=== PATIENT | female | born 1950 | race Two or more races ===

== ENCOUNTER 2020-02-16 13:36 | Outpatient (REF) | payer MEDICARE, OTHER, SELFPAY ==
--- NOTE | 2020-02-16 | MM_ITS ---
EXAMINATION: MM SCREENING DIGITAL BREAST TOMOSYNTHESIS, BILATERAL CLINICAL INFORMATION: Screening. Asymptomatic. The lifetime risk of breast cancer based on the Tyrer-Cuzick Model is 3%. COMPARISON: Mammography: 08/28/2018, 08/16/2017, 08/13/2016 TECHNIQUE: Digital breast tomosynthesis is performed in both the craniocaudal and mediolateral oblique views along with computer-aided detection (CAD). Synthesized 2D images are generated from the tomosynthesis. FINDINGS: There are scattered areas of fibroglandular density (ACR BI-RADS breast composition Category b). There are no significant masses, abnormal calcifications, or other abnormalities. Parenchymal pattern is similar to prior studies. Again, there is biopsy clip marker central right breast mid depth and some scattered bilateral benign calcifications. Bulky heavily calcified nodule left breast again seen. No significant changes. IMPRESSION: No significant changes from prior studies. ASSESSMENT: BI-RADS 2: Benign RECOMMENDATION: Routine annual mammography screening. This patient's information was entered into a reminder system with a target due date for their next mammogram.
== END 2020-02-16 13:37 | disposition home or self-care (01) ==
LOC: HO.MAMMO 13:36
PROVIDERS: PCP Internal Medicine; Visit Provider Internal Medicine
DX: Z12.31 Encounter for screening mammogram for malignant neoplasm of breast (principal)
CPT/HCPCS: 77063; 77067; 78014

== ENCOUNTER 2021-01-23 06:20 | Day surgery (SDC) | payer MEDICARE, OTHER, SELFPAY ==
[2021-01-18 08:23] VITALS: BMI 32.1
[2021-01-23 06:35] VITALS: BP 150/69; PULSE 75; RESP 16; TEMP 36.1; O2SAT 98
--- NOTE | 2021-01-23 07:26 | MHC.SHP ---
Pre-Procedural Eval Section A Date of Service: 01/23/21 The patient is an INPATIENT: No Changes since office visit: No Cold of Flu in the past 2 weeks, No New Medical Problems, No Changes in Medication and No Patient answered all questions The History & Physical has been completed within 30 days and I have reviewed it.: Yes Section B Chief Complaint: cataract Allergies: Allergies Allergy/AdvReac Type Severity Reaction Status Date / Time No Known Allergies Allergy Unverified 01/18/21 08:22 [No Known Allergies*] Plan Diagnosis/Plan: Unchanged I have reviewed the history and physical and performed a pertinent physical examination on my patient. No changes have occurred unless specified.
--- NOTE | 2021-01-23 07:36 | P.CONAN_ITS ---
HPI - Anesthesia Eval Consult details Narrative: 70yo female patient for Right cataract extraction, IOL insertion PMFSH Active Problems Active Problems: HTN Elevated cholesterol Past Medical History Medical History Elevated cholesterol HTN (hypertension) Pre-diabetes Seasonal allergies Thoracic spine pain Family History Family history of problems with anesthesia: No Surgical History Surgical History History of bilateral breast reduction surgery Hx laparoscopic cholecystectomy Hx of colonoscopy History of Problems with Anesthesia: No Social History Social History Are you a primary care assistant to a significant other at home: No Do you presently have visiting nurse or other home services: No Patient Tobacco Use Status: Never used Tobacco Second Hand Smoke Exposure: No Use of substances other than those prescribed or required for medical reasons: No Have you been hit, kicked, punched, or otherwise hurt by someone within the past year? If so, by whom?: No Are you DNR?: No Advance Directives: No Advance Directives Information Provided: No Advance Directives on File: No Recently lost weight without trying: No Eating poorly because of decreased appetite: No Nutrition Risks: No Nutritional Risk Patient : No Meds Allergies Allergy/AdvReac Type Severity Reaction Status Date / Time No Known Allergies Allergy Unverified 01/18/21 08:22 [No Known Allergies*] Active Medications: Current Medications Generic Name Dose Route Start Last Admin Trade Name Freq PRN Reason Stop Dose Admin Cyclopentolate HCl 1 drop 01/23/21 07:30 Cyclopentolate 1 % Ophth Dee 2 Ml Drpbtl EYE-RIGHT 01/23/21 07:41 Q5M CONNIE Ketorolac Tromethamine 1 drop 01/23/21 07:30 Ketorolac Tromethamine 0.5% Op 3 Ml Drops EYE-RIGHT 01/23/21 07:41 Q5M CONNIE Phenylephrine HCl 1 drop 01/23/21 07:30 Phenylephrine Hcl 2.5% Oph Dee 2 Ml Bottle EYE-RIGHT 01/23/21 07:41 Q5M CONNIE Povidone Iodine 1 appl 01/23/21 07:29 Povidone Iodine 5 % Ophth Soln 30 Ml Bottle EYE-RIGHT PREOP PRN Pre-Op Surgical Implant Prophy Tropicamide 1 drop 01/23/21 07:30 Tropicamide 1 % Ophth Dee 3 Ml Btl EYE-RIGHT 01/23/21 07:41 Q5M [facility] Home Medications Medication Instructions Recorded Confirmed Last Taken Type albuterol sulfate 90 mcg/actuation 2 puff INHALATION Q4-6H PRN 01/18/21 01/18/21 Unknown History aerosol inhaler (ProAir HFA) amlodipine 2.5 mg tablet 2.5 mg PO DAILY 01/18/21 01/18/21 01/23/21 History atorvastatin 80 mg tablet 80 mg PO DAILY 01/18/21 01/18/21 Unknown History ibuprofen 600 mg tablet 600 mg PO TID PRN 01/18/21 01/18/21 Unknown History loratadine 10 mg tablet 10 mg PO DAILY 01/18/21 01/18/21 Unknown History Exam Exam Date and Time: January 23, 2021 0736 Height,Weight and Vital Signs: Height 5 ft 2 in Weight 79.832 kg Last Vital Signs Temp 97.0 F 01/23/21 06:35 Pulse 75 01/23/21 06:35 Resp 16 01/23/21 06:35 BP 150/69 H 01/23/21 06:35 Pulse Ox 98 01/23/21 06:35 Airway Mallampati Class: II TM Dist: >3cm Neck ROM: Full Partial: Lower Heart: RRR Lungs: CTAB Assessment and Plan Assessment Anesthesia Assessment: Anesthesia Plan Discussed and Chart Reviewed Final Anesthetic Review Family History of Problems with Anesthesia: No History of Problems with Anesthesia: No NPO: Yes ASA Class: II Final Preanesthetic Review: No Changes in Pt Med Stat, Meds/Allgs Chart Reviewed, Consent Obtained/Reviewed and Anes Risks/Benef Reviewed Patient Risk: Low Procedure Risk: Low Assessment/Block/Sedation in SS: Assess/Block/Sedation-SS Anesthetic Plan Anesthetic Plan: MAC: Disposition: Standard PACU
--- NOTE | 2021-01-23 07:56 | HO.PNOPHT ---
Ophthalmology Procedure Procedure Date of Service: 01/23/21 Ophthalmology Viscoelastic: Healon Duet Dual Pack Pro Ophthalmology Lenses: TECNIS [id number] (21.5) Procedure Notes: PREOPERATIVE DIAGNOSIS: Decreased visual acuity right eye secondary to cataract POSTOPERATIVE DIAGNOSIS: Same PROCEDURE: Right cataract extraction with intraocular lens insertion SURGEON: Renard Mane M.D. ANESTHESIA: Topical/MAC ESTIMATED BLOOD LOSS: None COMPLICATIONS: None After obtaining informed consent, the patient was brought to the operating room suite and placed in the supine position. After adequate sedation per anesthesia, topical drops of Tetracaine were given to the right eye. The eye was then prepped and draped in the usual sterile fashion. The operating room microscope was then positioned over the operative eye and a lid speculum placed. A paracentesis was created. Viscoelastic was then instilled into the anterior chamber. A three plane incision was then created temporally, utilizing a 2.85 mm keratome. Capsulotomy forceps were then utilized to create a circular tear capsulotomy. Hydrodissection and hydrodelineation were carried out until adequate mobilization of the nucleus occurred. Phacoemulsification was then utilized to remove the dense central nucleus followed by removal of the cortical material utilizing the automated aspiration irrigation unit. Viscoelastic was instilled into the posterior capsular bag followed by placement of a posterior chamber intraocular lens without difficulty. The residual Viscoelastic was then removed utilizing the automated IA machine. The wound was checked and found to be watertight. The patient tolerated the procedure well and the lid speculum was removed. Intracameral injection of Vigamox 0.1 mL followed by a subtenon injection of Kenalog-40 0.2 mL were administered. The patient will be seen in the a.m.
[2021-01-23 08:23] VITALS: BP 137/71; PULSE 74; RESP 18; TEMP 35.9; O2SAT 100
== END 2021-01-23 08:30 | disposition home or self-care (01) ==
PROVIDERS: PCP Internal Medicine; Visit Provider Ophthalmology
PROC: (CPT 66985; principal; 2021-01-23 08:00)
DX: H25.11 Age-related nuclear cataract, right eye (principal); H54.7 Unspecified visual loss; I10 Essential (primary) hypertension; R73.03 Prediabetes; J30.2 Other seasonal allergic rhinitis; Z79.1 Long term (current) use of non-steroidal anti-inflammatories (NSAID); Z79.899 Other long term (current) drug therapy
CPT/HCPCS: 66984; J2250; J3300; V2632

== ENCOUNTER 2021-02-06 08:38 | Day surgery (SDC) | payer MEDICARE, OTHER, SELFPAY ==
[2021-01-18 08:26] VITALS: BMI 32.1
--- NOTE | 2021-02-01 13:04 | MHC.SHP ---
Pre-Procedural Eval Section A Date of Service: 02/01/21 The patient is an INPATIENT: No Changes since office visit: No Cold of Flu in the past 2 weeks, No New Medical Problems, No Changes in Medication and No Patient answered all questions The History & Physical has been completed within 30 days and I have reviewed it.: Yes Section B Chief Complaint: cataract Allergies: Allergies Allergy/AdvReac Type Severity Reaction Status Date / Time No Known Allergies Allergy Unverified 01/18/21 08:22 [No Known Allergies*] Plan Diagnosis/Plan: Unchanged I have reviewed the history and physical and performed a pertinent physical examination on my patient. No changes have occurred unless specified.
--- NOTE | 2021-02-03 08:29 | P.CONAN_ITS ---
Documented by User: Mali Cuadra NP 02/03/21 08:31 HPI - Anesthesia Eval Consult details Narrative: 70yo F for Left Cataract Extraction IOL Insertion PCP cleared R eye 01/23/21 with MAC: Midaz 2 PMFSH Past Medical History Medical History Elevated cholesterol HTN (hypertension) Pre-diabetes Seasonal allergies Thoracic spine pain Family History Family history of problems with anesthesia: No Surgical History Surgical History (Updated 01/31/21 @ 15:15 by Chloé Nieves RN) History of bilateral breast reduction surgery History of cataract extraction Hx laparoscopic cholecystectomy Hx of colonoscopy History of Problems with Anesthesia: No Social History Social History Are you a primary customer care associate to a significant other at home: No Do you presently have visiting nurse or other home services: No Patient Tobacco Use Status: Never used Tobacco Second Hand Smoke Exposure: No Use of substances other than those prescribed or required for medical reasons: No Have you been hit, kicked, punched, or otherwise hurt by someone within the past year? If so, by whom?: No Are you DNR?: No Advance Directives: No Advance Directives Information Provided: No Advance Directives on File: No Recently lost weight without trying: No Eating poorly because of decreased appetite: No Nutrition Risks: No Nutritional Risk Meds Allergies Allergy/AdvReac Type Severity Reaction Status Date / Time No Known Allergies Allergy Unverified 01/18/21 08:22 [No Known Allergies*] Home Medications Medication Instructions Recorded Confirmed Last Taken Type albuterol sulfate 90 mcg/actuation 2 puff INHALATION Q4-6H PRN 01/18/21 01/18/21 Unknown History aerosol inhaler (ProAir HFA) amlodipine 2.5 mg tablet 2.5 mg PO DAILY 01/18/21 01/18/21 02/06/21 History atorvastatin 80 mg tablet 80 mg PO DAILY 01/18/21 01/18/21 Unknown History ibuprofen 600 mg tablet 600 mg PO TID PRN 01/18/21 01/18/21 Unknown History loratadine 10 mg tablet 10 mg PO DAILY 01/18/21 01/18/21 Unknown History Exam Exam Date and Time: February 03, [id number] Height,Weight and Vital Signs: Height 5 ft 2 in Weight 79.832 kg Assessment and Plan Assessment Anesthesia Assessment: Chart Reviewed Final Anesthetic Review Family History of Problems with Anesthesia: No History of Problems with Anesthesia: No Documented by User: Oliver Guerrero MD 02/06/21 09:46 [facility] Past Medical History Medical History Elevated cholesterol HTN (hypertension) Pre-diabetes Seasonal allergies Thoracic spine pain Surgical History Surgical History (Updated 01/31/21 @ 15:15 by Chloé Nieves RN) History of bilateral breast reduction surgery History of cataract extraction Hx laparoscopic cholecystectomy Hx of colonoscopy Social History Social History Are you a primary customer care associate to a significant other at home: No Do you presently have visiting nurse or other home services: No Patient Tobacco Use Status: Never used Tobacco Second Hand Smoke Exposure: No Use of substances other than those prescribed or required for medical reasons: No Have you been hit, kicked, punched, or otherwise hurt by someone within the past year? If so, by whom?: No Are you DNR?: No Advance Directives: No Advance Directives Information Provided: No Advance Directives on File: No Recently lost weight without trying: No Eating poorly because of decreased appetite: No Nutrition Risks: No Nutritional Risk Meds Allergies Allergy/AdvReac Type Severity Reaction Status Date / Time No Known Allergies Allergy Unverified 01/18/21 08:22 [No Known Allergies*] Home Medications Medication Instructions Recorded Confirmed Last Taken Type albuterol sulfate 90 mcg/actuation 2 puff INHALATION Q4-6H PRN 01/18/21 01/18/21 Unknown History aerosol inhaler (ProAir HFA) amlodipine 2.5 mg tablet 2.5 mg PO DAILY 01/18/21 01/18/21 02/06/21 History atorvastatin 80 mg tablet 80 mg PO DAILY 01/18/21 01/18/21 Unknown History ibuprofen 600 mg tablet 600 mg PO TID PRN 01/18/21 01/18/21 Unknown History loratadine 10 mg tablet 10 mg PO DAILY 01/18/21 01/18/21 Unknown History Exam Airway Mallampati Class: II TM Dist: >3cm Neck ROM: Full Loose/Missing/Broken Teeth: No Heart: [id number] Lungs: cta b/l Assessment and Plan Assessment Anesthesia Assessment: Anesthesia Plan Discussed Final Anesthetic Review NPO: Yes ASA Class: III Final Preanesthetic Review: No Changes in Pt Med Stat, Meds/Allgs Chart Reviewed, Consent Obtained/Reviewed and Anes Risks/Benef Reviewed Patient Risk: Intermediate Procedure Risk: Low Assessment/Block/Sedation in SS: Assess/Block/Sedation-SS Anesthetic Plan Anesthetic Plan: MAC: and Agree w/ Assess. and Plan Disposition: Standard PACU
[2021-02-06 09:44] VITALS: BP 149/84; PULSE 71; RESP 16; TEMP 35.9; O2SAT 97
[2021-02-06] MEDS: Tetracaine HCl/PF 0.5% Oph Sol 4 ML DROPS 1 DROP EYE-LEFT (09:46)
[2021-02-06] MEDS: Tropicamide 1 % Ophth Sol 3 ML BTL 1 DROP EYE-LEFT ×3 (09:47→09:57)
[2021-02-06] MEDS: Phenylephrine HCL 2.5% Oph SoL 2 ML BOTTLE 1 DROP EYE-LEFT ×3 (09:51→10:02)
[2021-02-06] MEDS: Lactated Ringers 500 ML 50 ML IV (10:00)
--- NOTE | 2021-02-06 10:42 | HO.PNOPHT ---
Ophthalmology Procedure Procedure Date of Service: 02/06/21 Ophthalmology Viscoelastic: Healon Duet Dual Pack Pro Ophthalmology Lenses: TECKEDAR [id number] (22) Procedure Notes: PREOPERATIVE DIAGNOSIS: Decreased visual acuity left eye secondary to cataract POSTOPERATIVE DIAGNOSIS: Same PROCEDURE: Left cataract extraction with intraocular lens insertion SURGEON: Renard Mane M.D. ANESTHESIA: Topical/MAC ESTIMATED BLOOD LOSS: None COMPLICATIONS: None After obtaining informed consent, the patient was brought to the operation room suite and placed in the supine position. After adequate sedation per anesthesia, topical drops of Tetracaine were given to the left eye. The eye was then prepped and draped in the usual sterile fashion. The operating room microscope was then positioned over the operative eye and a lid speculum placed. A paracentesis was created. Viscoelastic was then instilled into the anterior chamber. A three plane incision was then created temporally, utilizing a 2.85 mm keratome. Capsulotomy forceps were then utilized to create a circular tear capsulotomy. Hydrodissection and hydrodelineation were carried out until adequate mobilization of the nucleus occurred. Phacoemulsification was then utilized to remove the dense central nucleus followed by removal of the cortical material utilizing the automated aspiration irrigation unit. Viscoat elastic was instilled into the posterior capsular bag followed by placement of a posterior chamber intraocular lens without difficulty. The residual Viscoat elastic was then removed utilizing the automated IA machine. The wound was check and found to be watertight. The patient tolerated the procedure well and the lid speculum was removed. Intracameral injection of Vigamox 0.1 mL followed by a subtenon injection of Kenalog-40 0.2 mL were administered. The patient will be seen in the a.m.
[2021-02-06 11:06] VITALS: BP 141/71; PULSE 63; RESP 16; TEMP 36; O2SAT 95
== END 2021-02-06 11:17 | disposition home or self-care (01) ==
PROVIDERS: PCP Internal Medicine; Visit Provider Ophthalmology
PROC: (CPT 66985; principal; 2021-02-06 10:50)
DX: H25.12 Age-related nuclear cataract, left eye (principal); I10 Essential (primary) hypertension; Z79.899 Other long term (current) drug therapy
CPT/HCPCS: 66984; J2250; J3010; J3300; V2632

== ENCOUNTER 2021-04-25 15:00 | Outpatient (RCR) | payer MEDICARE, MEDICAID, SELFPAY | END 2021-05-11 11:50 | disposition home or self-care (01) | LOC: HO.PT 15:00 | PROVIDERS: PCP Internal Medicine; Visit Provider Internal Medicine | DX: M54.6 Pain in thoracic spine (principal) | CPT/HCPCS: 97110; 97112; 97140; 97161 ==

== ENCOUNTER 2021-04-28 08:17 | Outpatient (REF) | payer MEDICARE, MEDICAID, SELFPAY ==
--- NOTE | ~2021-04-28 | MM_ITS ---
EXAMINATION: MM SCREENING DIGITAL BREAST TOMOSYNTHESIS, BILATERAL CLINICAL INFORMATION: Screening. Asymptomatic. Remote prior reduction mammoplasty, 2008. The lifetime risk of breast cancer based on the Tyrer-Cuzick Model is 4%. COMPARISON: Mammography: 02/16/2020, 08/28/2018, 08/16/2017 TECHNIQUE: Digital breast tomosynthesis is performed in both the craniocaudal and mediolateral oblique views along with computer-aided detection (CAD). Synthesized 2D images are generated from the tomosynthesis. FINDINGS: There are scattered areas of fibroglandular density (ACR BI-RADS breast composition Category b). Parenchymal pattern is similar to prior studies. Stable heavily calcified mass central left breast and scattered benign coarse and some fine calcifications in the breasts are again noted. Biopsy clip marker x2 again seen on right. No developing density or significant mass or architectural abnormality. No significant changes. MM/MM tomosynthesis screening BI IMPRESSION: No mammographic evidence of malignancy. ASSESSMENT: BI-RADS 2: Benign RECOMMENDATION: Routine annual mammography screening. This patient's information was entered into a reminder system with a target due date for their next mammogram.
== END 2021-04-28 08:18 | disposition home or self-care (01) ==
LOC: HO.MAMMO 08:17
PROVIDERS: Visit Provider Internal Medicine
DX: Z12.31 Encounter for screening mammogram for malignant neoplasm of breast (principal)
CPT/HCPCS: 77063; 77067

== ENCOUNTER → 2021-09-26 14:26 | Outpatient (BNVA) | payer OTHER, MEDICAID, SELFPAY | PROVIDERS: PCP Internal Medicine; Visit Provider Surgery Vascular Surgery | DX: I83.11 Varicose veins of right lower extremity with inflammation (principal) ==

== ENCOUNTER 2021-10-13 14:51 | Emergency (ER) | payer OTHER, MEDICAID, SELFPAY ==
[2021-10-13 15:04] VITALS: BP 139/72; PULSE 70; RESP 16; TEMP 36.3; O2SAT 97; BMI 32.2
--- NOTE | 2021-10-13 19:14 | ED.SKABFB ---
HPI - Skin/Abscess/Foreign Bdy General Chief complaint: Skin/Abscess/Foreign Body Stated complaint: Poison liliana, rash? Time Seen by Provider: 10/13/21 16:59 Source: patient Mode of arrival: ambulatory Limitations: language barrier History of Present Illness HPI narrative: 71-year-old Bangladeshi-speaking female presents for a rash on her bilateral legs that is spreading and itchy that has lasted for 3 weeks. No pain, no fevers. Patient states she saw her primary care provider and got calamine lotion and allergy pills. She has a past medical history of hypertension hyperlipidemia, she is not diabetic Related Data Home Medications Medication Instructions Recorded Confirmed albuterol sulfate 90 mcg/actuation 2 puff INHALATION Q4-6H PRN 01/18/21 01/18/21 aerosol inhaler (ProAir HFA) amlodipine 2.5 mg tablet 2.5 mg PO DAILY 01/18/21 01/18/21 atorvastatin 80 mg tablet 80 mg PO DAILY 01/18/21 01/18/21 ibuprofen 600 mg tablet 600 mg PO TID PRN 01/18/21 01/18/21 loratadine 10 mg tablet 10 mg PO DAILY 01/18/21 01/18/21 Previous Rx's Medication Instructions Recorded prednisone 10 mg tablet 10 mg PO DAILY 18 Days #63 tab 10/13/21 Allergies Allergy/AdvReac Type Severity Reaction Status Date / Time No Known Allergies Allergy Verified 09/26/21 14:30 [No Known Allergies*] Review of Systems Constitutional: Constitutional: Denies body ache(s), Denies chills, Denies fatigue, Denies fever(s), Denies headache(s), Denies malaise and Denies weakness Eyes: Eyes: Denies diplopia ENT: Denies vertigo, Denies dizziness, Denies headache(s) and Denies throat swelling Cardiovascular: Cardiovascular: Denies chest pain, Denies syncope, Denies leg edema, Denies lightheadedness, Denies Loss of Consciousness, Denies palpitations and Denies dyspnea Respiratory: Respiratory: Denies chest congestion, Denies cough and Denies dyspnea Gastrointestinal: Gastrointestinal: Denies abdominal pain, Denies hematochezia, Denies constipation, Denies diarrhea and Denies vomiting Musculoskeletal: Musculoskeletal: Reports no additional musculoskeletal complaints Integumentary/Breasts: Skin/Breast: Reports pruritus and Reports rash Neurologic: Denies confusion, Denies vertigo, Denies dizziness, Denies syncope, Denies headache(s) and Denies weakness Psychiatric: Psychiatric: Denies anxiety, Denies confusion and Denies depression Endocrine: Endocrine: Denies fatigue and Denies palpitations Allergic/Immunologic: Allergic/Immunologic: Denies throat swelling PMFSH Past Medical History Medical History Elevated cholesterol HTN (hypertension) Pre-diabetes Seasonal allergies Thoracic spine pain Surgical History History of bilateral breast reduction surgery History of cataract extraction Hx laparoscopic cholecystectomy Hx of colonoscopy Social History Social History Are you a primary pet care technician to a significant other at home: No Do you presently have visiting nurse or other home services: No Patient Tobacco Use Status: Never used Tobacco Second Hand Smoke Exposure: No Advance Directives: No Advance Directives Information Provided: No Physical Exam Vital Signs: Vital Signs: Last Vital Signs Temp 97.4 F 10/13/21 15:04 Pulse 70 10/13/21 15:04 Resp 16 10/13/21 15:04 BP 139/72 10/13/21 15:04 Pulse Ox 97 10/13/21 15:04 BMI result Body Mass Index 32.2 Const: General: No confusion Nutritional Appearance: well nourished Orientation/consciousness: No confusion Limitations: no limitations Eyes: Conjunctivae: conjunctivae normal Pupils: Equal, round and reactive pupils present EOM: EOMs intact bilaterally Neck: Neck: Yes full ROM, Yes no lymphadenopathy and Yes supple Resp: Effort & Inspection: normal respiratory effort and able to speak in complete sentences Auscultation: clear to auscultation bilaterally, no crackles, no rales, no rhonchi and no wheezes Cardio: Rate: regular rate Rhythm: regular rhythm Heart sounds: S1 normal heart sound present and S2 normal heart sound present GI: Inspection: Yes normal to inspection Palpation (GI): Soft to palpation, nontender, no guarding and not rigid Percussion: Yes normal to percussion Auscultation: normal bowel sounds Skin: Other: patient has linear, erythematous, vesicular rash on her bilateral upper thighs and bilateral forearms Neuro: General: No confusion Cranial nerves: Yes Equal, round and reactive pupils present Extrem: General: Yes normal to inspection and Yes full ROM Psych: Appearance: grossly normal Affect: normal affect Attitude: cooperative Thought process: Normal thought process present Course Course Course Narrative: 71 y/o female patient has linear, erythematous, vesicular rash on her bilateral upper thighs and bilateral forearms, which looks to me like poison liliana, although patient denies being in contact with any plants. Will treat with prednisone taper, counseled patient to finish taper even if her rash resolved, if she did not finish taper completely and this is poison liliana, rash can rebound Discharge Plan Discharge Clinical Impression: Contact dermatitis Patient Disposition: Home, Self-Care Instructions: Contact Dermatitis (ED), Poison Liliana (ED), Cold Compress or Soak (ED) Additional Instructions: I think you have something called contact dermatitis, which means your skin is allergic to something you came in contact with, most likely a plan. I have prescribed the prednisone dose for you for 18 days, please take it as prescribed reducing the amount of pills he take every 3 days. Please take it even if your rash goes away, you are taking it for this long time so that your rash does not rebound and appear again if you have fevers, chest pain, shortness of breath, any new or concerning symptoms, please return to emergency room Creo que tienes algo llamado dermatitis de contacto, lo que significa que tu piel es al?rgica a algo con lo que entraste en contacto, lo m?s probable es que sea un plan. Le he recetado la dosis de prednisona para 18 d?as, por favor t?jose seg?n lo prescrito reduciendo la cantidad de pastillas que hollis cada 3 d?as. T?mayer incluso si liu sarpullido desaparece, lo est? tomando bharath tanto tiempo para que liu sarpullido no rebote y aparezca nuevamente. si tiene fiebre, dolor en el pecho, dificultad para respirar, cualquier s?ntoma nuevo o preocupante, regrese a la chucho de emergencias Prescriptions: New prednisone 10 mg tablet 10 mg PO DAILY 18 Days Qty: 63 0RF Rx Instructions: Take 6 tabs for 3 days, take 5 tabs for 3 days, take 4 tabs for 3 days, 3 tabs for 3 days, 2 tabs for 3 days, 1 tab for 3 days No Action atorvastatin 80 mg Tablet 80 mg PO DAILY 0RF amlodipine 2.5 mg Tablet 2.5 mg PO DAILY 0RF ibuprofen 600 mg Tablet 600 mg PO TID PRN (Reason: Pain) 0RF albuterol sulfate [ProAir HFA] 90 mcg/actuation Hfa Aerosol Inhaler 2 puff INHALATION Q4-6H PRN (Reason: Wheezing) 0RF loratadine 10 mg Tablet 10 mg PO DAILY 0RF Interventions: ED Discharge Assessment Last Done: 10/13/21 17:13 Discharge Date/Time: 10/13/21 17:13 Print Language: Bangladeshi
== END 2021-10-13 17:13 | disposition home or self-care (01) ==
PROVIDERS: Emergency Provider Student in an Organized Health Care Education/Training Program; PCP Internal Medicine
DX: L25.9 Unspecified contact dermatitis, unspecified cause (principal); I10 Essential (primary) hypertension
CPT/HCPCS: 99283

== ENCOUNTER 2021-10-27 15:10 | Outpatient (REF) | payer OTHER, SELFPAY ==
[2021-10-27 15:50] LABS: COVID-19 Test Negative (Negative)
== END 2021-10-27 15:11 | disposition home or self-care (01) ==
LOC: HO.LAB 15:10
PROVIDERS: Visit Provider Internal Medicine
DX: Z20.822 Contact with and (suspected) exposure to COVID-19 (principal)
CPT/HCPCS: 87635; C9803

== ENCOUNTER 2021-11-09 12:56 | Outpatient (REF) | payer OTHER, SELFPAY ==
--- NOTE | ~2021-11-09 | US_ITS ---
EXAMINATION: US LOWER EXTREMITY VENOUS (REFLUX EXAM), BILATERAL CLINICAL INDICATION: Chronic venous insufficiency with a lower extremity varicose veins COMPARISON: None. TECHNIQUE: Color flow triplex imaging and compression Doppler was performed to evaluate both the deep and the superficial systems bilaterally. To evaluate the superficial system, the examination was performed in the upright position. Color-flow Doppler ultrasound and compression ultrasound were utilized. In addition, maneuvers were utilized to demonstrate reflux. FINDINGS: 1. DEEP VENOUS ULTRASOUND OF THE RIGHT LOWER EXTREMITY: Common Femoral Vein: Compressible, normal respiratory variation and augmented flow. Femoral Vein: Compressible, normal color flow and augmentation. Popliteal Vein: Compressible, normal augmentation. Deep Reflux: There is no evidence of reflux in the deep system in either the common femoral vein or the popliteal vein. There is no evidence of a Allen's cyst. 2. SUPERFICIAL ULTRASOUND WITH DOPPLER OF RIGHT LOWER EXTREMITY: GREAT SAPHENOUS VEIN: Saphenofemoral Junction: 7.2 mm; No evidence of reflux. Proximal Thigh: 5.6 mm; No evidence of reflux. Mid Thigh: 3.6 mm; No evidence of reflux. Above Knee: 3.7 mm; No evidence of reflux. At Knee: 3.0 mm; No evidence of reflux. Below Knee: 3.0 mm; No evidence of reflux. Mid Calf: 2.4 mm; No evidence of reflux. Ankle: 2.7 mm; No evidence of reflux. DUPLICATED GREAT SAPHENOUS VEIN: There is a lateral duplicated great saphenous vein measuring 3 mm without significant reflux SMALL SAPHENOUS VEIN: Proximal: 4.4 mm; No evidence of reflux. Distal: 4.2 mm; No evidence of reflux. VEIN OF GIACOMINI: None Imaged. PERFORATORS: None Imaged VARICOSITIES: Multiple small branch veins of the great saphenous vein throughout the thigh and calf measuring less than 3 mm. There is a varicose vein in the posterior calf off the small saphenous vein measuring 3 mm without significant reflux 3. DEEP VENOUS ULTRASOUND OF THE LEFT LOWER EXTREMITY: Common Femoral Vein: Compressible, normal respiratory variation and augmented flow. Femoral Vein: Compressible, normal color flow and augmentation. Popliteal Vein: Compressible, normal augmentation. Deep Reflux: There is no evidence of reflux in the deep system in either the common femoral vein or the popliteal vein. There is no evidence of a Allen's cyst. 4. SUPERFICIAL ULTRASOUND WITH DOPPLER OF LEFT LOWER EXTREMITY: GREAT SAPHENOUS VEIN: Saphenofemoral Junction: 3.6 mm; No evidence of reflux. Proximal Thigh: 4.6 mm; No evidence of reflux. Mid Thigh: 3.9 mm; No evidence of reflux. Above Knee: 3.5 mm; No evidence of reflux. At Knee: 3.3 mm; reflux measures 2.7 seconds Below Knee: 2.2 mm; No evidence of reflux. Mid Calf: 2.1 mm; No evidence of reflux. Ankle: 1.9 mm; No evidence of reflux. DUPLICATED GREAT SAPHENOUS VEIN: There is a lateral duplicated great saphenous vein measuring 4.3 mm without significant reflux SMALL SAPHENOUS VEIN: Proximal: 3.6 mm; No evidence of reflux. Distal: 2.6 mm; No evidence of reflux. VEIN OF GIACOMINI: None Imaged. PERFORATORS: None Imaged VARICOSITIES: Multiple small branches are seen off the great saphenous vein throughout the thigh and calf measuring less than 3 mm without significant reflux. There is a varicose vein at the level the knee measuring 3 mm with reflux measuring 2.8 seconds US/US venous duplex LE BI IMPRESSION: 1. No evidence of deep venous thrombosis 2. No significant superficial venous reflux in the right lower extremity. 3. Focal segmental reflux in the left great saphenous vein at the level of the knee with an adjacent reflux and varicose vein 4. Scattered small branch veins arising from the bilateral great saphenous veins without significant reflux
== END 2021-11-09 12:57 | disposition home or self-care (01) ==
LOC: HO.US 12:56
PROVIDERS: Visit Provider Surgery Vascular Surgery
DX: I83.11 Varicose veins of right lower extremity with inflammation (principal)
CPT/HCPCS: 93970

== ENCOUNTER → 2021-11-16 15:06 | Outpatient (BNVA) | payer OTHER, SELFPAY | PROVIDERS: PCP Internal Medicine; Visit Provider Surgery Vascular Surgery | DX: I83.11 Varicose veins of right lower extremity with inflammation (principal) | CPT/HCPCS: 99212 ==

== ENCOUNTER → 2022-02-02 09:41 | Outpatient (BNVA) | payer OTHER, SELFPAY | PROVIDERS: PCP Internal Medicine; Referring Provider Internal Medicine; Visit Provider Nurse Practitioner Family | DX: K59.00 Constipation, unspecified (principal); K64.9 Unspecified hemorrhoids; K62.5 Hemorrhage of anus and rectum | CPT/HCPCS: 99202 ==

== ENCOUNTER 2022-04-19 14:29 | Emergency (ER) | payer OTHER, SELFPAY ==
[2022-04-19 15:05] VITALS: BP 127/82; PULSE 84; RESP 20; TEMP 36.1; O2SAT 96; BMI 30.2
--- NOTE | 2022-04-19 15:09 | ED.SKABFB ---
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 Patient diagnosed with shingles and took a course of Valtrex and prednisone with continued symptoms. No pain/burning to the rash. No fevers, chills. No new medications lotions, detergents, products/medications, Related Data Home Medications Medication Instructions Recorded Confirmed albuterol sulfate 90 mcg/actuation 2 puff inhalation Q4-6H PRN 01/18/21 01/18/21 aerosol inhaler (ProAir HFA) Wheezing amlodipine 2.5 mg tablet 2.5 mg PO DAILY 01/18/21 01/18/21 atorvastatin 80 mg tablet 80 mg PO DAILY 01/18/21 01/18/21 ibuprofen 600 mg tablet 600 mg PO TID PRN Pain 01/18/21 01/18/21 loratadine 10 mg tablet 10 mg PO DAILY 01/18/21 01/18/21 ibuprofen 200 mg tablet 400 mg PO Q8H 02/02/22 Previous Rx's Medication Instructions Recorded docusate sodium 100 mg capsule 100 mg PO BEDTIME #90 caps 02/02/22 hydrocortisone 2.5 % topical cream 1 appl [place] BID-QID PRN hemorrhoids 02/02/22 with perineal applicator #30 grams (Proctosol HC) hydrocortisone 2.5 % topical cream 1 appl topical QID PRN rash #30 04/19/22 grams hydroxyzine HCl 25 mg tablet 25 mg PO Q6H PRN itching #30 tabs 04/19/22 loratadine 10 mg tablet 10 mg PO DAILY PRN allergic 04/19/22 symptoms #30 tabs prednisone 20 mg tablet 40 mg PO DAILY #10 tabs 04/19/22 Allergies Allergy/AdvReac Type Severity Reaction Status Date / Time No Known Allergies Allergy Verified 02/02/22 10:32 [No Known Allergies*] Review of Systems Review of Systems: Yes all other systems are reviewed and are negative Constitutional: Constitutional: Reports no additional constitutional complaints, Denies body ache(s), Denies chills, Denies fever(s), Denies headache(s) and Denies weakness Eyes: Eyes: Reports no additional eye complaints and Denies change in vision ENT: Reports system reviewed and no additional complaints, except as documented, Denies dizziness, Denies headache(s), Denies nasal congestion, Denies nasal discharge and Denies neck pain Cardiovascular: Cardiovascular: Reports no additional cardiovascular complaints, Denies chest pain, Denies leg edema and Denies dyspnea Respiratory: Respiratory: Reports no additional respiratory complaints, Denies cough and Denies dyspnea Gastrointestinal: Gastrointestinal: Reports no additional gastrointestinal complaints, Denies abdominal pain, Denies diarrhea, Denies nausea and Denies vomiting Genitourinary: Genitourinary: Reports no additional female genitourinary complaints and Denies urinary incontinence Musculoskeletal: Musculoskeletal: Reports no additional musculoskeletal complaints, Denies back pain, Denies arthralgias, Denies joint swelling, Denies neck pain, Denies numbness and Denies tingling Integumentary/Breasts: Skin/Breast: Reports system reviewed and no additional complaints, except as docu and Reports rash Neurologic: Reports system reviewed and no additional complaints, except as documented, Denies Abnormal speech present, Denies dizziness, Denies headache(s), Denies numbness, Denies tingling and Denies weakness PMFSH Past Medical History Attestation statement: The following information was validated with the patient. Source: old records reviewed and nursing notes reviewed Medical History Elevated cholesterol HTN (hypertension) Pre-diabetes Seasonal allergies Thoracic spine pain Surgical History History of bilateral breast reduction surgery History of cataract extraction Hx laparoscopic cholecystectomy Hx of colonoscopy Social History Social History Are you a primary school childcare attendant to a significant other at home: No Do you presently have visiting nurse or other home services: No Patient Tobacco Use Status: Never used Tobacco Second Hand Smoke Exposure: No Advance Directives: No Advance Directives Information Provided: No Physical Exam Vital Signs: Vital Signs: Last Vital Signs Temp 96.9 F 04/19/22 15:05 Pulse 84 04/19/22 15:05 Resp 20 12/08/22 15:05 BP 127/82 04/19/22 15:05 Pulse Ox 96 04/19/22 15:05 O2 Del Method 04/19/22 15:05 BMI result Body Mass Index 30.2 Const: General: cooperative, healthy appearing, comfortable and no acute distress Orientation/consciousness: patient oriented x3 Limitations: no limitations HEENT: Head: Yes normal to inspection Ears: hearing grossly normal bilaterally General nose exam: Normal external nose present Face and sinus: Yes normal facial exam Mouth: Normal oral and palatal mucosa present Throat: Yes posterior oropharynx normal Eyes: General: appearance normal, both eyes and all related structures Pupils: Equal, round and reactive pupils present Neck: Neck: Yes normal visual inspection Chest: Chest palpation & inspection: normal inspection of the chest Resp: Effort & Inspection: normal respiratory effort Auscultation: clear to auscultation bilaterally Cardio: Rate: regular rate Rhythm: regular rhythm Peripheral pulses: Peripheral pulses 2+ throughout GI: Inspection: Yes normal to inspection Palpation (GI): Soft to palpation and nontender Auscultation: normal bowel sounds Back/Spine/Pelvis: Thoracic/Lumbar Spine: thoracic and lumbar spine normal to inspection Skin: Other: However the trunk, arms and legs there is a macular papular rash that is blanchable with no sloughing noted. There is some local excoriation noted around the rash. Some lesions with crusting in various stages of healing General skin exam: no rashes or lesions noted Neuro: General: patient oriented x3, no focal motor deficits and normal sensation to monofilament Cranial nerves: Yes Equal, round and reactive pupils present Cognition (Neuro): normal cognition Speech: No Abnormal speech present Gait exam (Neuro): Normal gait present Motor exam (neuro): 5/5 motor strength present throughout Extrem: General: Yes normal to inspection Medical Decision Making Medical Decision Making MDM Narrative: 71-year-old female here with a chronic itching rash for months. Exam is consistent with dermatitis. Patient placed on prednisone, given topical steroid, allergy medication and hydroxyzine for itching. At this point a beneficial for her to see a medical record specialist. Discharge Plan Discharge Clinical Impression: Dermatitis Patient Disposition: Home, Self-Care Instructions: Dermatitis (ED) Additional Instructions: Necesitas seguimiento con dermat?logo. Necesitar? da remisi?n del PCP para woody Prescriptions: New hydroxyzine HCl 25 mg tablet 25 mg PO Q6H PRN (Reason: itching) Qty: 30 0RF loratadine 10 mg tablet 10 mg PO DAILY PRN (Reason: allergic symptoms) Qty: 30 0RF prednisone 20 mg tablet 40 mg PO DAILY Qty: 10 0RF hydrocortisone 2.5 % cream 1 appl topical QID PRN (Reason: rash) Qty: 30 0RF No Action atorvastatin 80 mg Tablet 80 mg PO DAILY amlodipine 2.5 mg Tablet 2.5 mg PO DAILY ibuprofen 600 mg Tablet 600 mg PO TID PRN (Reason: Pain) albuterol sulfate [ProAir HFA] 90 mcg/actuation Hfa Aerosol Inhaler 2 puff INHALATION Q4-6H PRN (Reason: Wheezing) loratadine 10 mg Tablet 10 mg PO DAILY ibuprofen 200 mg tablet 400 mg PO Q8H docusate sodium 100 mg capsule 100 mg PO BEDTIME Qty: 90 3RF hydrocortisone [Proctosol HC] 2.5 % cream with perineal applicator 1 appl [place] BID-QID PRN (Reason: hemorrhoids) Qty: 30 2RF Referrals: Physician,Unknown J [Physician] - 1 week Interventions: ED Discharge Assessment Last Done: 04/19/22 15:26 Discharge Date/Time: 04/19/22 15:27 Print Language: Cypriot
== END 2022-04-19 15:27 | disposition home or self-care (01) ==
LOC: HO.ED 15:24
PROVIDERS: Emergency Provider Emergency Medicine
DX: L30.9 Dermatitis, unspecified (principal); R21 Rash and other nonspecific skin eruption; M54.50 Low back pain, unspecified; Z79.899 Other long term (current) drug therapy
CPT/HCPCS: 99282; 99283

== ENCOUNTER 2022-04-27 14:11 | Outpatient (REF) | payer OTHER, MEDICAID, SELFPAY ==
--- NOTE | ~2022-04-27 | MM_ITS ---
EXAMINATION: MM SCREENING DIGITAL BREAST TOMOSYNTHESIS, BILATERAL CLINICAL INFORMATION: Screening. Asymptomatic. Prior remote reduction mammoplasty, 2008. The lifetime risk of breast cancer based on the Tyrer-Cuzick Model is 3%. COMPARISON: Mammography: 04/28/2021, 02/16/2020, 08/28/2018 TECHNIQUE: Digital breast tomosynthesis is performed in both the craniocaudal and mediolateral oblique views along with computer-aided detection (CAD). Synthesized 2D images are generated from the tomosynthesis. FINDINGS: There are scattered areas of fibroglandular density (ACR BI-RADS breast composition Category b). There are no significant masses, abnormal calcifications, or other abnormalities. There are chronic bilateral benign findings including heavily calcified nodule posterior central left breast, right biopsy clip markers, minor scarring, and scattered bilateral benign round and coarse calcifications. No developing density or architectural abnormality. No significant changes. MM/MM tomosynthesis screening BI IMPRESSION: No mammographic evidence of malignancy. ASSESSMENT: BI-RADS 2: Benign RECOMMENDATION: Routine annual mammography screening. This patient's information was entered into a reminder system with a target due date for their next mammogram.
--- NOTE | ~2022-04-27 | MM_ITS ---
EXAMINATION: BONE DENSITOMETRY CLINICAL INDICATION: Osteopenia. COMPARISON: Previous BD dated 06/12/2019 and baseline BD dated 03/20/2012. TECHNIQUE: Using a [employer] DXA System (software version: 13.1) manufactured by [employer], dual-energy x-ray absorptiometry was performed of the lumbar spine and left hip. The images are of good technical quality. Summary results are attached. FINDINGS: AP SPINE L1-L4: Current: BMD 0.959 g/cm2, Z-score -0.7, T-score -1.8, osteopenia, 4.0% decrease from previous, 0.0% no change from baseline (<5% change is not significant). Prior: BMD 0.999 g/cm2. Baseline: BMD 0.959 g/cm2. LEFT FEMUR, NECK: Current: BMD 0.714 g/cm2, Z-score -1.0, T-score -2.3, osteopenia. Prior: BMD 0.796 g/cm2. Baseline: BMD 0.818 g/cm2. LEFT FEMUR, TOTAL: Current: BMD 0.685 g/cm2, Z-score -1.4, T-score -2.6, osteoporosis, 16.8% decrease from previous, 18.0% decrease from baseline (<5% change is not significant). Prior: BMD 0.823 g/cm2. Baseline: BMD 0.835 g/cm2. IDENTIFIED RISK FACTORS: Menopause, recurrent falls. HISTORY OF FRACTURE: None listed. MEDICATIONS: Calcium. MM/XR DEXA axial skeleton IMPRESSION: 1. DIAGNOSIS: Osteoporosis based on the lowest T-score value of -2.6 in the total femur applying World Health Organization criteria. 2. 10-YEAR FRACTURE RISK PREDICTION, FRAX: According to the guidelines, FRAX calculation should only be performed on patients in the osteopenia bone density category. Therefore, FRAX was not performed on this patient. 3. Treatment Recommendations: NOF guidelines recommend consideration for treatment in postmenopausal women and men age 50 and older presenting with the following: -A hip or vertebral (clinical or morphometric) fracture. -T-score less than or equal to -2.5 at the femoral neck or spine after appropriate evaluation to exclude secondary causes. -Low bone mass at the hip or spine and a 10-year fracture probability by FRAX of greater than or equal to 3% for hip fracture or greater than or equal to 20% for major osteoporotic fracture based on the [place] adapted WHO algorithm. 4. Other Recommendations: All treatment decisions require clinical judgment and consideration of individual patient factors, including patient preferences, comorbidities, previous drug use, risk factors not captured in the FRAX model (e.g. frailty, falls, vitamin D deficiency, increased bone turnover, interval significant decline in bone density) and possible under or overestimation of fracture risk by FRAX. Additional medical evaluation for secondary cause of low bone mineral density may be appropriate. FUTURE SCAN RECOMMENDATION: People with diagnosed cases of osteoporosis or at high risk for fracture should have regular bone mineral density tests. For patients eligible for Medicare, routine testing is allowed once every 2 years. The testing frequency can be increased to one year for patients who have rapidly progressing disease, those who are receiving or discontinuing medical therapy to restore bone mass, or have additional risk factors.
== END 2022-04-27 14:12 | disposition home or self-care (01) ==
LOC: HO.MAMMO 14:11
PROVIDERS: Visit Provider Internal Medicine
DX: Z12.31 Encounter for screening mammogram for malignant neoplasm of breast (principal); Z13.820 Encounter for screening for osteoporosis; Z78.0 Asymptomatic menopausal state
CPT/HCPCS: 77063; 77067; 77080

== ENCOUNTER 2022-05-29 15:07 | Emergency (ER) | payer OTHER, MEDICAID, SELFPAY ==
[2022-05-29 15:13] VITALS: BP 158/61; PULSE 77; RESP 16; O2SAT 99; BMI 31.8
--- NOTE | 2022-05-29 15:22 | ED_ITS ---
HPI - General Adult General Chief complaint: Skin/Abscess/Foreign Body Stated complaint: rash on arm Time Seen by Provider: 05/29/22 15:19 Source: patient Mode of arrival: ambulatory Limitations: no limitations History of Present Illness HPI narrative: 71 yold female presents to the ED for 4th episode of due to [place] rash. Patient recently came from [place]. Patient has been treated for this in the past. Patient states rash on extremities chest abdomen and back. Patient denies any lip swelling, tongue swelling, shortness of breath, fever, chills, watery eyes. Related Data Home Medications Medication Instructions Recorded Confirmed albuterol sulfate 90 mcg/actuation 2 puff inhalation Q4-6H PRN 01/18/21 01/18/21 aerosol inhaler (ProAir HFA) Wheezing amlodipine 2.5 mg tablet 2.5 mg PO DAILY 01/18/21 01/18/21 atorvastatin 80 mg tablet 80 mg PO DAILY 01/18/21 01/18/21 ibuprofen 600 mg tablet 600 mg PO TID PRN Pain 01/18/21 01/18/21 loratadine 10 mg tablet 10 mg PO DAILY 01/18/21 01/18/21 ibuprofen 200 mg tablet 400 mg PO Q8H 02/02/22 Previous Rx's Medication Instructions Recorded docusate sodium 100 mg capsule 100 mg PO BEDTIME #90 caps 02/02/22 hydrocortisone 2.5 % topical cream 1 appl [place] BID-QID PRN hemorrhoids 02/02/22 with perineal applicator #30 grams (Proctosol HC) hydrocortisone 2.5 % topical cream 1 appl topical QID PRN rash #30 04/19/22 grams hydroxyzine HCl 25 mg tablet 25 mg PO Q6H PRN itching #30 tabs 04/19/22 loratadine 10 mg tablet 10 mg PO DAILY PRN allergic 04/19/22 symptoms #30 tabs prednisone 20 mg tablet 40 mg PO DAILY #10 tabs 04/19/22 diphenhydramine HCl 25 mg capsule 25 mg PO TID PRN allergic reaction 05/29/22 (Benadryl) 7 days #21 caps famotidine 20 mg tablet (Pepcid) 20 mg PO BID 7 days #14 tabs 05/29/22 hydrocortisone 2.5 % topical cream 1 appl topical BID PRN rash 2 05/29/22 weeks #30 grams prednisone 20 mg tablet 60 mg PO DAILY 5 days #15 tabs 05/29/22 Allergies Allergy/AdvReac Type Severity Reaction Status Date / Time No Known Allergies Allergy Verified 02/02/22 10:32 [No Known Allergies*] [facility] Past Medical History Medical History Elevated cholesterol HTN (hypertension) Pre-diabetes Seasonal allergies Thoracic spine pain Surgical History History of bilateral breast reduction surgery History of cataract extraction Hx laparoscopic cholecystectomy Hx of colonoscopy Social History Social History Are you a primary healthcare representative to a significant other at home: No Do you presently have visiting nurse or other home services: No Patient Tobacco Use Status: Never used Tobacco Second Hand Smoke Exposure: No Advance Directives: No Advance Directives Information Provided: Yes Physical Exam ED Vital Signs: Vital Signs - 24 hr 05/29/22 15:13 Pulse Rate 77 Respiratory Rate 16 Blood Pressure 158/61 H Pulse Oximetry 99 Oxygen Delivery Method Room Air BMI result Body Mass Index 31.8 Discharge Plan Discharge Clinical Impression: Urticaria Patient Disposition: Home, Self-Care Instructions: Urticaria (ED), General Allergic Reaction (ED) Additional Instructions: Se le andreea? de chuck con esteroides, Benadryl, Pepcid, para el alivio de la erupci?n. Recomendar el seguimiento con el proveedor de atenci?n primaria para la prueba del parche para verificar si hay alergias y tambi?n derivar a dermatolog?a si es necesario. Regrese al servicio de urgencias si empeora el sarpullido, la hinchaz?n de los labios, la hinchaz?n de la lengua, la dificultad para respirar, la fiebre, los escalofr?os, los ojos rojos y llorosos o cualquier otro s?ntoma preocupante. Prescriptions: New prednisone 20 mg tablet 60 mg PO DAILY 5 Days Qty: 15 0RF diphenhydramine HCl [Benadryl] 25 mg capsule 25 mg PO TID PRN (Reason: allergic reaction) 7 Days Qty: 21 0RF famotidine [Pepcid] 20 mg tablet 20 mg PO BID 7 Days Qty: 14 0RF hydrocortisone 2.5 % cream 1 appl topical BID PRN (Reason: rash) 14 Days Qty: 30 0RF No Action atorvastatin 80 mg Tablet 80 mg PO DAILY amlodipine 2.5 mg Tablet 2.5 mg PO DAILY ibuprofen 600 mg Tablet 600 mg PO TID PRN (Reason: Pain) albuterol sulfate [ProAir HFA] 90 mcg/actuation Hfa Aerosol Inhaler 2 puff INHALATION Q4-6H PRN (Reason: Wheezing) loratadine 10 mg Tablet 10 mg PO DAILY hydroxyzine HCl 25 mg tablet 25 mg PO Q6H PRN (Reason: itching) Qty: 30 0RF loratadine 10 mg tablet 10 mg PO DAILY PRN (Reason: allergic symptoms) Qty: 30 0RF prednisone 20 mg tablet 40 mg PO DAILY Qty: 10 0RF hydrocortisone 2.5 % cream 1 appl topical QID PRN (Reason: rash) Qty: 30 0RF ibuprofen 200 mg tablet 400 mg PO Q8H docusate sodium 100 mg capsule 100 mg PO BEDTIME Qty: 90 3RF hydrocortisone [Proctosol HC] 2.5 % cream with perineal applicator 1 appl [place] BID-QID PRN (Reason: hemorrhoids) Qty: 30 2RF Discharge Date/Time: 05/29/22 16:00 Print Language: B[place]udian
--- NOTE | 2022-05-29 16:57 | PC.NURSE ---
discharged by provider
== END 2022-05-29 16:00 | disposition home or self-care (01) ==
LOC: HO.ED 15:31
PROVIDERS: Emergency Provider Emergency Medicine
DX: L50.0 Allergic urticaria (principal)
CPT/HCPCS: 99281; 99283

== ENCOUNTER 2022-06-18 14:30 | Emergency (ER) | payer OTHER, MEDICAID, SELFPAY ==
[2022-06-18 16:00] VITALS: BP 152/74; PULSE 76; RESP 18; TEMP 36.5; O2SAT 97; BMI 31.8
--- NOTE | 2022-06-18 16:01 | ED_ITS ---
HPI - General Adult General Chief complaint: Skin/Abscess/Foreign Body Stated complaint: Rash since 05/24 Time Seen by Provider: 06/18/22 16:05 Source: patient Mode of arrival: ambulatory Limitations: no limitations History of Present Illness HPI narrative: 71 yold female presents to the ED for ithcy rash present since april of last year. patient has appointment with [facility] on july 09. patient stat es same itchy rash on arms, abdomen, back, chest, and legs. patient denies any chest pain, shortness of breath, lip swelling, leg sewlling, or tongue swelling Related Data Home Medications Medication Instructions Recorded Confirmed albuterol sulfate 90 mcg/actuation 2 puff inhalation Q4-6H PRN 01/18/21 01/18/21 aerosol inhaler (ProAir HFA) Wheezing amlodipine 2.5 mg tablet 2.5 mg PO DAILY 01/18/21 01/18/21 atorvastatin 80 mg tablet 80 mg PO DAILY 01/18/21 01/18/21 ibuprofen 600 mg tablet 600 mg PO TID PRN Pain 01/18/21 01/18/21 loratadine 10 mg tablet 10 mg PO DAILY 01/18/21 01/18/21 ibuprofen 200 mg tablet 400 mg PO Q8H 02/02/22 Previous Rx's Medication Instructions Recorded docusate sodium 100 mg capsule 100 mg PO BEDTIME #90 caps 02/02/22 hydrocortisone 2.5 % topical cream 1 appl [place] BID-QID PRN hemorrhoids 02/02/22 with perineal applicator #30 grams (Proctosol HC) hydrocortisone 2.5 % topical cream 1 appl topical QID PRN rash #30 04/19/22 grams hydroxyzine HCl 25 mg tablet 25 mg PO Q6H PRN itching #30 tabs 04/19/22 loratadine 10 mg tablet 10 mg PO DAILY PRN allergic 04/19/22 symptoms #30 tabs prednisone 20 mg tablet 40 mg PO DAILY #10 tabs 04/19/22 diphenhydramine HCl 25 mg capsule 25 mg PO TID PRN allergic reaction 05/29/22 (Benadryl) 7 days #21 caps famotidine 20 mg tablet (Pepcid) 20 mg PO BID 7 days #14 tabs 05/29/22 hydrocortisone 2.5 % topical cream 1 appl topical BID PRN rash 2 05/29/22 weeks #30 grams prednisone 20 mg tablet 60 mg PO DAILY 5 days #15 tabs 05/29/22 famotidine 20 mg tablet (Pepcid) 20 mg PO BID 7 days #14 tabs 06/18/22 hydrocortisone 2.5 % topical cream 1 appl topical BID PRN rash 2 06/18/22 weeks #30 grams hydroxyzine HCl 25 mg tablet 25 mg PO TID PRN itching #27 tabs 06/18/22 prednisone 20 mg tablet 60 mg PO DAILY 5 days #15 tabs 06/18/22 Allergies Allergy/AdvReac Type Severity Reaction Status Date / Time No Known Allergies Allergy Verified 02/02/22 10:32 [No Known Allergies*] Review of Systems Review of Systems: itchy rash. no gever, chills, lip swelling, shortness of breath, fever, or chills PMFSH Past Medical History Medical History Elevated cholesterol HTN (hypertension) Pre-diabetes Seasonal allergies Thoracic spine pain Surgical History History of bilateral breast reduction surgery History of cataract extraction Hx laparoscopic cholecystectomy Hx of colonoscopy Social History Social History Are you a primary acute care assistant to a significant other at home: No Do you presently have visiting nurse or other home services: No Patient Tobacco Use Status: Never used Tobacco Second Hand Smoke Exposure: No Advance Directives: No Advance Directives Information Provided: No Physical Exam ED Vital Signs: Vital Signs - 24 hr 06/18/22 16:00 Temperature 97.7 F Pulse Rate 76 Respiratory Rate 18 Blood Pressure 152/74 H Pulse Oximetry 97 Oxygen Delivery Method Room Air BMI result Body Mass Index 31.8 Const General: cooperative, healthy appearing, comfortable, no acute distress, well developed, alert, awake and Physically active Orientation/consciousness: oriented to person, oriented to place, oriented to time and patient oriented x3 HENMT Other: Negative for any facial swelling, tongue swelling, lip swelling, drooling, or change in voice Head: Yes normal to inspection, Yes No palpable skull fracture present, Yes norm ocephalic, Yes atraumatic and No abrasion Eyes General: appearance normal, both eyes and all related structures Neck Neck: Yes normal visual inspection, Yes full ROM, Yes no lymphadenopathy, Yes no meningeal signs, Yes trachea midline, Yes supple, No anterior neck swelling and No tender Chest Chest palpation & inspection: normal inspection of the chest and normal palpation of entire chest wall Resp Effort & Inspection: normal respiratory effort and able to speak in complete sentences Auscultation: clear to auscultation bilaterally Cardio Jugular venous distension: no JVD Heart sounds: S1 normal heart sound present and S2 normal heart sound present GI Inspection: Yes normal to inspection and No abdominal wall ecchymosis Palpation (GI): Soft to palpation, not firm, nontender, no guarding and not rigid General: No CVA tenderness and Yes no CVA tenderness Back/Spine/Pelvis Back: no CVA tenderness, No CVA tenderness and No back tenderness Skin General skin exam: elasticity normal Rashes: rashes noted (uticaria/dermatitis rash on abdomen/back, arms, and legs) Neuro General: oriented to person, oriented to place, oriented to time, patient oriented x3, gait normal, tone normal, moves all extremities, Normal light touch and pain sensation, no meningeal signs, no focal motor deficits and CN's II-XI intact bilaterally Extrem General: Yes normal to inspection and Yes full ROM Psych Appearance: grossly normal, well kempt and not disheveled Course Course Course Narrative: RME: patietn seen in ED For same rash since april that improves with hydrocrotisone and allergy meds and than returns once meds are done. patient wants steroid cream and allergy meds which helped from last visit and will follow up with [facility] on . Postive for dermatatis/uticaria rash on arms, back/torso, and chest. negative for any lip swelling, tongue swelling, facial swelling, or shortness of breath. WIll discharge with hydrocortisone cream and allergy meds. Medical Decision Making Medical Decision Making [facility] Narrative: 71 yold female with recurring dermaittis/uticaria rash. Patient not in distress. Patient has follow-up with [facility]alone [facility]er. Not suspecting cellulitis, anaphylaxis, Lyme, [place]rie Z[place], Differential Diagnosis Differential Diagnoses: The differential diagnosis associated with the presentation includes (dermatiits, allergic reaction, cellulitits) Admission/Observation no need for admission or observation Prescription Management I considered prescription management with: Other (steroids, pepcid, atarrx) Discharge Plan Discharge Clinical Impression: Allergic urticaria, Dermatitis Patient Disposition: Home, Self-Care Instructions: Urticaria (ED), Dermatitis (ED) Additional Instructions: Se le andreea? de chuck con pastillas y crema para ayudar con el sarpullido que pica. Recomienda mantenerse al d?a con liu aleida con el dermat?logo el . Si es posible, karol un seguimiento antes o con liu m?dico de atenci?n primaria antes tambi?n para la prueba del parche. Regrese a la chucho de urgencias por cualquier hinchaz?n de los labios, hinchaz?n de la lengua, dificultad para respirar, sarpullido que empeora, fiebre, escalofr?os, dolor en el pecho, dificultad para respirar, debilidad, mareos, adrienne corporales o cualquier otro s?ntoma preocupante. Prescriptions: New hydrocortisone 2.5 % cream 1 appl topical BID PRN (Reason: rash) 14 Days Qty: 30 0RF prednisone 20 mg tablet 60 mg PO DAILY 5 Days Qty: 15 0RF famotidine [Pepcid] 20 mg tablet 20 mg PO BID 7 Days Qty: 14 0RF hydroxyzine HCl 25 mg tablet 25 mg PO TID PRN (Reason: itching) Qty: 27 0RF No Action atorvastatin 80 mg Tablet 80 mg PO DAILY amlodipine 2.5 mg Tablet 2.5 mg PO DAILY ibuprofen 600 mg Tablet 600 mg PO TID PRN (Reason: Pain) albuterol sulfate [ProAir HFA] 90 mcg/actuation Hfa Aerosol Inhaler 2 puff INHALATION Q4-6H PRN (Reason: Wheezing) loratadine 10 mg Tablet 10 mg PO DAILY hydroxyzine HCl 25 mg tablet 25 mg PO Q6H PRN (Reason: itching) Qty: 30 0RF loratadine 10 mg tablet 10 mg PO DAILY PRN (Reason: allergic symptoms) Qty: 30 0RF prednisone 20 mg tablet 40 mg PO DAILY Qty: 10 0RF hydrocortisone 2.5 % cream 1 appl topical QID PRN (Reason: rash) Qty: 30 0RF prednisone 20 mg tablet 60 mg PO DAILY 5 Days Qty: 15 0RF diphenhydramine HCl [Benadryl] 25 mg capsule 25 mg PO TID PRN (Reason: allergic reaction) 7 Days Qty: 21 0RF famotidine [Pepcid] 20 mg tablet 20 mg PO BID 7 Days Qty: 14 0RF hydrocortisone 2.5 % cream 1 appl topical BID PRN (Reason: rash) 14 Days Qty: 30 0RF ibuprofen 200 mg tablet 400 mg PO Q8H docusate sodium 100 mg capsule 100 mg PO BEDTIME Qty: 90 3RF hydrocortisone [Proctosol HC] 2.5 % cream with perineal applicator 1 appl [place] BID-QID PRN (Reason: hemorrhoids) Qty: 30 2RF Interventions: ED Discharge Assessment Last Done: 06/18/22 16:39 Discharge Date/Time: 06/18/22 16:40 Print Language: Polish
== END 2022-06-18 16:40 | disposition home or self-care (01) ==
PROVIDERS: Emergency Provider Emergency Medicine
DX: L50.0 Allergic urticaria (principal); L30.9 Dermatitis, unspecified
CPT/HCPCS: 99282; 99283

== ENCOUNTER 2022-12-06 08:14 | Outpatient (REF) | payer OTHER, MEDICAID, SELFPAY ==
[2022-12-06 13:00] LABS: Alanine Aminotransferase 15 U/L (0-31); Alkaline Phosphatase 109 U/L (39-117); Aspartate Amino Transferase 23 U/L (5-31); Bilirubin Direct 0.1 mg/dL (0.0-0.5); Bilirubin Total 0.4 mg/dL (0.0-1.0); Total Protein 7.2 g/dL (6.5-8.0)
== END 2022-12-06 08:15 | disposition home or self-care (01) ==
LOC: HO.HHCL 08:14
PROVIDERS: Visit Provider General Practice
DX: R74.01 Elevation of levels of liver transaminase levels (principal)
CPT/HCPCS: 36415; 80076

== ENCOUNTER 2023-03-27 15:45 | Outpatient (REF) | payer OTHER, MEDICAID, SELFPAY ==
--- NOTE | ~2023-03-27 | XR_ITS ---
EXAMINATION: XR CERVICAL SPINE CLINICAL INFORMATION: Right neck pain. COMPARISON: None available. TECHNIQUE: Frontal, odontoid, bilateral oblique, lateral and swimmer's views of the cervical spine were obtained. FINDINGS: Vertebral body heights and alignment are normal. The cervical disc spaces are well-maintained. There is mild anterior spondylosis at C5-C6. The posterior elements are intact. The neural foramina are patent on the oblique views. The dens is intact. No prevertebral soft tissue swelling is seen. XR/XR cervical spine 5V IMPRESSION: Unremarkable examination.
== END 2023-03-27 15:46 | disposition home or self-care (01) ==
LOC: HO.HHCX 15:45
PROVIDERS: Visit Provider General Practice
DX: M54.2 Cervicalgia (principal)
CPT/HCPCS: 72050

== ENCOUNTER 2023-04-02 08:21 | Outpatient (REF) | payer OTHER, MEDICAID, SELFPAY ==
[2023-04-02 11:19] LABS: MANUAL DIFF FLAG NO
[2023-04-02 11:26] LABS: Basophils Absolute Auto 0.1 X10*3/uL (0.0-0.2); Basophils Percent Auto 0.8 % (0-2); Eosinophils Absolute Auto 0.2 X10*3/uL (0.0-0.4); Eosinophils Percent Auto 3.1 % (0-4); Hematocrit 42.6 % (37.0-47.0); Hemoglobin 13.5 g/dl (12.0-16.0); Imm Gran Abs Auto 0.02 X10*3/uL (0.00-0.03); Imm Gran Pct Auto 0.3 % (0.0-0.4); Lymphocytes Absolute Auto 2.3 X10*3/uL (1.2-4.9); Lymphocytes Percent Auto 30.5 % (20-40); Mean Corpuscular HGB Conc 31.7 g/dl (31.0-35.0); Mean Corpuscular Volume 88.4 fL (80.0-98.0); Mean Platelet Volume 10.8 fL (9.4-12.3); Monocytes Absolute Auto 0.7 X10*3/uL (0.1-1.2); Monocytes Percent Auto 9.1 % (2-11); Neutrophils Absolute Auto 4.2 x10*3/uL (2.0-8.3); Neutrophils Percent Auto 56.2 % (45-73); Platelet Count 294 X10*3/uL (160-400); Red Blood Count 4.82 X10*6/uL (4.20-5.50); Red Cell Distribution Width 14.6 % (11.0-16.0); White Blood Count 7.4 X10*3/uL (4.8-10.8)
== END 2023-04-02 08:22 | disposition home or self-care (01) ==
LOC: HO.HHCL 08:21
PROVIDERS: Visit Provider General Practice
DX: K62.5 Hemorrhage of anus and rectum (principal)
CPT/HCPCS: 36415; 85025

== ENCOUNTER 2023-04-29 08:35 | Emergency (ER) | payer OTHER, SELFPAY ==
[2023-04-29 08:43] VITALS: BP 140/66; PULSE 90; RESP 20; TEMP 37.2; O2SAT 95; BMI 18.5
[2023-04-29 11:48] LABS: Influenza A PCR NEGATIVE (Negative); Influenza B PCR NEGATIVE (Negative); Resp Syncy Virus RNA Qual PCR NEGATIVE (Negative); SARS COV2 PCR INHOUSE NEGATIVE (Negative)
--- NOTE | 2023-04-29 12:02 | ED_ITS ---
HPI - URI/Sore Throat General Chief Complaint: Upper Respiratory Symptoms Stated Complaint: headache sore throat running nose Time Seen by Provider: 04/29/23 11:34 History of Present Illness HPI Narrative: Patient complains of 3 days of runny nose mild infrequent cough, body aches and a very mild sore throat, she is able to tolerate p.o. she is able to eat and drink, she has no shortness of breath no chest pain no pleuritic pain, there is no abdominal pain no nausea vomiting or diarrhea no dysuria no skin rash Related Data Home Medications Medication Instructions Recorded Confirmed albuterol sulfate 90 mcg/actuation 2 puff inhalation Q4-6H PRN 01/18/21 01/18/21 aerosol inhaler (ProAir HFA) Wheezing amlodipine 2.5 mg tablet 2.5 mg PO DAILY 01/18/21 01/18/21 atorvastatin 80 mg tablet 80 mg PO DAILY 01/18/21 01/18/21 ibuprofen 600 mg tablet 600 mg PO TID PRN Pain 01/18/21 01/18/21 loratadine 10 mg tablet 10 mg PO DAILY 01/18/21 01/18/21 ibuprofen 200 mg tablet 400 mg PO Q8H 02/02/22 Previous Rx's Medication Instructions Recorded docusate sodium 100 mg capsule 100 mg PO BEDTIME #90 caps 02/02/22 hydrocortisone 2.5 % topical cream 1 appl [place] BID-QID PRN hemorrhoids 02/02/22 with perineal applicator #30 grams (Proctosol HC) hydrocortisone 2.5 % topical cream 1 appl topical QID PRN rash #30 04/19/22 grams hydroxyzine HCl 25 mg tablet 25 mg PO Q6H PRN itching #30 tabs 04/19/22 loratadine 10 mg tablet 10 mg PO DAILY PRN allergic 04/19/22 symptoms #30 tabs prednisone 20 mg tablet 40 mg (2 x 20 mg) PO DAILY #10 tabs 04/19/22 diphenhydramine HCl 25 mg capsule 25 mg PO TID PRN allergic reaction 05/29/22 (Benadryl) 7 days #21 caps famotidine 20 mg tablet (Pepcid) 20 mg PO BID 7 days #14 tabs 05/29/22 hydrocortisone 2.5 % topical cream 1 appl topical BID PRN rash 2 05/29/22 weeks #30 grams prednisone 20 mg tablet 60 mg (3 x 20 mg) PO DAILY 5 days 05/29/22 #15 tabs famotidine 20 mg tablet (Pepcid) 20 mg PO BID 7 days #14 tabs 06/18/22 hydrocortisone 2.5 % topical cream 1 appl topical BID PRN rash 2 06/18/22 weeks #30 grams hydroxyzine HCl 25 mg tablet 25 mg PO TID PRN itching #27 tabs 06/18/22 prednisone 20 mg tablet 60 mg (3 x 20 mg) PO DAILY 5 days 06/18/22 #15 tabs Allergies Allergy/AdvReac Type Severity Reaction Status Date / Time No Known Allergies Allergy Verified 02/02/22 10:32 [No Known Allergies*] [facility] Past Medical History Source: nursing notes reviewed Medical History Elevated cholesterol HTN (hypertension) Pre-diabetes Seasonal allergies Thoracic spine pain Surgical History History of bilateral breast reduction surgery History of cataract extraction Hx laparoscopic cholecystectomy Hx of colonoscopy Social History Social History Are you a primary career resource specialist to a significant other at home: No Do you presently have visiting nurse or other home services: No Patient Tobacco Use Status: Never used Tobacco Second Hand Smoke Exposure: No Advance Directives: No Advance Directives Information Provided: No Physical Exam Vital Signs: Vital Signs: Last Vital Signs Temp 98.9 F 04/29/23 08:43 Pulse 90 04/29/23 08:43 Resp 20 04/29/23 08:43 BP 140/66 H 04/29/23 08:43 Pulse Ox 95 04/29/23 08:43 O2 Del Method Room Air 04/29/23 08:43 BMI result Body Mass Index 18.5 General appearance comfortable cooperative cheerful no acute distress Eyes no redness or discharge The ears normal no redness of tympanic membrane no narrowing or canals no pe rforations The sinuses are nontender not congested The pharynx is clear without redness swelling or exudate voice is normal membranes are moist Neck is supple Chest clear to auscultation bilateral Heart no murmur Abdomen soft nontender Extremities range of motion x4 Skin no rash Course Course Course Narrative: Patient with 3 days of runny nose cough body aches and sore throat Throat exam was normal no redness swelling or exudate Chest was clear cough is very infrequent, no shortness of breath no chest pain no fever no sputum Patient is very well-appearing with normal exam and is diagnosed with likely viral illness Well-appearing patient is discharged COVID flu and RSV testing is negative Medical Decision Making Lab Data Labs: Lab Results 04/29/23 Range/Units 08:49 Influenza Type A (PCR) NEGATIVE (Negative) Influenza Type B (PCR) NEGATIVE (Negative) RSV RNA Qual (PCR) NEGATIVE (Negative) SARS-CoV-2 RNA (RT-PCR) NEGATIVE (Negative) Discharge Plan Discharge Clinical Impression: Viral illness Patient Disposition: Home, Self-Care Additional Instructions: Your exam was normal and you are very well-appearing Test for COVID and flu was negative Return any time for difficulty breathing pain vomiting dehydration any worse condition or any concerns You can use Tylenol available [id number] for body aches As this illness is very likely contagious I wrote a note for 5 days Prescriptions: No Action atorvastatin 80 mg Tablet 80 mg PO DAILY amlodipine 2.5 mg Tablet 2.5 mg PO DAILY ibuprofen 600 mg Tablet 600 mg PO TID PRN (Reason: Pain) albuterol sulfate [ProAir HFA] 90 mcg/actuation Hfa Aerosol Inhaler 2 puff INHALATION Q4-6H PRN (Reason: Wheezing) loratadine 10 mg Tablet 10 mg PO DAILY hydroxyzine HCl 25 mg tablet 25 mg PO Q6H PRN (Reason: itching) Qty: 30 0RF loratadine 10 mg tablet 10 mg PO DAILY PRN (Reason: allergic symptoms) Qty: 30 0RF prednisone 20 mg tablet 40 mg PO DAILY Qty: 10 0RF hydrocortisone 2.5 % cream 1 appl topical QID PRN (Reason: rash) Qty: 30 0RF prednisone 20 mg tablet 60 mg PO DAILY 5 Days Qty: 15 0RF diphenhydramine HCl [Benadryl] 25 mg capsule 25 mg PO TID PRN (Reason: allergic reaction) 7 Days Qty: 21 0RF famotidine [Pepcid] 20 mg tablet 20 mg PO BID 7 Days Qty: 14 0RF hydrocortisone 2.5 % cream 1 appl topical BID PRN (Reason: rash) 14 Days Qty: 30 0RF hydrocortisone 2.5 % cream 1 appl topical BID PRN (Reason: rash) 14 Days Qty: 30 0RF prednisone 20 mg tablet 60 mg PO DAILY 5 Days Qty: 15 0RF famotidine [Pepcid] 20 mg tablet 20 mg PO BID 7 Days Qty: 14 0RF hydroxyzine HCl 25 mg tablet 25 mg PO TID PRN (Reason: itching) Qty: 27 0RF ibuprofen 200 mg tablet 400 mg PO Q8H docusate sodium 100 mg capsule 100 mg PO BEDTIME Qty: 90 3RF hydrocortisone [Proctosol HC] 2.5 % cream with perineal applicator 1 appl [place] BID-QID PRN (Reason: hemorrhoids) Qty: 30 2RF Stand Alone Forms: Work/School Release Interventions: ED Discharge Assessment Last Done: 04/29/23 12:23
== END 2023-04-29 12:23 | disposition home or self-care (01) ==
PROVIDERS: Emergency Provider Emergency Medicine; PCP General Practice
DX: B34.9 Viral infection, unspecified (principal); R05.9 Cough, unspecified; M79.10 Myalgia, unspecified site; Z20.822 Contact with and (suspected) exposure to COVID-19; Z20.828 Contact with and (suspected) exposure to other viral communicable diseases; Z79.899 Other long term (current) drug therapy
CPT/HCPCS: 0241U; 99282; 99283

== ENCOUNTER 2023-04-30 14:18 | Outpatient (REF) | payer OTHER, SELFPAY ==
--- NOTE | ~2023-04-30 | MM_ITS ---
EXAMINATION: MM SCREENING DIGITAL BREAST TOMOSYNTHESIS, BILATERAL CLINICAL INFORMATION: Screening. Asymptomatic. The patient is status post bilateral breast reduction. COMPARISON: Mammography: This study is compared with prior exams dating back to 2018. TECHNIQUE: Digital breast tomosynthesis is performed in both the craniocaudal and mediolateral oblique views along with computer-aided detection (CAD). Synthesized 2D images are generated from the tomosynthesis. FINDINGS: There are scattered areas of fibroglandular density (ACR BI-RADS breast composition Category b). There are no significant masses, abnormal calcifications, or other abnormalities. There are bilateral, benign calcifications. There are post reduction changes present. There are tissue markers in the right breast from prior percutaneous biopsies. MM/MM tomosynthesis screening BI IMPRESSION: No mammographic evidence of malignancy. ASSESSMENT: BI-RADS BI-RADS 2 - Benign Findings RECOMMENDATION: Routine annual mammography screening. 1 year F/U This examination should not preclude the clinical evaluation of a suspicious palpable abnormality. This patient's information was entered into a reminder system with a target due date for their next mammogram.
== END 2023-04-30 14:19 | disposition home or self-care (01) ==
LOC: HO.MAMMO 14:18
PROVIDERS: PCP General Practice; Visit Provider Internal Medicine
DX: Z12.31 Encounter for screening mammogram for malignant neoplasm of breast (principal)
CPT/HCPCS: 77063; 77067

== ENCOUNTER → 2023-04-30 14:45 | Outpatient (BNV) | payer OTHER, SELFPAY | PROVIDERS: PCP General Practice; Visit Provider Radiology Diagnostic Radiology | DX: Z12.31 Encounter for screening mammogram for malignant neoplasm of breast (principal) | CPT/HCPCS: 77063; 77067 ==

== ENCOUNTER 2023-07-09 20:09 | Emergency (ER) | payer OTHER, SELFPAY ==
[2023-07-09 21:12] VITALS: BP 112/71; PULSE 102; RESP 16; TEMP 37; O2SAT 95; BMI 29.5
[2023-07-09 21:41] LABS: Basophils Percent Auto 0.1 % (0-2); Eosinophils Absolute Auto 0.1 X10*3/uL (0.0-0.4); Eosinophils Percent Auto 0.7 % (0-4); Hematocrit 37.9 % (37.0-47.0); Hemoglobin 12.7 g/dl (12.0-16.0); Imm Gran Abs Auto 0.04 X10*3/uL (0.00-0.03); Imm Gran Pct Auto 0.4 % (0.0-0.4); Lymphocytes Absolute Auto 0.5 X10*3/uL (1.2-4.9); Lymphocytes Percent Auto 4.5 % (20-40); MANUAL DIFF FLAG SCAN; Mean Corpuscular HGB Conc 33.5 g/dl (31.0-35.0); Mean Corpuscular Hemoglobin 28.2 pg (27.0-33.0); Mean Platelet Volume 8.9 fL (9.4-12.3); Monocytes Absolute Auto 0.3 X10*3/uL (0.1-1.2); Monocytes Percent Auto 3.1 % (2-11); Neutrophils Absolute Auto 9.4 x10*3/uL (2.0-8.3); Neutrophils Percent Auto 91.2 % (45-73); Platelet Count 319 X10*3/uL (160-400); Red Blood Count 4.51 X10*6/uL (4.20-5.50); Red Cell Distribution Width 14.3 % (11.0-16.0); SCAN SMEAR FLAG 1; White Blood Count 10.3 X10*3/uL (4.8-10.8)
[2023-07-09 21:54] LABS: COVID-19 Test Negative (Negative); IDNOW Serial# 08D9AD1C; IDNOW Serial# 152EDE1D; Influenza A Negative (Negative); Influenza B2 Negative (Negative)
[2023-07-09 21:57] LABS: Alanine Aminotransferase 10 U/L (0-31); Alkaline Phosphatase 94 U/L (39-117); Anion Gap 13 (12-20); Aspartate Amino Transferase 19 U/L (5-31); Bilirubin Total 0.5 mg/dL (0.0-1.0); Blood Urea Nitrogen 14 mg/dL (9-16); Calcium 9.3 mg/dL (8.4-10.2); Carbon Dioxide 18 mmol/L (22-29); Chloride 111 mmol/L (96-108); Estimated Glomerular Filt Rate > 60; Glucose Random 118 mg/dL (60-115); Lipase 12 U/L (8-78); Potassium 3.6 mmol/L (3.3-5.1); Sodium 138 mmol/L (135-145); Total Protein 7.3 g/dL (6.5-8.0)
[2023-07-09 22:07] LABS: SLIDE REVIEW VERIFIED
[2023-07-09 22:28] VITALS: BP 134/63; PULSE 87; RESP 18; O2SAT 97
--- NOTE | 2023-07-09 23:44 | ED.GENADULT ---
HPI - General Adult General Chief complaint: General Medical Stated complaint: vom/diar/body aches Time Seen by Provider: 07/09/23 22:47 Source: patient Mode of arrival: ambulatory Limitations: no limitations History of Present Illness HPI narrative: Patient was healthy had soup earlier complaining of nausea vomiting diarrhea unable to eat or drink fluids at 6 loose bowels same number of watery stool no recent antibiotic in has body ache no fever no chills no cold symptoms no other family member sick Related Data Home Medications Medication Instructions Recorded Confirmed albuterol sulfate 90 mcg/actuation 2 puff inhalation Q4-6H PRN 01/18/21 01/18/21 aerosol inhaler (ProAir HFA) Wheezing amlodipine 2.5 mg tablet 2.5 mg PO DAILY 01/18/21 01/18/21 atorvastatin 80 mg tablet 80 mg PO DAILY 01/18/21 01/18/21 ibuprofen 600 mg tablet 600 mg PO TID PRN Pain 01/18/21 01/18/21 loratadine 10 mg tablet 10 mg PO DAILY 01/18/21 01/18/21 ibuprofen 200 mg tablet 400 mg PO Q8H 02/02/22 Previous Rx's Medication Instructions Recorded docusate sodium 100 mg capsule 100 mg PO BEDTIME #90 caps 02/02/22 hydrocortisone 2.5 % topical cream 1 appl MO BID-QID PRN hemorrhoids 02/02/22 with perineal applicator #30 grams (Proctosol HC) hydrocortisone 2.5 % topical cream 1 appl topical QID PRN rash #30 04/19/22 grams hydroxyzine HCl 25 mg tablet 25 mg PO Q6H PRN itching #30 tabs 04/19/22 loratadine 10 mg tablet 10 mg PO DAILY PRN allergic 04/19/22 symptoms #30 tabs prednisone 20 mg tablet 40 mg (2 x 20 mg) PO DAILY #10 tabs 04/19/22 diphenhydramine HCl 25 mg capsule 25 mg PO TID PRN allergic reaction 05/29/22 (Benadryl) 7 days #21 caps famotidine 20 mg tablet (Pepcid) 20 mg PO BID 7 days #14 tabs 05/29/22 hydrocortisone 2.5 % topical cream 1 appl topical BID PRN rash 2 05/29/22 weeks #30 grams prednisone 20 mg tablet 60 mg (3 x 20 mg) PO DAILY 5 days 05/29/22 #15 tabs famotidine 20 mg tablet (Pepcid) 20 mg PO BID 7 days #14 tabs 06/18/22 hydrocortisone 2.5 % topical cream 1 appl topical BID PRN rash 2 06/18/22 weeks #30 grams hydroxyzine HCl 25 mg tablet 25 mg PO TID PRN itching #27 tabs 06/18/22 prednisone 20 mg tablet 60 mg (3 x 20 mg) PO DAILY 5 days 06/18/22 #15 tabs ondansetron 4 mg disintegrating 4 mg PO Q6-8H PRN nausea and 07/10/23 tablet vomiting #7 tabs Allergies Allergy/AdvReac Type Severity Reaction Status Date / Time No Known Allergies Allergy Verified 07/09/23 21:12 [No Known Allergies*] Review of Systems Review of Systems: Yes all other systems are reviewed and are negative [facility] Past Medical History Medical History Seasonal allergies Thoracic spine pain Pre-diabetes Elevated cholesterol HTN (hypertension) Surgical History History of cataract extraction History of bilateral breast reduction surgery Hx laparoscopic cholecystectomy Hx of colonoscopy Social History Social History Are you a primary customer care assistant to a significant other at home: No Do you presently have visiting nurse or other home services: No Patient Tobacco Use Status: Never used Tobacco Smoked in Last 30 Days: No Second Hand Smoke Exposure: No Use of substances other than those prescribed or required for medical reasons: No Advance Directives: No Advance Directives Information Provided: No Physical Exam ED Vital Signs: Vital Signs - 24 hr 07/09/23 21:12 07/09/23 22:28 07/10/23 00:00 Temperature 98.6 F 98.2 F Pulse Rate 102 H 87 78 Respiratory Rate 16 18 16 Blood Pressure 112/71 134/63 132/48 L Pulse Oximetry 95 97 Oxygen Delivery Method Room Air Room Air Room Air BMI result Body Mass Index 29.5 Const Other: Appearance: Alert. Oriented X3. No acute distress. Eyes: PERRLA, No Nystagmus ENT: Pharynx normal. Oral Mucosa moist Neck: Normal inspection. Neck supple. CVS: Normal heart rate and rhythm. Pulses normal. Respiratory: No respiratory distress. Equal air entry bilateral, no wheezing/rales/rhonchi Abdomen: Soft and nontender. Bowel sounds are present, no mass palpable, no CVA tenderness Skin: Skin warm and dry. Normal skin color. Normal skin turgor. Extremities: No lower extremity edema. No calf tenderness Neuro: Oriented X 3. No motor deficit. No sensory deficit.No cerebellar signs , cranial nerves II-XII intact Medications Administered Discontinued Medications Generic Name Dose Route Start Last Admin Trade Name Freq PRN Reason Stop Dose Admin Sodium Chloride 1,000 mls @ 999 mls/hr 07/09/23 23:42 07/10/23 00:52 Ns IV 07/10/23 00:42 Infused .Q1H1M ONE Infusion Ondansetron HCl 4 mg 07/09/23 23:42 07/09/23 23:47 Ondansetron Hcl 4 Mg/2 Ml Vial IVPUSH 07/09/23 23:43 4 mg ONCE ONE Administration Medical Decision Making Medical Decision Making [facility] Narrative: Patient with Acute gastroenteritis with vomiting and diarrhea likely from food but she had earlier today labs are stable patient feeling better after IV fluids and Zofran discharge patient home on symptomatic treatment Lab Data [facility] Lab Attestation statement: I reviewed the patient's lab results. 07/09/23 21:31 07/09/23 21:31 Labs: Lab Results 07/09/23 Range/Units 21:31 WBC 10.3 (4.8-10.8) X10*3/uL RBC 4.51 (4.20-5.50) X10*6/uL Hgb 12.7 (12.0-16.0) g/dl Hct 37.9 (37.0-47.0) % MCV 84.0 (80.0-98.0) fL MCH 28.2 (27.0-33.0) pg MCHC 33.5 (31.0-35.0) g/dl RDW 14.3 (11.0-16.0) % Plt Count 319 (160-400) X10*3/uL MPV 8.9 L (9.4-12.3) fL Immature Gran % (Auto) 0.4 (0.0-0.4) % Neut % (Auto) 91.2 H (45-73) % Lymph % (Auto) 4.5 L (20-40) % [place] % (Auto) 3.1 (2-11) % Eos % (Auto) 0.7 (0-4) % Baso % (Auto) 0.1 (0-2) % Lymph # (Auto) 0.5 L (1.2-4.9) X10*3/uL [place] # (Auto) 0.3 (0.1-1.2) X10*3/uL Eos # (Auto) 0.1 (0.0-0.4) X10*3/uL Baso # (Auto) 0.0 (0.0-0.2) X10*3/uL Abs Immat Gran (auto) 0.04 H (0.00-0.03) X10*3/uL Absolute Neuts (auto) 9.4 H (2.0-8.3) x10*3/uL Absolute Nucleated RBC 0.000 (0.0-0.012) X10*3/uL Nucleated RBC % (auto) 0.0 (0.0-0.2) /100WBC Smear Tech's Comments VERIFIED Sodium 138 (135-145) mmol/L Potassium 3.6 (3.3-5.1) mmol/L Chloride 111 H (96-108) mmol/L Carbon Dioxide 18 L (22-29) mmol/L Anion Gap 13 (12-20) BUN 14 (9-16) mg/dL Creatinine 0.66 (0.5-1.4) mg/dL Estim Creat Clear Calc 79.0 Estimated GFR > 60 Random Glucose 118 H (60-115) mg/dL Calcium 9.3 (8.4-10.2) mg/dL Total Bilirubin 0.5 (0.0-1.0) mg/dL AST 19 (5-31) U/L ALT 10 (0-31) U/L Alkaline Phosphatase 94 (39-117) U/L Total Protein 7.3 (6.5-8.0) g/dL Albumin 4.0 (3.5-5.0) g/dL Lipase 12 (8-78) U/L COVID-19 ([facility]) Negative (Negative) COVID-19 Clin Com See Note Influenza Type A (ILIA) Negative (Negative) Influenza Type B (ILIA) Negative (Negative) Influenza A & B Note See Note Discharge Plan Discharge Clinical Impression: Gastroenteritis Patient Disposition: Home, Self-Care Instructions: Gastroenteritis (ED) Additional Instructions: Your symptoms will resolve within 24 hours Drink plenty of fluids Medicine for nausea as prescribed Follow with PCP if not better Prescriptions: New ondansetron 4 mg tablet,disintegrating 4 mg PO Q6-8H PRN (Reason: nausea and vomiting) Qty: 7 0RF No Action atorvastatin 80 mg Tablet 80 mg PO DAILY amlodipine 2.5 mg Tablet 2.5 mg PO DAILY ibuprofen 600 mg Tablet 600 mg PO TID PRN (Reason: Pain) albuterol sulfate [ProAir HFA] 90 mcg/actuation Hfa Aerosol Inhaler 2 puff INHALATION Q4-6H PRN (Reason: Wheezing) loratadine 10 mg Tablet 10 mg PO DAILY hydroxyzine HCl 25 mg tablet 25 mg PO Q6H PRN (Reason: itching) Qty: 30 0RF loratadine 10 mg tablet 10 mg PO DAILY PRN (Reason: allergic symptoms) Qty: 30 0RF prednisone 20 mg tablet 40 mg PO DAILY Qty: 10 0RF hydrocortisone 2.5 % cream 1 appl topical QID PRN (Reason: rash) Qty: 30 0RF prednisone 20 mg tablet 60 mg PO DAILY 5 Days Qty: 15 0RF diphenhydramine HCl [Benadryl] 25 mg capsule 25 mg PO TID PRN (Reason: allergic reaction) 7 Days Qty: 21 0RF famotidine [Pepcid] 20 mg tablet 20 mg PO BID 7 Days Qty: 14 0RF hydrocortisone 2.5 % cream 1 appl topical BID PRN (Reason: rash) 14 Days Qty: 30 0RF hydrocortisone 2.5 % cream 1 appl topical BID PRN (Reason: rash) 14 Days Qty: 30 0RF prednisone 20 mg tablet 60 mg PO DAILY 5 Days Qty: 15 0RF famotidine [Pepcid] 20 mg tablet 20 mg PO BID 7 Days Qty: 14 0RF hydroxyzine HCl 25 mg tablet 25 mg PO TID PRN (Reason: itching) Qty: 27 0RF ibuprofen 200 mg tablet 400 mg PO Q8H docusate sodium 100 mg capsule 100 mg PO BEDTIME Qty: 90 3RF hydrocortisone [Proctosol HC] 2.5 % cream with perineal applicator 1 appl MO BID-QID PRN (Reason: hemorrhoids) Qty: 30 2RF Stand Alone Forms: Work/School Release Interventions: ED Discharge Assessment Last Done: 07/10/23 02:02 Discharge Date/Time: 07/10/23 02:03
[2023-07-09] MEDS: ondansetron HCL 4 MG/2 ML VIAL IVPUSH (23:47)
[2023-07-09] MEDS: 0.9 % Sodium Chloride 1,000 ML 999 ML IV (23:47)
[2023-07-10] VITALS: BP 132/48; PULSE 78; RESP 16; TEMP 36.8
--- NOTE | 2023-07-10 01:03 | PC.NURSE ---
Attempting PO trial
== END 2023-07-10 02:03 | disposition home or self-care (01) ==
PROVIDERS: Emergency Provider Internal Medicine; PCP General Practice
DX: K52.9 Noninfective gastroenteritis and colitis, unspecified (principal); R11.2 Nausea with vomiting, unspecified; Z11.52 Encounter for screening for COVID-19; Z79.899 Other long term (current) drug therapy
CPT/HCPCS: 80053; 83690; 85025; 87502; 87635; 96361; 96374; 99284; J2405

== ENCOUNTER 2023-12-06 17:34 | Emergency (ER) | payer OTHER, SELFPAY ==
--- NOTE | ~2023-12-06 | XR_ITS ---
EXAMINATION: XR CHEST CLINICAL INFORMATION: Cough COMPARISON: Chest x-ray on 09/11/2012 TECHNIQUE: 2 views of the chest were obtained. FINDINGS: No significant abnormality is noted involving the heart, lungs, mediastinum, bony thorax or soft tissues. XR/XR chest 2V IMPRESSION: Unremarkable examination.
[2023-12-06 17:36] VITALS: BP 152/80; PULSE 90; RESP 16; TEMP 37.2; O2SAT 99; BMI 31.4
--- NOTE | 2023-12-06 17:40 | ED_ITS ---
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 No documented temperature, states she has felt warm. Denies known sick contacts however endorses trip to [place], returned Saturday (3 days ago). Denies headache, dizziness, sore throat, shortness of breath, difficulty breathing, chest pain, hemoptysis, sputum production, nausea or vomiting, diarrhea, constipation, calf pain/swelling. No other concerns. 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 Related Data Home Medications ?Medication ?Instructions ?Recorded ?Confirmed albuterol sulfate 90 mcg/actuation 2 puff inhalation Q4-6H PRN 01/18/21 01/18/21 aerosol inhaler (ProAir HFA) Wheezing amlodipine 2.5 mg tablet 2.5 mg PO DAILY 01/18/21 01/18/21 atorvastatin 80 mg tablet 80 mg PO DAILY 01/18/21 01/18/21 ibuprofen 600 mg tablet 600 mg PO TID PRN Pain 01/18/21 01/18/21 loratadine 10 mg tablet 10 mg PO DAILY 01/18/21 01/18/21 ibuprofen 200 mg tablet 400 mg PO Q8H 02/02/22 Previous Rx's ?Medication ?Instructions ?Recorded docusate sodium 100 mg capsule 100 mg PO BEDTIME #90 caps 02/02/22 hydrocortisone 2.5 % topical cream 1 appl DC BID-QID PRN hemorrhoids 02/02/22 with perineal applicator #30 grams (Proctosol HC) hydrocortisone 2.5 % topical cream 1 appl topical QID PRN rash #30 04/19/22 grams hydroxyzine HCl 25 mg tablet 25 mg PO Q6H PRN itching #30 tabs 04/19/22 loratadine 10 mg tablet 10 mg PO DAILY PRN allergic 04/19/22 symptoms #30 tabs prednisone 20 mg tablet 40 mg (2 x 20 mg) PO DAILY #10 tabs 04/19/22 diphenhydramine HCl 25 mg capsule 25 mg PO TID PRN allergic reaction 05/29/22 (Benadryl) 7 days #21 caps famotidine 20 mg tablet (Pepcid) 20 mg PO BID 7 days #14 tabs 05/29/22 hydrocortisone 2.5 % topical cream 1 appl topical BID PRN rash 2 05/29/22 weeks #30 grams prednisone 20 mg tablet 60 mg (3 x 20 mg) PO DAILY 5 days 05/29/22 #15 tabs famotidine 20 mg tablet (Pepcid) 20 mg PO BID 7 days #14 tabs 06/18/22 hydrocortisone 2.5 % topical cream 1 appl topical BID PRN rash 2 06/18/22 weeks #30 grams hydroxyzine HCl 25 mg tablet 25 mg PO TID PRN itching #27 tabs 06/18/22 prednisone 20 mg tablet 60 mg (3 x 20 mg) PO DAILY 5 days 06/18/22 #15 tabs ondansetron 4 mg disintegrating 4 mg PO Q6-8H PRN nausea and 07/10/23 tablet vomiting #7 tabs benzonatate 100 mg capsule 100 mg PO BID PRN cough #20 caps 12/06/23 Allergies Allergy/AdvReac Type Severity Reaction Status Date / Time No Known Allergies Allergy Verified 12/06/23 17:39 [No Known Allergies*] Review of Systems 2 Review of Systems: Constitutional: No fever, chills, fatigue, night sweats, weight changes ENT/Mouth: No ear pain, hearing loss, nasal congestion, sinus pain, rhinorrhea, sore throat Eyes: No eye pain, swelling, redness, vision changes, discharge Cardio: No chest pain, palpitations, VILLALTA, orthopnea, peripheral edema Pulm: No SOB, cough, sputum, wheezing, dyspnea, hemoptysis, +cough GI: No nausea, vomiting, hematemesis, abdominal pain, diarrhea, constipation, hematochezia, melena : No irregular bleeding, dysuria, frequency, urgency, hesitancy, hematuria, flank pain, urinary flow changes, urinary incontinence or retention MSK: No back pain, neck pain, joint pain, myalgias Skin: No lesions, rashes Neuro: No weakness, numbness, paresthesias, LOC, dizziness, headache Psych: No anxiety/panic, depression, SI/HI, AH/VH All other systems reviewed and are negative. [facility] Past Medical History Attestation statement: The following information was validated with the patient. Source: old records reviewed and nursing notes reviewed Medical History Seasonal allergies Thoracic spine pain Pre-diabetes Elevated cholesterol HTN (hypertension) Surgical History History of cataract extraction History of bilateral breast reduction surgery Hx laparoscopic cholecystectomy Hx of colonoscopy Social History Social History Are you a primary critical care physician to a significant other at home: No Do you presently have visiting nurse or other home services: No Patient Tobacco Use Status: Never used Tobacco Second Hand Smoke Exposure: No Advance Directives: No Advance Directives Information Provided: No Physical Exam 2 Vital Signs: Vital Signs: Last Vital Signs Temp 98.6 F 12/06/23 18:24 Pulse 86 12/06/23 18:24 Resp 16 12/06/23 18:24 BP 157/59 H 12/06/23 18:24 Pulse Ox 97 12/06/23 18:24 O2 Del Method Room Air 12/06/23 18:24 BMI result Body Mass Index 31.4 Const: Orientation/consciousness: patient oriented x3 Eyes: General: appearance normal, both eyes and all related structures P upils: Equal, round and reactive pupils present Neck: Neck: Yes normal visual inspection, Yes no meningeal signs and Yes no JVD Chest: Chest palpation & inspection: normal inspection of the chest and normal palpation of entire chest wall Resp: Effort & Inspection: normal respiratory effort, able to speak in complete sentences, no cough, no respiratory distress and no tripod positioning Auscultation: clear to auscultation bilaterally Cardio: Rate: regular rate Rhythm: regular rhythm GI: Inspection: Yes normal to inspection Palpation (GI): Soft to palpation and nontender Back/Spine/Pelvis: Other: No midline spinous tenderness or step off deformity. No paraspinal muscle tenderness. Skin: General skin exam: no rashes or lesions noted Neuro: General: patient oriented x3, gait normal, tone normal, moves all extremities and no meningeal signs Cranial nerves: Yes Equal, round and reactive pupils present Extrem: General: Yes normal to inspection and Yes no calf tenderness Course Course Course Narrative: This is a Rapid Medical Examination (RME) performed by Becky Cotton PA-C in triage. Full HPI, ROS, assessment and treatment plan per primary provider in the Main ED. 73-year-old female here for eval of myalgias, cough and fever x6 days. Reports returning from [place] on Saturday. + lungs clear Plan: labs, viral serology, cxr Reevaluation(s) Reevaluation #1: 8138-- Patient has tested positive for both COVID and influenza A. negative for rsv. given onset of symptoms 6 days ago, patient out of the window for tamiflu treatment. cbc without leukocytosis. no anemia. h&h stable. Chemistry without acute electrolyte abnormality requiring intervention. Normal renal and liver function. CXR without infiltrate or consolidation to suggest pneumonia. > discussed all work up results w/ patient. given one dose of dexamethasone in ED. her vitals have remained stable. She is not hypoxic, satting 98% on room air. Afebrile. > educated on symptomatic treatment. Advised to take Tylenol and ibuprofen as needed for fever/pain. Apple Nazario sent to pharmacy for cough. > Patient has remained stable throughout ED visit today. Discussed worrisome signs and symptoms and when to return to the ED. All questions answered at this time. Patient is agreeable with disposition and stable for discharge. Medical Decision Making Medical Decision Making [facility] Narrative: 73 year old [place]an speaking female with pmhx significant for HTN presents to the ED today for evaluation of myalgias, cough and fever x6 days. Patient hypertensive to 157/59. Not tachycardic. Not hypoxic. She is well-appearing. No acute distress. Posterior oropharynx wnl. Bilateral EACs/ TMs wnl. Lungs CTA bilaterally. No noted respiratory distress. No tripoding. Normal effort of breathing. No JVD or peripheral edema. No calf tenderness bilaterally. Skin warm, dry, intact. No rashes. Differential diagnosis includes viral syndrome, bronchitis, pneumonia. Unlikely PE. Plan for labs, viral serology, chest x-ray, re-evaluation. Differential Diagnosis Differential Diagnoses: The differential diagnosis associated with the presentation includes as above. Admission/Observation Not indicated Lab Data [facility] Lab Attestation statement: I reviewed the patient's lab results. As above 12/06/23 17:57 12/06/23 17:57 Labs: Lab Results 12/06/23 Range/Units 17:57 WBC 8.1 (4.8-10.8) X10*3/uL RBC 4.54 (4.20-5.50) X10*6/uL Hgb 13.1 (12.0-16.0) g/dl Hct 38.7 (37.0-47.0) % MCV 85.2 (80.0-98.0) fL MCH 28.9 (27.0-33.0) pg MCHC 33.9 (31.0-35.0) g/dl RDW 14.6 (11.0-16.0) % Plt Count 213 D (160-400) X10*3/uL MPV 9.6 (9.4-12.3) fL Immature Gran % (Auto) Cancelled Neut % (Auto) Cancelled Lymph % (Auto) Cancelled [place] % (Auto) Cancelled Eos % (Auto) Cancelled Baso % (Auto) Cancelled Lymph # (Auto) Cancelled [place] # (Auto) Cancelled Eos # (Auto) Cancelled Baso # (Auto) Cancelled Abs Immat Gran (auto) Cancelled Absolute Neuts (auto) Cancelled Absolute Nucleated RBC 0.000 (0.0-0.012) X10*3/uL Nucleated RBC % (auto) 0.0 (0.0-0.2) /100WBC Neutrophils % (Manual) 74 H (45-73) % Band Neutrophils % 7 H (3-5) % Lymphocytes % (Manual) 13 L (20-40) % Atypical Lymphs % (Man) 2 (0-6) % Monocytes % (Manual) 2 (2-11) % Eosinophils % (Manual) 1 (0-4) % Basophils % (Manual) 1 (0-2) % Abs Neuts (Manual) 6.6 (2.0-8.3) X10*3/uL Lymphocytes # (Manual) 1.1 L (1.2-4.9) X10*3/uL Atyp Lymphs # (Manual) 0.2 x10*3/uL Monocytes # (Manual) 0.2 (0.1-1.2) X10*3/uL Eosinophils # (Manual) 0.1 (0.0-0.4) X10*3/uL Basophils # (Manual) 0.1 (0.0-0.2) X10*3/uL Platelet Estimate NORMAL (NORMAL) Plt Morphology Comment NORMAL RBC Morphology NORMAL Smear Tech's Comments MANUAL DIFF PT 12.3 (11.1-13.3) SEC INR 1.0 (0.9-1.1) Sodium 140 (135-145) mmol/L Potassium 3.7 (3.3-5.1) mmol/L Chloride 107 (96-108) mmol/L Carbon Dioxide 22 (22-29) mmol/L Anion Gap 15 (12-20) BUN 12 (9-16) mg/dL Creatinine 0.74 (0.5-1.4) mg/dL Estim Creat Clear Calc 66.4 Estimated GFR > 60 Random Glucose 99 (60-115) mg/dL Calcium 9.5 (8.4-10.2) mg/dL Magnesium 1.8 (1.6-2.6) mg/dL Total Bilirubin 0.3 (0.0-1.0) mg/dL AST 27 (5-31) U/L ALT 14 (0-31) U/L Alkaline Phosphatase 88 (39-117) U/L Total Protein 7.2 (6.5-8.0) g/dL Albumin 4.1 (3.5-5.0) g/dL Influenza Type A (PCR) POSITIVE A (Negative) Influenza Type B (PCR) NEGATIVE (Negative) RSV RNA Qual (PCR) NEGATIVE (Negative) SARS-CoV-2 RNA (RT-PCR) POSITIVE A (Negative) Independent Interpretation I performed an independent interpretation of an: Plain X-Ray Interpretation: Chest x-ray without infiltrate or consolidation, agree with radiologist's interpretation Radiology Impression Discussion of test interpretation with radiology: I have reviewed the radiologist's reading. Radiologist Impression: EXAMINATION: XR CHEST CLINICAL INFORMATION: Cough COMPARISON: Chest x-ray on 09/11/2012 TECHNIQUE: 2 views of the chest were obtained. FINDINGS: No significant abnormality is noted involving the heart, lungs, mediastinum, bony thorax or soft tissues. XR/XR chest 2V IMPRESSION: Unremarkable examination. External Record Review External record reviewed: Inpatient record Prescription Management I considered prescription management with: Other (Tesadalberto Nazario) Social Determinants Patient?s care significantly limited by Social Determinants of Health including: Other Social Determinant of Health Critical Care Time Critical Care Time Critical Care Time: No Discharge Plan Discharge Clinical Impression: Influenza A, COVID Patient Disposition: Home, Self-Care Instructions: Influenza (ED), Flu Shot (Vaccine) for Adults (ED), Droplet Precautions (ED), COVID-19 (Coronavirus Disease 2019) (ED) Additional Instructions: Today you tested positive for both COVID-19 and influenza A. As discussed, you are out of the window for Tamiflu treatment. Treatment for these viruses is symptomatic. Take Ibuprofen or Tylenol as needed for fevers or body aches.? Apple Nazario have been sent to your pharmacy for you to take as needed for cough. Quarantine for 5 days and ensure you wear a mask. After 5 days you should wear a mask for 5 days after that.? Practice social distancing and good hand hygiene. Drink plenty of fluids. Follow-up with your primary care provider this week. Return to the emergency department with new or worsening symptoms. In case of emergency call 911 You can purchase a pulse oximeter from your local pharmacy or grocery store, and monitor your oxygen saturation if it goes below 94% you should return to the emergency department for further evaluation. Prescriptions: New benzonatate 100 mg capsule 100 mg PO BID PRN (Reason: cough) Qty: 20 0RF No Action atorvastatin 80 mg Tablet 80 mg PO DAILY amlodipine 2.5 mg Tablet 2.5 mg PO DAILY ibuprofen 600 mg Tablet 600 mg PO TID PRN (Reason: Pain) albuterol sulfate [ProAir HFA] 90 mcg/actuation Hfa Aerosol Inhaler 2 puff INHALATION Q4-6H PRN (Reason: Wheezing) loratadine 10 mg Tablet 10 mg PO DAILY hydroxyzine HCl 25 mg tablet 25 mg PO Q6H PRN (Reason: itching) Qty: 30 0RF loratadine 10 mg tablet 10 mg PO DAILY PRN (Reason: allergic symptoms) Qty: 30 0RF prednisone 20 mg tablet 40 mg PO DAILY Qty: 10 0RF hydrocortisone 2.5 % cream 1 appl topical QID PRN (Reason: rash) Qty: 30 0RF prednisone 20 mg tablet 60 mg PO DAILY 5 Days Qty: 15 0RF diphenhydramine HCl [Benadryl] 25 mg capsule 25 mg PO TID PRN (Reason: allergic reaction) 7 Days Qty: 21 0RF famotidine [Pepcid] 20 mg tablet 20 mg PO BID 7 Days Qty: 14 0RF hydrocortisone 2.5 % cream 1 appl topical BID PRN (Reason: rash) 14 Days Qty: 30 0RF hydrocortisone 2.5 % cream 1 appl topical BID PRN (Reason: rash) 14 Days Qty: 30 0RF prednisone 20 mg tablet 60 mg PO DAILY 5 Days Qty: 15 0RF famotidine [Pepcid] 20 mg tablet 20 mg PO BID 7 Days Qty: 14 0RF hydroxyzine HCl 25 mg tablet 25 mg PO TID PRN (Reason: itching) Qty: 27 0RF ondansetron 4 mg tablet,disintegrating 4 mg PO Q6-8H PRN (Reason: nausea and vomiting) Qty: 7 0RF ibuprofen 200 mg tablet 400 mg PO Q8H docusate sodium 100 mg capsule 100 mg PO BEDTIME Qty: 90 3RF hydrocortisone [Proctosol HC] 2.5 % cream with perineal applicator 1 appl DC BID-QID PRN (Reason: hemorrhoids) Qty: 30 2RF Referrals: Yesenia Castle MD [Primary Care Provider] - Stand Alone Forms: Work/School Release Print Language: [place] Lankan
[2023-12-06 18:09] LABS: Prothrombin Time 12.3 SEC (11.1-13.3)
[2023-12-06 18:15] LABS: Hematocrit 38.7 % (37.0-47.0); Hemoglobin 13.1 g/dl (12.0-16.0); Mean Corpuscular HGB Conc 33.9 g/dl (31.0-35.0); Mean Corpuscular Hemoglobin 28.9 pg (27.0-33.0); Mean Corpuscular Volume 85.2 fL (80.0-98.0); Mean Platelet Volume 9.6 fL (9.4-12.3); Platelet Count 213 X10*3/uL (160-400); Red Blood Count 4.54 X10*6/uL (4.20-5.50); Red Cell Distribution Width 14.6 % (11.0-16.0); White Blood Count 8.1 X10*3/uL (4.8-10.8)
[2023-12-06 18:19] LABS: Alanine Aminotransferase 14 U/L (0-31); Albumin Level 4.1 g/dL (3.5-5.0); Alkaline Phosphatase 88 U/L (39-117); Anion Gap 15 (12-20); Aspartate Amino Transferase 27 U/L (5-31); Bilirubin Total 0.3 mg/dL (0.0-1.0); Blood Urea Nitrogen 12 mg/dL (9-16); Calcium 9.5 mg/dL (8.4-10.2); Carbon Dioxide 22 mmol/L (22-29); Chloride 107 mmol/L (96-108); Creatinine Clr Calc Pharmacy 66.4; Estimated Glomerular Filt Rate > 60; Glucose Random 99 mg/dL (60-115); Magnesium 1.8 mg/dL (1.6-2.6); Potassium 3.7 mmol/L (3.3-5.1); Sodium 140 mmol/L (135-145); Total Protein 7.2 g/dL (6.5-8.0)
[2023-12-06 18:24] VITALS: BP 157/59; PULSE 86; RESP 16; TEMP 37; O2SAT 97
[2023-12-06 18:38] LABS: SLIDE REVIEW MANUAL DIFF
[2023-12-06 18:39] LABS: Atypical Lymph Absolute Manual 0.2 x10*3/uL; Atypical Lymphs Percent Manual 2 % (0-6); Band Neutrophils Percent 7 % (3-5); Basophils Abs Manual 0.1 X10*3/uL (0.0-0.2); Basophils Percent Manual 1 % (0-2); Eosinophils Absolute Manual 0.1 X10*3/uL (0.0-0.4); Eosinophils Percent Manual 1 % (0-4); Lymphocytes Absolute Manual 1.1 X10*3/uL (1.2-4.9); Lymphocytes Percent Manual 13 % (20-40); Monocytes Absolute Manual 0.2 X10*3/uL (0.1-1.2); Monocytes Percent Manual 2 % (2-11); Neutrophils Absolute Manual 6.6 X10*3/uL (2.0-8.3); Neutrophils Percent Manual 74 % (45-73); Platelet Estimate NORMAL (NORMAL); Platelet Morphology Comment NORMAL; RBC Morphology NORMAL
[2023-12-06 18:50] LABS: Influenza A PCR POSITIVE (Negative); Influenza B PCR NEGATIVE (Negative); Resp Syncy Virus RNA Qual PCR NEGATIVE (Negative); SARS COV2 PCR INHOUSE POSITIVE (Negative)
[2023-12-06 20:26] VITALS: BP 157/59; PULSE 86; RESP 16; TEMP 37; O2SAT 97
== END 2023-12-06 20:27 | disposition home or self-care (01) ==
PROVIDERS: Physician Assistant Medical; Emergency Provider Internal Medicine; PCP General Practice
DX: U07.1 COVID-19 (principal); J11.1 Influenza due to unidentified influenza virus with other respiratory manifestations; R50.9 Fever, unspecified; R05.9 Cough, unspecified; M79.10 Myalgia, unspecified site; E11.9 Type 2 diabetes mellitus without complications; I10 Essential (primary) hypertension; E78.00 Pure hypercholesterolemia, unspecified; Z79.02 Long term (current) use of antithrombotics/antiplatelets; Z79.899 Other long term (current) drug therapy
CPT/HCPCS: 0241U; 36415; 71046; 80053; 83735; 85007; 85027; 85610; 99283

== ENCOUNTER 2024-01-06 08:58 | Outpatient (REF) | payer OTHER, SELFPAY ==
[2024-01-06 12:16] LABS: Estimated Average Glucose 114 mg/dL; Hemoglobin A1c % 5.6 % (<6.0)
[2024-01-06 12:41] LABS: Cholesterol 217 mg/dL (<200); HDL Cholesterol 57 mg/dL (>40); LDL Cholesterol Calculated 142 mg/dL (<100); Triglycerides 90 mg/dL (<150)
[2024-01-06 12:42] LABS: Erythrocyte Sedimentation Rate 12 MM/HR (0-20); TSH reflex Free T4 2.32 uIU/mL (0.32-4.0)
[2024-01-07 04:36] LABS: ~HepC Num1 0.13 S/CO (0.00-0.79); ~Hepatitis C Antibody Nonreactive (Nonreactive)
== END 2024-01-06 08:59 | disposition home or self-care (01) ==
LOC: HO.HHCL 08:58
PROVIDERS: Visit Provider General Practice
DX: Z00.00 Encounter for general adult medical examination without abnormal findings (principal); R63.4 Abnormal weight loss; E78.49 Other hyperlipidemia; Z13.1 Encounter for screening for diabetes mellitus
CPT/HCPCS: 36415; 80061; 83036; 84443; 85652; 86803

== ENCOUNTER 2024-05-18 08:02 | Outpatient (REF) | payer OTHER, SELFPAY ==
--- NOTE | ~2024-05-18 | CT_ITS ---
CLINICAL HISTORY: persistent cervical lymphadenopathy CT soft tissue neck with contrast Comparison: None Findings: Index right level II cervical lymph node measures 1.1 cm short axis (image number 70 of series 2). Adjacent stranding can be seen with extracapsular spread and cervical lymphadenitis. Additional bilateral level II, III, IV, and V demonstrate loss of the fatty kiet. Differential considerations include lymphoproliferative disorder, secondary lymphadenopathy, and reactive lymphadenopathy. No drainable parapharyngeal abscess. Predominately noncalcified plaque in this nonvascular study, with retropharyngeal right ICA. No exophytic mass of the imaged aerodigestive tract. Subcutaneous edema is noted. Previous cataract procedure changes present. Fluid and mucosal thickening of the paranasal sinuses including likely retention cysts of the left maxillary sinus. Trace left mastoid effusion. Scarring of the imaged lung apices. Cerebellar tonsils terminate at the level of the foramen magnum with mild crowding of the contents in the foramen magnum. No hydrocephalus in the [id number]-[id number]. Fatty replacement of the parotid glands. Imaged submandibular and thyroid glands are within normal limits for CT. Degenerative changes include cervical spine facet arthropathy and disc osteophyte complexes. Metal and lucencies associated with multiple remaining imaged teeth. IMPRESSION: 1. Bilateral cervical lymphadenopathy with index right level II, as detailed above. Please consider dedicated tissue sampling, if clinically indicated. 2. No exophytic mass of the imaged aerodigestive tract. 3. 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 This document has been electronically signed by: Ochoa Roca MD on 05/18/2024 19:01:09
--- OUTSIDE RECORDS SUMMARY | 2024-05-18 08:05 | XMS_ITS | Patient Health Record ---
Author Organization [facility] Address [address] [place] [address] Care Team Providers Care Pulpwood Dealer Name Role Phone Yesenia Castle M.D. Primary Care Provider Ulices sanchez Magen Greenfield Unavailable [phone] REASON FOR REFERRAL No Information MEDICATIONS Medication SIG (Take, Route, Frequency, Duration) Notes Start Date End Date Status Loratadine 10 MG 1 tablet Orally Once a day Active Ibuprofen 800 MG 1 capsule with food or milk as needed Orally as needed Active amLODIPine Besylate 2.5 MG TAKE 1 TABLET BY MOUTH EVERY DAY Oral for 30 Active MiraLax (colon prep) 8.3 ounce ((238) grams mixed with Gatorade or Crystal Light orally begin at 5:00 p.m. the day before the procedure for 1 day 03/05/2019 Active Aspirin Low Dose 81 MG TAKE 1 TABLET BY MOUTH EVERY DAY Oral for 30 Active Dulcolax (colon prep) 5 MG take at 3:00 p.m and 7:00p.m. Orally two tablets twice a day for one day for 1 day 03/05/2019 Active Calcium Carbonate-Vitamin D 600-400 MG-UNIT TAKE 1 TABLET BY MOUTH TWICE DAILY Oral for 30 Active SOCIAL HISTORY Tobacco Use: Social History Observation Description Date Details (start date - stop date) Never Smoker NA - NA Sex Assigned At : Social History Observation Description Sex Assigned At Unknown Tobacco Use/Smoking Question Answer Notes Patient is a nonsmoker Alcohol Screen Question Answer Notes Did you have a drink containing alcohol in the p ast year? No Points 0 Interpretation Negative PROBLEMS Problem Type ICD Code Onset Dates Problem Status W/U Status Risk SNOMED Code Notes Problem Encounter for screening for malignant neoplasm of colon (Z12.11) Active confirmed 347277223 Problem History of adenomatous polyp of colon (Z86.010) Active confirmed 261600795 Problem Pre-procedural examination (Z01.818) Active confirmed [id number] PLAN OF TREATMENT Pending Test Test Name Order Date GI BIOPSY 03/31/2019 Future Test Test Name Order Date COLONOSCOPY 01/13/2013 COLONOSCOPY 03/03/2019 Next Appt Details Provider Name:Magen Greenfield , 05/27/2024 03:00:00 PM, [address] [facility], [address], [place], [address], Insurance Providers Payer Name Payer Address Payer Phone Subscriber Number Group Number Insured Name Patient Relationship to Insured Coverage Start Date Coverage End Date [facility] [address] [address] [place] [address] [id number] BUTCH DONAHUE Self - patient is the insured MEDICAID OF [facility] [address] [place] [address] [id number] BUTCH DONAHUE Self - patient is the insured MEDICAL (GENERAL) HISTORY Medical History History ICD Code Colonoscopy in October 2007 wit h removal of a single tubular adenoma-also noted was some sigmoid diverticulosis and internal hemorrhoids Denies [place],DM,CVA,Lung disease,renal dise ase Colonoscopy in 02/2013 with a small tubu lar adenoma removed HTN Surgical History Surgery Date(Month/Year) Breast reduction surgery and liposuction from her abdominal wall CCY 09/2018 Dr. Lopez
[2024-05-18] MEDS: iohexoL 350 MG/ML 75 ML INFUS..BTL 60 ML IV (09:21)
[2024-05-18 10:22] LABS: Creatinine POC 0.8 mg/dL (0.5-1.4); GFR POC > 60
== END 2024-05-18 08:03 | disposition home or self-care (01) ==
LOC: HO.CT 08:02
PROVIDERS: PCP General Practice; Visit Provider Internal Medicine
DX: R59.0 Localized enlarged lymph nodes (principal)
CPT/HCPCS: 70491; 82565; Q9967

== ENCOUNTER → 2024-05-18 08:14 | Outpatient (BNV) | payer OTHER, SELFPAY | PROVIDERS: PCP General Practice; Visit Provider Radiology Neuroradiology | DX: R59.0 Localized enlarged lymph nodes (principal) | CPT/HCPCS: 70491 ==

== ENCOUNTER 2024-05-19 09:06 | Outpatient (REF) | payer OTHER, SELFPAY ==
--- NOTE | ~2024-05-19 | MM_ITS ---
EXAMINATION: Dual-Energy X-ray Absorptiometry - Bone Density Study HISTORY: Estrogen deficiency TECHNIQUE: Isonas Dual energy absorptiometry (DEXA) of the lumbar spine, total left hip, and femoral neck was performed. COMPARISON: Comparison is made with the prior examination dated 04/27/2022. FINDINGS: The bone mineral density of the lumbar spine is 0.963 with a T-score of -1.8, and a Z-score of 0.3. This represents a BMD change of 0.4% compared to the prior exam. This is not statistically significant. The bone mineral density of the left total hip is 0.785 with a T-score of -1.8, and a Z-score of 0.3. This represents BMD change of 14.6% compared to the prior exam. This is statistically significant. The bone mineral density of the left femoral neck is 0.763 with a T-score of -2.0, and a Z-score of 0.3. This represents BMD change of 6.9% compared to the prior exam. FRACTURE RISK: The FRAX index suggests a ten year probability of major osteoporotic fracture of 7.2%, and of hip fracture 1.6%. MM/XR DEXA axial skeleton IMPRESSION: Based on bone mineral density, and according to World Health Organization (WHO) criteria, the diagnosis is consistent with osteopenia. All bone density values are in grams per centimeter squared. At this facility, the least significant change in BMD with 95% confidence is 0.022 at the lumbar spine, 0.027 at the hip, and 0.023 at the distal 1/3 radius. Electronically signed by: Magen Brady MD 05/20/2024 09:38 AM EST
--- NOTE | ~2024-05-19 | MM_ITS ---
EXAMINATION: MM SCREENING DIGITAL BREAST TOMOSYNTHESIS, BILATERAL CLINICAL INFORMATION: Screening. Asymptomatic. COMPARISON: Mammography: Comparison is made with available priors TECHNIQUE: Digital breast mammography with tomosynthesis is performed in both the craniocaudal and mediolateral oblique views along with computer-aided detection (CAD). FINDINGS: There are scattered areas of fibroglandular density (ACR BI-RADS breast composition Category b). Bilateral reduction mammoplasty. Right marker clip. There are no significant masses, abnormal calcifications, or other abnormalities. MM/MM tomosynthesis screening BI IMPRESSION: No mammographic evidence of malignancy. ASSESSMENT: BI-RADS BI-RADS 2 - Benign Findings RECOMMENDATION: Routine annual mammography screening. 1 year F/U This examination should not preclude the clinical evaluation of a suspicious palpable abnormality. This patient's information was entered into a reminder system with a target due date for their next mammogram. Electronically signed by: Norma Payne DO 05/25/2024 03:46 PM EST
--- OUTSIDE RECORDS SUMMARY | 2024-05-19 09:26 | XMS_ITS | Patient Health Record ---
Author Organization [facility] Address [address] [place] [address] Care Team Providers Care Acreage Reporter Name Role Phone Yesenia Castle M.D. Primary Care Provider Ulices sanchez Magen Greenfield Unavailable [phone] REASON FOR REFERRAL No Information MEDICATIONS Medication [...] malignant neoplasm of colon (Z12.11) Active confirmed 366613662 Problem History of adenomatous polyp of colon (Z86.010) Active confirmed 145669178 Problem Pre-procedural examination (Z01.818) Active confirmed [id number] PLAN OF TREATMENT Pending Test Test Name Order Date GI BIOPSY 03/31/2019 Future Test Test Name Order Date COLONOSCOPY 01/13/2013 COLONOSCOPY 03/03/2019 Next Appt Details Provider Name:Magen Greenfield , 05/27/2024 03:00:00 PM, [address] [facility], [address], [place], [address], Insurance Providers Payer Name Payer Address Payer Phone Subscriber Number Group Number Insured Name Patient Relationship to Insured Coverage Start Date Coverage End Date [facility] [address] [address] [place] [address] [id number] BUTCH DONAHUE Self - patient is the insured MEDICAID OF [facility] [address] [place] [address] [id number] BUTCH DONAHUE Self - patient is the insured MEDICAL (GENERAL) HISTORY Medical History History ICD Code Colonoscopy in October 2007 wit h removal of a single tubular adenoma-also noted was some sigmoid diverticulosis and internal hemorrhoids Denies [place],DM,CVA,Lung disease,renal dise ase Colonoscopy in 02/2013 with a small tubu lar adenoma removed HTN Surgical History Surgery Date(Month/Year) Breast reduction surgery and liposuction from her abdominal wall CCY 09/2018 Dr. Lopez
== END 2024-05-19 09:07 | disposition home or self-care (01) ==
LOC: HO.MAMMO 09:06
PROVIDERS: PCP General Practice; Visit Provider General Practice
DX: M85.89 Other specified disorders of bone density and structure, multiple sites (principal); Z12.31 Encounter for screening mammogram for malignant neoplasm of breast; Z98.890 Other specified postprocedural states
CPT/HCPCS: 77063; 77067; 77080

== ENCOUNTER → 2024-05-19 09:08 | Outpatient (BNV) | payer OTHER, SELFPAY | PROVIDERS: PCP General Practice; Visit Provider Radiology Diagnostic Radiology | DX: Z12.31 Encounter for screening mammogram for malignant neoplasm of breast (principal) | CPT/HCPCS: 77063; 77067 ==

== ENCOUNTER 2024-05-26 08:29 | Outpatient (REF) | payer OTHER, SELFPAY ==
--- OUTSIDE RECORDS SUMMARY | 2024-05-26 08:48 | XMS_ITS | Patient Health Record ---
Author Organization [facility] Address [address] [place] [address] Care Team Providers Care Departmental Buyer Name Role Phone Yesenia Castle M.D. Primary Care Provider Ulices sanchez Magen Greenfield Unavailable [phone] REASON FOR REFERRAL No Information MEDICATIONS Medication [...] malignant neoplasm of colon (Z12.11) Active confirmed 079281265 Problem History of adenomatous polyp of colon (Z86.010) Active confirmed 825475206 Problem Pre-procedural examination (Z01.818) Active confirmed [id number] PLAN OF TREATMENT Pending Test Test Name Order Date GI BIOPSY 03/31/2019 Future Test Test Name Order Date COLONOSCOPY 01/13/2013 COLONOSCOPY 03/03/2019 Next Appt Details Provider Name:Magen Greenfield , 05/27/2024 03:00:00 PM, [address] [facility], [address], [place], [address], Insurance Providers Payer Name Payer Address Payer Phone Subscriber Number Group Number Insured Name Patient Relationship to Insured Coverage Start Date Coverage End Date [facility] [address] [address] [place] [address] [id number] BUTCH DONAHUE Self - patient is the insured MEDICAID OF [facility] [facility] [address] [place] [address] [id number] BUTCH DONAHUE Self - patient is the insured MEDICAL (GENERAL) HISTORY Medical History History ICD Code Colonoscopy in October 2007 wit h removal of a single tubular adenoma-also noted was some sigmoid diverticulosis and internal hemorrhoids Denies [place],DM,CVA,Lung disease,renal dise ase Colonoscopy in 02/2013 with a small tubu lar adenoma removed HTN Surgical History Surgery Date(Month/Year) Breast reduction surgery and liposuction from her abdominal wall CCY 09/2018 Dr. Lopez
[2024-05-26 11:22] LABS: MANUAL DIFF FLAG NO
[2024-05-26 11:31] LABS: Basophils Percent Auto 0.6 % (0-2); Eosinophils Absolute Auto 0.2 X10*3/uL (0.0-0.4); Eosinophils Percent Auto 3.5 % (0-4); Hematocrit 40.4 % (37.0-47.0); Hemoglobin 13.2 g/dl (12.0-16.0); Imm Gran Abs Auto 0.03 X10*3/uL (0.00-0.03); Imm Gran Pct Auto 0.5 % (0.0-0.4); Lymphocytes Absolute Auto 1.7 X10*3/uL (1.2-4.9); Lymphocytes Percent Auto 25.5 % (20-40); Mean Corpuscular HGB Conc 32.7 g/dl (31.0-35.0); Mean Corpuscular Hemoglobin 28.1 pg (27.0-33.0); Mean Platelet Volume 10.3 fL (9.4-12.3); Monocytes Absolute Auto 0.5 X10*3/uL (0.1-1.2); Monocytes Percent Auto 8.2 % (2-11); Neutrophils Percent Auto 61.7 % (45-73); Platelet Count 300 X10*3/uL (160-400); Red Cell Distribution Width 13.9 % (11.0-16.0); White Blood Count 6.5 X10*3/uL (4.8-10.8)
[2024-05-26 11:41] LABS: Lactate Dehydrogenase 210 U/L (122-220)
[2024-05-26 12:18] LABS: Erythrocyte Sedimentation Rate 10 MM/HR (0-20)
[2024-05-26 12:43] LABS: HIV AB/AG Nonreactive (Nonreactive); HIV Num 1 0.05 S/CO (0.00-0.99)
[2024-05-28 09:58] LABS: RPR Rapid Plasma Reagin NON-REACTIVE (NON-REACTIVE)
== END 2024-05-26 08:30 | disposition home or self-care (01) ==
LOC: HO.HHCL 08:29
PROVIDERS: Visit Provider General Practice
DX: R59.0 Localized enlarged lymph nodes (principal)
CPT/HCPCS: 36415; 83615; 85025; 85652; 86592; 87389

== ENCOUNTER 2024-05-27 15:55 | Outpatient (AMB) | payer OTHER, SELFPAY ==
--- NOTE | 2024-05-27 15:58 | A.OFFVIS_ITS ---
Vital Signs 05/27/24 16:05 Height 5 ft 2 in Weight 170 lb BMI 31.1 Intake Visit Reasons: cervical lymphoma Intake Note: This patient presents for cervical lymphadenopathy. Pt c/o; Onset 4 months, reports no dysphagia, reports no issues with eating. Accounting Technician Required: Yes Accounting Technician Language: Fraud Prevention Analyst Services: Accounting Technician Present Accounting Technician Name: Cherry Information Interpreted: non-clinical & clinical Accompanied by: Self / Same As Patient Allergies No Known Allergies [No Known Allergies*] Allergy (Verified 05/30/24 04:07) Medication List - Last Reconciled 05/27/24 by Naun Scherer MD albuterol sulfate 90 mcg/actuation (ProAir HFA) 2 puffs inhalation Q4-6H PRN amlodipine 2.5 mg PO DAILY atorvastatin 80 mg PO DAILY benzonatate 100 mg PO BID PRN diphenhydramine HCl (Benadryl) 25 mg PO TID PRN 7 days docusate sodium 100 mg PO BEDTIME famotidine (Pepcid) 20 mg PO BID 7 days famotidine (Pepcid) 20 mg PO BID 7 days hydrocortisone 2.5% 1 appl topical QID PRN hydrocortisone 2.5% 1 appl topical BID PRN 2 weeks hydrocortisone 2.5% 1 appl topical BID PRN 2 weeks hydrocortisone 2.5% (Proctosol HC) 1 appl AL BID-QID PRN hydroxyzine HCl 25 mg PO TID PRN hydroxyzine HCl 25 mg PO Q6H PRN ibuprofen 600 mg PO TID PRN ibuprofen 400 mg PO Q8H loratadine 10 mg PO DAILY loratadine 10 mg PO DAILY PRN ondansetron 4 mg PO Q6-8H PRN prednisone 40 mg (2 x 20 mg) PO DAILY prednisone 60 mg (3 x 20 mg) PO DAILY 5 days prednisone 60 mg (3 x 20 mg) PO DAILY 5 days HPI HPI cervical lymphoma: Details: 73 year female referred for cervical lymphadenopathy. She had mentioned to her primary care physician that a month ago, she had noticed this small lump on the base of the neck posteriorly. She was therefore sent for a CT scan of the neck. This showed prominent lymph nodes bilaterally with a level 2 index lymph node measuring about 1.1 cm. She was referred to me for biopsy. She says she no longer feels any lump or her neck She denies any fever, chills, weight loss, or systemic complaints. She denies any night sweats. She says she is in good health She denies any oral lesions. She denies any dental caries. Denies any sore throat. She denies any swallowing problems. [facility] Medical History Cervical lymphadenopathy Seasonal allergies Thoracic spine pain Pre-diabetes Elevated cholesterol HTN (hypertension) Surgical History History of cataract extraction History of bilateral breast reduction surgery Hx laparoscopic cholecystectomy Hx of colonoscopy Social History Are you a primary day care attendant to a significant other at home: No Do you presently have visiting nurse or other home services: No Patient Tobacco Use Status: Never used Tobacco Smoked in Last 30 Days: No Second Hand Smoke Exposure: No Use of substances other than those prescribed or required for medical reasons: No Advance Directives: No Advance Directives Information Provided: Yes Do you have a plan to hurt others: No Plan Review of Systems Const Denies chills and Denies fever(s) Card Denies chest pain, Denies dyspnea and Denies dyspnea on exertion Resp Denies cough, Denies dyspnea and Denies dyspnea on exertion GI Denies hematochezia and Denies change in bowel habits Denies hematuria Musc Denies back pain and Denies limited range of motion Neuro Denies focal weakness and Denies convulsions Psych Denies depression and Denies mood swings Physical Exam Vital Signs: BMI result Body Mass Index 31.1 Const General: comfortable and no acute distress Orientation/consciousness: patient oriented x3 Neck Neck: Yes no lymphadenopathy Resp Auscultation: clear to auscultation bilaterally Cardio Rhythm: regular rhythm GI Palpation (GI): Soft to palpation, nontender and no guarding Neuro General: patient oriented x3 Assessment & Plan Assessment & Plan (1) Cervical lymphadenopathy: Code(s): R59.0 - Localized enlarged lymph nodes Category: Medical Plan: She was referred to me for note of prominent lymph nodes on the CT scan as described above. I do not feel any obvious enlarged lymph node on exam I will consult the IR department for ultrasound biopsy of the lymph nodes of the level 2 as described above . I will see her again in the office thereafter. Orders: Orders US biopsy lymph node 05/27/24 R59.0 - Localized enlarged lymph nodes Coding Level of Care Code New Pt Level 3 (13527) Diagnoses Cervical lymphadenopathy R59.0
[2024-05-27 16:05] VITALS: BMI 31.1
== END 2024-05-27 16:21 | disposition home or self-care (01) ==
PROVIDERS: PCP General Practice; Visit Provider Surgery
DX: R59.0 Localized enlarged lymph nodes (principal)
CPT/HCPCS: 99203

== ENCOUNTER → 2024-05-27 15:55 | Outpatient (BNVA) | payer OTHER, SELFPAY | PROVIDERS: PCP General Practice; Visit Provider Surgery | DX: R59.0 Localized enlarged lymph nodes (principal) | CPT/HCPCS: 99202 ==

== ENCOUNTER 2024-05-30 03:56 | Emergency (ER) | payer OTHER, SELFPAY ==
[2024-05-30 04:05] VITALS: BP 118/76; PULSE 113; RESP 16; TEMP 36.3; O2SAT 98; BMI 34.3
[2024-05-30 04:39] LABS: Basophils Percent Auto 0.2 % (0-2); Eosinophils Absolute Auto 0.1 X10*3/uL (0.0-0.4); Eosinophils Percent Auto 0.3 % (0-4); Hematocrit 41.8 % (37.0-47.0); Imm Gran Abs Auto 0.08 X10*3/uL (0.00-0.03); Imm Gran Pct Auto 0.5 % (0.0-0.4); Lymphocytes Absolute Auto 0.4 X10*3/uL (1.2-4.9); Lymphocytes Percent Auto 2.1 % (20-40); MANUAL DIFF FLAG SCAN; Mean Corpuscular HGB Conc 33.5 g/dl (31.0-35.0); Mean Corpuscular Hemoglobin 28.3 pg (27.0-33.0); Mean Corpuscular Volume 84.4 fL (80.0-98.0); Mean Platelet Volume 9.2 fL (9.4-12.3); Monocytes Absolute Auto 0.5 X10*3/uL (0.1-1.2); Monocytes Percent Auto 2.7 % (2-11); Neutrophils Absolute Auto 16.7 x10*3/uL (2.0-8.3); Neutrophils Percent Auto 94.2 % (45-73); Platelet Count 280 X10*3/uL (160-400); Red Blood Count 4.95 X10*6/uL (4.20-5.50); Red Cell Distribution Width 13.9 % (11.0-16.0); SCAN SMEAR FLAG 1; White Blood Count 17.7 X10*3/uL (4.8-10.8)
--- NOTE | 2024-05-30 04:45 | PC.NURSE ---
Pt a&ox4, no signs of distress. Pt reports 10/10 abd pain, n/v/d with onset of 10pm last night. Pt reports sick contacts with a stomach virus. Pts family at bedside. Plan of care ongoing.
[2024-05-30 04:57] LABS: SLIDE REVIEW VERIFIED
[2024-05-30 04:58] LABS: Alanine Aminotransferase 13 U/L (0-31); Albumin Level 4.5 g/dL (3.5-5.0); Anion Gap 18 (12-20); Aspartate Amino Transferase 28 U/L (5-31); Bilirubin Total 0.6 mg/dL (0.0-1.0); Blood Urea Nitrogen 18 mg/dL (9-16); COVID-19 Test Negative (Negative); Calcium 10.1 mg/dL (8.4-10.2); Carbon Dioxide 18 mmol/L (22-29); Chloride 110 mmol/L (96-108); Creatinine Clr Calc Pharmacy 69.3; Estimated Glomerular Filt Rate > 60; Glucose Random 168 mg/dL (60-115); IDNOW Serial# 55D5AD1C; Lipase 12 U/L (8-78); Potassium 3.9 mmol/L (3.3-5.1); Sodium 142 mmol/L (135-145); Total Protein 8.4 g/dL (6.5-8.0)
[2024-05-30 04:59] LABS: IDNOW Serial# 58CA691E; Influenza A Negative (Negative); Influenza B2 Negative (Negative)
[2024-05-30 05:03] LABS: Alkaline Phosphatase 104 U/L (39-117)
--- NOTE | 2024-05-30 05:51 | ED.NAVMDI ---
HPI - Nausea/Vomiting/Diarrhea General Chief complaint: Nausea/Vomiting/Diarrhea Stated complaint: flu like symptoms Time Seen by Provider: 05/30/24 05:44 Source: patient Mode of arrival: ambulatory Limitations: no limitations History of Present Illness ED Provider: Dr. Natalie Treviño HPI Narrative: Patient comes to the emergency room complaining of 8 hours of nausea vomiting and diarrhea. Patient states that at home, a lot of family members have flu-like symptoms. Patient has chest pain or shortness of breath. Patient complaining mostly about the nausea and the vomiting. Patient states that she tried taking Pepto-Bismol earlier today but vomited medication right away. Unable to keep anything down. Patient states that she has diffuse abdominal cramping, and the abdomen hurts from vomiting so much. Related Data Home Medications ?Medication ?Instructions ?Recorded ?Confirmed albuterol sulfate 90 mcg/actuation 2 puff inhalation Q4-6H PRN 01/18/21 05/27/24 aerosol inhaler (ProAir HFA) Wheezing amlodipine 2.5 mg tablet 2.5 mg PO DAILY 01/18/21 05/27/24 atorvastatin 80 mg tablet 80 mg PO DAILY 01/18/21 05/27/24 ibuprofen 600 mg tablet 600 mg PO TID PRN Pain 01/18/21 05/27/24 loratadine 10 mg tablet 10 mg PO DAILY 01/18/21 05/27/24 ibuprofen 200 mg tablet 400 mg PO Q8H 02/02/22 05/27/24 Previous Rx's ?Medication ?Instructions ?Recorded docusate sodium 100 mg capsule 100 mg PO BEDTIME #90 caps 02/02/22 hydrocortisone 2.5 % topical cream 1 appl HI BID-QID PRN hemorrhoids 02/02/22 with perineal applicator #30 grams (Proctosol HC) hydrocortisone 2.5 % topical cream 1 appl topical QID PRN rash #30 04/19/22 grams hydroxyzine HCl 25 mg tablet 25 mg PO Q6H PRN itching #30 tabs 04/19/22 loratadine 10 mg tablet 10 mg PO DAILY PRN allergic 04/19/22 symptoms #30 tabs prednisone 20 mg tablet 40 mg (2 x 20 mg) PO DAILY #10 tabs 04/19/22 diphenhydramine HCl 25 mg capsule 25 mg PO TID PRN allergic reaction 05/29/22 (Benadryl) 7 days #21 caps famotidine 20 mg tablet (Pepcid) 20 mg PO BID 7 days #14 tabs 05/29/22 hydrocortisone 2.5 % topical cream 1 appl topical BID PRN rash 2 05/29/22 weeks #30 grams prednisone 20 mg tablet 60 mg (3 x 20 mg) PO DAILY 5 days 05/29/22 #15 tabs famotidine 20 mg tablet (Pepcid) 20 mg PO BID 7 days #14 tabs 06/18/22 hydrocortisone 2.5 % topical cream 1 appl topical BID PRN rash 2 06/18/22 weeks #30 grams hydroxyzine HCl 25 mg tablet 25 mg PO TID PRN itching #27 tabs 06/18/22 prednisone 20 mg tablet 60 mg (3 x 20 mg) PO DAILY 5 days 06/18/22 #15 tabs ondansetron 4 mg disintegrating 4 mg PO Q6-8H PRN nausea and 07/10/23 tablet vomiting #7 tabs benzonatate 100 mg capsule 100 mg PO BID PRN cough #20 caps 12/06/23 loperamide 2 mg tablet 2 mg PO Q4H PRN loose stool #14 05/30/24 (Anti-Diarrheal (loperamide)) tabs ondansetron HCl 4 mg tablet 4 mg PO Q6H PRN nausea and 05/30/24 vomiting #10 tabs Allergies Allergy/AdvReac Type Severity Reaction Status Date / Time No Known Allergies Allergy Verified 05/30/24 04:07 [No Known Allergies*] Review of Systems Review of Systems: Constitutional : No Weight loss, No Fever, No Chills, No Night Sweats, No Fatigue, No Malaise ENT/Mouth : No Hearing loss, No Ear Pain, No Nasal Congestion, No Sinus Pain, No Hoarseness, No sore throat, No Rhinorrhea, No Swallowing Difficulty Eyes: No Eye Pain, No Swelling, No Redness, No Foreign Body, No Discharge, No Vision Changes Cardiovascular : No Chest Pain, No SOB, No Dyspnea on Exertion, No Orthopnea, No Edema, No Palpitations Respiratory : No Cough, No Sputum, No Wheezing, No Smoke Exposure, No Dyspnea Gastrointestinal : Complaining of nausea vomiting and diarrhea, complaining of abdominal cramping,, No Constipation, denies hematochezia or melena Genitourinary : no irregular bleeding, No Dysuria, No Urinary Frequency, No Hematuria, No Urinary Incontinence, No Urgency, No Flank Pain, No Urinary Flow Changes, No Hesitancy Musculoskeletal : No joint pain, No Myalgias, No Joint Swelling Skin : No Skin Lesions, No rash Neuro : No Weakness, No Numbness, No Paresthesias, No Loss of Consciousness, No Dizziness, No Headache Psych : No Anxiety/Panic, No Depression, No SI/HI/AH/VH, No Social Issues, Heme/Lymph: No Bruising, No Bleeding,No Lymphadenopathy Endocrine : No Polyuria, No Polydipsia, No Temperature Intolerance [facility] Past Medical History Medical History Cervical lymphadenopathy Seasonal allergies Thoracic spine pain Pre-diabetes Elevated cholesterol HTN (hypertension) Surgical History History of cataract extraction History of bilateral breast reduction surgery Hx laparoscopic cholecystectomy Hx of colonoscopy Social History Social History Are you a primary technical healthcare consultant to a significant other at home: No Do you presently have visiting nurse or other home services: No Patient Tobacco Use Status: Never used Tobacco Smoked in Last 30 Days: No Second Hand Smoke Exposure: No Use of substances other than those prescribed or required for medical reasons: No Advance Directives: No Advance Directives Information Provided: Yes Do you have a plan to hurt others: No Plan Physical Exam Vital Signs: Vital Signs: Last Vital Signs Temp 97.0 F 05/30/24 06:37 Pulse 90 05/30/24 06:37 Resp 16 05/30/24 06:37 BP 134/47 L 05/30/24 06:37 Pulse Ox 99 05/30/24 06:37 O2 Del Method Room Air 05/30/24 06:37 BMI result Body Mass Index 34.3 Const: Other: Appearance: Alert. Oriented X3. Looks very uncomfortable Eyes: Pupils equal, round and reactive to light. ENT: Pharynx normal. Neck: Normal inspection. Neck supple. No lymph nodes noted. No crepitus CVS: Normal heart rate and rhythm. Pulses normal. Normal S1 and S2 Respiratory: No respiratory distress. Breath sounds normal. No Wheezing. No rales Abdomen: Soft , no specific tenderness to palpation. No rigidity. No distention. Skin: Skin warm and dry. Normal skin color. Normal skin turgor. Extremities: No lower extremity edema. No Lacerations. No Rash Neuro: Oriented X 3. No motor deficit. No sensory deficit. Moving all extremities. No slurred speech. CN 2 through 12 grossly intact Psych: calm, cooperative, normal affect Course Course Course Narrative: Patient receiving IV fluids, Zofran, when able to tolerate p.o., patient will get loperamide. Medications Administered Generic Name Dose Route Start Last Admin Trade Name Freq PRN Reason Stop Dose Admin Lactated Ringer's 2,000 mls @ 999 mls/hr 05/30/24 06:00 05/30/24 06:18 Lr IV 05/30/24 08:00 999 mls/hr .Q2H1M CONNIE Administration Discontinued Medications Generic Name Dose Route Start Last Admin Trade Name Freq PRN Reason Stop Dose Admin Loperamide HCl 4 mg 05/30/24 06:21 05/30/24 06:30 Loperamide Hcl 2 Mg Capsule PO 05/30/24 06:22 4 mg ONCE ONE Administration Ondansetron HCl 4 mg 05/30/24 05:50 05/30/24 06:21 Ondansetron Hcl 4 Mg/2 Ml Vial IVPUSH 05/30/24 05:51 4 mg ONCE ONE Administration Medical Decision Making Medical Decision Making [facility] Narrative: My interpretation of labs: Patient's white blood cell count 17.0, likely reactive leukocytosis. Chemistry shows a slightly decreased bicarb, BUN 18, creatinine 0.8. Patient receiving IV fluids. LFTs and lipase within normal limits. I considered ordering a CT scan of the abdomen. However, patient has no significant pain to palpation over the abdomen, patient states it is mostly the abdominal wall that hurts from forceful vomiting., negative for influenza and COVID Patient has had 1 L of lactated Ringer's. Patient states that she had only 1 episode of diarrhea since she had the medication, no more vomiting. No more nauseous. On repeat physical exam, patient has no pain to palpation in the abdominal area. Patient receiving 1 more L of fluids and will be getting 1 more dose of loperamide p.o. 2 mg. Overall, patient states that she is improving and feeling much better. Overall, it is likely the patient will be discharged home. Patient has been more L to go. I gave sign out to my colleague MAEGAN Omalley Differential Diagnosis Differential Diagnoses: The differential diagnosis associated with the presentation includes (Gastritis, gastroenteritis, viral syndrome) Admission/Observation Consideration of admission/observation: Escalation of care including admission/observation considered (Given patient's age and symptoms, observation was considered.) Lab Data MDM Lab Attestation statement: I reviewed the patient's lab results. 05/30/24 04:32 05/30/24 04:32 Labs: Lab Results 05/30/24 Range/Units 04:32 WBC 17.7 H (4.8-10.8) X10*3/uL RBC 4.95 (4.20-5.50) X10*6/uL Hgb 14.0 (12.0-16.0) g/dl Hct 41.8 (37.0-47.0) % MCV 84.4 (80.0-98.0) fL MCH 28.3 (27.0-33.0) pg MCHC 33.5 (31.0-35.0) g/dl RDW 13.9 (11.0-16.0) % Plt Count 280 (160-400) X10*3/uL MPV 9.2 L (9.4-12.3) fL Immature Gran % (Auto) 0.5 H (0.0-0.4) % Neut % (Auto) 94.2 H (45-73) % Lymph % (Auto) 2.1 L (20-40) % [place] % (Auto) 2.7 (2-11) % Eos % (Auto) 0.3 (0-4) % Baso % (Auto) 0.2 (0-2) % Lymph # (Auto) 0.4 L (1.2-4.9) X10*3/uL [place] # (Auto) 0.5 (0.1-1.2) X10*3/uL Eos # (Auto) 0.1 (0.0-0.4) X10*3/uL Baso # (Auto) 0.0 (0.0-0.2) X10*3/uL Abs Immat Gran (auto) 0.08 H (0.00-0.03) X10*3/uL Absolute Neuts (auto) 16.7 H (2.0-8.3) x10*3/uL Absolute Nucleated RBC 0.000 (0.0-0.012) X10*3/uL Nucleated RBC % (auto) 0.0 (0.0-0.2) /100WBC Smear Tech's Comments VERIFIED Sodium 142 (135-145) mmol/L Potassium 3.9 (3.3-5.1) mmol/L Chloride 110 H (96-108) mmol/L Carbon Dioxide 18 L (22-29) mmol/L Anion Gap 18 (12-20) BUN 18 H (9-16) mg/dL Creatinine 0.80 (0.5-1.4) mg/dL Estim Creat Clear Calc 69.3 Estimated GFR > 60 Random Glucose 168 H (60-115) mg/dL Calcium 10.1 D (8.4-10.2) mg/dL Total Bilirubin 0.6 (0.0-1.0) mg/dL AST 28 (5-31) U/L ALT 13 (0-31) U/L Alkaline Phosphatase 104 (39-117) U/L Total Protein 8.4 H (6.5-8.0) g/dL Albumin 4.5 (3.5-5.0) g/dL Lipase 12 (8-78) U/L COVID-19 (REYNALDO) Negative (Negative) COVID-19 Clin Com See Note Influenza Type A (ILIA) Negative (Negative) Influenza Type B (ILIA) Negative (Negative) Influenza A & B Note See Note Critical Care Time Critical Care Time Critical Care Time: Yes Total Critical Care Time: 60 Attestation: I have personally provided critical care time. Time includes review of lab data, radiology results, discussion with consultants, and monitoring for potential decompensation. Intervention performed as documented. Discharge Plan Discharge Clinical Impression: Nausea vomiting and diarrhea, Acute dehydration Patient Disposition: Still a Patient Instructions: Dehydration (ED), Acute Nausea and Vomiting (ED), Acute Diarrhea (ED) Additional Instructions: Please follow-up with your primary care physician tomorrow. If you have any worsening or new symptoms, please return to the emergency room or call 911 Prescriptions: New loperamide [Anti-Diarrheal (loperamide)] 2 mg tablet 2 mg PO Q4H PRN (Reason: loose stool) Qty: 14 0RF Rx Instructions: administer after each loose stool until symptoms controlled; do not exceed 8 mg per 24 hrs ondansetron HCl 4 mg tablet 4 mg PO Q6H PRN (Reason: nausea and vomiting) Qty: 10 0RF No Action atorvastatin 80 mg Tablet 80 mg PO DAILY amlodipine 2.5 mg Tablet 2.5 mg PO DAILY ibuprofen 600 mg Tablet 600 mg PO TID PRN (Reason: Pain) albuterol sulfate [ProAir HFA] 90 mcg/actuation Hfa Aerosol Inhaler 2 puff INHALATION Q4-6H PRN (Reason: Wheezing) loratadine 10 mg Tablet 10 mg PO DAILY hydroxyzine HCl 25 mg tablet 25 mg PO Q6H PRN (Reason: itching) Qty: 30 0RF loratadine 10 mg tablet 10 mg PO DAILY PRN (Reason: allergic symptoms) Qty: 30 0RF prednisone 20 mg tablet 40 mg PO DAILY Qty: 10 0RF hydrocortisone 2.5 % cream 1 appl topical QID PRN (Reason: rash) Qty: 30 0RF prednisone 20 mg tablet 60 mg PO DAILY 5 Days Qty: 15 0RF diphenhydramine HCl [Benadryl] 25 mg capsule 25 mg PO TID PRN (Reason: allergic reaction) 7 Days Qty: 21 0RF famotidine [Pepcid] 20 mg tablet 20 mg PO BID 7 Days Qty: 14 0RF hydrocortisone 2.5 % cream 1 appl topical BID PRN (Reason: rash) 14 Days Qty: 30 0RF hydrocortisone 2.5 % cream 1 appl topical BID PRN (Reason: rash) 14 Days Qty: 30 0RF prednisone 20 mg tablet 60 mg PO DAILY 5 Days Qty: 15 0RF famotidine [Pepcid] 20 mg tablet 20 mg PO BID 7 Days Qty: 14 0RF hydroxyzine HCl 25 mg tablet 25 mg PO TID PRN (Reason: itching) Qty: 27 0RF benzonatate 100 mg capsule 100 mg PO BID PRN (Reason: cough) Qty: 20 0RF ondansetron 4 mg tablet,disintegrating 4 mg PO Q6-8H PRN (Reason: nausea and vomiting) Qty: 7 0RF ibuprofen 200 mg tablet 400 mg PO Q8H docusate sodium 100 mg capsule 100 mg PO BEDTIME Qty: 90 3RF hydrocortisone [Proctosol HC] 2.5 % cream with perineal applicator 1 appl HI BID-QID PRN (Reason: hemorrhoids) Qty: 30 2RF Print Language: Divehi
[2024-05-30] MEDS: Lactated Ringers 2,000 ML 999 ML IV (06:18)
[2024-05-30] MEDS: ondansetron HCL 4 MG/2 ML VIAL IVPUSH (06:21)
--- NOTE | 2024-05-30 06:25 | PC.NURSE ---
Pt medicated per [facility] Plan of care ongoing.
[2024-05-30] MEDS: Loperamide HCl 2 MG CAPSULE 4 MG PO (06:30)
[2024-05-30 06:37] VITALS: BP 134/47; PULSE 90; RESP 16; TEMP 36.1; O2SAT 99
[2024-05-30] MEDS: Loperamide HCl 2 MG CAPSULE PO (07:22)
[2024-05-30 08:49] VITALS: BP 109/62; PULSE 88; RESP 16; TEMP 36.9; O2SAT 98
[2024-05-30 10:10] VITALS: BP 119/54; PULSE 94; RESP 16; TEMP 36.9; O2SAT 98
== END 2024-05-30 10:11 | disposition home or self-care (01) ==
PROVIDERS: Emergency Provider Emergency Medicine; PCP General Practice
DX: R11.2 Nausea with vomiting, unspecified (principal); R19.7 Diarrhea, unspecified; E86.0 Dehydration; Z03.818 Encounter for observation for suspected exposure to other biological agents ruled out; E11.9 Type 2 diabetes mellitus without complications; I10 Essential (primary) hypertension; E78.5 Hyperlipidemia, unspecified; Z79.02 Long term (current) use of antithrombotics/antiplatelets; Z79.899 Other long term (current) drug therapy
CPT/HCPCS: 80053; 83690; 85025; 87502; 87635; 96361; 96374; 99284; J2405; J7120

== ENCOUNTER 2024-06-22 13:31 | Outpatient (REF) | payer OTHER, SELFPAY ==
--- OUTSIDE RECORDS SUMMARY | 2024-06-22 14:38 | XMS_ITS | Encounter Summary ---
Author Organization [facility] Address [address] [place] [address] Care Team Providers Care Supervisor Nuclear Medicine Name Role Phone Yesenia Castle MD Primary Care Provider [phone] Encounter Details Date Type Department Care Team (Late st Contact Info) Description 01/16/2023 Orders Only [facility] MED[facility] [address] [place], [place] [phone] Provider, MD Mar Social History Tobacco Use Types Packs/Day Years Used Date Smoking Tobacco: Never Passive Smoke Exposure: Never Smokeless Tobacco: Never Alcohol Use Standard Drinks/Week Comments Never 0 (1 standard drink = 0.6 oz pur e alcohol) Depression Answer Date Recorded Patient Health Questionnaire-9 Score 8 12/27/2022 Depression Answer Date Recorded Patient Health Questionnaire-2 Score 1 12/27/2022 Comments Unknown Sex and Gender Information Value Date Recorded Sex Assigned at Female 03/12/2022 10:16 AM EDT Legal Sex Female 10:16 AM EDT Gender Identity Female 03/12/2022 10:16 AM EDT Sexual Orientation Straight 03/12/2022 10 :16 AM EDT documented as of this encounter Plan of Treatment Upcoming Encounters Date Type Department Care Team (Late st Contact Info) Description 07/07/2024 9:00 AM EST Office Visit [facility] DENTAL [address] [place], [place] [phone] LeroyRebecca [address] [place], [place] [phone] documented as of this encounter Procedures Procedure Name Priority Date/Time Associated Diagnosis Comments HM COLONOSCOPY Routine 03/31/2019 documented in this encounter Results * Hm Colonoscopy (03/31/2019) us Historical Provider HEALTH MAINTENANCE Final Result documented in this encounter Visit Diagnoses Not on filedocumented in this encounter Additional Health Concerns Assessment Noted Time PHQ-9 Depression Total Score: 8 12/28/19 10:42 AM EDT documented as of this encounter Care Teams Supervisor Nuclear Medicine Relationship Specialty Start Date End Date Yesenia Castle MD [address] [place] [id number] PCP - General Family Medicine 07/13/22 documented as of this encounter
--- OUTSIDE RECORDS SUMMARY | 2024-06-22 14:38 | XMS_ITS | Encounter Summary ---
Author Organization [employer] Address [address] [place] [address] Care Team Providers Care Clam Dredger Name Role Phone Yesenia Castle MD Primary Care Provider [phone] Reason for Visit * Reason Onset Date Comments Results 05/25/2024 Encounter Details Date Type Department Care Team ([facility] st Contact Info) Description 05/25/2024 Telephone [facility] [address] [place] [address] Gilda Kimble, STEFANI [address] [place], [place] [phone] Results Social History Tobacco Use Types Packs/Day Years Used Date Smoking Tobacco: Never Passive Smoke Exposure: Never Smokeless Tobacco: Never Alcohol Use Standard Drinks/Week Comments Never 0 (1 standard drink = 0.6 oz pur e alcohol) Depression Answer Date Recorded Patient Health Questionnaire-9 Score 2 12/25/2023 Patient Health Questionnaire-9 Score 2 12/25/2023 Last PHQ-9: Questionnaire Data Not on file 0 12/25/2023 Housing Stability Answer Date Recorded What is your housing situation today? I have aries [place] 09/06/[address] you li ve. Do you have problems with any of the following? None of the above 09/06/2023 Food Insecurity Answer Date Recorded Within the past 12 months, y ou worried that your food would run out before you got money to buy more: Never True 09/06/2023 Within the past 12 months,th e food you bought just didn't last and you didn't have enough money to get more: Never True Transportation Answer Date Recorded In the past 12 months, has l ack of transportation kept you from medical appts, meetings, work or from getting things needed for daily living? Yes, it has kept me from medical appointments or getting medications. 12/25/2023 Utilities Answer Date Recorded In the past 12 months, has t he electric, gas, oil or water company threatened to shut off services in your home? No 09/06/2023 Depression Answer Date Recorded Patient Health Questionnaire-2 Score 0 12/25/2023 Internet Access Answer Date Recorded Internet Access Q1 Yes 01/13/2024 Internet Access Q2 Not on file 01/13/2024 Comments Unknown Sex and Gender Information Value Date Recorded Sex Assigned at Female 03/12/2022 10:16 AM EDT Legal Sex Female 10:16 AM EDT Gender Identity Female 03/12/2022 10:16 AM EDT Sexual Orientation Straight 03/12/2022 10 :16 AM EDT documented as of this encounter Miscellaneous Notes * Telephone Encounter - Gilda Kimble RN - 05/25/2024 1:05 PM EST TC placed to [phone] in regards to below message via [employer] interpreters (Lisa #[id number]). Patient informed CT scan returned showing enlarged lymph nodes and PCP has ordered BW for malignancy labs and also referred patient to GS for LN biopsy. Patient advised she can complete BW at her convenience as BW order has already been sent at [facility] or [facility]. Patient advised GS appointment is booked for 05/27/24 at 4pm at [facility]. Patient verbalized understanding and reports she has a colonoscopy consult on 05/27/24 at 4pm however she will call and r/s colonoscopy consult to ensure she can attend GS appointment.Patient to be contacted with BW results when available. ----- Message from Yesenia Castle MD sent at 05/22/2024 4:57 PM EST ----- Regarding: RE: cervical LN Let's do it all, I ordered the general malignancy labs and sent a referral to general surgery for cervical LN biopsy. Please inform patient of plan of care (labs, surgery referral) due to enlarged lymph nodes. Thank you! ----- Message ----- From: Celina Petersen MD Sent: 05/19/2024 3:31 PM EST To: Yesenia Castle MD Subject: cervical LN Hi, I saw this patient at [facility] with tender cervical LN x 1mo, no obvious cause. So I senta CT scan and the findings are kind of WT...shoudl we sent general tests like HIV, CBC , LD, RPR etc and fu or do you want to send her directly for a cervical LN biopsy as they suggest? I still kept it in my inbox, CT neck finding below: IMPRESSION: 1. Bilateral cervical lymphadenopathy with index right level II, as detailed above. Please consider dedicated tissue sampling, if clinically indicated. ----- Message ----- From: Interface, Ris Results In Sent: 05/18/2024 7:02 PM EST To: Celina Petersen MD documented in this encounter Plan of Treatment Upcoming Encounters Date Type Department Care Team (Late st Contact Info) Description 07/07/2024 9:00 AM EST Office Visit [facility] AD[facility] D[facility] [address] [place] [address] LeroyRebecca [address] [place] [address] documented as of this encounter Visit Diagnoses Not on filedocumented in this encounter Additional Health Concerns Assessment Noted Time PHQ-9 Depression Total Score: 2 12/25/19 24 2:13 PM EDT documented as of this encounter Care Teams Clam Dredger Relationship Specialty Start Date End Date Yesenia Castle MD [address] [place] [address] PCP - General Family Medicine 07/13/22 documented as of this encounter
--- OUTSIDE RECORDS SUMMARY | 2024-06-22 14:38 | XMS_ITS | Clinical Summary ---
Author Organization [employer] Address [address] [place] [address] Care Team Providers Care Naturopath Name Role Phone Yesenia Castle MD Primary Care Provider [phone] Allergies No known active allergies Medications * This document contains information received from the source organization and may not represent a complete record from that organization. hydrOXYzine HCl (Atarax) 25 MG tablet TAKE 1 TABLET BY MOUTH THREE TIMES DAILY NEEDED FOR ITCHING 06/18/19 23 Active docusate sodium (Colace) 100 MG capsule TAKE 1 CAPSULE BY MOUTH AT BEDTIME 02/03/20 22 Active celecoxib (CeleBREX) 200 MG capsule TAKE 1 CAPSULE BY MOUTH TWICE DAILY NEEDED 01/31/20 22 Active atorvastatin (Lipitor) 80 MG tablet TAKE 1 TABLET BY MOUTH EVERY DAY 01/31/20 22 Active albuterol 108 (90 Base) MCG/ACT inhaler inhale 2 puff by inhalation route every 4 - 6 hours as needed 04/12/20 17 Active loratadine (Claritin) 10 MG tabletIndications: Allergic contact dermatitis, unspecified trigger Take 1 tablet (10 mg) by mouth if needed in the morning and at bedtime for allergies. 56 tablet 5 09/11/19 23 Active Proctozone-HC 2.5 % rectal cream APPLY RECTALLY TWICE DAILY TO FOUR TIMES DAILY NEEDED FOR HEMORRHOIDS 10/23/19 23 Active Calcium Carb-Cholecalcifer ol 600-10 MG-MCG tablet Take 1 tablet by mouth 2 times daily. 180 tablet 1 06/11/19 24 Active gabapentin (Neurontin) 300 MG capsule Take 1 capsule (300 mg) by mouth at bedtime. 30 capsule 3 09/11/19 24 025 Active cetirizine (ZyrTEC) 10 MG tablet TAKE 1 TABLET BY MOUTH EVERY MORNING, FOR ITCHING MAY REPEAT BEFORE BEDTIME NEEDED 04/24/20 23 Active ondansetron ODT (Zofran-ODT) 4 MG disintegrating tablet DISSOLVE 1 TABLET BY MOUTH EVERY 6 TO 8 HOURS NEEDED FOR NAUSEA AND VOMITING 07/10/19 24 Active Diclofenac Sodium 1 % gel Apply 1 Application topically if needed in the morning and at bedtime (low back pain). 100 g 3 09/13/19 24 Active Menthol-Methyl Salicylate (Muscle Rub) 10-15 % cream Apply 1 Application topically before breakfast, before lunch, and before evening meal. 85 g 3 09/13/19 24 Active ketoconazole (Nizoral) 2 % shampoo Apply topically 2 (two) times a week. 100 mL 10/17/19 24 Active benzonatate (Tessalon) 100 MG capsule TAKE 1 CAPSULE ORALLY 2 TIMES A DAY NEEDED FOR COUGH 12/06/19 24 Active amLODIPine (Norvasc) 5 MG tabletIndications: Essential hypertension TAKE 1 TABLET BY MOUTH EVERY DAY 90 tablet 3 03/04/20 24 Active triamcinolone (Kenalog) 0.1 % creamIndications:A llergic contact dermatitis, unspecified trigger Apply topically if needed in the morning and at bedtime (pain and swelling). Mix with cerave 80 g 2 05/22/19 25 Active Emollient (CeraVe Moisturizing) creamIndications:A llergic contact dermatitis, unspecified trigger Use daily 453 g 11 05/22/19 25 Active Active Problems Problem Noted Date Diagnosed Date Encounter for screening for malignant neoplasm o f colon 04/18/2024 History of adenomatous polyp of colon 04/18/2024 Allergic dermatitis 03/28/2023 Neck pain 03/28/2023 Assessment & Plan (03/28/2023 10:29 AM EST): Xray today Muscle tightness/spasm, consider trigger point injections Infected epithelial inclusion cyst 12/07/2022 Assessment & Plan (12/07/2022 8:31 AM EDT): I & D in clinic today Transaminitis 12/07/2022 Assessment & Plan (12/07/2022 8:32 AM EDT): 2 ULN in Apri, resolved on recheck today Essential hypertension 12/07/2022 Assessment & Plan (04/18/2024 1:05 PM EST): At goal at home Amlodipine 10mg daily On Atorvastatin 80mg daily The 10-year ASCVD risk score (Carmen GARRETT, et al., 2019) is: 19% Values used to calculate the score: Age: 73 years Sex: Female Is Non- : No Diabetic: No Tobacco smoker: No Systolic Blood Pressure: 142 mmHg Is BP treated: Yes HDL Cholesterol: 57 mg/dL Total Cholesterol: 217 mg/dL Assessment & Plan (03/28/2023 10:28 AM EST): At goal Amlodipine 10mg daily Labs due 08/2023 Assessment & Plan (12/07/2022 8:31 AM EDT): At goal Amlodipine 10mg daily Osteopenia of multiple sites 12/07/2022 Assessment & Plan (12/07/2022 8:32 AM EDT): Recheck DEXA Pain due to varicose veins of both lower extremi ties 12/07/2022 Assessment & Plan (12/07/2022 8:33 AM EDT): Refer to vascular surgery Dental plaque 11/28/2022 Localized gingival recession 11/28/2022 Missing teeth, acquired 11/28/2022 Urticaria 08/13/2022 Assessment & Plan (08/13/2022 10:24 AM EDT): followup with derm for consideratio of repeat steroid injection Avoid triggers, if identified Hyperlipidemia 08/06/2022 Assessment & Plan (08/13/2022 10:23 AM EDT): Check lipids today Prediabetes 08/06/2022 Assessment & Plan (08/13/2022 10:23 AM EDT): A1 checked today Residual hemorrhoidal skin tags 08/06/2022 Borderline high cholesterol 05/31/2016 Backache 01/28/2012 Assessment & Plan (09/18/2023 2:22 PM EDT): Acute on chronic low back pain without red flags on history or exam Not helped with PT Continue acupuncture Prn Tylenol ADD Mentholated cream and Diclofenac twice Not interested in more intensive interventions Assessment & Plan (08/13/2022 10:23 AM EDT): No help with PT Will trial acupuncture Not interested in more intensive interventions Insomnia 01/28/2012 Shoulder pain 01/28/2012 Tubular adenoma 01/28/2012 Resolved Problems Problem Noted Date Diagnosed Date Resolved Date Anterior cervical lymphadenopathy 03/03/2024 04/18/2024 Assessment & Plan (03/03/2024 4:31 PM EDT): Could be inflammatory, rule out malignancy. Advised to use Tylenol for 3-[address] scan of the neck. Follow up with PCP. 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 12/27/2022 12/27/2023 Encounters Date Type Department Care Team Description 05/30/2024 Orders Only GENERIC EXTERNAL DATA DEPARTMENT Provider, Generic External Data 05/26/2024 Telephone [facility] MEDICINE Caridad CarrollyoJEREMIAH pacheco [phone] iGlda Kimble, RN Results 05/25/2024 Telephone [facility] [place] [address] Gilda Kimble, RN Results 05/25/2024 Telephone [facility] MEDICINE [address] [place] [address] Yesenia Castle MD 05/22/2024 2:30 PM EST Office Visit [facility] [place] [address] Sonia Pereira MD Allergic contact dermatitis, unspecified trigger (Primary Dx) 05/22/2024 Orders Only [facility] [place] [address] Yesenia Castle MD Cervical lymphadenopathy (Primary Dx) 05/22/2024 Travel 05/19/2024 10:30 AM EST Clinical Support [address] [address] Rosenda Hdz LPN Exposure to confirmed case of COVID-19 (Primary Dx) 05/19/2024 Travel 05/18/2024 Orders Only [address] [address] Celina Petersen MD 04/23/[address] [address] Claudia Monte [place] Care Coordination 04/13/2024 3:30 PM EST Office Visit [address] [address] Yesenia Castle MD Osteopenia of multiple sites (Primary Dx); Dietary counseling; Exercise counseling; Overweight; Urticaria; Tubular adenoma; Pain due to varicose veins of both lower extremities; Essential hypertension 04/13/2024 Travel 03/31/2024 Patient Outreach [address] [address] Yesenia Castle MD Pre-visit Planning (SDOH screening completed on 12/25/2023) 03/27/2024 8:00 AM EST Office Visit [facility] ADULT DENTAL [address] [place] [phone] Rodo Yeung DMD 03/23/2024 8:00 AM EST Office Visit [facility] ADULT DENTAL [address] [place] [phone] Rodo Yeung DMD from Last 3 Months Immunizations Name Administration Dates Next Due Hep B, adult 03/13/2001,10/03/2000,08/12/2000 Influenza High-dose Quadriva lent Preservative Free 02/21/2022,02/23/2021 Influenza injectable quadriv alent IIV4 with preservative 06/26/2017,05/31/2016,03/25/2015 Influenza injectable quadriv alent preservative free 02/05/2023 Influenza, High Dose Seasona l, Preservative Free 02/10/2024,05/27/2019,02/27/2018 Influenza, IIV3, injectable 03/19/2014, 1 Influenza, Split (incl. hermelinda fied surface antigen) 03/20/2013,01/28/2012 Moderna Covid-19 Vaccine 12+ 06/08/2021,08/18/19 21,07/20/2020 Moderna Covid-19 Vaccine 6+ Bivalent 06/13/2022 Pfizer Covid-19 Vaccine 12+ 02/10/2024 Pneumococcal Conjugate PCV 13 08/29/2016 Pneumococcal Polysaccharide PPSV23 06/26/2017 TD (adult), 2 Lf tetanus tox oid, preservative free, adsorbed 12/13/2010 Tdap 08/29/2016 Zoster, Recombinant 02/04/2020,05/27/2019 Social History Tobacco Use Types Packs/Day Years Used Date Smoking Tobacco: Never Passive Smoke Exposure: Never Smokeless Tobacco: Never Tobacco Cessation:Counseling Given: Not Answered Alcohol Use Standard Drinks/Week Comments Never 0 [...] Orientation Straight 03/12/2022 10 :16 AM EDT Last Filed Vital Signs Vital Sign Reading Time Taken Comments Blood Pressure 148/73 05/22/2024 2:47 PM EST Pulse 76 05/22/2024 2:47 PM EST Temperature 36 ??C (96.8 ??F) 05/22/2024 2:47 PM EST Respiratory Rate 17 05/22/2024 2:47 PM EST Oxygen Saturation 97% 04/13/2024 3:28 PM EST Inhaled Oxygen Concentration - - Weight 78.9 kg (174 lb) 05/22/2024 2:47 PM EST Height 154.9 cm (5' 1 ) 04/13/2024 3:28 PM EST Body Mass Index 32.88 04/13/2024 3:28 PM EST Plan of Treatment Upcoming Encounters Date Type Department Care Team (Late st Contact Info) Description 07/07/2024 9:00 AM EST Office Visit [facility] ADULT DENTAL [address] [place] [address] Leroy, Rebecca [address] [place] [address] Health Maintenance Due Date Last Done Comments CT Colonography 1951 FIT DNA/Cologuard 1950 FIT 1950 FOBT 1950 Sigmoidoscopy 1950 Dental Oral Exam 12/14/2023 06/14/2023, , 02/12/2022, Additional history exists Dental X-Ray: Full Mouth 01/12/2024 01/10/2021, 07/0 12/2015 Colonoscopy 03/31/2024 03/31/2019, 02/11/2013 Colorectal Cancer Screening 03/31/2024 Dental X-Ray: Bitewings 06/04/2024 06/03/19 24, 12/17/2022, 02/12/2022, Additional history exists Dental Prophylaxis 07/05/2024 01/02/2024, 0 06/03/2023, 11/28/2022, Additional history exists Alcohol/Substance Use Screening 12/24/2024 12/25/2023 Depression Screening 12/24/2024 12/25/2023, 12/25/19 24 SDOH Screening 12/24/2024 12/25/2023 Diabetes: Hemoglobin A1C 01/05/2025 024, 08/28/2022, 08/29/2021, Additional history exists Mammogram 05/19/2025 05/19/2024, 04/12, 04/28/2021, Additional history exists Tobacco Screening 05/22/2025 05/22/2024 RSV Patients and Patients Aged 60 years or older (1 - 1-dose 75+ series) 08/16/2026 DTaP/Tdap/Td Vaccines (2 - Td or Tdap) 08/29/2026 08/29/2016, 12/13/2010 Lipid Panel 01/05/2029 01/06/2024, 08/11, 08/29/2021, Additional history exists Hepatitis B Vaccines Completed 03/13/2001, 10/03/2000, 08/12/2000 Pneumococcal Vaccine: 50+ Years Completed 06/26/2017, 08/29/2016 Zoster Vaccines Completed 02/04/2020, 05/27/2019 Hepatitis C Screening Completed 01/06/2024 COVID-19 Vaccine Completed 02/10/2024, 05/2022, 06/08/2021, Additional history exists Influenza Vaccine Completed 02/10/2024, , 02/21/2022, Additional history exists HIB Vaccines Aged Out No longer eligi ble based on patient's age to complete this topic HPV Vaccines Aged Out No longer eligi ble based on patient's age to complete this topic Hepatitis A Vaccines Aged Out No long er eligible based on patient's age to complete this topic IPV Vaccines Aged Out No longer eligi ble based on patient's age to complete this topic Meningococcal Vaccine Aged Out No deanna sahara eligible based on patient's age to complete this topic RSV under 20 months Aged Out No longe r eligible based on patient's age to complete this topic Rotavirus Vaccines Aged Out No longer eligible based on patient's age to complete this topic Procedures Procedure Name Priority Date/Time Associated Diagnosis Comments COVID-19 ID NOW ([employer]) Routine 05/30/2024 4:32 AM EST LIPASE Routine 05/30/2024 4:32 AM EST COMPREHENSIVE METABOLIC PANEL Routine 05/30/2024 4:32 AM EST SLIDE REVIEW Routine 05/30/2024 4:32 AM EST CBC WITH AUTO DIFFERENTIAL Routine 05/30/2024 4:32 AM EST INFLUENZA A B2 ID NOW ([employer]) Routine 05/30/2024 4:32 AM EST RPR (MONITOR) W/REFL TITER Routine 05/26/2024 8:31 AM EST Cervical lymphadenopathy HIV 1/2 ANTIGEN/ANTIBODY, FOURTH GENERATION W/RFL Routine 05/26/2024 8:31 AM EST Cervical lymphadenopathy LD Routine 05/26/2024 8:31 AM EST Cervical lymphadenopathy SED RATE BY MODIFIED WESTERGREN Routine 05/26/2024 8:31 AM EST Cervical lymphadenopathy CBC WITH AUTO DIFFERENTIAL Routine 05/26/2024 8:31 AM EST Cervical lymphadenopathy POCT RAPID COVID ANTIGEN Routine 05/19/2024 11:03 AM EST Exposure to confirmed case of COVID-19 BI MAMMOGRAM SCREENING TOMOSYNTHESIS BILATERAL Routine 05/19/2024 9:30 AM EST BD DEXA AXIAL Routine 05/19/2024 9:08 AM EST Osteopenia of multiple sites CT SOFT TISSUE NECK W CONTRAST Routine 05/18/2024 7:01 PM EST Anterior cervical lymphadenopathy POCT CREATININE GFR Routine 05/18/2024 8 :44 AM EST ADJUNCTIVE GENERAL SERVICES - PROFESSIONAL VISITS - CASE PRESENTATION, SUBSEQUENT TO DETAILED AND EXTENSIVE TREATMENT PLANNING Routine 03/27/2024 8:00 AM EST 25 PROSTHODONTICS (REMOVABLE) - REPAIRS TO PARTIAL DENTURES - REPLACE MISSING OR BROKEN TEETH - PARTIAL DENTURE - PER TOOTH Routine 03/27/2024 8:00 AM EST DENTURE FOLLOWUP Routine 03/23/2024 8:00 AM EST HEPATITIS C AB W/REFL TO HCV RNA, QN, PCR Routine 01/06/2024 9:03 AM EDT Healthy adult on routine physical examination HEMOGLOBIN A1C Routine 01/06/2024 9:03 AM EDT Healthy adult on routine physical examination LIPID PANEL, STANDARD Routine 01/06/2024 9:03 AM EDT Other hyperlipidemia PROPHYLAXIS - ADULT Routine 01/02/2024 3 :00 PM EDT Localized gingival recession Dental plaque Missing teeth, acquired PERIODIC ORAL EVALUATION - ESTABLISHED PATIENT Routine 06/14/2023 8:00 AM EST BITEWINGS - 4 RADIOGRAPHIC IMAGES Routine 06/03/2023 9:00 AM EST Localized gingival recession Dental plaque Missing teeth, acquired DIAGNOSTIC - DIAGNOSTIC IMAGING - INTRAORAL - COMPREHENSIVE SERIES OF RADIOGRAPHIC IMAGES Routine 01/10/2021 12:00 AM EDT HM COLONOSCOPY Routine 03/31/2019 from Last 3 Months or Most Recently Relevant to Health Maintenance Results * Influenza A B2 ID NOW (Ross) (05/30/2024 4:32 AM EST) IDNOW SERIAL# [id number] [facility] Influenza A Negative Negative [facility] Influenza B2 Negative Negative [facility] Influenza A B2 Note See Note [facility] Comment:The Ross ID NOW In fluenza A B2 test is used for thequalitative detection of influenza A and B from patientswith signs and symptoms of respiratory infection.Negative results do not preclude influenza virus infectionand should not be used as the sole basis for diagnosis,treatment or other patient management decisions.There is a risk of false negative results due to thepresence of variants in the viral targets of the assay, lowlevels of virus in the specimen and co- infection withRespiratory Syncytial Virus. 05/30/2024 4:32 AM EST 05/30/2024 4:37 AM EST Generic External Data Provider LAB MICROBIOLOGY - GENERAL ORDERABLES Final Result Performing Organization Address [facility] de Phone Number [facility] [address] [place] [phone] * Slide Review (05/30/2024 4:32 AM EST) Slide Review VERIFIED [facility] 05/30/2024 4:32 AM EST 05/30/2024 4:37 AM EST Generic External Data Provider LAB BLOOD ORDERAB LES Final Result Performing Organization Address [facility] de Phone Number [facility] [address] [place] [phone] * COVID-19 ID NOW (ROSS) (05/30/2024 4:32 AM EST) IDNOW SERIAL# [id number] [facility] COVID-19 TEST Negative Negative [facility] COVID-19 NOTE See Note [facility] Comment: Results are for the identification of SARS-CoV2 RNA. TheSARS-CoV2 RNA is generally detectable in respiratory samplesduring the acute phase of infection. Positive results areindicative of the presence of SARS-CoV-2 RNA; clinicalcorrelation with patient history and other diagnosticinformation is necessary to determine patient infectionstatus. Positive results do not rule out bacterial infectionor co- infection with other viruses.Testing facilities within the [facility] and itsterritories are required to report all positive results tothe appropriate public health authorities.Negative results should be treated as presumptive and, ifinconsistent with clinical signs and symptoms or necessaryfor patient management, should be tested with differentauthorized or cleared molecular tests. Negative results donot preclude SARS-CoV2 RNA infection and should not be usedas the sole basis for patient management decisions. Negativeresults should be considered in the context of a patient'srecent exposures, history and the presence of clinical signsand symptoms consistent with COVID-19.This test has been authorized by the FDA under an EmergencyUse Authorization (EUA) for use by authorized laboratories.Testing performed on the [employer] ID NOW utilizing NAAT. 05/30/2024 4:32 AM EST 05/30/2024 4:37 AM EST us Generic External Data Provider LAB MOLECULAR EDDI GNOSTICS ORDERABLES Final Result [facility] [address] [place] [phone] * (ABNORMAL) CBC auto differential (05/30/2024 4:32 AM EST) Only the most recent of2 resultswithin the time period is included. White Blood Count 17.7(H) 4.8 - 10.8 X10*3/uL [facility] Red Blood Count 4.95 4.20 - 5.50 X10*6/uL [facility] Hemoglobin 14.0 12.0 - 16.0 g/dl [facility] Hematocrit 41.8 37.0 - 47.0 % [facility] Mean Corpuscular Volume 84.4 80.0 - 98.0 fL [facility] Mean Corpuscular Hemoglobin 28.3 27.0 - 33.0 pg [facility] Mean Corpuscular HGB Conc 33.5 31.0 - 35.0 g/dl [facility] Red Cell Distribution Width 13.9 11.0 - 16.0 % [facility] Platelet Count 280 160 - 400 X10*3/uL [facility] Mean Platelet Volume 9.2(L) 9.4 - 12.3 fL [facility] Neutrophils Percent Auto 94.2(H) 45 - 73 % [facility] Imm Gran Pct Auto 0.5(H) 0.0 - 0.4 % [facility] Lymphocytes Percent Auto 2.1(L) 20 - 40 % [facility] Monocytes Percent Auto 2.7 2 - 11 % [facility] Eosinophils Percent Auto 0.3 0 - 4 % [facility] Basophils Percent Auto 0.2 0 - 2 % [facility] NRBC Pct Auto 0.0 0.0 - 0.2 /100WBC [facility] Neutrophils Absolute Auto 16.7(H) 2.0 - 8.3 x10*3/uL [facility] Imm Gran Abs Auto 0.08(H) 0.00 - 0.03 X10*3/uL [facility] Lymphocytes Absolute Auto 0.4(L) 1.2 - 4.9 X10*3/uL [facility] Monocytes Absolute Auto 0.5 0.1 - 1.2 X10*3/uL [facility] Eosinophils Absolute Auto 0.1 0.0 - 0.4 X10*3/uL [facility] Basophils Absolute Auto 0.0 0.0 - 0.2 X10*3/uL [facility] NRBC Abs Auto 0.000 0.0 - 0.012 X10*3/uL [facility] 05/30/2024 4:32 AM EST 05/30/2024 4:37 AM EST us Generic External Data Provider LAB BLOOD ORDERAB LES Edited Result - Final Performing Organization Address City/[facility]/ZIP Co de Phone Number [facility] [address] [place] [phone] * Lipase (05/30/2024 4:32 AM EST) Lipase 12 8 - 78 U/L [facility] 05/30/2024 4:32 AM EST 05/30/2024 4:37 AM EST us Generic External Data Provider LAB BLOOD ORDERAB LES Final Result Performing Organization Address City/[facility]/ZIP Co de Phone Number [facility] [address] [place] [phone] * (ABNORMAL) Comprehensive Metabolic Panel (05/30/2024 4:32 AM EST) Sodium 142 135 - 145 mmol/L [facility] Potassium 3.9 3.3 - 5.1 mmol/L [facility] Chloride 110(H) 96 - 108 mmol/L [facility] Carbon Dioxide 18(L) 22 - 29 mmol/L [facility] Anion Gap 18 12 - 20 [facility] Urea Nitrogen (BUN) 18(H) 9 - 16 mg/dL [facility] Creatinine, Serum 0.80 0.5 - 1.4 mg/dL [facility] Creatinine Clr Calc Pharmacy 69.3 [facility] Comment:Provided height and weight: 162.56 cm,90.718 kg.eGFR (calculated from the MDRD study equation) and eCrCl(calculated from the Cockcroft-Gault equation) are based ondifferent parameters and may not yield comparable results.If eCrCl result is absurd, please check patient'sheight/weight. Estimated Glomerular Filt Rate >60 [facility] Comment:Chronic Kidney Disea se: Estimated GFR < 60 mL/min/1.54c3Baofer Kidney Disease: Estimated GFR < 15 mL/min/1.73m2 Glucose 168(H) 60 - 115 mg/dL [facility] Calcium 10.1 8.4 - 10.2 mg/dL [facility] Bilirubin, Total 0.6 0.0 - 1.0 mg/dL [facility] Aspartate Amino Transferase 28 5 - 31 U/L [facility] Alanine Aminotransferase 13 0 - 31 U/L [facility] Total Protein 8.4(H) 6.5 - 8.0 g/dL [facility] Albumin Level 4.5 3.5 - 5.0 g/dL [facility] Alkaline Phosphatase 104 39 - 117 U/L [facility] 05/30/2024 4:32 AM EST 05/30/2024 4:37 AM EST us Generic External Data Provider LAB BLOOD ORDERAB LES Final Result Performing Organization Address [facility]/ZIP Co de Phone Number [facility] [address] [place] [phone] * RPR (Monitor) with Reflex to??Titer (05/26/2024 8:31 AM EST) RPR (Monitor) w/Refl Titer NON-REACTI VE NON-REACT BONNIE [facility] Comment:THIS TEST WAS PERFOR MED AT:[employer] [place] [phone] MASTERS MD Rapid Plasma Reagin Ab Titer TNP [facility] Blood Venous blood specimen / Unknown 05/26/2024 8:31 AM EST 05/26/2024 11:19 AM EST Yesenia Castle MD LAB BLOOD ORDERABLES Final Res ult Performing Organization Address [facility] Co de Phone Number [facility] [address] [place] [phone] * HIV-1/2 Antigen and Antibodies, Fourth Generation, with Reflexes (05/26/2024 8:31 AM EST) HIV AB/AG Nonreactive Nonreactive [facility] Comment:HIV-1 p24 Ag and/or HIV-1/HIV-2 Ab not detected.A test result that is nonreactive does not exclude thepossibility of exposure to or infection with HIV-1 and/orHIV-2. Nonreactive results in this assay for individualswith prior exposure to HIV-1 and/or HIV-2 may be due toantigen and antibody levels that are below the limit ofdetection of this assay.[employer]) HIV Ag/Ab Combo assay result andsupplemental assay results should be interpreted inconjunction with the patient's clinical presentation,history and other laboratory results. If the results areinconsistent with clinical evidence, additional testing issuggested to confirm the result. Blood Venous blood specimen / Unknown 05/26/2024 8:31 AM EST 05/26/2024 11:19 AM EST Yesenia Castle MD LAB BLOOD ORDERABLES Final Res ult [facility] [address] [place] [phone] * Sed Rate by Modified Westergren (05/26/2024 8:31 AM EST) Erythrocyte Sedimentation Rate 10 0 - 20 MM/HR [facility] Comment:Patients with polycy themia and many hemoglobin abnormalitiesmay have depressed sed rates whereas patients with anemiamay have elevated sed rates. Blood Venous blood specimen / Unknown 05/26/2024 8:31 AM EST 05/26/2024 11:19 AM EST Yesenia Castle MD LAB BLOOD ORDERABLES Final Res ult Performing Organization Address City/[facility]/ZIP Co de Phone Number [facility] [address] [place] [phone] * Lactate Dehydrogenase (LD) (05/26/2024 8:31 AM EST) Lactate Dehydrogenase 210 122 - 220 U/L [facility] Blood Venous blood specimen / Unknown 05/26/2024 8:31 AM EST 05/26/2024 11:19 AM EST Yesenia Castle MD LAB BLOOD ORDERABLES Final Res ult Performing Organization Address City/[facility]/ZIP Co de Phone Number [facility] [address] [place] [address] [phone] * POCT Rapid COVID Ag (05/19/2024 11:03 AM EST) Rapid COVID Ag Negative Swab 05/19/2024 11:0 3 AM EST us Norma Almonte MD POINT OF CARE TEST ENTER/ED IT ORDERABLES Final Result * BI Mammogram Screening Tomosynthesis Bilateral (05/19/2024 9:30 AM EST) Anatomical Region Laterality Modality Breast Bilateral Mammography 05/19/2024 9:30 AM EST Narrative 05/25/2024 3:49 PM EST ? [facility] ? [address] ?[place] [address] ? Mammography Report ? Signed ? Patient: Guerrero,Janell ?MR#: [id number] ?? 71 ? : 1950 ?Acct:[id number] ? Age/Sex: 73 / F ?ADM Date: 05/19/24 ? Loc: HO.MAMMO ? Attending Dr: Yesenia Castle MD ? Ordering Physician: Yesenia Castle ?Results: 2Benign F ?? indings ? Date of Service: 05/19/24 ?Follow Up: 1 Year From Orig ?? inal Mammogram ? Procedure(s): MM tomosynthesis screening BI ?? Accession Number(s): [id number] ? cc: Yesenia Castle ? EXAMINATION: ?? MM SCREENING DIGITAL BREAST TOMOSYNTHESIS, BILATERAL ? CLINICAL INFORMATION: ? Screening. Asymptomatic. ? COMPARISON: ?? Mammography: Comparison is made with available priors ? TECHNIQUE: ?? Digital breast mammography with tomosynthesis is performed in both the ?? craniocaudal and mediolateral oblique views along with computer-aided ?? detection (CAD). ? FINDINGS: ?? There are scattered areas of fibroglandular density (ACR BI-RADS breast ?? composition Category b). ?? Bilateral reduction mammoplasty. ?? Right marker clip. ?? There are no significant masses, abnormal calcifications, or other ?? abnormalities. ? MM/MM tomosynthesis screening BI ?? IMPRESSION: ?? No mammographic evidence of malignancy. ? ASSESSMENT: ? BI-RADS BI-RADS 2 - Benign Findings ? RECOMMENDATION: ?? Routine annual mammography screening. ? 1 year F/U ? This examination should not preclude the clinical evaluation of a ?? suspicious palpable abnormality. ? This patient's information was entered into a reminder system with a ?? target due date for their next mammogram. ? Electronically signed by: ??Norma Payne DO ??05/25/2024 03:46 PM EST ? Dictated By: ?Norma Payne DO ? Signed By: ?<Electronically signed by Norma Payne, DO in OV> ? 05/25/24 1546 ? DD/ 0930 ? TD/TT: 05/19/24 0949 ? Dance Coach: ? Procedure Note Jonathan, Image - 05/25/2024 Heather [facility] [address] [place] [address] Mammography Report Signed Patient: Inés Guerrero#: [id number] 71 : 2Acct:[id number] Age/Sex: 73 / FADM Date: 05/19/24 Loc: YARELIS Attending Dr: Yesenia Castle MD Ordering Physician: Ang Castleults: 2Bxander F indjuanis Date of Service: 05/19/24Follow Up: 1 Year From Orig inal Mammogram Procedure(s): MM tomosynthesis screening BI Accession Number(s): [id number] cc: Yesenia Castle EXAMINATION: MM SCREENING DIGITAL BREAST TOMOSYNTHESIS, BILATERAL CLINICAL INFORMATION: Screening. Asymptomatic. COMPARISON: Mammography: Comparison is made with available priors TECHNIQUE: Digital breast mammography with tomosynthesis is performed in both the craniocaudal and mediolateral oblique views along with computer-aided detection (CAD). FINDINGS: There are scattered areas of fibroglandular density (ACR BI-RADS breast composition Category b). Bilateral reduction mammoplasty. Right marker clip. There are no significant masses, abnormal calcifications, or other abnormalities. MM/MM tomosynthesis screening BI IMPRESSION: No mammographic evidence of malignancy. ASSESSMENT: BI-RADS BI-RADS 2 - Benign Findings RECOMMENDATION: Routine annual mammography screening. 1 year F/U This examination should not preclude the clinical evaluation of a suspicious palpable abnormality. This patient's information was entered into a reminder system with a target due date for their next mammogram. Electronically signed by: Norma Payne DO 05/25/2024 03:46 PM EST RP Dictated By: Norma Payne DO Signed By: <Electronically signed by Norma Payne DO in OV> 05/25/24 1546 DD/ 0930 TD/TT: 05/19/24 0949 Dance Coach: us Yesenia Castle MD IMG BI PROCEDURES Final Result * BD DEXA Axial (05/19/2024 9:08 AM EST) Anatomical Region Laterality Modality Body Radiographic Lori ging 05/19/2024 9:08 AM EST Narrative 05/20/2024 9:41 AM EST ? [facility] ? [address] ?[place] [address] ? Mammography Report ? Signed ? Patient: Guerrero,Janell ?MR#: [id number] ?? 71 ? : 1950 ?Acct:[id number] ? Age/Sex: 73 / F ?ADM Date: 01/07/25 ? Loc: HO.MAMMO ? Attending Dr: Yesenia Castle MD ? Ordering Physician: Yesenia Castle ?Results: ? Date of Service: 05/19/24 ?Follow Up: ? Procedure(s): XR DEXA axial skeleton ?? Accession Number(s): [id number] ? cc: Yesenia Castle ? EXAMINATION: ??Dual-Energy X-ray Absorptiometry - Bone Density Study ? HISTORY: ??Estrogen deficiency ? TECHNIQUE: VAZATA Dual energy absorptiometry (DEXA) ?? of the lumbar spine, total left hip, and femoral neck was performed. ? COMPARISON: Comparison is made with the prior examination dated ?? 04/27/2022. ? FINDINGS: ? The bone mineral density of the lumbar spine is 0.963 with a T-score of ?? -1.8, and a Z-score of 0.3. ? This represents a BMD change of 0.4% compared to the prior exam. ??This ?? is not statistically significant. ? The bone mineral density of the left total hip is 0.785 with a T-score ?? of -1.8, and a Z-score of 0.3. ? This represents BMD change of 14.6% compared to the prior exam. ??This ?? is statistically significant. ? The bone mineral density of the left femoral neck is 0.763 with a ?? T-score of -2.0, and a Z-score of 0.3. ? This represents BMD change of 6.9% compared to the prior exam. ? FRACTURE RISK: ?? The FRAX index suggests a ten year probability of major osteoporotic ?? fracture of 7.2%, and of hip fracture 1.6%. ? MM/XR DEXA axial skeleton ?? IMPRESSION: ?? Based on bone mineral density, and according to World Health ?? Organization (WHO) criteria, the diagnosis is consistent with ?? osteopenia. ? All bone density values are in grams per centimeter squared. ?? At this facility, the least significant change in BMD with 95% ?? confidence is 0.022 at the lumbar spine, 0.027 at the hip, and 0.023 at ?? the distal 1/3 radius. ? Electronically signed by: ??Magen Brady MD ??05/20/2024 09:38 AM EST ?? RP ? Dictated By: ?Magen Brady MD ? Signed By: ?<Electronically signed by Magen Brady MD in OV> ?05/20/24 0938 ? DD/ 0908 ? TD/TT: 05/19/24929 ? Dance Coach: ? Procedure Note Donbrooks, Image - 05/20/2024 Heather [facility] [address] [place] [address] Mammography Report Signed Patient: Inés Guerrero#: [id number] 71 : 2Acct:[id number] Age/Sex: 73 / FADM Date: 05/19/24 Loc: YARELIS Attending Dr: Yesenia Castle MD Ordering Physician: Ang Castleults: Date of Service: 05/19/24Follow Up: Procedure(s): XR DEXA axial skeleton Accession Number(s): [id number] cc: Yesenia Castle EXAMINATION: Dual-Energy X-ray Absorptiometry - Bone Density Study HISTORY: Estrogen deficiency TECHNIQUE: VAZATA Dual energy absorptiometry (DEXA) of the lumbar spine, total left hip, and femoral neck was performed. COMPARISON: Comparison is made with the prior examination dated 04/27/2022. FINDINGS: The bone mineral density of the lumbar spine is 0.963 with a T-score of -1.8, and a Z-score of 0.3. This represents a BMD change of 0.4% compared to the prior exam. This is not statistically significant. The bone mineral density of the left total hip is 0.785 with a T-score of -1.8, and a Z-score of 0.3. This represents BMD change of 14.6% compared to the prior exam. This is statistically significant. The bone mineral density of the left femoral neck is 0.763 with a T-score of -2.0, and a Z-score of 0.3. This represents BMD change of 6.9% compared to the prior exam. FRACTURE RISK: The FRAX index suggests a ten year probability of major osteoporotic fracture of 7.2%, and of hip fracture 1.6%. MM/XR DEXA axial skeleton IMPRESSION: Based on bone mineral density, and according to World Health Organization (WHO) criteria, the diagnosis is consistent with osteopenia. All bone density values are in grams per centimeter squared. At this facility, the least significant change in BMD with 95% confidence is 0.022 at the lumbar spine, 0.027 at the hip, and 0.023 at the distal 1/3 radius. Electronically signed by: Magen Brady MD 05/20/2024 09:38 AM EST Dictated By: Magen Brady MD Signed By: <Electronically signed by Magen Brady MD in OV> 05/20/2438 DD/ 0908 TD/TT: 05/19/24929 Dance Coach: us Yesenia Castle MD IMG DXA PROCEDURES Edited Resu lt - Final * CT Soft Tissue Neck w/ Contrast (05/18/2024 7:01 PM EST) Anatomical Region Laterality Modality Head, Neck Computed Tomogra phy 05/18/2024 7:01 PM EST Narrative 05/18/2024 7:02 PM EST ? [facility] ?[address] ?[place] [address] ? CT Scan Report ? Signed ? Patient: Guerrero,Janell ?MR#: [id number] ?? 71 ? : 1950 ?Acct:[id number] ? Age/Sex: 73 / F ?ADM Date: 05/18/24 ? Loc: HO.CT ? Attending Dr: Celina Petersen MD ? Ordering Physician: Celina Petersen MD ?? Date of Service: 05/18/24 ?? Procedure(s): CT soft tissue neck w IV con ?? Accession Number(s): [id number] ? cc: Celina Petersen MD; Yesenia Castle ? Report Number: ?? [id number]: Total DLP = ??291.00 mGy-cm ? CLINICAL HISTORY: persistent cervical lymphadenopathy ? CT soft tissue neck with contrast ? Comparison: None ? Findings: ?? Index right level II cervical lymph node measures 1.1 cm short axis (image ?? number 70 of series 2). Adjacent stranding can be seen with extracapsular ?? spread and cervical lymphadenitis. Additional bilateral level II, III, IV, ?? and V demonstrate loss of the fatty kiet. Differential considerations ?? include lymphoproliferative disorder, secondary lymphadenopathy, and ?? reactive lymphadenopathy. No drainable parapharyngeal abscess. ?? Predominately noncalcified plaque in this nonvascular study, with ?? retropharyngeal right ICA. ?? No exophytic mass of the imaged aerodigestive tract. Subcutaneous edema is ?? noted. Previous cataract procedure changes present. Fluid and mucosal ?? thickening of the paranasal sinuses including likely retention cysts of ?? the left maxillary sinus. Trace left mastoid effusion. Scarring of the ?? imaged lung apices. Cerebellar tonsils terminate at the level of the ?? foramen magnum with mild crowding of the contents in the foramen magnum. ?? No hydrocephalus in the [id number]. Fatty replacement of the parotid ?? glands. Imaged submandibular and thyroid glands are within normal limits ?? for CT. Degenerative changes include cervical spine facet arthropathy and ?? disc osteophyte complexes. Metal and lucencies associated with multiple ?? remaining imaged teeth. ? IMPRESSION: ?? 1. Bilateral cervical lymphadenopathy with index right level II, as ?? detailed above. Please consider dedicated tissue sampling, if clinically ?? indicated. ?? 2. No exophytic mass of the imaged aerodigestive tract. ?? 3. 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 ? This document has been electronically signed by: Ochoa Roca MD on ?? 05/18/2024 19:01:09 ? Dictated By: ?Ochoa Roca MD ? Signed By: ?<Electronically signed by Ochoa Roca MD in OV> ? 05/18/241901 ? DD/ 00 ? TD/TT: 05/18/241900 ? Dance Coach: ? Procedure Note Donrafalter, Image - 05/18/[address] [address] [address] Scan Report Signed Patient: Inés Guerrero#: [id number] 71 : 2Acct:[id number] Age/Sex: 73 / FADM Date: 05/18/24 Loc: HO.CT Attending Dr: Celina Pteersen MD Ordering Physician: Celina Petersen MD Date of Service: 05/18/24 Procedure(s): CT soft tissue neck w IV con Accession Number(s): [id number] cc: Celina Petersen MD; Yesenia Castle Report Number: [id number]: Total DLP = 291.00 mGy-cm CLINICAL HISTORY: persistent cervical lymphadenopathy CT soft tissue neck with contrast Comparison: None Findings: Index right level II cervical lymph node measures 1.1 cm short axis (image number 70 of series 2). Adjacent stranding can be seen with extracapsular spread and cervical lymphadenitis. Additional bilateral level II, III, IV, and V demonstrate loss of the fatty kiet. Differential considerations include lymphoproliferative disorder, secondary lymphadenopathy, and reactive lymphadenopathy. No drainable parapharyngeal abscess. Predominately noncalcified plaque in this nonvascular study, with retropharyngeal right ICA. No exophytic mass of the imaged aerodigestive tract. Subcutaneous edema is noted. Previous cataract procedure changes present. Fluid and mucosal thickening of the paranasal sinuses including likely retention cysts of the left maxillary sinus. Trace left mastoid effusion. Scarring of the imaged lung apices. Cerebellar tonsils terminate at the level of the foramen magnum with mild crowding of the contents in the foramen magnum. No hydrocephalus in the [id number]-vqzs. Fatty replacement of the parotid glands. Imaged submandibular and thyroid glands are within normal limits for CT. Degenerative changes include cervical spine facet arthropathy and disc osteophyte complexes. Metal and lucencies associated with multiple remaining imaged teeth. IMPRESSION: 1. Bilateral cervical lymphadenopathy with index right level II, as detailed above. Please consider dedicated tissue sampling, if clinically indicated. 2. No exophytic mass of the imaged aerodigestive tract. 3. 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 This document has been electronically signed by: Ochoa Roca MD on 05/18/2024 19:01:09 Dictated By: Ochoa Roca MD Signed By: <Electronically signed by Ochoa Roca MD in OV> 05/18/241901 DD/ 00 TD/TT: 05/18/241900 Dance Coach: us Celina Petersen MD IMG CT PROCEDURES Final Result * POCT Creatinine GFR (05/18/2024 8:44 AM EST) POCT Creatinine 0.8 0.5 - 1.4 mg/dL [facility] GFR POC >60 [facility] Comment:Chronic Kidney Disea se: Estimated GFR < 60 mL/min/1.37a0Meeacu Kidney Disease: Estimated GFR < 15 mL/min/1.73m2 05/18/2024 8:44 AM EST 05/18/2024 10:19 AM EST Narrative [facility] - 05/18/2024 10:22 AM EST [id number] Celina Petersen MD LAB POINT OF CARE TEST D OCKED DEVICE ORDERABLES Final Result [facility] [address] [place] [phone] * Hepatitis C Antibody with Reflex to HCV, RNA, Quantitative, Real-Time PCR (01/06/2024 9:03 AM EDT) Hepatitis C Antibody Nonreactive Nonreactive [facility] Comment:Antibodies to HCV no t detected; does not exclude early acuteHCV infection. Blood Venous blood specimen / Unknown 01/06/2024 9:03 AM EDT 01/06/2024 11:49 AM EDT Yesenia Castle MD LAB BLOOD ORDERABLES Final Res ult Performing Organization Address [facility] Co de Phone Number [facility] [address] [place] [phone] * Hemoglobin A1c (01/06/2024 9:03 AM EDT) Hemoglobin A1c 5.6 <6.0 % [facility] Comment:Hemoglobin A1C Refer ence Range Adults: 4.8 - 6.0 % Non diabetic: < 6.0 % Goal: < 7.0 %Additional Action Suggested: > 8.0 %Note: Hemoglobin A1c results are invalid for patients with abnormal amounts of HbF. Blood transfusions may impact the HbA1c concentration in the patient sample. Estimated Average Glucose 114 mg/dL [facility] Comment:eAG = Estimated ave rage glucose which is %A1C expressed asaverage glucose, using the formula of the G5E-EgoemvvDntyydg Glucose study (ADAG), Diabetes Care, Vol.31,#8,Dec. 2007 Blood Venous blood specimen / Unknown 01/06/2024 9:03 AM EDT 01/06/2024 11:49 AM EDT Yesenia Castle MD LAB BLOOD ORDERABLES Final Res ult Performing Organization Address [facility] Co de Phone Number [facility] [address] [place] [phone] * (ABNORMAL) Lipid Panel, Standard (01/06/2024 9:03 AM EDT) Triglycerides 90 <150 mg/dL [facility] Comment:Desirable Triglyceri de: less than 150 mg/dLBorderline High Triglyceride 150-199 mg/dLHigh Triglyceride: 200-499 mg/dLVery High Triglyceride: greater than or equal to 5OO mg/dL Cholesterol 217(H) <200 mg/dL [facility] Comment:Desirable Cholestero l: less than 200 mg/dLBorderline High Cholesterol: 200-239 mg/dLHigh Cholesterol: greater than 239 mg/dL LDL Cholesterol Calculated 142(H) <100 mg/dL [facility] Comment:Desirable LDL: less than 100 mg/dLNear Optimal/Above Optimal LDL: 110- 129 mg/dLBorderline High LDL: 130-159 mg/dLHigh LDL: 160-189 mg/dLVery High LDL: greater than or equal to 190 mg/dL HDL Cholesterol 57 >40 mg/dL [facility] Comment:Desirable HDL: great er than 40 mg/dL Note: This HDL assay may give artificially low results in patients with liver disease. Blood Venous blood specimen / Unknown 01/06/2024 9:03 AM EDT 01/06/2024 11:49 AM EDT Yesenia Castle MD LAB BLOOD ORDERABLES Final Res ult [facility] [address], [place] [phone] * Hm Colonoscopy (03/31/2019) Historical Provider HEALTH MAINTENANCE Final Result from Last 3 Months or Most Recently Relevant to Health Maintenance Insurance [facility] Care Teams Naturopath Relationship Specialty Start Date End Date Yesenia Castle MD [address] [place] [phone] PCP - General Family Medicine 07/13/22
--- OUTSIDE RECORDS SUMMARY | 2024-06-22 14:38 | XMS_ITS | Encounter Summary ---
Author Organization [employer] [facility] Address [address] 7[address] [place] [address] Care Team Providers Care Concrete Finisher Name Role Phone Yesenia Castle MD Primary Care Provider [phone] Reason for Referral * Consultation (Urgent) - Closed Specialty Diagnoses / Procedures Referred By Contac t Referred To Contact General Surgery Diagnoses Cervical lymphadenopathy Yesenia Castle MD [address] [place] [phone] Phone: tel: fax: [facility] [address] 3rd Floor [place], [place] Phone: tel: fax: Referral ID Status Reason Start Date Expiration Date V isits Requested Visits Authorized [id number] Closed Specialty Services Required 05/22/2024 05/22/2025 1 1 Encounter Details Date Type Department Care Team (Late st Contact Info) Description 05/22/[address] [facility] [address] [place] [address] [phone] Yesenia Castle MD [address] [place], [place] [phone] Cervical lymphadenopathy (Primary Dx) Social History Tobacco Use Types Packs/Day Years [...] as of this encounter Miscellaneous Notes * Result Encounter Note - Yesenia Castle MD - 05/22/2024 4:59 PM EST Please let patient know that there is nothing in her lab work that explains the enlarged lymph nodes in her neck, does she have a biopsy scheduled with general surgery? documented in this encounter Plan of Treatment Upcoming Encounters Date Type Department Care Team (Late st Contact Info) Description 07/07/2024 9:00 AM EST Office Visit [facility] ADULT DENTAL [address] [place] [address] Rebecca Harper [address] [place] [address] Scheduled Referrals Name Type Priority Associated Diagnoses Orde r Schedule Referral to General Surgery Outpatient Referral Urgent Cervical lymphadenopathy Expected: 05/22/2024 (Approximate), Expires: 05/22/2025 documented as of this encounter Procedures Procedure Name Priority Date/Time Associated Diagnosis Comments CBC WITH AUTO DIFFERENTIAL Routine 05/26/2024 8:31 AM EST Cervical lymphadenopathy RPR (MONITOR) W/REFL TITER Routine 05/26/2024 8:31 AM EST Cervical lymphadenopathy HIV 1/2 ANTIGEN/ANTIBODY, FOURTH GENERATION W/RFL Routine 05/26/2024 8:31 AM EST Cervical lymphadenopathy SED RATE BY MODIFIED WESTERGREN Routine 05/26/2024 8:31 AM EST Cervical lymphadenopathy LD Routine 05/26/2024 8:31 AM EST Cervical lymphadenopathy documented in this encounter Results * RPR (Monitor) with Reflex to??Titer (05/26/2024 8:31 AM EST) RPR (Monitor) w/Refl Titer NON-REACTI VE NON-REACT [facility] Comment:THIS TEST WAS PERFOR MED AT:[employer] [address] [id number] MASTERS MD Rapid Plasma Reagin Ab Titer TNP [facility] Blood Venous blood specimen / Unknown 05/26/2024 8:31 AM EST 05/26/2024 11:19 AM EST us Yesenia Castle MD LAB BLOOD ORDERABLES Final Res ult [facility] [address] [place] [address] [phone] * HIV-1/2 Antigen and Antibodies, Fourth Generation, with Reflexes (05/26/2024 8:31 AM EST) HIV AB/AG Nonreactive Nonreactive [facility] Comment:HIV-1 p24 Ag and/or HIV-1/HIV-2 Ab not detected.A test result that is nonreactive does not exclude thepossibility of exposure to or infection with HIV-1 and/orHIV-2. Nonreactive results in this assay for individualswith prior exposure to HIV-1 and/or HIV-2 may be due toantigen and antibody levels that are below the limit ofdetection of this assay.The [employer] HIV Ag/Ab Combo assay result andsupplemental assay results should be interpreted inconjunction with the patient's clinical presentation,history and other laboratory results. If the results areinconsistent with clinical evidence, additional testing issuggested to confirm the result. Blood Venous blood specimen / Unknown 05/26/2024 8:31 AM EST 05/26/2024 11:19 AM EST us Yesenia Castle MD LAB BLOOD ORDERABLES Final Res ult Performing Organization Address City/[facility]/ZIP Co de Phone Number [facility] [address] [place] [phone] * Lactate Dehydrogenase (LD) (05/26/2024 8:31 AM EST) Lactate Dehydrogenase 210 122 - 220 U/L [facility] Blood Venous blood specimen / Unknown 05/26/2024 8:31 AM EST 05/26/2024 11:19 AM EST us Yesenia Castle MD LAB BLOOD ORDERABLES Final Res ult Performing Organization Address City/[facility] Co de Phone Number [facility] [address] [place] [phone] * Sed Rate by Modified Pedroren (05/26/2024 8:31 AM EST) Erythrocyte Sedimentation Rate 10 0 - 20 MM/HR [facility] Comment:Patients with polycy themia and many hemoglobin abnormalitiesmay have depressed sed rates whereas patients with anemiamay have elevated sed rates. Blood Venous blood specimen / Unknown 05/26/2024 8:31 AM EST 05/26/2024 11:19 AM EST us Yesenia Castle MD LAB BLOOD ORDERABLES Final Res ult [facility] [address] [place] [phone] [phone] * (ABNORMAL) CBC auto differential (05/26/2024 8:31 AM EST) White Blood Count 6.5 4.8 - 10.8 X10*3/uL [facility] Red Blood Count 4.70 4.20 - 5.50 X10*6/uL [facility] Hemoglobin 13.2 12.0 - 16.0 g/dl [facility] Hematocrit 40.4 37.0 - 47.0 % [facility] Mean Corpuscular Volume 86.0 80.0 - 98.0 fL [facility] Mean Corpuscular Hemoglobin 28.1 27.0 - 33.0 pg [facility] Mean Corpuscular HGB Conc 32.7 31.0 - 35.0 g/dl [facility] Red Cell Distribution Width 13.9 11.0 - 16.0 % [facility] Platelet Count 300 160 - 400 X10*3/uL [facility] Mean Platelet Volume 10.3 9.4 - 12.3 fL [facility] Neutrophils Percent Auto 61.7 45 - 73 % [facility] Imm Gran Pct Auto 0.5(H) 0.0 - 0.4 % [facility] Lymphocytes Percent Auto 25.5 20 - 40 % [facility] Monocytes Percent Auto 8.2 2 - 11 % [facility] Eosinophils Percent Auto 3.5 0 - 4 % [facility] Basophils Percent Auto 0.6 0 - 2 % [facility] NRBC Pct Auto 0.0 0.0 - 0.2 /100WBC [facility] Neutrophils Absolute Auto 4.0 2.0 - 8.3 x10*3/uL [facility] Imm Gran Abs Auto 0.03 0.00 - 0.03 X10*3/uL [facility] Lymphocytes Absolute Auto 1.7 1.2 - 4.9 X10*3/uL [facility] Monocytes Absolute Auto 0.5 0.1 - 1.2 X10*3/uL [facility] Eosinophils Absolute Auto 0.2 0.0 - 0.4 X10*3/uL [facility] Basophils Absolute Auto 0.0 0.0 - 0.2 X10*3/uL [facility] NRBC Abs Auto 0.000 0.0 - 0.012 X10*3/uL [facility] Blood Venous blood specimen / Unknown 05/26/2024 8:31 AM EST 05/26/2024 11:19 AM EST us Yesenia Castle MD LAB BLOOD ORDERABLES Final Res ult [facility] [address] [place] [phone] [phone] documented in this encounter Visit Diagnoses Diagnosis Cervical lymphadenopathy- Primary Enlargement of lymph nodes documented in this encounter Additional Health Concerns Assessment Noted Time PHQ-9 Depression Total Score: 2 12/25/19 24 2:13 PM EDT documented as of this encounter Care Teams Concrete Finisher Relationship Specialty Start Date End Date Yesenia Castle MD [address] [place] [address] PCP - General Family Medicine 07/13/22 documented as of this encounter
--- OUTSIDE RECORDS SUMMARY | 2024-06-22 14:38 | XMS_ITS | Patient Health Record ---
Author Organization [facility] Address [address] [place] [address] Care Team Providers Care Stove Mounter Name Role Phone Yesenia Castle M.D. Primary Care Provider Magen Rivera [phone] ALLERGIES No Known Allergies REASON FOR REFERRAL No Information MEDICATIONS Medication SIG (Take, Route, Frequency, Duration) Notes Start Date End Date Status MiraLax (colon prep) 17 GM/SCOOP 1 238Gm bottle mixed with Gatorade or Crystal Light Orally begin at 5:00 p.m. the day before the procedure for 1 day 05/31/2024 Active Ibuprofen 800 MG 1 capsule with food or milk as needed Orally as needed Active Loratadine 10 MG 1 tablet Orally Once a day Active Aspirin Low Dose 81 MG TAKE 1 TABLET BY MOUTH EVERY DAY Oral for 30 Not-Taking Dulcolax (colon prep) 5 MG take at 3:00 p.m and 7:00p.m. Orally two tablets twice a day for one day for 1 day 05/31/2024 Active amLODIPine Besylate 2.5 MG TAKE 1 TABLET BY MOUTH EVERY DAY Oral for 30 Active MiraLax (colon prep) 8.3 ounce ((238) grams mixed with Gatorade or Crystal Light orally begin at 5:00 p.m. the day before the procedure for 1 day 03/05/2019 Active Calcium Carbonate-Vitamin D 600-400 MG-UNIT TAKE 1 TABLET BY MOUTH TWICE DAILY Oral for 30 Active Betamethasone Dipropionate Aug 0.05 % APPLY TOPICALLY TWICE DAILY IN THE MORNING AND AT BEDTIME NEEDED FOR ITCHING OR RASH External for 14 Active Dulcolax (colon prep) 5 MG take at 3:00 p.m and 7:00p.m. Orally two tablets twice a day for one day for 1 day 03/05/2019 Active Muscle Rub 10-15 % APPLY TO THE AFFECTED AREA(S) BEFORE BREAKFAST, BEFORE LUNCH, AND BEFORE SUPPER External for 20 Active Cetirizine HCl 10 MG TAKE 1 TABLET BY MOUTH EVERY MORNING, FOR ITCHING MAY REPEAT BEFORE BEDTIME NEEDED Oral for 30 L209,Unavaila ble Active Acetaminophen Extra Strength 500 MG TAKE 1 TABLET BY MOUTH EVERY 6 HOURS NEEDED FOR MILD PAIN Oral for 30 Active IMMUNIZATIONS Vaccine Route Administration Date Status Comme nts Influenza Unknown 02/04/2024 Administered SOCIAL HISTORY Tobacco Use: Social History Observation [...] malignant neoplasm of colon (Z12.11) Active confirmed 245003449 Problem History of adenomatous polyp of colon (Z86.010) Active confirmed [id number] Problem Pre-procedural examination (Z01.818) Active confirmed [id number] Problem Personal history of adenomatous and serrated colon polyps (Z86.0101) Active confirmed VITAL SIGNS Temperature 96.9 degrees Fahrenheit 05/27/2024 Blood pressure diastolic 00 mm Hg 05/27/2024 Height 63 in 05/27/2024 Blood pressure systolic 000 mm Hg 05/27/2024 Weight 174 lbs 05/27/2024 BMI 30.82 kg/m2 05/27/2024 Encounters Encounter Location Date Provider Diagnosis [facility] [address] [place] [address] 05/27/2024 Magen Greenfield History of adenomato us polyp of colon Z86.010 ; Pre-procedural examination Z01.818 and Encounter for screening for malignant neoplasm of colon Z12.11 [facility] [address] [place] [address] 05/27/2024 Magen Greenfield ASSESSMENTS Encounter Date Diagnosis Assessment Notes Treatment Notes Treatment Clinical Notes 05/27/2024 History of adenomatous polyp of colon (ICD-10 - Z86.010) 05/27/2024 Pre-procedural examination (ICD-10 - Z01.818) 05/27/2024 Encounter for screening for malignant neoplasm of colon (ICD-10 - Z12.11) PLAN OF TREATMENT Future Test Test Name Order Date COLONOSCOPY 01/13/2013 COLONOSCOPY 03/03/2019 COLONOSCOPY 05/27/2024 Next Appt Details Provider Name:Magen Greenfield , 09/11/2024 09:30:00 AM, [address] [place] [address] , [place], [place], [phone], Insurance Providers Payer Name Payer Address Payer Phone Subscriber Number Group Number Insured Name Patient Relationship to Insured Coverage Start Date Coverage End Date [facility] [address] [address] [place] [address] [id number] BUTCH DONAHUE Self - patient is the insured MEDICAID OF [facility] [address] [place] [phone] [id number] BUTCH DONAHUE Self - patient is the insured MEDICAL (GENERAL) HISTORY Medical History History ICD Code Colonoscopy in October 2007 wit h removal of a single tubular adenoma-also noted was some sigmoid diverticulosis and internal hemorrhoids Denies TX,DM,CVA,Lung disease,renal dise ase Colonoscopy in 02/2013 with a small tubu lar adenoma removed HTN Prediabetes Colonoscopy 03/2019 with one small tubul ar adenoma removed Surgical History Surgery Date(Month/Year) Breast reduction surgery and liposuction from her abdominal wall [facility] 09/2018 Dr. Lopez
--- OUTSIDE RECORDS SUMMARY | 2024-06-22 14:38 | XMS_ITS | Encounter Summary ---
Author Organization [employer] Address [address] [place] [address] Care Team Providers Care Crew Lead Name Role Phone Yesenia Castle MD Primary Care Provider [phone] Encounter Details Date Type Department Care Team ([facility] st Contact Info) Description 05/25/2024 Telephone [facility] MED[facility] [address] [place], [place] [phone] Yesenia Castle MD [address] [place], [place] [phone] Social History Tobacco Use Types Packs/Day Years [...] Description 07/07/2024 9:00 AM EST Office Visit [facility] ADULT DENTAL [address] [place] [address] LeroyEsdrasRebecca [address] [place] [address] documented as of this encounter Visit Diagnoses Not on filedocumented in this encounter Additional Health Concerns Assessment Noted Time PHQ-9 Depression Total Score: 2 12/25/19 24 2:13 PM EDT documented as of this encounter Care Teams Crew Lead Relationship Specialty Start Date End Date Yesenia Castle MD [address] [place] [address] PCP - General Family Medicine 07/13/22 documented as of this encounter
--- OUTSIDE RECORDS SUMMARY | 2024-06-22 14:39 | XMS_ITS | Encounter Summary ---
Author Organization [facility] Address [address] [place] [address] Care Team Providers Care Agile Test Lead Name Role Phone Leon Cortez MD Primary Care Provider Yesenia Baeza MD Primary Care Provider [phone] Encounter Details Date Type Department Care Team (Latest Contact Info) Description 01/10/2021 Abstract [facility] Dental, Provider, DDS Social History Tobacco Use Types Packs/Day Years Used Date Smoking Tobacco: Never Assessed Comments Unknown Sex and Gender Information Value Date Recorded Sex Assigned at Female 03/12/2022 10:16 AM EDT Legal Sex Female 10:16 AM EDT Gender Identity Female 03/12/2022 10:16 AM EDT Sexual Orientation Straight 03/12/2022 10 :16 AM EDT documented as of this encounter Plan of Treatment Upcoming Encounters Date Type Department Care Team ( st Contact Info) Description 07/07/2024 9:00 AM EST Office Visit [facility] ADULT DENTAL [address] [place] [address] Leroy, Rebecca [address] [place] [address] documented as of this encounter Visit Diagnoses Not on filedocumented in this encounter Care Teams Agile Test Lead Relationship Specialty Start Date End Date Leon Cortez MD PCP - General Family Medicine 10/29/19 07/12/22 Yesenia Castle MD [address] [place] [address] PCP - General Family Medicine 07/13/22 documented as of this encounter
--- OUTSIDE RECORDS SUMMARY | 2024-06-22 14:39 | XMS_ITS | Encounter Summary ---
Author Organization [employer] Address [address] [place] [address] Care Team Providers Care Auto Glass Installer Name Role Phone Yesenia Castle MD Primary Care Provider [phone] Encounter Details Date Type Department Care Team (Late st Contact Info) Description 07/18/2023 Orders Only [facility] [address] [place], [place] [phone] Provider, MD Mar Social History Tobacco Use Types Packs/Day Years Used Date Smoking Tobacco: Never Passive Smoke Exposure: Never Smokeless Tobacco: Never Alcohol Use Standard Drinks/Week Comments Never 0 (1 standard drink = 0.6 oz pur e alcohol) Depression Answer Date Recorded Patient Health Questionnaire-9 Score 8 12/27/2022 Housing Stability Answer Date Recorded What is your housing situation today? I have ariescharanjit brumfield 02/26/[address] you li ve. Do you have problems with any of the following? None of the above 02/26/2023 Food Insecurity Answer Date Recorded Within the past 12 months, y ou worried that your food would run out before you got money to buy more: Never True 02/26/2023 Within the past 12 months,th e food you bought just didn't last and you didn't have enough money to get more: Never True Transportation Answer Date Recorded In the past 12 months, has l ack of transportation kept you from medical appts, meetings, work or from getting things needed for daily living? Yes, it has kept me from medical appointments or getting medications. 02/18/2023 Utilities Answer Date Recorded In the past 12 months, has t he electric, gas, oil or water [employer] threatened to shut off services in your home? No 02/26/2023 Depression Answer Date Recorded Patient Health Questionnaire-2 [...] Description 07/07/2024 9:00 AM EST Office Visit [facility] ADULT D[facility] [address] [place], [place] [phone] Esdras Harperaris [address] [place] [address] documented as of this encounter Procedures Procedure Name Priority Date/Time Associated Diagnosis Comments HM COLONOSCOPY Routine 02/11/2013 10:07 AM EDT documented in this encounter Results * Hm Colonoscopy (02/11/2013 10:07 AM EDT) us Historical Provider HEALTH MAINTENANCE Final Result documented in this encounter Visit Diagnoses Not on filedocumented in this encounter Additional Health Concerns Assessment Noted Time PHQ-9 Depression Total Score: 8 12/28/19 23 10:42 AM EDT documented as of this encounter Care Teams Auto Glass Installer Relationship Specialty Start Date End Date Yesenia Castle MD [address] [place] [address] PCP - General Family Medicine 07/13/22 documented as of this encounter
--- OUTSIDE RECORDS SUMMARY | 2024-06-22 14:39 | XMS_ITS | Encounter Summary ---
Author Organization [employer] Address [address] [place] [address] Care Team Providers Care Primer Powder Blender Wet Name Role Phone Yesenia Castle MD Primary Care Provider [phone] Reason for Visit * Reason Onset Date Comments Results 05/26/2024 Encounter Details Date Type Department Care Team ([facility] st Contact Info) Description 05/26/2024 Telephone [facility] MEDICINE [address] [place] [address] Gilda Kimble, STEFANI [address] [place], [place] [phone] Results Social History Tobacco Use Types Packs/Day [...] Telephone Encounter - Gilda Kimble RN - 05/26/2024 4:34 PM EST Noted. * Telephone Encounter - Gilda Kimble RN - 05/26/2024 4:25 PM EST TC placed to pt [phone] in regards to below message. Patient advised BW results returned whichdid not show an explanation for enlarged lymph nodes. Patient reminded of GS appointment for tomorrow 05/27/24 at 4pm. Sending to PCP as FYI of GS appointment. ----- Message from Yesenia Castle MD sent at 05/26/2024 3:24 PM EST ----- Please let patient know that there is nothing in her lab work that explains the enlarged lymph nodes in her neck, does she have a biopsy scheduled with general surgery? documented in this encounter Plan of Treatment Upcoming Encounters Date Type Department Care Team (Late st Contact Info) Description 07/07/2024 9:00 AM EST Office Visit [facility] ADULT DENTAL [address] [place] [address] Esdras Harperaris [address] [place] [address] documented as of this encounter Visit Diagnoses Not on filedocumented in this encounter Additional Health Concerns Assessment Noted Time PHQ-9 Depression Total Score: 2 12/25/19 24 2:13 PM EDT documented as of this encounter Care Teams Primer Powder Blender Wet Relationship Specialty Start Date End Date Yesenia Castle MD [address] [place] [address] PCP - General Family Medicine 07/13/22 documented as of this encounter
--- OUTSIDE RECORDS SUMMARY | 2024-06-22 14:39 | XMS_ITS | Encounter Summary ---
Author Organization [employer] [facility] Address [address] [place] [address] Care Team Providers Care Historical Archeologist Name Role Phone Leon Cortez MD Primary Care Provider Yesenia Baeza MD Primary Care Provider [phone] Encounter Details Date Type Department Care Team (Latest Contact Info) Description 02/12/2022 Abstract [facility] Dental, Provider, DDS Social History [...] Description 07/07/2024 9:00 AM EST Office Visit [facility] ADULT DENTAL [address] [place] [address] Leroy, Rebecca [address] [place] [address] documented as of this encounter Visit Diagnoses Not on filedocumented in this encounter Care Teams Historical Archeologist Relationship Specialty Start Date End Date Leon Cortez MD PCP - General Family Medicine 10/29/19 07/12/22 Yesenia Castle MD [address] [place] [address] PCP - General Family Medicine 07/13/22 documented as of this encounter
--- OUTSIDE RECORDS SUMMARY | 2024-06-22 14:39 | XMS_ITS | Encounter Summary ---
Author Organization [facility] [facility] Address [address] [place] [address] Care Team Providers Care Non Morse Intercept Technician Name Role Phone Leon Cortez MD Primary Care Provider Yesenia Baeza MD Primary Care Provider [phone] Encounter Details Date Type Department Care Team (Latest Contact Info) Description 10/03/2018 Abstract [facility] CONVERSIONS Dental, Provider, DDS Social History [...] Encounters Date Type Department Care Team ( Contact Info) Description 07/07/2024 9:00 AM EST Office Visit [facility] ADULT DENTAL [address] [place] [address] Leroy, Rebecca [address] [place] [address] documented as of this encounter Visit Diagnoses Not on filedocumented in this encounter Care Teams Non Morse Intercept Technician Relationship Specialty Start Date End Date Leon Coretz MD PCP - General Family Medicine 10/29/19 07/12/22 Yesenia Castle MD [address] [place] [address] PCP - General Family Medicine 07/13/22 documented as of this encounter
--- OUTSIDE RECORDS SUMMARY | 2024-06-22 14:39 | XMS_ITS | Encounter Summary ---
Author Organization [employer] Address [address] [place] [address] Care Team Providers Care Hydraulic Spinner Name Role Phone Yesenia Castle MD Primary Care Provider [phone] Encounter Details Date Type Department Care Team (Late st Contact Info) Description 05/30/2024 Orders Only GENERIC EXTERNAL DATA DEPARTMENT Provider, Generic External Data Social History Tobacco Use Types Packs/Day Years [...] Description 07/07/2024 9:00 AM EST Office Visit [facility] [address] [place], [place] [phone] Leroy, Rebecca [address] [place] [address] documented as of this encounter Procedures Procedure Name Priority Date/Time Associated Diagnosis Comments INFLUENZA A B2 ID NOW (ROSS) Routine 05/30/2024 4:32 AM EST SLIDE REVIEW Routine 05/30/2024 4:32 AM EST COVID-19 ID NOW (ROSS) Routine 05/30/2024 4:32 AM EST CBC WITH AUTO DIFFERENTIAL Routine 05/30/2024 4:32 AM EST LIPASE Routine 05/30/2024 4:32 AM EST COMPREHENSIVE METABOLIC PANEL Routine 05/30/2024 4:32 AM EST documented in this encounter Results * Influenza A B2 ID NOW (Ross) (05/30/2024 4:32 AM EST) IDNOW SERIAL# [id number] [facility] Influenza A Negative Negative [facility] Influenza B2 Negative Negative [facility] Influenza A B2 Note See Note [facility] Comment:The Ross ID NOW In fluenza [...] EST us Generic External Data Provider LAB MICROBIOLOGY - GENERAL ORDERABLES Final Result [facility] [address] [place] [phone] * COVID-19 ID NOW (ROSS) (05/30/2024 4:32 AM EST) IDNOW SERIAL# [id number] [facility] COVID-19 TEST Negative Negative [facility] COVID-19 NOTE See Note [facility] Comment: Results are for the identification of SARS-CoV2 RNA. TheSARS-CoV2 RNA is generally detectable in respiratory samplesduring the acute phase of infection. Positive results areindicative of the presence of SARS-CoV-2 RNA; clinicalcorrelation with patient history and other diagnosticinformation is necessary to determine patient infectionstatus. Positive results do not rule out bacterial infectionor co- infection with other viruses.Testing facilities within the [facility] and itsterritories are required to report all [...] use by authorized laboratories.Testing performed on the [employer] ID NOW utilizing NAAT. 05/30/2024 4:32 AM EST 05/30/2024 4:37 AM EST Generic External Data Provider LAB MOLECULAR EDDI GNOSTICS ORDERABLES Final Result Performing Organization Address [facility]/ZIP Co de Phone Number [facility] [address] [place] [phone] * Lipase (05/30/2024 4:32 AM EST) Pathologist [facility] Lipase 12 8 - 78 U/L [facility] 05/30/2024 4:32 AM EST 05/30/2024 4:37 AM EST Generic External Data Provider LAB BLOOD ORDERAB LES Final Result Performing Organization Address [facility] Co de Phone Number [facility] [address] [place] [phone] * (ABNORMAL) Comprehensive Metabolic Panel (05/30/2024 4:32 AM EST) Sodium 142 135 - 145 mmol/L [facility] Potassium 3.9 3.3 - 5.1 mmol/L [facility] Chloride 110(H) 96 - 108 mmol/L [facility] Carbon Dioxide 18(L) 22 - 29 mmol/L [facility] Anion Gap 18 12 - 20 [facility] Urea Nitrogen (BUN) 18(H) 9 - 16 mg/dL [facility] Creatinine, Serum 0.80 0.5 - 1.4 mg/dL [facility] Creatinine Clr Calc Pharmacy 69.3 [facility] Comment:Provided height and weight: 162.56 cm,90.718 kg.eGFR (calculated from the MDRD study equation) and eCrCl(calculated from the Cockcroft-Gault equation) are based ondifferent parameters and may not yield comparable results.If eCrCl result is absurd, please check patient'sheight/weight. Estimated Glomerular Filt Rate >60 [facility] Comment:Chronic Kidney Disea se: Estimated GFR < 60 mL/min/1.59c2Hyycnl Kidney Disease: Estimated GFR < 15 mL/min/1.73m2 Glucose 168(H) 60 - 115 mg/dL [facility] Calcium 10.1 8.4 - 10.2 mg/dL [facility] Bilirubin, Total 0.6 0.0 - 1.0 mg/dL [facility] Aspartate Amino Transferase 28 5 - 31 U/L [facility] Alanine Aminotransferase 13 0 - 31 U/L [facility] Total Protein 8.4(H) 6.5 - 8.0 g/dL [facility] Albumin Level 4.5 3.5 - 5.0 g/dL [facility] Alkaline Phosphatase 104 39 - 117 U/L [facility] 05/30/2024 4:32 AM EST 05/30/2024 4:37 AM EST us Generic External Data Provider LAB BLOOD ORDERAB LES Final Result Performing Organization Address City/[facility]/ZIP Co de Phone Number [facility] [address] [place] [phone] * Slide Review (05/30/2024 4:32 AM EST) Slide Review VERIFIED [facility] 05/30/2024 4:32 AM EST 05/30/2024 4:37 AM EST us Generic External Data Provider LAB BLOOD ORDERAB LES Final Result Performing Organization Address City/[facility]/ZIP Co de Phone Number [facility] [address] [place] [phone] * (ABNORMAL) CBC auto differential (05/30/2024 4:32 AM EST) White Blood Count 17.7(H) 4.8 - 10.8 X10*3/uL [facility] Red Blood Count 4.95 4.20 - 5.50 X10*6/uL [facility] Hemoglobin 14.0 12.0 - 16.0 g/dl [facility] Hematocrit 41.8 37.0 - 47.0 % [facility] Mean Corpuscular Volume 84.4 80.0 - 98.0 fL [facility] Mean Corpuscular Hemoglobin 28.3 27.0 - 33.0 pg [facility] Mean Corpuscular HGB Conc 33.5 31.0 - 35.0 g/dl [facility] Red Cell Distribution Width 13.9 11.0 - 16.0 % [facility] Platelet Count 280 160 - 400 X10*3/uL [facility] Mean Platelet Volume 9.2(L) 9.4 - 12.3 fL [facility] Neutrophils Percent Auto 94.2(H) 45 - 73 % [facility] Imm Gran Pct Auto 0.5(H) 0.0 - 0.4 % [facility] Lymphocytes Percent Auto 2.1(L) 20 - 40 % [facility] Monocytes Percent Auto 2.7 2 - 11 % [facility] Eosinophils Percent Auto 0.3 0 - 4 % [facility] Basophils Percent Auto 0.2 0 - 2 % [facility] NRBC Pct Auto 0.0 0.0 - 0.2 /100WBC [facility] Neutrophils Absolute Auto 16.7(H) 2.0 - 8.3 x10*3/uL [facility] Imm Gran Abs Auto 0.08(H) 0.00 - 0.03 X10*3/uL [facility] Lymphocytes Absolute Auto 0.4(L) 1.2 - 4.9 X10*3/uL [facility] Monocytes Absolute Auto 0.5 0.1 - 1.2 X10*3/uL [facility] Eosinophils Absolute Auto 0.1 0.0 - 0.4 X10*3/uL [facility] Basophils Absolute Auto 0.0 0.0 - 0.2 X10*3/uL [facility] NRBC Abs Auto 0.000 0.0 - 0.012 X10*3/uL [facility] 05/30/2024 4:32 AM EST 05/30/2024 4:37 AM EST us Generic External Data Provider LAB BLOOD ORDERAB LES Edited Result - Final [facility] [address] [place] [phone] [phone] documented in this encounter Visit Diagnoses Not on filedocumented in this encounter Additional Health Concerns Assessment Noted Time PHQ-9 Depression Total Score: 2 12/25/19 24 2:13 PM EDT documented as of this encounter Care Teams Hydraulic Spinner Relationship Specialty Start Date End Date Yesenia Castle MD [address] [place] [address] PCP - General Family Medicine 07/13/22 documented as of this encounter
--- OUTSIDE RECORDS SUMMARY | 2024-06-22 14:39 | XMS_ITS ---
Author Organization [facility] Address [address] [place] [address] Care Team Providers Care Drapery Counselor Name Role Phone Yesenia Castle M.D. Primary Care Provider Magen Rivera Unavailable [phone] ALLERGIES No Known Allergies REASON FOR VISIT Patient presents today for discuss colonoscopy MEDICATIONS Medication SIG (Take, Route, Frequency, Duration) Notes Start Date End Date Status Aspirin Low Dose 81 MG TAKE 1 TABLET BY MOUTH EVERY DAY Oral for 30 Not-Taking amLODIPine Besylate 2.5 MG TAKE 1 TABLET BY MOUTH EVERY DAY Oral for 30 Active MiraLax (colon prep) 8.3 ounce ((238) grams mixed with Gatorade or Crystal Light orally begin at 5:00 p.m. the day before the procedure for 1 day 03/05/2019 Active Calcium Carbonate-Vitamin D 600-400 MG-UNIT TAKE 1 TABLET BY MOUTH TWICE DAILY Oral for 30 Active Dulcolax (colon prep) 5 MG take at 3:00 p.m and 7:00p.m. Orally two tablets twice a day for one day for 1 day 03/05/2019 Active Ibuprofen 800 MG 1 capsule with food or milk as needed Orally as needed Active Loratadine 10 MG 1 tablet Orally Once a day Active Acetaminophen Extra Strength 500 MG TAKE 1 TABLET BY MOUTH EVERY 6 HOURS NEEDED FOR MILD PAIN Oral for 30 Active Muscle Rub 10-15 % APPLY TO THE AFFECTED AREA(S) BEFORE BREAKFAST, BEFORE LUNCH, AND BEFORE SUPPER External for 20 Active Cetirizine HCl 10 MG TAKE 1 TABLET BY MOUTH EVERY MORNING, FOR ITCHING MAY REPEAT BEFORE BEDTIME NEEDED Oral for 30 L209,Unavaila ble Active Betamethasone Dipropionate Aug 0.05 % APPLY TOPICALLY TWICE DAILY IN THE MORNING AND AT BEDTIME NEEDED FOR ITCHING OR RASH External for 14 Active SOCIAL HISTORY Tobacco Use: Social History [...] W/U Status Risk SNOMED Code Notes Problem Personal history of adenomatous and serrated colon polyps (Z86.0101) Active confirmed VITAL SIGNS BMI 30.82 kg/m2 05/27/2024 Blood pressure systolic 000 mm Hg 05/27/19 25 Blood pressure diastolic 00 mm Hg 025 Height 63 in 05/27/2024 Temperature 96.9 degrees Fahrenheit 05/27/19 25 Weight 174 lbs 05/27/2024 Encounters Encounter Location Date Provider Diagnosis [facility] [address] [place] [address] 05/27/2024 Magen Greenfield History of adenomato us polyp of colon Z86.010 ; Pre-procedural examination Z01.818 and Encounter for screening for malignant neoplasm of colon Z12.11 ASSESSMENTS Encounter Date Diagnosis Assessment Notes Treatment Notes Treatment Clinical Notes 05/27/2024 History of adenomatous polyp of colon (ICD-10 - Z86.010) 05/27/2024 Pre-procedural examination (ICD-10 - Z01.818) 05/27/2024 Encounter for screening for malignant neoplasm of colon (ICD-10 - Z12.11) PLAN OF TREATMENT Future Test Test Name Order Date COLONOSCOPY 05/27/2024 Next Appt Details Follow Up: prn, Reason: Provider Name:Magen Greenfield , 09/11/2024 09:30:00 AM, [address] [place] [address] , [place], [place], [phone], Progress Notes * Examination Category Sub-Category Detail Notes General Examination GENERAL APPEARANCE: pleasant , well nourished, well developed, in no acute distress EYES: sclera non-icteric NECK/THYROID: no cervical lymphade nopathy, neck supple HEART: S1, S2 normal LUNGS: clear to auscultatio n bilaterally ABDOMEN: normal bowel sounds, no guarding or rigidity, no hepatosplenomegaly, no masses palpable, soft, nontender, nondistended. NEUROLOGIC: alert and oriented SKIN: nonjaundiced, no spi trevor angiomata. EXTREMITIES: no edema ORAL CAVITY: mucosa moist
--- OUTSIDE RECORDS SUMMARY | 2024-06-22 14:39 | XMS_ITS ---
Author Organization [facility] Address [address] [place] [address] Care Team Providers Care Manager Income Tax Name Role Phone Yesenia Castle M.D. Primary Care Provider Magen Rivera [facility] [phone] REASON FOR VISIT bowel prep MEDICATIONS Medication SIG (Take, Route, Frequency, Duration) Notes Start Date End Date Status MiraLax (colon prep) 17 GM/SCOOP 1 238Gm bottle mixed with Gatorade or Crystal Light Orally begin at 5:00 p.m. the day before the procedure for 1 day 05/31/2024 Active Dulcolax (colon prep) 5 MG take at 3:00 p.m and 7:00p.m. Orally two tablets twice a day for one day for 1 day 05/31/2024 Active Encounters Encounter Location Date Provider Diagnosis [facility] [address] [place] [address] 05/27/2024 Magen Greenfield PLAN OF TREATMENT Medication Medication Name Sig Start Date Stop Date Notes MiraLax (colon prep) 17 GM/SCOOP 1 238Gm bottle mixed with Gatorade or Crystal Light Orally begin at 5:00 p.m. the day before the procedure for 1 day 05/31/2024 Dulcolax (colon prep) 5 MG take at 3:00 p.m and 7:00p.m. Orally two tablets twice a day for one day for 1 day 05/31/2024 Next Appt Details Provider Name:Magen Greenfield , 09/11/2024 09:30:00 AM, [address] [place] [address] , [place], [place], [phone],
[2024-06-22] MEDS: Lidocaine HCl 1 % MPF 5 ML VIAL SUBCUT (14:58)
== END 2024-06-22 13:32 | disposition home or self-care (01) ==
LOC: HO.US 13:31
PROVIDERS: Pathology Anatomic Pathology & Clinical Pathology; PCP General Practice; Visit Provider Surgery
DX: R59.0 Localized enlarged lymph nodes (principal)
CPT/HCPCS: 38505; 76942; 88173; 88184; 88185; 88305; J2003

== ENCOUNTER → 2024-06-22 13:33 | Outpatient (BNV) | payer OTHER, SELFPAY | PROVIDERS: PCP General Practice; Visit Provider Physician Assistant Surgical | DX: R59.0 Localized enlarged lymph nodes (principal) | CPT/HCPCS: 10005 ==

== ENCOUNTER 2024-07-23 14:50 | Outpatient (AMB) | payer OTHER, SELFPAY ==
--- NOTE | 2024-07-23 14:52 | A.OFFVIS_ITS ---
Vital Signs 07/23/24 14:55 Height 5 ft 4 in Weight 199 lb 15.983 oz BMI 34.3 Intake Visit Reasons: US biopsy lymph node results Intake Note: This patient presents for US biopsy lymph node results. Pt c/o; no complaints. Coremaker Floor Required: Yes Coremaker Floor Language: Certified Marine Mechanic Services: Coremaker Floor Present (Cherry) Information Interpreted: non-clinical & clinical Accompanied by: Self / Same As Patient Allergies No Known Allergies [No Known Allergies*] Allergy (Verified 07/23/24 14:56) Medication List - Last Reconciled 07/23/24 by Naun Scherer MD albuterol sulfate 90 mcg/actuation (ProAir HFA) 2 puffs inhalation Q4-6H PRN amlodipine 2.5 mg PO DAILY atorvastatin 80 mg PO DAILY benzonatate 100 mg PO BID PRN diphenhydramine HCl (Benadryl) 25 mg PO TID PRN 7 days docusate sodium 100 mg PO BEDTIME famotidine (Pepcid) 20 mg PO BID 7 days famotidine (Pepcid) 20 mg PO BID 7 days hydrocortisone 2.5% 1 appl topical QID PRN hydrocortisone 2.5% 1 appl topical BID PRN 2 weeks hydrocortisone 2.5% 1 appl topical BID PRN 2 weeks hydrocortisone 2.5% (Proctosol HC) 1 appl MS BID-QID PRN hydroxyzine HCl 25 mg PO TID PRN hydroxyzine HCl 25 mg PO Q6H PRN ibuprofen 600 mg PO TID PRN ibuprofen 400 mg PO Q8H loperamide (Anti-Diarrheal (loperamide)) 2 mg PO Q4H PRN loratadine 10 mg PO DAILY loratadine 10 mg PO DAILY PRN ondansetron 4 mg PO Q6-8H PRN ondansetron HCl 4 mg PO Q6H PRN prednisone 40 mg (2 x 20 mg) PO DAILY prednisone 60 mg (3 x 20 mg) PO DAILY 5 days prednisone 60 mg (3 x 20 mg) PO DAILY 5 days HPI HPI US biopsy lymph node results: Details: She would undergone ultrasound biopsy of right cervical lymph nodes last 06/23/2024. She is here to discuss the path report She denies any pain or tenderness. She says she feels well. She says she does not really feel the lymph nodes on her right neck. She denies any fever, or night sweats. [facility] Medical History Cervical lymphadenopathy Seasonal allergies Thoracic spine pain Pre-diabetes Elevated cholesterol HTN (hypertension) Surgical History History of cataract extraction History of bilateral breast reduction surgery Hx laparoscopic cholecystectomy Hx of colonoscopy Social History Are you a primary care aide to a significant other at home: No Do you presently have visiting nurse or other home services: No Patient Tobacco Use Status: Never used Tobacco Second Hand Smoke Exposure: No Review of Systems Const Denies chills and Denies fever(s) Card Denies chest pain Resp Denies cough GI Denies abdominal pain Physical Exam Vital Signs: BMI result Body Mass Index 34.3 Const General: comfortable and no acute distress HEENT Other: No oral lesions, unable to palpate any large lymph node Neck Other: no obvious cervical adenopathy Resp Effort & Inspection: normal respiratory effort GI Palpation (GI): Soft to palpation Assessment & Plan Assessment & Plan (1) Cervical lymphadenopathy: Code(s): R59.0 - Localized enlarged lymph nodes Category: Medical Plan: Her fine-needle aspiration biopsies do not suggest any malignancy. This includes flow cytometry Currently I do not feel any enlarged lymph node. I did tell her that if she feels that her lymph nodes increased in size again, she is welcome to come back to the office to be re-evaluated. She also stated that she would seen her dentist recently and she says she was told that she may have some inflammation of her gums. Coding Level of Care Code Est Pt Level 3 (26739) Diagnoses Cervical lymphadenopathy R59.0
[2024-07-23 14:55] VITALS: BMI 34.3
--- OUTSIDE RECORDS SUMMARY | 2024-07-23 18:36 | XMS_ITS | Patient Health Record ---
Author Organization [facility] Address [address] [place] [address] Care Team Providers Care Senior Staff Psychologist Name Role Phone Yesenia Castle M.D. Primary Care Provider Magen Rivera [phone] Allergies No Known Allergies Reason For Referral No Information Medications Medication SIG (Take, Route, Frequency, Duration) [...] FOR MILD PAIN Oral for 30 Active Immunizations Vaccine Route Administration Date Status Comme nts Influenza Unknown 02/04/2024 Administered Social History Tobacco Use: Social History Observation [...] she use any significant amounts of alcohol She does not smoke nor does she use any significant amounts of alcohol She does not smoke nor does she use any significant amounts of alcohol Problems Problem Type SNOMED Code ICD Code Onset Dates Problem Status W/U Status Risk Notes Problem 056920840 Encounter for screening for malignant neoplasm of colon (Z12.11) Active confirmed Problem 799936288 History of adenomatous polyp of colon (Z86.010) Active confirmed Problem 901190592402577 Pre-procedural examination (Z01.818) Active confirmed Problem Personal history of adenomatous and serrated colon polyps (Z86.0101) Active confirmed Vital Signs Temperature 96.9 degrees Fahrenheit 05/27/2024 Blood pressure diastolic 00 mm Hg 05/27/2024 Height 63 in 05/27/2024 Blood pressure systolic 000 mm Hg 05/27/2024 Weight 174 lbs 05/27/2024 BMI 30.82 kg/m2 05/27/2024 Encounters Encounter Location Date Provider Diagnosis [facility] [address] [place] [address] 05/27/2024 Magen Greenfield History of adenomato us polyp of colon Z86.010 ; Pre-procedural examination Z01.818 and Encounter for screening for malignant neoplasm of colon Z12.11 [facility] [address] [place] [address] 05/27/2024 Magen Greenfield Assessments Encounter Date Diagnosis (ICD Code) Assessment [...] Name:Magen Greenfield , 09/11/2024 09:30:00 AM, [address] [facility] , [place], [place], [id number], Insurance Providers Payer Name Payer Address Payer Phone Subscriber Number Group Number Insured Name Patient Relationship to Insured Coverage Start Date Coverage End Date [facility] [address] [address] [place] [address] [id number] JANELL DONAHUE Self - patient is the insured MEDICAID OF [employer] [address] [place] [address] [id number] JANELL DONAHUE Self - patient is the insured Medical (General) History Medical History History ICD Code Colonoscopy in October 2007 wit h removal of a single tubular adenoma-also noted was some sigmoid diverticulosis and internal hemorrhoids Denies [place],DM,CVA,Lung disease,renal dise ase Colonoscopy in 02/2013 with a small tubu lar adenoma removed HTN Prediabetes Colonoscopy 03/2019 with one small tubul ar adenoma removed Surgical History Surgery Date(Month/Year) Breast reduction surgery and liposuction from her abdominal wall [facility] 09/2018 Dr. Lopez
--- OUTSIDE RECORDS SUMMARY | 2024-07-23 18:36 | XMS_ITS | Encounter Summary ---
Author Organization [facility] Address [address] [place] [address] Care Team Providers Care Gre Instructor Name Role Phone Yesenia Castle MD Primary Care Provider [phone] Encounter Details Date Type Department Care Team (Late st Contact Info) Description 01/16/2023 Orders Only [facility] [address] [place] [address] [phone] ProviderMar MD Social History Tobacco Use Types [...] Description 08/28/2024 2:15 PM EDT Office Visit [facility] [address] [place] [phone] Yesenia Castle MD [address] [place] [phone] 01/05/2025 3:00 PM EDT Office Visit [facility] [address] [place] [address] Rebecca Harper [address] [place] [address] documented as of this encounter Procedures Procedure [...] documented as of this encounter Care Teams Gre Instructor Relationship Specialty Start Date End Date Yesenia Castle MD [address] [place] [address] PCP - General Family Medicine 07/13/22 documented as of this encounter
--- OUTSIDE RECORDS SUMMARY | 2024-07-23 18:36 | XMS_ITS | Clinical Summary ---
Author Organization [employer] Address [address] [place] [address] Care Team Providers Care Fourdrinier Machine Operator Name Role Phone Yesenia Castle MD Primary Care Provider [phone] Allergies No known active allergies Medications * [...] Active Problems Problem Noted Date Diagnosed Date Tonsillitis 07/07/2024 Personal history of adenomatous and serrated col on polyps 07/02/2024 Encounter for screening for malignant neoplasm o [...] Encounters Date Type Department Care Team Description 07/07/2024 9:00 AM EST Office Visit [facility] [address] [place] [address] Rebecca Harper Dental plaque (Primary Dx); Missing teeth, acquired; Localized gingival recession; Tonsillitis 07/06/2024 3:30 PM EST Office Visit [facility] [address] [facility] [place] [address] Rodo Yeung DMD 07/02/2024 3:30 PM EST Office Visit [facility] [address] [facility] [place] [address] Rodo Yeung DMD 06/22/2024 Orders Only GENERIC EXTERNAL DATA DEPARTMENT Provider, Generic External Data 05/30/2024 Orders Only GENERIC EXTERNAL DATA DEPARTMENT Provider, Generic External Data 05/26/2024 Telephone [facility] [address] [place] [address] Gilda Kimble, RN Results 05/25/[address] [address] Gilda Kimble, RN Results 05/25/[address] [address] Yesenia Castle MD 05/22/2024 2:30 PM EST Office Visit [address] [address] Sonia Pereira MD Allergic contact dermatitis, unspecified trigger (Primary Dx) 05/22/2024 Orders Only [address] [address] Yesenia Castle MD Cervical lymphadenopathy (Primary Dx) 05/22/2024 Travel 05/19/2024 10:30 AM EST Clinical Support [address] [address] Rosenda Hdz LPN Exposure to confirmed case of COVID-19 (Primary Dx) 05/19/2024 Travel 05/18/2024 Orders Only [address] [address] Celina Petersen MD from Last 3 Months Immunizations Name Administration [...] Pressure 136/78 07/07/2024 8:42 AM EST Pulse 76 05/22/2024 2:47 PM EST [...] Description 08/28/2024 2:15 PM EDT Office Visit [facility] [address] [place] [address] Yesenia Castle MD [address] [place] [address] 01/05/2025 3:00 PM EDT Office Visit [facility] [address] [place] [address] Rebecca Harper [address] [place] [address] Health Maintenance Due Date Last Done Comments CT Colonography 1950 FIT DNA/Cologuard 1950 FIT 1950 FOBT 1950 Sigmoidoscopy 1950 Colonoscopy 03/31/2024 03/31/2019, 02/11/2013 Colorectal Cancer Screening 03/31/2024 Alcohol/Substance Use Screening 12/24/2024 12/25/2023 Depression Screening 12/24/2024 12/25/2023, 12/25/19 24 SDOH Screening 12/24/2024 12/25/2023 Dental Oral Exam 01/05/2025 07/07/2024, 06/2023, 09/26/2022, Additional history exists Dental Prophylaxis 01/05/2025 07/07/2024, 0 01/02/2024, 06/03/2023, Additional history exists Diabetes: Hemoglobin A1C 01/05/2025 024, 08/28/2022, 08/29/2021, Additional history exists Mammogram 05/19/2025 05/19/2024, 04/12, 04/28/2021, Additional history exists Tobacco Screening 07/07/2025 07/07/2024 Dental X-Ray: Bitewings 07/08/2025 07/07/19 25, 06/03/2023, 12/17/2022, Additional history exists RSV Patients and Patients Aged 60 years or older (1 - 1-dose 75+ series) 08/16/2026 DTaP/Tdap/Td Vaccines (2 - Td or Tdap) 08/29/2026 08/29/2016, 12/13/2010 Dental X-Ray: Full Mouth 07/08/2027 025, 01/10/2021, 11/18/2015 Lipid Panel 01/05/2029 01/06/2024, 08/11, 08/29/2021, Additional history exists Hepatitis B Vaccines Completed 03/13/2001, 10/03/2000, 08/12/2000 Pneumococcal Vaccine: 50+ Years Completed 06/26/2017, 08/29/2016 Zoster Vaccines Completed 02/04/2020, 05/27/2019 Hepatitis C Screening Completed 01/06/2024 COVID-19 Vaccine Completed 02/10/2024, 05/2022, 06/08/2021, Additional history exists Influenza Vaccine Completed 02/10/2024, , 02/05/2023, Additional history exists HIB Vaccines Aged Out [...] Procedure Name Priority Date/Time Associated Diagnosis Comments PERIODIC ORAL EVALUATION - ESTABLISHED PATIENT Routine 07/07/2024 9:00 AM EST PROPHYLAXIS - ADULT Routine 07/07/2024 9 :00 AM EST Dental plaque CASE PRESENTATION, DETAILED AND EXTENSIVE TREATMENT PLANNING Routine 07/07/2024 9:00 AM EST Dental plaque Missing teeth, acquired Localized gingival recession ORAL HYGIENE INSTRUCTIONS Routine 07/07/2024 9:00 AM EST Dental plaque Missing teeth, acquired Localized gingival recession INTRAORAL - COMPLETE SERIES OF RADIOGRAPHIC IMAGES Routine 07/07/2024 9:00 AM EST Dental plaque Missing teeth, acquired Localized gingival recession DENTURE ADJUSTMENT Routine 07/06/2024 3: 30 PM EST DENTURE ADJUSTMENT Routine 07/02/2024 3: 30 PM EST CELL BLOCK Routine 06/22/2024 2:42 PM EST US GUIDED BIOPSY LYMPH NODE SUPERFICIAL Routine 06/22/2024 2:00 PM EST COVID-19 ID NOW (trip.me) Routine 05/30/2024 4:32 AM EST LIPASE Routine 05/30/2024 4:32 AM EST COMPREHENSIVE METABOLIC PANEL Routine 05/30/2024 4:32 AM EST SLIDE REVIEW Routine 05/30/2024 4:32 AM EST CBC WITH AUTO DIFFERENTIAL Routine 05/30/2024 4:32 AM EST INFLUENZA A B2 ID NOW (trip.me) Routine 05/30/2024 4:32 AM EST RPR (MONITOR) [...] GFR Routine 05/18/2024 8 :44 AM EST HEPATITIS C AB W/REFL TO HCV RNA, QN, PCR Routine 01/06/2024 9:03 AM EDT Healthy adult on routine physical examination HEMOGLOBIN A1C Routine 01/06/2024 9:03 AM EDT Healthy adult on routine physical examination LIPID PANEL, STANDARD Routine 01/06/2024 9:03 AM EDT Other hyperlipidemia HM COLONOSCOPY Routine 03/31/2019 from Last 3 Months or Most Recently Relevant to Health Maintenance Results * Cell Block (06/22/2024 2:42 PM EST) 06/22/2024 2:42 PM EST 06/23/2024 9:30 AM EST [facility] - 06/25/2024 4:11 PM EST ----- ------- Name: Guerrero,Janell ? Age/Sex: 73/F ? : 1950 Unit#: [id number] ?? Attend Dr: Naun Scherer MD ?Re06/22/24 ?Status: DEP REF ? Location: HO.US ? Disch: ? ----- ------- SPEC : [id number] ? RECD: 06/23/24 ? STATUS: ??SOUT ? REQ NUM: [id number] ? AMADEO: 06/22/24-606 ? SUBM DR: Michael Boucher ? ENTERED: [...] Copies To: ?? Yesenia Castle ?? [address] ?? [place] [address] ?? [phone] ?? Naun Scherer MD ?? [facility] ?? [address] ?? [place] [address] ?? [phone] ? CONTINUED ON NEXT PAGE ----- ------- Name: Janell Guerrero ? Age/Sex: 73/F ? : 1950 Unit#: [id number] ?? Attend Dr: Naun Scherer MD ?Re06/22/24 ?Status: DEP REF ? Location: HO.US ? Disch: ? ----- ------- SPEC : [id number] ? RECD: 06/23/24 ? STATUS: ??SOUT ? REQ NUM: [id number] ? AMADEO: 06/22/24 ? SUBM DR: Michael Boucher ? ENTERED: ??06/23/24 ?SP TYPE: Cytology ? OTHR DR: Yesenia Castle ?Naun Scherer MD ORDERED: ??Cell Geovanna Luz Ndmitzi Asp/2 ? Copies To: ??(Continued) ?? Michael Boucher PA ?? [address] ?? [place] [address] ?? [phone] ?? [email or web address] ----- ------- Signed (signature on file) Elias Figueroa MD 06/25/24 1611 ? ----- ------- ? END OF REPORT ? us Generic External Data Provider LAB CYTOLOGY KAYLIN MARROQUIN Final Result [facility] [address] [facility] [place] [address] [phone] * US guided biopsy lymph node superficial (06/22/2024 2:00 PM EST) Anatomical Region Laterality Modality Ultrasound 06/22/2024 2:00 PM EST Narrative 07/06/2024 4:21 PM EST ? [facility] ?[address] ?[place] [address] ? Ultrasound Report ? Signed ? Patient: Guerrero,Janell ?MR#: [id number] ?? 71 ? : 1950 ?Acct:[id number] ? Age/Sex: 73 / F ?ADM Date: 06/22/24 ? Loc: HO.US ? Attending Dr: Naun Scherer MD ? Ordering Physician: Naun Scherer MD ?? Date of Service: 06/22/24 ?? Procedure(s): US biopsy lymph node ?? Accession Number(s): [id number] ? cc: Yesenia Castle; Naun Scherer MD [...] DD/ 1400 ? TD/TT: 06/22/24 1445 ? Truck Repair Supervisor: ? Procedure Note Donrafalter, Image - 07/06/[address] [address] Ultrasound Report Signed Patient: Inés Guerrero#: [id number] 71 : 1950cct:[id number] Age/Sex: 73 / FADM Date: 06/22/24 Loc: . Attending Dr: Naun Scherer MD Ordering Physician: Naun Scherer MD Date of Service: 06/22/24 Procedure(s): US biopsy lymph node Accession Number(s): [id number] cc: Yesenia Castle; Naun Scherer MD Ultrasound-guided [...] by: Andre Mcgarry MD 07/06/2024 04:17 PM EST RP Dictated By: Michael Boucher Signed By: <Electronically signed by Michael Boucher in OV> 07/06/24 1617 <Electronically signed by Andre Mcgarry MD in OV> 07/06/24 1620 DD/ 1400 TD/TT: 06/22/24 1445 Truck Repair Supervisor: us [facility] External Provider IMG US PROCEDURES Final Result * Influenza A B2 ID NOW (Ross) (05/30/2024 4:32 AM EST) IDNOW SERIAL# [id number] [facility] Influenza A Negative Negative [facility] Influenza B2 Negative Negative [facility] Influenza A B2 Note See Note [facility] Comment:The Ross ID NOW In [...] LAB MICROBIOLOGY - GENERAL ORDERABLES Final Result [facility] [address] [place] [phone] * Slide Review (05/30/2024 4:32 AM EST) Slide Review VERIFIED [facility] 05/30/2024 4:32 AM EST 05/30/2024 4:37 AM EST us Generic External Data Provider LAB BLOOD ORDERAB LES Final Result Performing Organization Address [facility]/ZIP Co de Phone Number [facility] [address] [place] [address] [phone] * COVID-19 ID NOW (ROSS) (05/30/2024 4:32 AM EST) IDNOW SERIAL# [id number] [facility] COVID-19 TEST Negative Negative [facility] COVID-19 NOTE See Note [facility] Comment: Results are for the identification of SARS-CoV2 RNA. TheSARS-CoV2 RNA is generally detectable in respiratory samplesduring the acute phase of infection. Positive results areindicative of the presence of SARS-CoV-2 RNA; clinicalcorrelation with patient history and other diagnosticinformation is necessary to determine patient infectionstatus. Positive results do not rule out bacterial infectionor co- infection with other viruses.Testing facilities within the [facility] and [facility] are required to report all positive results [...] use by authorized laboratories.Testing performed on the Ross ID NOW utilizing NAAT. 05/30/2024 4:32 AM EST 05/30/2024 4:37 AM EST us Generic External Data Provider LAB MOLECULAR EDDI GNOSTICS ORDERABLES Final Result [facility] [address] [place] [address] [phone] * (ABNORMAL) CBC auto differential (05/30/2024 4:32 AM EST) Only the most recent of2 resultswithin the time period is included. White Blood Count 17.7(H) 4.8 - 10.8 X10*3/uL [facility] Red Blood Count 4.95 4.20 - 5.50 X10*6/uL [facility] Hemoglobin 14.0 12.0 - 16.0 g/dl [facility] Hematocrit 41.8 37.0 - 47.0 % [facility] Mean Corpuscular Volume 84.4 80.0 - 98.0 fL [facility] Mean Corpuscular Hemoglobin 28.3 27.0 - 33.0 pg [facility] Mean Corpuscular HGB Conc 33.5 31.0 - 35.0 g/dl [facility] Red Cell Distribution Width 13.9 11.0 - 16.0 % [facility] Platelet Count 280 160 - 400 X10*3/uL [facility] Mean Platelet Volume 9.2(L) 9.4 - 12.3 fL [facility] Neutrophils Percent Auto 94.2(H) 45 - 73 % [facility] Imm Gran Pct Auto 0.5(H) 0.0 - 0.4 % [facility] Lymphocytes Percent Auto 2.1(L) 20 - 40 % [facility] Monocytes Percent Auto 2.7 2 - 11 % [facility] Eosinophils Percent Auto 0.3 0 - 4 % [facility] Basophils Percent Auto 0.2 0 - 2 % [facility] NRBC Pct Auto 0.0 0.0 - 0.2 /100WBC [facility] Neutrophils Absolute Auto 16.7(H) 2.0 - 8.3 x10*3/uL [facility] Imm Gran Abs Auto 0.08(H) 0.00 - 0.03 X10*3/uL [facility] Lymphocytes Absolute Auto 0.4(L) 1.2 - 4.9 X10*3/uL [facility] Monocytes Absolute Auto 0.5 0.1 - 1.2 X10*3/uL [facility] Eosinophils Absolute Auto 0.1 0.0 - 0.4 X10*3/uL [facility] Basophils Absolute Auto 0.0 0.0 - 0.2 X10*3/uL [facility] NRBC Abs Auto 0.000 0.0 - 0.012 X10*3/uL [facility] 05/30/2024 4:32 AM EST 05/30/2024 4:37 AM EST Generic External Data Provider LAB BLOOD ORDERAB LES Edited Result - Final Performing Organization Address [facility]/ZIP Co de Phone Number [facility] [address] [place] [phone] * Lipase (05/30/2024 4:32 AM EST) Pathologist [facility] Lipase 12 8 - 78 U/L [facility] 05/30/2024 4:32 AM EST 05/30/2024 4:37 AM EST [employer] External Data Provider LAB BLOOD ORDERAB LES Final Result Performing Organization Address [facility] Co de Phone Number [facility] [address] [place] [phone] * (ABNORMAL) Comprehensive Metabolic Panel (05/30/2024 4:32 AM EST) Sodium 142 135 - 145 mmol/L [facility] Potassium 3.9 3.3 - 5.1 mmol/L [facility] Chloride 110(H) 96 - 108 mmol/L [facility] Carbon Dioxide 18(L) 22 - 29 mmol/L [facility] Anion Gap 18 12 - 20 [facility] Urea Nitrogen (BUN) 18(H) 9 - 16 mg/dL [facility] Creatinine, Serum 0.80 0.5 - 1.4 mg/dL [facility] Creatinine Clr Calc Pharmacy 69.3 [facility] Comment:Provided height and weight: 162.56 cm,90.718 kg.eGFR (calculated from the MDRD study equation) and eCrCl(calculated from the Cockcroft-Gault equation) are based ondifferent parameters and may not yield comparable results.If eCrCl result is absurd, please check patient'sheight/weight. Estimated Glomerular Filt Rate >60 [facility] Comment:Chronic Kidney Disea se: Estimated GFR < 60 mL/min/1.70c9Zdkiks Kidney Disease: Estimated GFR < 15 mL/min/1.73m2 Glucose 168(H) 60 - 115 mg/dL [facility] Calcium 10.1 8.4 - 10.2 mg/dL [facility] Bilirubin, Total 0.6 0.0 - 1.0 mg/dL [facility] Aspartate Amino Transferase 28 5 - 31 U/L [facility] Alanine Aminotransferase 13 0 - 31 U/L [facility] Total Protein 8.4(H) 6.5 - 8.0 g/dL [facility] Albumin Level 4.5 3.5 - 5.0 g/dL [facility] Alkaline Phosphatase 104 39 - 117 U/L [facility] 05/30/2024 4:32 AM EST 05/30/2024 4:37 AM EST us Generic External Data Provider LAB BLOOD ORDERAB LES Final Result [facility] [address] [place] [address] [phone] * RPR (Monitor) with Reflex to??Titer (05/26/2024 8:31 AM EST) RPR (Monitor) w/Refl Titer NON-REACTI VE NON-REACT BONNIE [facility] Comment:THIS TEST WAS PERFOR MED AT:[facility] [place] [id number] MASTERS MD Rapid Plasma Reagin Ab Titer TNP [facility] Blood Venous blood specimen / Unknown 05/26/2024 8:31 AM EST 05/26/2024 11:19 AM EST Yesenia Castle MD LAB BLOOD ORDERABLES Final Res ult Performing Organization Address [facility]/ZIP Co de Phone Number [facility] [address] [place] [address] [phone] * HIV-1/2 Antigen and Antibodies, Fourth Generation, with Reflexes (05/26/2024 8:31 AM EST) HIV AB/AG Nonreactive Nonreactive [facility] Comment:HIV-1 p24 Ag and/or HIV-1/HIV-2 Ab not detected.A test result that is nonreactive does not exclude thepossibility of exposure to or infection with HIV-1 and/orHIV-2. Nonreactive results in this assay for individualswith prior exposure to HIV-1 and/or HIV-2 may be due toantigen and antibody levels that are below the limit ofdetection of this assay.The [employer] HIV Ag/Ab Combo assay result andsupplemental assay results should be interpreted inconjunction with the patient's clinical presentation,history and other laboratory results. If the results areinconsistent with clinical evidence, additional testing issuggested to confirm the result. Blood Venous blood specimen / Unknown 05/26/2024 8:31 AM EST 05/26/2024 11:19 AM EST Yesenia Castle MD LAB BLOOD ORDERABLES Final Res ult Performing Organization Address City/[facility]/ZIP Co de Phone Number [facility] [address] [place] [address] [phone] * Sed Rate by Virgil Del Toro (05/26/2024 8:31 AM EST) Erythrocyte Sedimentation Rate 10 0 - 20 MM/HR [facility] Comment:Patients with polycy themia and many hemoglobin abnormalitiesmay have depressed sed rates whereas patients with anemiamay have elevated sed rates. Blood Venous blood specimen / Unknown 05/26/2024 8:31 AM EST 05/26/2024 11:19 AM EST Yesenia Castle MD LAB BLOOD ORDERABLES Final Res ult Performing Organization Address [facility] de Phone Number [facility] [address] [place] [address] [phone] * Lactate Dehydrogenase (LD) (05/26/2024 8:31 AM EST) Lactate Dehydrogenase 210 122 - 220 U/L [facility] Blood Venous blood specimen / Unknown 05/26/2024 8:31 AM EST 05/26/2024 11:19 AM EST Yesenia Castle MD LAB BLOOD ORDERABLES Final Res ult Performing Organization Address [facility] de Phone Number [facility] [address] [place] [phone] * POCT Rapid COVID Ag (05/19/2024 11:03 AM EST) Rapid COVID Ag Negative Swab 05/19/2024 11:0 3 AM EST Norma Almonte MD POINT OF CARE TEST ENTER/ED IT ORDERABLES Final Result * BI Mammogram Screening Tomosynthesis Bilateral (05/19/2024 9:30 AM EST) Anatomical Region Laterality Modality Breast Bilateral Mammography 05/19/2024 9:30 AM EST Narrative 05/25/2024 3:49 PM EST ? [facility] ? [address] ?[place] [address] ? Mammography Report ? Signed ? Patient: Guerrero,Janell ?MR#: [id number] ?? 71 ? : 1950 ?Acct:[id number] ? Age/Sex: 73 / F ?ADM Date: //25 ? Loc: HO.MAMMO ? Attending Dr: Yesenia Castle MD ? Ordering Physician: Yesenia Castle ?Results: 2Benign F ?? indings ? Date of Service: 05/19/24 ?Follow Up: 1 Year From Orig ?? inal Mammogram ? Procedure(s): MM tomosynthesis screening BI ?? Accession Number(s): [id number] ? cc: Yesenia Castle ? EXAMINATION: ?? [...] ??Norma Payne DO ??05/25/2024 03:46 PM EST ?? RP ? Dictated By: ?Norma Payne DO ? Signed By: ?<Electronically signed by Norma Payne, DO in OV> ? 05/25/24 1546 ? DD/ ? TD/TT: 05/19/24 0949 ? Truck Repair Supervisor: ? Procedure Note Donrafalter, Image - 05/25/2024 [facility] [address] [place] [address] Mammography Report Signed Patient: Inés Guerrero#: [id number] 71 : 2Acct:[id number] Age/Sex: 73 / FADM Date: 05/19/24 Loc: HO.MAMMO Attending Dr: Yesenia Castle MD Ordering Physician: Ang Castleults: 2Benign F indings Date of Service: 05/19/24Follow Up: 1 Year From Orig ina Mammogram Procedure(s): MM tomosynthesis screening BI Accession Number(s): [id number] cc: Yesenia Castle EXAMINATION: MM SCREENING DIGITAL [...] Payne DO in OV> 05/25/24 1546 DD/ TD/TT: 05/19/24 0949 Truck Repair Supervisor: us Yesenia Castle MD IMG BI PROCEDURES Final Result * BD DEXA Axial (05/19/2024 9:08 AM EST) Anatomical Region Laterality Modality Body Radiographic Lori ging 05/19/2024 9:08 AM EST Narrative 05/20/2024 9:41 AM EST ? [facility] ? [address] ?[place] [address] ? Mammography Report ? Signed ? Patient: Guerrero,Janell ?MR#: [id number] ?? 71 ? : 1950 ?Acct:[id number] ? Age/Sex: 73 / F ?ADM Date: 01/07/25 ? Loc: HO.MAMMO ? Attending Dr: Yesenia Castle MD ? Ordering Physician: Yesenia Castle ?Results: ? Date of Service: //25 ?Follow Up: ? Procedure(s): XR DEXA axial skeleton ?? Accession Number(s): [id number] ? cc: Yesenia Castle ? EXAMINATION: ??Dual-Energy X-ray Absorptiometry - Bone Density Study ? HISTORY: ??Estrogen deficiency ? TECHNIQUE: Beem Dual energy absorptiometry (DEXA) ?? of the [...] signed by Magen Brady MD in OV> ?05/20/2438 ? DD/ 0908 ? TD/TT: 05/19/24 0930 ? Truck Repair Supervisor: ? Procedure Note Donotuseinterpreter, Image - 05/20/2024 [place] [facility] [address] [place], [place] [address] Mammography Report Signed Patient: Inés Guerrero#: [id number] 71 : 1950cct:[id number] Age/Sex: 73 / FADM Date: 05/19/24 Loc: YARELIS Attending Dr: Yesenia Castle MD Ordering Physician: Ang Castleults: Date of Service: 05/19/24Follow Up: Procedure(s): XR DEXA axial skeleton Accession Number(s): [id number] cc: Yesenia Castle EXAMINATION: Dual-Energy X-ray Absorptiometry - Bone Density Study HISTORY: Estrogen deficiency TECHNIQUE: Beem Dual energy absorptiometry (DEXA) of the lumbar [...] Magen Brady MD 05/20/2024 09:38 AM EST RP Dictated By: Magen Brady MD Signed By: <Electronically signed by Magen Brady MD in OV> 05/20/2438 DD/ 7 TD/TT: 05/19/24929 Truck Repair Supervisor: us Yesenia Castle MD IMG DXA PROCEDURES Edited Resu lt - Final * CT Soft Tissue Neck w/ Contrast (05/18/2024 7:01 PM EST) Anatomical Region Laterality Modality Head, Neck Computed Tomogra phy 05/18/2024 7:01 PM EST Narrative 05/18/2024 7:02 PM EST ? [facility] ?[address] ?[place] [address] ? CT Scan Report ? Signed ? Patient: Guerrero,Janell ?MR#: [id number] ?? 71 ? : 1950 ?Acct:[id number] ? Age/Sex: 73 / F ?ADM Date: 01/06/25 ? Loc: HO.CT ? Attending Dr: Celina Petersen MD ? Ordering Physician: Celina Petersen MD ?? Date of Service: 05/18/24 ?? Procedure(s): CT soft tissue neck w IV con ?? Accession Number(s): [id number] ? cc: Celina Petersen MD; Yesenia Castle ? Report Number: ?? [id number]: Total DLP = ??291.00 mGy-cm ? CLINICAL [...] foramen magnum. ?? No hydrocephalus in the vqiuu-pc-gitx. Fatty replacement of the parotid ?? glands. [...] ? DD/ 00 ? TD/TT: 05/18/241900 ? Truck Repair Supervisor: ? Procedure Note Jonathan, Marcin - 05/18/[address] [place] [address] CT Scan Report Signed Patient: Inés Guerrero#: [id number] 71 : 2Acct:[id number] Age/Sex: 73 / FADM Date: 05/18/24 Loc: HO.CT Attending Dr: Celina Petersen MD Ordering Physician: Celina Petersen MD Date of Service: 05/18/24 Procedure(s): CT soft tissue neck w IV con Accession Number(s): [id number] cc: Celina Petersen MD; Yesenia Castle Report Number: [id number]: Total DLP = 291.00 mGy-cm CLINICAL HISTORY: [...] the foramen magnum. No hydrocephalus in the zuvkn-fo-zame. Fatty replacement of the parotid glands. Imaged [...] in OV> 05/18/241901 DD/ 00 TD/TT: 05/18/241900 Truck Repair Supervisor: us Celina Petersen MD IMG CT PROCEDURES Final Result * POCT Creatinine GFR (05/18/2024 8:44 AM EST) POCT Creatinine 0.8 0.5 - 1.4 mg/dL [facility] GFR POC >60 [facility] Comment:Chronic Kidney Disea se: Estimated GFR < 60 mL/min/1.92q1Kzwfwf Kidney Disease: Estimated GFR < 15 mL/min/1.73m2 05/18/2024 8:44 AM EST 05/18/2024 10:19 AM EST Narrative [facility] - 05/18/2024 10:22 AM EST [id number] us Celina Petersen MD LAB POINT OF CARE TEST D OCKED DEVICE ORDERABLES Final Result Performing Organization Address [facility] Co de Phone Number [facility] [address] [place] [phone] * Hepatitis C Antibody with Reflex to HCV, RNA, Quantitative, Real-Time PCR (01/06/2024 9:03 AM EDT) Hepatitis C Antibody Nonreactive Nonreactive [facility] Comment:Antibodies to HCV no t detected; does not exclude early acuteHCV infection. Blood Venous blood specimen / Unknown 01/06/2024 9:03 AM EDT 01/06/2024 11:49 AM EDT us Yesenia Castle MD LAB BLOOD ORDERABLES Final Res ult Performing Organization Address [facility]/ZIP Co de Phone Number [facility] [address] [place] [phone] * Hemoglobin A1c (01/06/2024 9:03 AM EDT) Hemoglobin A1c 5.6 <6.0 % [facility] Comment:Hemoglobin A1C Refer ence Range Adults: 4.8 - 6.0 % Non diabetic: < 6.0 % Goal: < 7.0 %Additional Action Suggested: > 8.0 %Note: Hemoglobin A1c results are invalid for patients with abnormal amounts of HbF. Blood transfusions may impact the HbA1c concentration in the patient sample. Estimated Average Glucose 114 mg/dL [facility] Comment:eAG = Estimated ave rage glucose which is %A1C expressed asaverage glucose, using the formula of the Q4W-SpqfembImyfpgh Glucose study (ADAG), Diabetes Care, Vol.31,#8,Dec. 2007 Blood Venous blood specimen / Unknown 01/06/2024 9:03 AM EDT 01/06/2024 11:49 AM EDT us Yesenia Castle MD LAB BLOOD ORDERABLES Final Res ult [facility] [address] [place] [address] [phone] * (ABNORMAL) Lipid Panel, Standard (01/06/2024 9:03 AM EDT) Triglycerides 90 <150 mg/dL [facility] Comment:Desirable Triglyceri de: less than 150 mg/dLBorderline High Triglyceride 150-199 mg/dLHigh Triglyceride: 200-499 mg/dLVery High Triglyceride: greater than or equal to 5OO mg/dL Cholesterol 217(H) <200 mg/dL [facility] Comment:Desirable Cholestero l: less than 200 mg/dLBorderline High Cholesterol: 200-239 mg/dLHigh Cholesterol: greater than 239 mg/dL LDL Cholesterol Calculated 142(H) <100 mg/dL [facility] Comment:Desirable LDL: less than 100 mg/dLNear Optimal/Above Optimal LDL: 110- 129 mg/dLBorderline High LDL: 130-159 mg/dLHigh LDL: 160-189 mg/dLVery High LDL: greater than or equal to 190 mg/dL HDL Cholesterol 57 >40 mg/dL [facility] Comment:Desirable HDL: great er than 40 mg/dL Note: This HDL assay may give artificially low results in patients with liver disease. Blood Venous blood specimen / Unknown 01/06/2024 9:03 AM EDT 01/06/2024 11:49 AM EDT us Yesenia Castle MD LAB BLOOD ORDERABLES Final Res ult [facility] [address] [place] [address] [phone] * Hm Colonoscopy (03/31/2019) us Historical Provider HEALTH MAINTENANCE Final Result from Last 3 Months or Most Recently Relevant to Health Maintenance Insurance [facility] [place] [address] DENTAL - [facility] [place] [address] [place] [address] [place] [id number] Care Teams Fourdrinier Machine Operator Relationship Specialty Start Date End Date Yesenia Castle MD [address] [place] [phone] PCP - General Family Medicine 07/13/22
--- OUTSIDE RECORDS SUMMARY | 2024-07-23 18:36 | XMS_ITS | Encounter Summary ---
Author Organization [employer] [facility] Address [address] [place] [address] Care Team Providers Care Certified Nursing Assistant Name Role Phone Yesenia Castle MD Primary Care Provider [phone] Reason for Referral * Consultation (Urgent) - Closed Specialty Diagnoses / Procedures Referred By Contac t Referred To Contact General Surgery Diagnoses Cervical lymphadenopathy Yesenia Castle MD [address] [place] [phone] Phone: tel: fax: [facility] General Surgeons [address] Floor [place], [place] Phone: tel: fax: Referral ID Status Reason Start Date Expiration Date V isits Requested Visits Authorized [id number] Closed Specialty Services Required 05/22/2024 05/22/2025 1 1 Encounter Details Date Type Department Care Team (Late st Contact Info) Description 05/22/[address] [facility] [address] [place] [address] [phone] Yesenia Castle MD [address] [place], [place] [phone] Cervical lymphadenopathy (Primary Dx) Social History Tobacco [...] Description 08/28/2024 2:15 PM EDT Office Visit [facility] [address] [place] [address] Yesenia Castle MD [address] [place] [address] 01/05/2025 3:00 PM EDT Office Visit [facility] ADULT DENTAL [address] [place] [address] Esdras Harperaris [address] [place] [address] Scheduled Referrals Name Type Priority Associated Diagnoses [...] (Monitor) w/Refl Titer NON-REACTI VE NON-REACT [facility]ON[facility] Comment:THIS TEST WAS PERFOR MED AT:[employer] [place] [phone] MASTERS MD Rapid Plasma Reagin Ab Titer TNP [facility] Blood Venous blood specimen / Unknown 05/26/2024 8:31 AM EST 05/26/2024 11:19 AM EST Yesenia Castle MD LAB BLOOD ORDERABLES Final Res ult Performing Organization Address [facility] de Phone Number [facility] [address] [place] [phone] * HIV-1/2 Antigen and Antibodies, Fourth Generation, with Reflexes (05/26/2024 8:31 AM EST) HIV AB/AG Nonreactive Nonreactive [facility] Comment:HIV-1 p24 Ag and/or HIV-1/HIV-2 Ab not detected.A test result that is nonreactive does not exclude thepossibility of exposure to or infection with HIV-1 and/orHIV-2. Nonreactive results in this assay for individualswith prior exposure to HIV-1 and/or HIV-2 may be due toantigen and antibody levels that are below the limit ofdetection of this assay.The [employer] HIV Ag/Ab Combo assay result andsupplemental assay results should be interpreted inconjunction with the patient's clinical presentation,history and other laboratory results. If the results areinconsistent with clinical evidence, additional testing issuggested to confirm the result. Blood Venous blood specimen / Unknown 05/26/2024 8:31 AM EST 05/26/2024 11:19 AM EST Yesenia Castle MD LAB BLOOD ORDERABLES Final Res ult Performing Organization Address [facility] Co de Phone Number [facility] [address] [place] [phone] * Lactate Dehydrogenase (LD) (05/26/2024 8:31 AM EST) Lactate Dehydrogenase 210 122 - 220 U/L [facility] Blood Venous blood specimen / Unknown 05/26/2024 8:31 AM EST 05/26/2024 11:19 AM EST Yesenia Castle MD LAB BLOOD ORDERABLES Final Res ult Performing Organization Address City/[facility] Co de Phone Number [facility] [address] [place] [address] [phone] * Sed Rate by Modified Pedroren (05/26/2024 8:31 AM EST) Pathologist [facility] Erythrocyte Sedimentation Rate 10 0 - 20 MM/HR [facility] Comment:Patients with polycy themia and many hemoglobin abnormalitiesmay have depressed sed rates whereas patients with anemiamay have elevated sed rates. Blood Venous blood specimen / Unknown 05/26/2024 8:31 AM EST 05/26/2024 11:19 AM EST us Yesenia Castle MD LAB BLOOD ORDERABLES Final Res ult Performing Organization Address [facility] Co de Phone Number [facility] [address] [place] [address] [phone] * (ABNORMAL) CBC auto differential (05/26/2024 8:31 AM EST) Pathologist [facility] White Blood Count 6.5 4.8 - 10.8 X10*3/uL [facility] Red Blood Count 4.70 4.20 - 5.50 X10*6/uL [facility] Hemoglobin 13.2 12.0 - 16.0 g/dl [facility] Hematocrit 40.4 37.0 - 47.0 % [facility] Mean Corpuscular Volume 86.0 80.0 - 98.0 fL [facility] Mean Corpuscular Hemoglobin 28.1 27.0 - 33.0 pg [facility] Mean Corpuscular HGB Conc 32.7 31.0 - 35.0 g/dl [facility] Red Cell Distribution Width 13.9 11.0 - 16.0 % [facility] Platelet Count 300 160 - 400 X10*3/uL [facility] Mean Platelet Volume 10.3 9.4 - 12.3 fL [facility] Neutrophils Percent Auto 61.7 45 - 73 % [facility] Imm Gran Pct Auto 0.5(H) 0.0 - 0.4 % [facility] Lymphocytes Percent Auto 25.5 20 - 40 % [facility] Monocytes Percent Auto 8.2 2 - 11 % [facility] Eosinophils Percent Auto 3.5 0 - 4 % [facility] Basophils Percent Auto 0.6 0 - 2 % [facility] NRBC Pct Auto 0.0 0.0 - 0.2 /100WBC [facility] Neutrophils Absolute Auto 4.0 2.0 - 8.3 x10*3/uL [facility] Imm Gran Abs Auto 0.03 0.00 - 0.03 X10*3/uL [facility] Lymphocytes Absolute Auto 1.7 1.2 - 4.9 X10*3/uL [facility] Monocytes Absolute Auto 0.5 0.1 - 1.2 X10*3/uL [facility] Eosinophils Absolute Auto 0.2 0.0 - 0.4 X10*3/uL [facility] Basophils Absolute Auto 0.0 0.0 - 0.2 X10*3/uL [facility] NRBC Abs Auto 0.000 0.0 - 0.012 X10*3/uL [facility] Blood Venous blood specimen / Unknown 05/26/2024 8:31 AM EST 05/26/2024 11:19 AM EST us Yesenia Castle MD LAB BLOOD ORDERABLES Final Res ult Performing Organization Address City/State/[facility] Co de Phone Number [facility] [address] [place] [phone] documented in this encounter Visit Diagnoses Diagnosis Cervical lymphadenopathy- Primary Enlargement of lymph nodes documented in this encounter Additional Health Concerns Assessment Noted Time PHQ-9 Depression Total Score: 2 12/25/19 24 2:13 PM EDT documented as of this encounter Care Teams Certified Nursing Assistant Relationship Specialty Start Date End Date Yesenia Caslte MD [address] [place] [phone] PCP - General Family Medicine 07/13/22 documented as of this encounter
--- OUTSIDE RECORDS SUMMARY | 2024-07-23 18:37 | XMS_ITS | Encounter Summary ---
Author Organization [email or web address] Address [address] [place] [address] Care Team Providers Care Otm Consultant Name Role Phone Yesenia Castle MD Primary Care Provider [phone] Reason for Visit * Reason Comments Routine Cleaning Dental Exam x-rays Perio chart Encounter Details Date Type Department Care Team ([facility] st Contact Info) Description 07/07/2024 9:00 AM EST Office Visit [facility] ADULT DENTAL [address] [place] [address] Leroy, Rebecca [address] [place] [address] Dental plaque (Primary Dx); Missing teeth, acquired; [...] (FMX, P. exam, perio chart, prophy) Location: [facility] Tooth: Maxilla and Mandible Procedure: Exam, X-rays, Prophylaxis, and Perio chart: Dr. Yeung not here today, Dr. Mcmahon to do exam Verified the above with patient, licensed nursing assistant, and provider. Confirmed via patient's chart, intraorally and by radiographs. Detective Bureau Chief: not applicable Medical Hx: Vitals: Blood pressure [...] HYGIENE INSTRUCTIONS (Completed) Service provider: Rebecca Harper Billrylei provider: Ty Mcmahon DDS Instruments Used: Ultrasonic [...] patient including brushing technique and flossing. Recommendations: [place] two times daily, modified roche technique, Floss daily, Electric toothbrush, Soft bristle toothbrush, [place] Tongue, Anti-sensitivity toothpaste Recall Frequency: 6 mo [...] (FMX, P. exam, perio chart, prophy) Location: [facility] Tooth: Maxilla and Mandible Procedure: Exam, X-rays, and Prophylaxis Verified the above with patient, licensed nursing assistant, and provider. Confirmed via patient's chart, intraorally and by radiographs. Detective Bureau Chief: not applicable Chief Complaint Patient presents with [...] from Biopsy Dental Exam As charted Multiple taoist, functioning at this time Right side TMJ asymptomatic, R unilateral mild sound No deviation no limited opening noticed Marlena. RPD recently delivered, adjusted and w.o any chief complaint at this moment. Reference tooth chart for additional findings. Oral Cancer Risk: Moderate Risk Oral Hygiene Instructions: [place] two times daily, modified roche technique, Floss daily, Electric toothbrush, Soft bristle toothbrush, [place] Tongue Caries Risk Assessment: Low- no risk factor no new active carious lesion noticed. Assessment/Plan ZARIA X rays Prohy Follow up Patient tolerated procedure well, all questions answered and expressed understanding. Dismissed in good condition. NV: Dr Yeung / 6 mos recall Warehouse Team Leader: Rebecca Harper Dentist: Ty Mcmahon DDS documented in this encounter Plan of Treatment Upcoming Encounters Date Type Department Care Team (Late st Contact Info) Description 08/28/2024 2:15 PM EDT Office Visit [facility] [address] [place] [address] Yesenia Castle MD [address] [place] [address] 01/05/2025 3:00 PM EDT Office Visit [facility] ADULT DENTAL [address] [place] [address] Rebecca Harper [address] [place] [address] Scheduled Orders Name Type Priority Associated Diagnoses [...] documented as of this encounter Care Teams Otm Consultant Relationship Specialty Start Date End Date Yesenia Castle MD [address] [place] [phone] PCP - General Family Medicine 07/13/22 documented as of this encounter
--- OUTSIDE RECORDS SUMMARY | 2024-07-23 18:37 | XMS_ITS ---
Author Organization [facility] Address [address] [place] [address] Care Team Providers Care Log Handling Equipment Operator Name Role Phone Yesenia Castle M.D. Primary Care Provider Magen Rivera [facility] [phone] REASON FOR VISIT bowel prep Medications Medication [...] Active Encounters Encounter Location Date Provider Diagnosis [facility] [address] [place] [address] 05/27/2024 Magen Greenfield Plan Of Treatment Medication [...] Name:Magen Greenfield , 09/11/2024 09:30:00 AM, [address] [place], [place], [id number], Progress Notes * ARA DONAHUEADOB: 2 (73 yo F)Acc No.[id number]:05/27/2024 Patient:BUTCH BROWER :1950???Age:73 Y???Sex:Female Address:[address] [place] [address] * Refills? Start MiraLax (colon prep) Powder, [...] true * Date:? Generated for Mitchell alexandre/Jaquelin/eTransmitting on:?07/23/2024 06:36 PM EDT
--- OUTSIDE RECORDS SUMMARY | 2024-07-23 18:37 | XMS_ITS | Encounter Summary ---
Author Organization [employer] [facility] Address [address] [place] [address] Care Team Providers Care Livestock Farmers Name Role Phone Leon Cortez MD Primary Care Provider Yesenia Baeza MD Primary Care Provider [phone] Encounter Details Date Type Department Care Team (Latest Contact Info) Description 02/12/2022 Abstract [facility] CONVERSIONS Dental, Provider, DDS Social History [...] Description 08/28/2024 2:15 PM EDT Office Visit [facility] MEDICINE [address] [place] [address] Yesenia Castle MD [address] [place] [address] 01/05/2025 3:00 PM EDT Office Visit [facility] ADULT DENTAL [address] [place] [address] Rebecca Harper [address] [place] [address] documented as of this encounter Visit Diagnoses Not on filedocumented in this encounter Care Teams Livestock Farmers Relationship Specialty Start Date End Date Leon Cortez MD PCP - General Family Medicine 10/29/19 07/12/22 Yesenia Castle MD [address] [place] [address] PCP - General Family Medicine 07/13/22 documented as of this encounter
--- OUTSIDE RECORDS SUMMARY | 2024-07-23 18:37 | XMS_ITS ---
Author Organization [facility] Address [address] [place] [address] Care Team Providers Care Cloth Piecer Name Role Phone Yesenia Castle M.D. Primary Care Provider Magen Rivera Unavailable [phone] Allergies No Known Allergies REASON FOR VISIT [...] 05/27/2024 Encounters Encounter Location Date Provider Diagnosis [facility] [address] [place] [address] 05/27/2024 Magen Greenfield History of adenomato us [...] Provider Name:Magen Greenfield , 09/11/2024 09:30:00 AM, [address] [place] [address] , [place], [place], [phone], Progress Notes * ARA DONAHUEADOB: 2 (73 yo F)Acc No.[id number]:05/27/2024 Progress Notes Patient:?JANELL DONAHUE Provider:?Magen Greenfield MD :1950???Age:73 Y???Sex:Female D ate:05/27/2024 Address:[address] [place], [place] [phone] Pcp:Yesenia Castle M.D. Subjective: * Chief Complaints: [...] year??No,?Points?0,?Interpretation?Negative.?Miscellaneous:?Marital status: . Occupation: Works as a [employer]. ???She does not smoke nor does she [...] Procedure Codes:?3017F COLOR ECTAL CA SCREEN DOC [id number] TOBACCO [id number] BP SCR NOT PRFRM REC REASON NOS [...] Greenfield MD Date:? 025 Generated for Mitchell alexandre/Jaquelin/Hiroitting on:?07/23/2024 06:36 PM EDT History and Physical Notes * HPI (History [...]
--- OUTSIDE RECORDS SUMMARY | 2024-07-23 18:37 | XMS_ITS | Encounter Summary ---
Author Organization [employer] [facility] Address [address] [place] [address] Care Team Providers Care Numerical Control Lathe Operator Name Role Phone Leon Cortez MD Primary Care Provider Yesenia Baeza MD Primary Care Provider [phone] Encounter Details Date Type Department Care Team (Latest Contact Info) Description 10/03/2018 Abstract [facility] CONVERSIONS Dental, Provider, DDS Social [...] Description 08/28/2024 2:15 PM EDT Office Visit [facility] [address] [place] [address] Yesenia Castle MD [address] [place] [address] 01/05/2025 3:00 PM EDT Office Visit [facility] ADULT DENTAL [address] [place] [address] Rebecca Harper [address] [place] [address] documented as of this encounter Visit Diagnoses Not on filedocumented in this encounter Care Teams Numerical Control Lathe Operator Relationship Specialty Start Date End Date Leon Cortez MD PCP - General Family Medicine 10/29/19 07/12/22 Yesenia Castle MD [address] [place] [address] PCP - General Family Medicine 07/13/22 documented as of this encounter
--- OUTSIDE RECORDS SUMMARY | 2024-07-23 18:37 | XMS_ITS | Encounter Summary ---
Author Organization [employer] [facility] Address [address] [place] [address] Care Team Providers Care Shirt Marker Name Role Phone Leon Cortez MD Primary Care Provider Yesenia Baeza MD Primary Care Provider [phone] Encounter Details Date Type Department Care Team (Latest Contact Info) Description 01/10/2021 Abstract [facility] CONVERSIONS Dental, Provider, DDS Social History Tobacco [...] Office Visit [facility] MEDICINE [address] [place] [address] Yesenia Castle MD [address] [place] [address] 01/05/2025 3:00 PM EDT Office Visit [facility] ADULT DENTAL [address] [place] [address] Rebecca Harper [address] [place] [address] documented as of this encounter Visit Diagnoses Not on filedocumented in this encounter Care Teams Shirt Marker Relationship Specialty Start Date End Date Leon Cortez MD PCP - General Family Medicine 10/29/19 07/12/22 Yesenia Castle MD [address] [place] [address] PCP - General Family Medicine 07/13/22 documented as of this encounter
--- OUTSIDE RECORDS SUMMARY | 2024-07-23 18:37 | XMS_ITS | Encounter Summary ---
Author Organization [employer] Address [address] [place] [address] Care Team Providers Care Clerk Specialist Name Role Phone Yesenia Castle MD Primary Care Provider [phone] Reason for Visit * Reason Comments Dentures Encounter Details Date Type Department Care Team ([facility] st Contact Info) Description 07/02/2024 3:30 PM EST Office Visit [facility] ADULT DENTAL [address] [place] [address] Rodo Yeung, DMD [address] [place], [place] [phone] Social History Tobacco Use Types Packs/Day Years [...] Description 08/28/2024 2:15 PM EDT Office Visit [facility] [address] [place] [address] Yesenia Castle MD [address] [place] [address] 01/05/2025 3:00 PM EDT Office Visit [facility] ADULT DENTAL [address] [place] [address] Rebecca Harper [address] [place] [address] documented as of this encounter Procedures Procedure Name Priority Date/Time Associated Diagnosis Comments DENTURE ADJUSTMENT Routine 07/02/2024 3:30 PM EST documented in this encounter Visit Diagnoses Not on filedocumented in this encounter Additional Health Concerns Assessment Noted Time PHQ-9 Depression Total Score: 2 12/25/19 24 2:13 PM EDT documented as of this encounter Care Teams Clerk Specialist Relationship Specialty Start Date End Date Yesenia Castle MD [address] [place] [address] PCP - General Family Medicine 07/13/22 documented as of this encounter
--- OUTSIDE RECORDS SUMMARY | 2024-07-23 18:37 | XMS_ITS | Encounter Summary ---
Author Organization [employer] Address [address] [place] [address] Care Team Providers Care Plug Stitcher Name Role Phone Yesenia Castle MD Primary Care Provider [phone] Encounter Details Date Type Department Care Team (Late st Contact Info) Description 07/18/2023 Orders Only [facility] [address] [place], [place] [phone] Provider, MD Mar Social History Tobacco Use [...] t he electric, gas, oil or water [employer] threatened to shut off services in your [...] Description 08/28/2024 2:15 PM EDT Office Visit [facility] MEDICINE [address] [place] [address] Yesenia Castle MD [address] [place] [address] 01/05/2025 3:00 PM EDT Office Visit [facility] ADULT DENTAL [address] [place] [address] Rebecca Harper [address] [place] [address] documented as of this encounter Procedures Procedure [...] documented as of this encounter Care Teams Plug Stitcher Relationship Specialty Start Date End Date Yesenia Castle MD [address] [place] [address] PCP - General Family Medicine 07/13/22 documented as of this encounter
--- OUTSIDE RECORDS SUMMARY | 2024-07-23 18:37 | XMS_ITS | Encounter Summary ---
Author Organization [employer] Address [address] [place] [address] Care Team Providers Care Continuous Mining Machine Operator Name Role Phone Yesenia Castle MD Primary Care Provider [phone] Reason for Visit * Reason Comments Dentures Encounter Details Date Type Department Care Team ([facility] st Contact Info) Description 07/06/2024 3:30 PM EST Office Visit [facility] ADULT DENTAL [address] [place], [place] [phone] Rodo Yeung, DMD [address] [place], [place] [phone] Social History Tobacco Use Types Packs/Day Years [...] Description 08/28/2024 2:15 PM EDT Office Visit [facility] [address] [place] [address] Yesenia Castle MD [address] [place] [address] 01/05/2025 3:00 PM EDT Office Visit [facility] ADULT DENTAL [address] [place] [address] Rebecca Harper [address] [place] [address] documented as of this encounter Procedures Procedure Name Priority Date/Time Associated Diagnosis Comments DENTURE ADJUSTMENT Routine 07/06/2024 3:30 PM EST documented in this encounter Visit Diagnoses Not on filedocumented in this encounter Additional Health Concerns Assessment Noted Time PHQ-9 Depression Total Score: 2 12/25/19 24 2:13 PM EDT documented as of this encounter Care Teams Continuous Mining Machine Operator Relationship Specialty Start Date End Date Yesenia Castle MD [address] [place] [address] PCP - General Family Medicine 07/13/22 documented as of this encounter
--- OUTSIDE RECORDS SUMMARY | 2024-07-23 18:37 | XMS_ITS | Encounter Summary ---
Author Organization [employer] Address [address] [place] [address] Care Team Providers Care Backer Up Name Role Phone Yesenia Castle MD Primary Care Provider [phone] Encounter Details Date Type Department Care Team [...] 2:15 PM EDT Office Visit [facility] MEDICINE [address] [place] [address] Yesenia Castle MD [address] [place] [address] 01/05/2025 3:00 PM EDT Office Visit [facility] ADULT DENTAL [address] [place] [address] Rebecca Harper [address] [place] [address] documented as of this encounter Procedures Procedure Name Priority Date/Time Associated Diagnosis Comments CELL BLOCK Routine 06/22/2024 2:42 PM EST US GUIDED BIOPSY LYMPH NODE SUPERFICIAL Routine 06/22/2024 2:00 PM EST documented in this encounter Results * Cell Block (06/22/2024 2:42 PM EST) 06/22/2024 2:42 PM EST 06/23/2024 9:30 AM EST [facility]S - 06/25/2024 4:11 PM EST ----- ------- Name: Janell Guerrero ? Age/Sex: 73/F ? : 1950 Unit#: [id number] ?? Attend Dr: Naun Scherer MD ?Re06/22/24 ?Status: DEP REF ? Location: HO.US ? Disch: ? ----- ------- SPEC : [id number] ? RECD: 06/23/24 ? STATUS: ??SOUT ? REQ NUM: [id number] ? AMADEO: 06/22/24197 ? SUBM DR: Michael Boucher ? ENTERED: [...] Copies To: ?? Yesenia Castle ?? [address] ?? [place] [address] ?? [phone] ?? Naun Scherer MD ?? [facility] ?? [address] ?? [place] [address] ?? [phone] ? CONTINUED ON NEXT PAGE ----- ------- Name: Janell Guerrero ? Age/Sex: 73/F ? : 1950 Unit#: [id number] ?? Attend Dr: Naun Scherer MD ?Re06/22/24 ?Status: DEP REF ? Location: HO.US ? Disch: ? ----- ------- SPEC : [id number] ? RECD: 06/23/24 ? STATUS: ??SOUT ? REQ NUM: [id number] ? AMADEO: 06/22/24-104 ? SUBM DR: Michael Boucher ? ENTERED: ??06/23/24 ?SP TYPE: Cytology ? OTHR DR: Yesenia Castle ?Naun Scherer MD ORDERED: ??Cell Geovanna Luz Ndmitzi Asp/2 ? Copies To: ??(Continued) ?? Michael Boucher ?? [address] ?? [place] [address] ?? [phone] ?? [email or web address] ----- ------- Signed (signature on file) Elias Figueroa MD 06/25/24 1611 ? ----- ------- ? END OF REPORT ? us Generic External Data Provider LAB CYTOLOGY KAYLIN MARROQUIN Final Result [facility] [address] [address] [phone] * US guided biopsy lymph node superficial (06/22/2024 2:00 PM EST) Anatomical Region Laterality Modality Ultrasound 06/22/2024 2:00 PM EST Narrative 07/06/2024 4:21 PM EST ? [facility] ?[address] ?[place] [address] ? Ultrasound Report ? Signed ? Patient: Guerrero,Janell ?MR#: [id number] ?? 71 ? : 1950 ?Acct:[id number] ? Age/Sex: 73 / F ?ADM Date: 06/22/24 ? Loc: HO.US ? Attending Dr: Naun Scherer MD ? Ordering Physician: Naun Scherer MD ?? Date of Service: 06/22/24 ?? Procedure(s): US biopsy lymph node ?? Accession Number(s): [id number] ? cc: Yesenia Castle; Naun Scherer MD [...] DD/ 1400 ? TD/TT: 06/22/24 1445 ? Auctioneer Tobacco: ? Procedure Note Marcin Castillo - 07/06/[address] [address] Ultrasound Report Signed Patient: Inés Guerrero#: [id number] 71 : 1950cct:[id number] Age/Sex: 73 / FADM Date: 06/22/24 Loc: . Attending Dr: Naun Scherer MD Ordering Physician: Naun Scherer MD Date of Service: 06/22/24 Procedure(s): US biopsy lymph node Accession Number(s): [id number] cc: Yesenia Castle; Naun Scherer MD Ultrasound-guided [...] by: Andre Mcgarry MD 07/06/2024 04:17 PM [facility] Dictated By: Michael Boucher Signed By: <Electronically signed by Michael Boucher in OV> 07/06/24 1617 <Electronically signed by Andre Mcgarry MD in OV> 07/06/24 1620 DD/ 1400 TD/TT: 06/22/24 1445 Auctioneer Tobacco: [facility] External Provider IMG US PROCEDURES Final Result documented in this encounter Visit Diagnoses Not on filedocumented in this encounter Additional Health Concerns Assessment Noted Time PHQ-9 Depression Total Score: 2 12/25/19 24 2:13 PM EDT documented as of this encounter Care Teams Backer Up Relationship Specialty Start Date End Date Yesenia Castle MD [address] [place] [address] PCP - General Family Medicine 07/13/22 documented as of this encounter
== END 2024-07-23 15:02 | disposition home or self-care (01) ==
LOC: HO.HGS 14:51
PROVIDERS: PCP General Practice; Visit Provider Surgery
DX: R59.0 Localized enlarged lymph nodes (principal)
CPT/HCPCS: 99213

== ENCOUNTER → 2024-07-23 14:50 | Outpatient (BNVA) | payer OTHER, SELFPAY | PROVIDERS: PCP General Practice; Visit Provider Surgery | DX: R59.0 Localized enlarged lymph nodes (principal) | CPT/HCPCS: 99212 ==

== ENCOUNTER 2024-09-02 08:51 | Outpatient (REF) | payer OTHER, SELFPAY ==
--- OUTSIDE RECORDS SUMMARY | 2024-09-02 09:26 | XMS_ITS | Encounter Summary ---
Author Organization [employer] Address [address] [place] [address] Care Team Providers Care Telephone Cleaner Name Role Phone Yesenia Castle MD Primary Care Provider [phone] Encounter Details Date Type Department Care Team (Late st Contact Info) Description 07/18/2023 Orders Only [facility] [address] [place], [place] [phone] Provider, MD Mar Social History Tobacco Use [...] t he electric, gas, oil or water [employer] threatened to shut off services in your [...] Care Team (Late st Contact Info) Description 01/05/2025 3:00 PM EDT Office Visit [facility] ADULT DENTAL [address] [place], [place] [phone] Leroy, Rebecca [address] [place] [address] documented as of this encounter Procedures Procedure [...] documented as of this encounter Care Teams Telephone Cleaner Relationship Specialty Start Date End Date Yesenia Castle MD [address] [place] [address] PCP - General Family Medicine 07/13/22 documented as of this encounter
--- OUTSIDE RECORDS SUMMARY | 2024-09-02 09:26 | XMS_ITS | Encounter Summary ---
Author Organization [facility] Address [address] [place] [address] Care Team Providers Care Maritime Engineer Name Role Phone Leon Cortez MD Primary Care Provider Yesenia Baeza MD Primary Care Provider [phone] Encounter Details Date Type Department Care Team (Latest Contact Info) Description 10/03/2018 Abstract [facility] CONVERSIONS Dental, Provider, DDS [...] Care Team ( st Contact Info) Description 01/05/2025 3:00 PM EDT Office Visit [facility] ADULT DENTAL [address] [place] [address] Leroy, Rebecca [address] [place] [address] documented as of this encounter Visit Diagnoses Not on filedocumented in this encounter Care Teams Maritime Engineer Relationship Specialty Start Date End Date Leon Cortez MD PCP - General Family Medicine 10/29/19 07/12/22 Yesenia Castle MD [address] [place] [address] PCP - General Family Medicine 07/13/22 documented as of this encounter
--- OUTSIDE RECORDS SUMMARY | 2024-09-02 09:26 | XMS_ITS | Encounter Summary ---
Author Organization [employer] [facility] Address [address] [place] [address] Care Team Providers Care Pick And Shovel Man Name Role Phone Yesenia Castle MD Primary Care Provider [phone] Encounter Details Date Type Department Care Team (Late st Contact Info) Description 01/16/2023 Orders Only [facility] MEDICINE [address] [place], [place] [phone] Provider, MD Mar Social History Tobacco Use [...] Description 01/05/2025 3:00 PM EDT Office Visit [facility] ADULT DENTAL [address] [place], [place] [phone] Rebecca Harper [address] [place], [place] [phone] documented as of this encounter Procedures Procedure [...] documented as of this encounter Care Teams Pick And Shovel Man Relationship Specialty Start Date End Date Yesenia Castle MD [address] [place] [address] PCP - General Family Medicine 07/13/22 documented as of this encounter
--- OUTSIDE RECORDS SUMMARY | 2024-09-02 09:26 | XMS_ITS | Encounter Summary ---
Author Organization [employer] Address [address] [place] [address] Care Team Providers Care Director Enterprise Sales Name Role Phone Yesenia Castle MD Primary Care Provider [phone] Reason for Visit * Reason Comments osteopenia Back pain is very to ugh, sometimes it is very difficult for the patient to get up from bed, wants to get prescribed Ibuprofen; feels like the pain medication she is currently taking isn't enough for her pain Encounter Details Date Type Department Care Team (Late st Contact Info) Description 08/28/2024 2:15 PM EDT Office Visit [facility] MEDICINE [address] [place], [place] [phone] Yesenia Castle MD [address] [place], [place] [phone] Borderline high cholesterol (Primary Dx); Dietary counseling; Exercise counseling; Class 1 obesity with serious comorbidity and body mass index (BMI) of 32.0 to 32.9 in adult, unspecified obesity type; Essential hypertension; Osteopenia of multiple sites; Chronic bilateral low back pain, unspecified whether sciatica present Social History Tobacco Use Types Packs/Day Years Used Date Smoking Tobacco: Never Passive Smoke Exposure: Never Smokeless Tobacco: Never Alcohol Use Standard Drinks/Week Comments Never 0 (1 standard drink = 0.6 oz pur e alcohol) Depression Answer Date Recorded Patient Health Questionnaire-9 Score 0 08/28/2024 Patient Health Questionnaire-9 Score 0 08/28/2024 Last PHQ-9: Questionnaire Data Not on file 0 08/28/2024 Housing Stability Answer Date Recorded What is your housing situation today? I have aries sing 09/06/[address] you li [...] from getting things needed for daily living? No 08/20/2024 Utilities Answer Date Recorded In the past 12 months, has t he electric, gas, oil or water company threatened to shut off services in your home? No 09/06/2023 Depression Answer Date Recorded Patient Health Questionnaire-2 Score 0 08/28/2024 Internet Access Answer Date Recorded Internet Access [...] Sign Reading Time Taken Comments Blood Pressure 139/74 08/28/2024 2:10 PM EDT Pulse 75 08/28/2024 2:10 PM EDT Temperature - - Respiratory Rate 20 08/28/2024 2:10 PM EDT Oxygen Saturation 98% 08/28/2024 2:10 PM EDT Inhaled Oxygen Concentration - - Weight 78.9 kg (174 lb) 08/28/2024 2:10 PM EDT Height 154.9 cm (5' 1 ) 08/28/2024 2:10 PM EDT Body Mass Index 32.88 08/28/2024 2:10 PM EDT documented in this encounter Progress Notes * Yesenia Castle MD - 08/28/2024 2:15 PM EDT SUBJECTIVE: Janell Guerrero is a 74 y.o. year old female who presents for chronic disease management. Denies recent illness, ER visit, or hospitalization. Acute Concerns: Back pain, needs Ibuprofen refill. Will come to acupuncture clinic if she can Interim Updates: Varicose veins Causing vascular pain, was seeing someone at [facility] (Dr Li) now they do not accept her insurance any longer, [facility] would not take her insurance, and Dr Wilson wanted notes from Dr Li HTN: checking her BP usually 120s/70-80s at home. Compliant with amlodipine 5mg daily, asymptomatic. Last eye exam almost a year ago, bilateral cataract surgery Osteopenia: compliant with calcium/vitmain D pills. No recent falls or fractures. Last DEXA 05/19/2024 The bone mineral density of the lumbar spine is 0.963 with a T-score of -1.8, and a Z-score of 0.3. This represents a BMD change of 0.4% compared to the prior exam. This is not statistically significant. R submandibular lymph node biopsy 07/06/24, no malignancy WBC count of 17.7 05/30/24 Hyperlipidemia: compliant with medication. Chronic back pain: in the thoracic and lumbar area, ongoing for >3 year. Completed PT with no relief. Ibrufen helps a little. No falls or trauma. Pain radiates down both legs at times. No numbness, weakness. No urinary/bowel incontinence. No saddle anesthesia. --acupuncture is helpful Dermatitis: improved with oral steroids but having symptoms again. Derm visits at [facility], dx with allergic contact dermatitis, patch testing scheduled for Apr 23, 2023 Steroid cream helpful, now placed on antihistamine by Allergy consult and finds this helpfulas well Health maintenance: DEXA- 06/2021, due for repeat now as in 2-3 year window Colonoscopy- 2012, 03/2019, Booked 11 Sep 2024 Mammo- 04/2023, Birads 1; next booked 18 May 2024 Patient Active Problem List Diagnosis Backache Borderline high cholesterol Hyperlipidemia Insomnia Prediabetes Residual hemorrhoidal skin tags Shoulder pain Tubular adenoma Urticaria Dental plaque Localized gingival recession Missing teeth, acquired Infected epithelial inclusion cyst Transaminitis Essential hypertension Osteopenia of multiple sites Pain due to varicose veins of both lower extremities Allergic dermatitis Neck pain Encounter for screening for malignant neoplasm of colon History of adenomatous polyp of colon Personal history of adenomatous and serrated colon polyps Tonsillitis Past Surgical History: Procedure Laterality Date US GUIDED BIOPSY LYMPH NODE SUPERFICIAL 07/06/2024 US GUIDED BIOPSY LYMPH NODE SUPERFICIAL No family history on file. 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 Respiratory: Negative. Cardiovascular: Negative. Gastrointestinal: Negative. Genitourinary: Negative. Musculoskeletal: Positive for back pain. Neurological: Negative. Psychiatric/Behavioral: Negative. OBJECTIVE: Vitals: 08/28/24 1410 BP: 139/74 BP Location: Left arm Patient Position: Sitting BP Cuff Size: Adult Pulse: 75 Resp: 20 SpO2: 98% Weight: 174 lb (78.9 kg) Height: 5' 1 (1.549 m) Physical Exam Vitals and nursing note reviewed. Constitutional: Appearance: Normal appearance. HENT: Head: Normocephalic and atraumatic. Cardiovascular: Rate and Rhythm: Normal rate and regular rhythm. Pulses: Normal pulses. Heart sounds: Normal heart sounds. Pulmonary: Effort: Pulmonary effort is normal. Breath sounds: Normal breath sounds. Skin: General: Skin is warm and dry. Neurological: General: No focal deficit present. Mental Status: She is alert and oriented to person, place, and time. Psychiatric: Mood and Affect: Mood normal. Behavior: Behavior normal. ASSESSMENT/PLAN Problem List Items Addressed This Visit Backache Borderline high cholesterol - Primary Relevant Orders Comprehensive Metabolic Panel CBC auto differential Essential hypertension Osteopenia of multiple sites Other Visit Diagnoses Dietary counseling eat whoel foods, mostly hoem prepared Exercise counseling walk 20-30 minutes daily Class 1 obesity with serious comorbidity and body mass index (BMI) of 32.0 to 32.9 in adult, unspecified obesity type Follow Up: 6 months or sooner prn No Known Allergies Current Outpatient Medications: Emollient (CERAVE MOISTURIZING EX), APPLY TO THE AFFECTED AREA(S) TOPICALLY EVERY DAY, Disp: , Rfl: ondansetron (Zofran) 4 MG tablet, TOME ALMAZ TABLETA POR V A ORAL EVERY 6 HOURS NEEDED FOR NAUSEA AND VOMITING, Disp: , Rfl: albuterol 108 (90 Base) MCG/ACT inhaler, inhale 2 puff by inhalation route every 4 - 6 hours as needed, Disp: , Rfl: alpha tocopherol (Vitamin E) 400 units capsule, Take 1 capsule (400 Units) by mouth Once per day., Disp: 90 capsule, Rfl: 3 amLODIPine (Norvasc) 5 MG tablet, TAKE 1 TABLET BY MOUTH EVERY DAY, Disp: 90 tablet, Rfl: 3 atorvastatin (Lipitor) 80 MG tablet, TAKE 1 TABLET BY MOUTH EVERY DAY, Disp: , Rfl: benzonatate (Tessalon) 100 MG capsule, TAKE 1 CAPSULE ORALLY 2 TIMES A DAY NEEDED FOR COUGH, Disp: , Rfl: Calcium Carb-Cholecalciferol 600-10 MG-MCG tablet, Take 1 tablet by mouth 2 times daily., Disp: 180tablet, Rfl: 1 cetirizine (ZyrTEC) 10 MG tablet, TAKE 1 TABLET BY MOUTH EVERY MORNING, FOR ITCHING MAY REPEAT BEFORE BEDTIME NEEDED, Disp: , Rfl: docusate sodium (Colace) 100 MG capsule, TAKE 1 CAPSULE BY MOUTH AT BEDTIME, Disp: , Rfl: Emollient (CeraVe Moisturizing) cream, Use daily, Disp: 453 g, Rfl: 11 gabapentin (Neurontin) 300 MG capsule, Take 1 capsule (300 mg) by mouth at bedtime., Disp: 30 capsule, Rfl: 3 hydrOXYzine HCl (Atarax) 25 MG tablet, TAKE 1 TABLET BY MOUTH THREE TIMES DAILY NEEDED FOR ITCHING, Disp: , Rfl: ibuprofen 800 MG tablet, Take 1 tablet (800 mg) by mouth every 8 (eight) hours if needed for mild pain., Disp: 90 tablet, Rfl: 1 ketoconazole (Nizoral) 2 % shampoo, Apply topically 2 (two) times a week., Disp: 100 mL, Rfl: 0 loratadine (Claritin) 10 MG tablet, Take 1 tablet (10 mg) by mouth if needed in the morning and at bedtime for allergies., Disp: 56 tablet, Rfl: 5 Menthol-Methyl Salicylate (Muscle Rub) 10-15 % cream, Apply 1 Application topically before breakfast, before lunch, and before evening meal., Disp: 85 g, Rfl: 3 ondansetron ODT (Zofran-ODT) 4 MG disintegrating tablet, DISSOLVE 1 TABLET BY MOUTH EVERY 6 TO 8 HOURS NEEDED FOR NAUSEA AND VOMITING, Disp: , Rfl: Proctozone-HC 2.5 % rectal cream, APPLY RECTALLY TWICE DAILY TO FOUR TIMES DAILY NEEDED FOR HEMORRHOIDS, Disp: , Rfl: triamcinolone (Kenalog) 0.1 % cream, Apply topically if needed in the morning and at bedtime (pain and swelling). Mix with jennifer, Disp: 80 g, Rfl: 2 Icelandic Translation: Provided by [facility] staff member ALIZE Pablo documented in this encounter Plan of Treatment Upcoming Encounters Date Type Department Care Team (Late st Contact Info) Description 01/05/2025 3:00 PM EDT Office Visit [facility] ADULT DENTAL [address] [place] [address] Leroy, Rebecca [address] [place] [address] Scheduled Orders Name Type Priority Associated Diagnoses Orde r Schedule Comprehensive Metabolic Panel Lab Routine Borderline high cholesterol Expected: 08/28/2024 (Approximate), Expires: 08/28/2025 CBC auto differential Lab Routine Borderline high cholesterol Expected: 08/28/2024 (Approximate), Expires: 08/28/2025 documented as of this encounter Visit Diagnoses Diagnosis Borderline high cholesterol- Primary Unspecified disorder of lipoid metabolism Dietary counseling Dietary surveillance and counseling Exercise counseling Class 1 obesity with serious comorbidity and body mass index (BMI) of 32.0 to 32.9 in adult, unspecified obesity type Essential hypertension Unspecified essential hypertension Osteopenia of multiple sites Chronic bilateral low back pain, unspecified whether sciatica present documented in this encounter Additional Health Concerns Assessment Noted Time PHQ-9 Depression Total Score: 0 08/29/19 25 2:11 PM EDT documented as of this encounter Care Teams Director Enterprise Sales Relationship Specialty Start Date End Date Yesenia Castle MD [address] [place] [address] PCP - General Family Medicine 07/13/22 documented as of this encounter
--- OUTSIDE RECORDS SUMMARY | 2024-09-02 09:26 | XMS_ITS | Encounter Summary ---
Author Organization [facility] Address [address] [place] [address] Care Team Providers Care Scrap Hooker Name Role Phone Yesenia Castle MD Primary Care Provider [phone] Reason for Referral * Consultation (Urgent) - Closed Specialty Diagnoses / Procedures Referred By Contac t Referred To Contact General Surgery Diagnoses Cervical lymphadenopathy Yesenia Castle MD [address] [place] [phone] Phone: tel: fax: [facility] General Surgeons [address] 3[address] Floor [place], [place] Phone: tel: fax: Referral ID Status Reason Start Date Expiration Date V isits Requested Visits Authorized [id number] Closed Specialty Services Required 05/22/2024 05/22/2025 1 1 Encounter Details Date Type Department Care Team (Late st Contact Info) Description 05/22/2024 Orders Only [facility] MEDICINE [address] [place] [phone] Yesenia Castle MD [address] [place], [place] [phone] Cervical lymphadenopathy (Primary Dx) Social History Tobacco [...] Description 01/05/2025 3:00 PM EDT Office Visit [facility] ADULT DENTAL [address] [place] [address] Rebecca Harper [address] [place] [address] Scheduled Referrals Name Type Priority Associated Diagnoses [...] (Monitor) w/Refl Titer NON-REACTI VE NON-REACT BONNIE [facility] Comment:THIS TEST WAS PERFOR MED AT:IORevolution[address] [place] [phone] MASTERS MD Rapid Plasma Reagin Ab Titer TNP [facility] Blood Venous blood specimen / Unknown 05/26/2024 8:31 AM EST 05/26/2024 11:19 AM EST us Yesenia Castle MD LAB BLOOD ORDERABLES Final Res ult [facility] [address] [place] [phone] * HIV-1/2 Antigen and Antibodies, Fourth Generation, with Reflexes (05/26/2024 8:31 AM EST) HIV AB/AG Nonreactive Nonreactive [facility] Comment:HIV-1 p24 Ag and/or HIV-1/HIV-2 Ab not detected.A test result that is nonreactive does not exclude thepossibility of exposure to or infection with HIV-1 and/orHIV-2. Nonreactive results in this assay for individualswith prior exposure to HIV-1 and/or HIV-2 may be due toantigen and antibody levels that are below the limit ofdetection of this assay.The Sulf[employer] HIV Ag/Ab Combo assay result andsupplemental assay results should be interpreted inconjunction with the patient's clinical presentation,history and other laboratory results. If the results areinconsistent with clinical evidence, additional testing issuggested to confirm the result. Blood Venous blood specimen / Unknown 05/26/2024 8:31 AM EST 05/26/2024 11:19 AM EST us Yesenia Castle MD LAB BLOOD ORDERABLES Final Res ult Performing Organization Address City/[facility] Co de Phone Number [facility] [address] [place] [phone] * Lactate Dehydrogenase (LD) (05/26/2024 8:31 AM EST) Lactate Dehydrogenase 210 122 - 220 U/L [facility] Blood Venous blood specimen / Unknown 05/26/2024 8:31 AM EST 05/26/2024 11:19 AM EST Yesenia Castle MD LAB BLOOD ORDERABLES Final Res ult Performing Organization Address City/[facility] Co de Phone Number [facility] [address] [place] [phone] * Sed Rate by Modified Katey (05/26/2024 8:31 AM EST) Erythrocyte Sedimentation Rate 10 0 - 20 MM/HR [facility] Comment:Patients with polycy themia and many hemoglobin abnormalitiesmay have depressed sed rates whereas patients with anemiamay have elevated sed rates. Blood Venous blood specimen / Unknown 05/26/2024 8:31 AM EST 05/26/2024 11:19 AM EST us Yesenia Castle MD LAB BLOOD ORDERABLES Final Res ult [facility] [address] [place] [phone] * (ABNORMAL) CBC auto differential (05/26/2024 8:31 AM EST) White Blood Count 6.5 4.8 - 10.8 X10*3/uL [facility] Red Blood Count 4.70 4.20 - 5.50 X10*6/uL [facility] Hemoglobin 13.2 12.0 - 16.0 g/dl [facility] Hematocrit 40.4 37.0 - 47.0 % [facility] Mean Corpuscular Volume 86.0 80.0 - 98.0 fL [facility] Mean Corpuscular Hemoglobin 28.1 27.0 - 33.0 pg [facility] Mean Corpuscular HGB Conc 32.7 31.0 - 35.0 g/dl [facility] Red Cell Distribution Width 13.9 11.0 - 16.0 % [facility] Platelet Count 300 160 - 400 X10*3/uL [facility] Mean Platelet Volume 10.3 9.4 - 12.3 fL [facility] Neutrophils Percent Auto 61.7 45 - 73 % [facility] Imm Gran Pct Auto 0.5(H) 0.0 - 0.4 % [facility] Lymphocytes Percent Auto 25.5 20 - 40 % [facility] Monocytes Percent Auto 8.2 2 - 11 % [facility] Eosinophils Percent Auto 3.5 0 - 4 % [facility] Basophils Percent Auto 0.6 0 - 2 % [facility] NRBC Pct Auto 0.0 0.0 - 0.2 /100WBC [facility] Neutrophils Absolute Auto 4.0 2.0 - 8.3 x10*3/uL [facility] Imm Gran Abs Auto 0.03 0.00 - 0.03 X10*3/uL [facility] Lymphocytes Absolute Auto 1.7 1.2 - 4.9 X10*3/uL [facility] Monocytes Absolute Auto 0.5 0.1 - 1.2 X10*3/uL [facility] Eosinophils Absolute Auto 0.2 0.0 - 0.4 X10*3/uL [facility] Basophils Absolute Auto 0.0 0.0 - 0.2 X10*3/uL [facility] NRBC Abs Auto 0.000 0.0 - 0.012 X10*3/uL [facility] Blood Venous blood specimen / Unknown 05/26/2024 8:31 AM EST 05/26/2024 11:19 AM EST us Yesenia Castle MD LAB BLOOD ORDERABLES Final Res ult [facility] [address] [place] [phone] documented in this encounter Visit Diagnoses Diagnosis Cervical lymphadenopathy- Primary Enlargement of lymph nodes documented in this encounter Additional Health Concerns Assessment Noted Time PHQ-9 Depression Total Score: 2 12/25/19 24 2:13 PM EDT documented as of this encounter Care Teams Scrap Hooker Relationship Specialty Start Date End Date Yesenia Castle MD [address] [place] [address] PCP - General Family Medicine 07/13/22 documented as of this encounter
--- OUTSIDE RECORDS SUMMARY | 2024-09-02 09:26 | XMS_ITS ---
Author Organization [facility] Address [address] [place] [address] Care Team Providers Care Nanoelectronics Engineer Name Role Phone Yesenia Castle M.D. Primary Care Provider Magen Rivera [facility] [phone] REASON FOR VISIT bowel prep Medications Medication [...] Active Encounters Encounter Location Date Provider Diagnosis [facility] [address] [place] [address] 05/27/2024 Magen Greenfield Plan Of Treatment Medication [...] Name:Magen Greenfield , 09/11/2024 09:30:00 AM, [address] [place], [place], [phone], Progress Notes * ARA DONAHUEADOB: [birth year] (73 yo F)Acc No.[id number]:05/27/2024 Patient:BUTCH BROWER :1950???Age:73 Y???Sex:Female Address:[address] [place] [address] * Refills? Start MiraLax (colon prep) Powder, [...] true * Date:? Generated for Mitchell alexandre/Jaquelin/eTransmitting on:?09/02/2024 09:25 AM EDT
--- OUTSIDE RECORDS SUMMARY | 2024-09-02 09:26 | XMS_ITS | Encounter Summary ---
Author Organization [facility] Address [address] [place] [address] Care Team Providers Care Shellfish Manager Name Role Phone Leon Cortez MD Primary Care Provider Yesenia Baeza MD Primary Care Provider [phone] Encounter Details Date Type Department Care Team (Latest Contact Info) Description 01/10/[address] [facility] Dental, Provider, DDS Social History [...] Description 01/05/2025 3:00 PM EDT Office Visit [facility] ADULT DENTAL [address] [place] [address] Leroy, Rebecca [address] [place] [address] documented as of this encounter Visit Diagnoses Not on filedocumented in this encounter Care Teams Shellfish Manager Relationship Specialty Start Date End Date Leon Cortez MD PCP - General Family Medicine 10/29/19 07/12/22 Yesenia Castle MD [address] [place] [address] PCP - General Family Medicine 07/13/22 documented as of this encounter
--- OUTSIDE RECORDS SUMMARY | 2024-09-02 09:26 | XMS_ITS | Encounter Summary ---
Author Organization [facility] Address [address] [place] [address] Care Team Providers Care District Court Bailiff Name Role Phone Leon Cortez MD Primary Care Provider Yesenia Baeza MD Primary Care Provider [phone] Encounter Details Date Type Department Care Team (Latest Contact Info) Description 02/12/2022 Abstract [facility] Dental, Provider, DDS Social History Tobacco [...] 3:00 PM EDT Office Visit [facility] ADULT DENTAL [address] [place] [address] Leroy, Rebecca [address] [place] [address] documented as of this encounter Visit Diagnoses Not on filedocumented in this encounter Care Teams District Court Bailiff Relationship Specialty Start Date End Date Leon Cortez MD PCP - General Family Medicine 10/29/19 07/12/22 Yesenia Castle MD [address] [place] [address] PCP - General Family Medicine 07/13/22 documented as of this encounter
--- OUTSIDE RECORDS SUMMARY | 2024-09-02 09:26 | XMS_ITS | Encounter Summary ---
Author Organization [employer] Address [address] [place] [address] Care Team Providers Care Boiler Tester Name Role Phone Yesenia Castle MD Primary Care Provider [phone] Encounter Details Date Type Department Care Team (Latest Contact Info) Description 08/28/2024 Travel Social History Tobacco Use Types Packs/Day Years [...] Description 01/05/2025 3:00 PM EDT Office Visit [facility] ADULT DENTAL [address] [place] [address] Rebecca Harper [address] [place] [address] documented as of this encounter Visit Diagnoses Not on filedocumented in this encounter Additional Health Concerns Assessment Noted Time PHQ-9 Depression Total Score: 0 08/29/19 25 2:11 PM EDT documented as of this encounter Care Teams Boiler Tester Relationship Specialty Start Date End Date Yesenia Castle MD [address] [place] [address] PCP - General Family Medicine 07/13/22 documented as of this encounter
--- OUTSIDE RECORDS SUMMARY | 2024-09-02 09:26 | XMS_ITS | Patient Health Record ---
Author Organization [facility] Address [address] [place] [address] Care Team Providers Care Procedural Nurse Name Role Phone Yesenia Castle M.D. Primary Care Provider Magen Rivera [phone] Allergies No Known Allergies Reason For Referral [...] Problem Status W/U Status Risk Notes Problem [id number] Encounter for screening for malignant neoplasm of colon (Z12.11) Active confirmed Problem [id number] History of adenomatous polyp of colon (Z86.010) Active confirmed Problem [id number] Pre-procedural examination (Z01.818) Active confirmed Problem Personal history of adenomatous and serrated colon polyps (Z86.0101) Active confirmed Vital Signs Temperature 96.9 degrees Fahrenheit 05/27/2024 Blood pressure diastolic 00 mm Hg 05/27/2024 Height 63 in 05/27/2024 Blood pressure systolic 000 mm Hg 05/27/2024 Weight 174 lbs 05/27/2024 BMI 30.82 kg/m2 05/27/2024 Encounters Encounter Location Date Provider Diagnosis [facility] [address] [place] [address] 05/27/2024 Magen Greenfield History of adenomato us polyp of colon Z86.010 ; Pre-procedural examination Z01.818 and Encounter for screening for malignant neoplasm of colon Z12.11 [facility] [address] [place] [address] 05/27/2024 Magen Greenfield Assessments Encounter Date Diagnosis [...] Name:Magen Greenfield , 09/11/2024 09:30:00 AM, [address] [facility] , [place], [place], [phone], Insurance Providers Payer Name Payer Address Payer Phone Subscriber Number Group Number Insured Name Patient Relationship to Insured Coverage Start Date Coverage End Date [facility] [address] [address] [place] [phone] [id number] JANELL DONAHUE Self - patient is the insured [facility] [address] [place] [phone] [id number] JANELL DONAHUE Self - patient is the insured Medical (General) History Medical History History ICD Code Colonoscopy in October 2007 wit h removal of a single tubular adenoma-also noted was some sigmoid diverticulosis and internal hemorrhoids Denies ND,DM,CVA,Lung disease,renal dise ase Colonoscopy in 02/2013 with a small tubu lar adenoma removed HTN Prediabetes Colonoscopy 03/2019 with one small tubul ar adenoma removed Surgical History Surgery Date(Month/Year) Breast reduction surgery and liposuction from her abdominal wall [facility] 09/2018 Dr. Lopez
--- OUTSIDE RECORDS SUMMARY | 2024-09-02 09:26 | XMS_ITS | Clinical Summary ---
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 hydrOXYzine HCl (Atarax) 25 MG tablet TAKE 1 TABLET BY MOUTH THREE TIMES DAILY NEEDED FOR ITCHING 06/18/19 23 Active docusate sodium (Colace) 100 MG capsule TAKE 1 CAPSULE BY MOUTH AT BEDTIME 02/03/20 22 Active atorvastatin (Lipitor) 80 MG tablet [...] FOR NAUSEA AND VOMITING 07/10/19 24 Active Menthol-Methyl Salicylate (Muscle Rub) 10-15 [...] daily 453 g 11 05/22/19 25 Active ibuprofen 800 MG tablet Take 1 tablet (800 mg) by mouth every 8 (eight) hours if needed for mild pain. 90 tablet 1 08/29/19 25 025 Active alpha tocopherol (Vitamin E) 400 units capsule Take 1 capsule (400 Units) by mouth Once per day. 90 capsule 3 08/29/19 25 026 Active ondansetron (Zofran) 4 MG tablet TOME ALMAZ TABLETA POR V A ORAL EVERY 6 HOURS NEEDED FOR NAUSEA AND VOMITING 05/30/19 25 Active Emollient (CERAVE MOISTURIZING EX) APPLY TO THE AFFECTED AREA(S) TOPICALLY EVERY DAY 05/22/19 25 Active celecoxib (CeleBREX) 200 MG capsule TAKE 1 CAPSULE BY MOUTH TWICE DAILY NEEDED 01/31/20 22 025 Discontinu ed(Ineffec tive) Diclofenac Sodium 1 % gel Apply 1 Application topically if needed in the morning and at bedtime (low back pain). 100 g 3 09/13/19 24 025 Discontinu ed(Ineffec tive) polyethylene glycol (Golytely) 236 g solution Take 4,000 mL by mouth 1 (one) time for 1 dose. 4000 mL 08/29/19 25 025 Active Problems Problem Noted Date Diagnosed Date [...] up with PCP. 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 12/27/2022 12/27/2023 Encounters Date Type Department Care Team Description 08/28/2024 2:15 PM EDT Office Visit [facility] [address] [place] [phone] Yesenia Castle MD Borderline high cholesterol (Primary Dx); Dietary counseling; Exercise counseling; Class 1 obesity with serious comorbidity and body mass index (BMI) of 32.0 to 32.9 in adult, unspecified obesity type; Essential hypertension; Osteopenia of multiple sites; Chronic bilateral low back pain, unspecified whether sciatica present 08/28/2024 Travel 08/27/[address] [address] Yesenia Castle MD chart prep 08/20/2024 Patient Outreach [address] [address] Yesenia Castle MD Pre-visit Planning (SDOH screening negative and Tobacco screening negative) 07/07/2024 9:00 AM EST Office Visit [facility] [address] [place] [address] Leroy, Rebecca Dental plaque (Primary Dx); Missing teeth, acquired; Localized gingival recession; Tonsillitis 07/06/2024 3:30 PM EST Office Visit [facility] [address] [place] [address] Rodo Yeung DMD 07/02/2024 3:30 PM EST Office Visit [facility] [address] [place] [phone] Rodo Yeung, WALT 06/22/2024 Orders Only GENERIC EXTERNAL DATA DEPARTMENT Provider, Generic External Data from Last 3 Months Immunizations Name Administration Dates Next Due Hep B, adult 03/13/2001,10/03/2000,08/12/2000 Influenza High-dose Quadriva lent Preservative Free 02/21/2022,02/23/2021 Influenza injectable quadriv alent IIV4 with preservative 06/26/2017,05/31/2016,03/25/2015 Influenza injectable quadriv alent preservative free 02/05/2023 Influenza, High Dose Seasona l, Preservative Free 02/10/2024,05/27/2019,02/27/2018 Influenza, IIV3, injectable 02/04/2024, 4,04/23/2011 Influenza, Split (incl. hermelinda fied surface antigen) [...] Pulse 75 08/28/2024 2:10 PM EDT Temperature 36 ??C (96.8 ??F) 05/22/2024 2:47 PM EST Respiratory Rate 20 08/28/2024 2:10 PM EDT Oxygen Saturation 98% 08/28/2024 2:10 PM EDT Inhaled Oxygen Concentration - - Weight 78.9 kg (174 lb) 08/28/2024 2:10 PM EDT Height 154.9 cm (5' 1 ) 08/28/2024 2:10 PM EDT Body Mass Index 32.88 08/28/2024 2:10 PM EDT Plan of Treatment Upcoming Encounters Date Type Department Care Team (Late st Contact Info) Description 01/05/2025 3:00 PM EDT Office Visit [facility] [address] [place] [address] Leroy, Rebecca [address] [place] [address] Health Maintenance Due Date Last Done Comments CT Colonography 1950 FIT DNA/Cologuard 1950 FIT 1950 FOBT 1950 Sigmoidoscopy 1950 Colonoscopy 03/31/2024 03/31/2019, 02/11/2013 Colorectal Cancer Screening 03/31/2024 Alcohol/Substance Use Screening 12/24/2024 12/25/2023 Dental Oral Exam 01/05/2025 07/07/2024, 06/2023, 09/26/2022, Additional history exists Dental Prophylaxis 01/05/2025 07/07/2024, 0 01/02/2024, 06/03/2023, Additional history exists Diabetes: Hemoglobin A1C 01/05/2025 024, 08/28/2022, 08/29/2021, Additional history exists Mammogram 05/19/2025 05/19/2024, 04/12, 04/28/2021, Additional history exists Dental X-Ray: Bitewings 07/08/2025 07/07/19 25, 06/03/2023, 12/17/2022, Additional history exists SDOH Screening 08/20/2025 08/20/2024 Depression Screening 08/28/2025 08/28/2024, 08/29/19 Tobacco Screening 08/28/2025 08/28/2024 RSV Patients and Patients Aged 60 years [...] NODE SUPERFICIAL Routine 06/22/2024 2:00 PM EST BI MAMMOGRAM SCREENING TOMOSYNTHESIS BILATERAL Routine 05/19/2024 9:30 AM EST HEPATITIS C AB W/REFL TO [...] 2:42 PM EST 06/23/2024 9:30 AM EST Narrative [facility] - 06/25/2024 4:11 PM EST ----- ------- Name: Janell Guerrero ? Age/Sex: 73/F ? : 1950 Unit#: [id number] ?? Attend Dr: Naun Scherer MD ?Re06/22/24 ?Status: DEP REF ? Location: HO. ? Disch: ? ----- ------- SPEC : [id number] ? RECD: 06/23/24 ? STATUS: ??SOUT ? REQ NUM: [id number] ? AMADEO: 06/22/24-1441 ? SUBM DR: Michael Boucher ? ENTERED: ??06/23/24 ?SP TYPE: Cytology ? OTHR : Yesenia Castle ?Naun Scherer MD ORDERED: ??Cell [...] Yesenia Castle ?? [address] ?? [place] [address] ?? [phone] ?? Naun Scherer MD ?? [facility] ?? [address] ?? [place] [address] ?? [phone] ? CONTINUED ON NEXT PAGE ----- ------- Name: Guerrero,Janell ? Age/Sex: 73/F ? : 1950 Unit#: [id number] ?? Attend Dr: Naun Scherer MD ?Re06/22/24 ?Status: DEP REF ? Location: HO.US ? Disch: ? ----- ------- SPEC : [id number] ? RECD: 06/23/24 ? STATUS: ??SOUT ? REQ NUM: [id number] ? AMADEO: 06/22/24-3152 ? SUBM DR: Michael Boucher ? ENTERED: ??06/23/24 ?SP TYPE: Cytology ? OTHR DR: Yesenia Castle ?Naun Scherer MD ORDERED: ??Cell Geovanna Luz Ndmitzi Asp/2 ? Copies To: ??(Continued) ?? Michael Boucher ?? [address] ?? [place] [address] ?? [phone] ?? [email or web address] ----- ------- Signed (signature on file) Elias Figueroa MD 06/25/241610 ? ----- ------- ? END OF REPORT ? us Generic External Data Provider LAB CYTOLOGY ORDE RABLES Final Result [facility] [address] [place] [facility] [place] [address] [phone] * US guided biopsy lymph node superficial (06/22/2024 2:00 PM EST) Anatomical Region Laterality Modality Ultrasound 06/22/2024 2:00 PM EST Narrative 07/06/2024 4:21 PM EST ? [facility] ?[address] ?[place] [address] ? Ultrasound Report ? Signed ? Patient: Guerrero,Janell ?MR#: [id number] ?? 71 ? : 1950 ?Acct:[id number] ? Age/Sex: 73 / F ?ADM Date: 06/22/24 ? Loc: HO.US ? Attending Dr: Naun Scherer MD ? Ordering Physician: Naun Scherer MD ?? Date of Service: 06/22/24 ?? Procedure(s): US biopsy lymph node ?? Accession Number(s): [id number] ? cc: Yesenia Castle; Naun Scherer MD [...] signed by Michael Boucher in OV> ? 07/06/247 ?<Electronically signed by Andre Mcgarry MD in OV> ? 07/06/24 1620 ? DD/ 1400 ? TD/TT: 06/22/24 1445 ? Locate Technician: ? Procedure Note Donbrooks, Marcin - 07/06/2024 [place] [address] Ultrasound Report Signed Patient: Inés Guerrero#: [id number] 71 : 1950cct:[id number] Age/Sex: 73 / FADM Date: 06/22/24 Loc: . Attending Dr: Naun Scherer MD Ordering Physician: Naun Scherer MD Date of Service: 06/22/24 Procedure(s): US biopsy lymph node Accession Number(s): [id number] cc: Yesenia Castle; Naun Scherer MD Ultrasound-guided [...] 07/06/24 1620 DD/ 1400 TD/TT: 06/22/24 1445 Locate Technician: [facility] External Provider IMG US PROCEDURES Final Result * BI Mammogram Screening Tomosynthesis Bilateral (05/19/2024 9:30 AM EST) Anatomical Region Laterality Modality Breast Bilateral Mammography 05/19/2024 9:30 AM EST Narrative 05/25/2024 3:49 PM EST ? [facility] ? [address] [facility] ?[place] [address] ? Mammography Report ? Signed ? Patient: Guerrero,Janell ?MR#: [id number] ?? 71 ? : 1950 ?Acct:[id number] ? Age/Sex: 73 / F ?ADM Date: 01/07/25 ? Loc: HO.MAMMO ? Attending Dr: Yesenia Castle MD ? Ordering Physician: Yesenia Castle ?Results: 2Benign F ?? indings ? Date of Service: 05/19/24 ?Follow Up: 1 Year From Orig ?? inal Mammogram ? Procedure(s): MM tomosynthesis screening BI ?? Accession Number(s): [id number] ? cc: Yesenia Castle ? EXAMINATION: ?? [...] DD/ 0930 ? TD/TT: 05/19/24 0949 ? Locate Technician: ? Procedure Note Donotuseinterpreter, Image - 05/25/2024 [facility] [address] [place] [address] Mammography Report Signed Patient: Inés Guerrero#: [id number] 71 : 2Acct:[id number] Age/Sex: 73 / FADM Date: 05/19/24 Loc: HO.MAMMO Attending Dr: Yesenia Castle MD Ordering Physician: Ang Castleults: 2Benign F indings Date of Service: 05/19/24Follow Up: 1 Year From Orig inal Mammogram Procedure(s): MM tomosynthesis screening BI Accession Number(s): [id number] cc: Yesenia Castle EXAMINATION: MM SCREENING DIGITAL [...] Norma Payne DO 05/25/2024 03:46 PM EST Dictated By: Norma Payne DO Signed By: <Electronically signed by Norma Payne DO in OV> 05/25/24 1546 DD/ 0930 TD/TT: 05/19/24 0949 Locate Technician: Yesenia Castle MD IMG BI PROCEDURES Final Result * Hepatitis C Antibody with Reflex to HCV, RNA, Quantitative, Real-Time PCR (01/06/2024 9:03 AM EDT) Hepatitis C Antibody Nonreactive Nonreactive [facility] Comment:Antibodies to HCV no t detected; does not exclude early acuteHCV infection. Blood Venous blood specimen / Unknown 01/06/2024 9:03 AM EDT 01/06/2024 11:49 AM EDT Yesenia Castle MD LAB BLOOD ORDERABLES Final Res ult Performing Organization Address [facility] Co de Phone Number [facility] [address] [place] [phone] * Hemoglobin A1c (01/06/2024 9:03 AM EDT) Hemoglobin A1c 5.6 <6.0 % [facility] Comment:Hemoglobin A1C Refer ence Range Adults: 4.8 - 6.0 % Non diabetic: < 6.0 % Goal: < 7.0 %Additional Action Suggested: > 8.0 %Note: Hemoglobin A1c results are invalid for patients with abnormal amounts of HbF. Blood transfusions may impact the HbA1c concentration in the patient sample. Estimated Average Glucose 114 mg/dL [facility] Comment:eAG = Estimated ave rage glucose which is %A1C expressed asaverage glucose, using the formula of the E5G-XmvohlyNshqkft Glucose study (ADAG), Diabetes Care, Vol.31,#8,2007 Blood Venous blood specimen / Unknown 01/06/2024 9:03 AM EDT 01/06/2024 11:49 AM EDT Yesenia Castle MD LAB BLOOD ORDERABLES Final Res ult Performing Organization Address [facility] Co de Phone Number [facility] [address] [place] [phone] * (ABNORMAL) Lipid Panel, Standard (01/06/2024 9:03 AM EDT) Triglycerides 90 <150 mg/dL [facility] Comment:Desirable Triglyceri de: less than 150 mg/dLBorderline High Triglyceride 150-199 mg/dLHigh Triglyceride: 200-499 mg/dLVery High Triglyceride: greater than or equal to 5OO mg/dL Cholesterol 217(H) <200 mg/dL [facility] Comment:Desirable Cholestero l: less than 200 mg/dLBorderline High Cholesterol: 200-239 mg/dLHigh Cholesterol: greater than 239 mg/dL LDL Cholesterol Calculated 142(H) <100 mg/dL [facility] Comment:Desirable LDL: less than 100 mg/dLNear Optimal/Above Optimal LDL: 110- 129 mg/dLBorderline High LDL: 130-159 mg/dLHigh LDL: 160-189 mg/dLVery High LDL: greater than or equal to 190 mg/dL HDL Cholesterol 57 >40 mg/dL [facility] Comment:Desirable HDL: great er than 40 mg/dL Note: This HDL assay may give artificially low results in patients with liver disease. 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
--- OUTSIDE RECORDS SUMMARY | 2024-09-02 09:26 | XMS_ITS ---
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 Primary Care Provider Magen Rivera Unavailable [phone] Allergies No Known Allergies REASON FOR VISIT [...] 05/27/2024 Encounters Encounter Location Date Provider Diagnosis [facility] [address] [place] [address] 05/27/2024 Magen Greenfield History of adenomato us [...] Provider Name:Magen Greenfield , 09/11/2024 09:30:00 AM, [address] [place] [address] , [place], [place], [phone], Progress Notes * ARA DONAHUEADOB: [birth year] (73 yo F)Acc No.[id number]:05/27/2024 Progress Notes Patient:?JANELL DONAHUE Provider:?Magen Greenfield MD :1950???Age:73 Y???Sex:Female D ate:05/27/2024 Address:[address] [place], [place] [phone] Pcp:Yesenia Castle M.D. Subjective: * Chief Complaints: [...] year??No,?Points?0,?Interpretation?Negative.?Miscellaneous:?Marital status: . 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 ???She does not smoke nor does she [...] Procedure Codes:?3017F COLOR ECTAL CA SCREEN DOC [id number] TOBACCO NON-[id number] BP SCR NOT PRFRM REC REASON NOS [...] MD Date:? 025 Generated for Mitchell alexandre/Jaquelin/Kanasmitting on:?09/02/2024 09:26 AM EDT History and Physical Notes * HPI [...]
[2024-09-02 11:33] LABS: MANUAL DIFF FLAG NO
[2024-09-02 11:47] LABS: Basophils Absolute Auto 0.1 X10*3/uL (0.0-0.2); Basophils Percent Auto 1.2 % (0-2); Eosinophils Absolute Auto 0.3 X10*3/uL (0.0-0.4); Eosinophils Percent Auto 4.6 % (0-4); Hematocrit 39.7 % (37.0-47.0); Hemoglobin 12.6 g/dl (12.0-16.0); Imm Gran Abs Auto 0.01 X10*3/uL (0.00-0.03); Imm Gran Pct Auto 0.2 % (0.0-0.4); Lymphocytes Absolute Auto 1.8 X10*3/uL (1.2-4.9); Lymphocytes Percent Auto 31.1 % (20-40); Mean Corpuscular HGB Conc 31.7 g/dl (31.0-35.0); Mean Corpuscular Hemoglobin 27.6 pg (27.0-33.0); Mean Corpuscular Volume 86.9 fL (80.0-98.0); Mean Platelet Volume 10.2 fL (9.4-12.3); Monocytes Absolute Auto 0.7 X10*3/uL (0.1-1.2); Monocytes Percent Auto 11.5 % (2-11); Neutrophils Percent Auto 51.4 % (45-73); Platelet Count 270 X10*3/uL (160-400); Red Blood Count 4.57 X10*6/uL (4.20-5.50); Red Cell Distribution Width 14.6 % (11.0-16.0); White Blood Count 5.9 X10*3/uL (4.8-10.8)
[2024-09-02 12:29] LABS: Alanine Aminotransferase 13 U/L (0-31); Albumin Level 4.2 g/dL (3.5-5.0); Alkaline Phosphatase 91 U/L (39-117); Anion Gap 8 (12-20); Aspartate Amino Transferase 28 U/L (5-31); Bilirubin Total 0.6 mg/dL (0.0-1.0); Blood Urea Nitrogen 12 mg/dL (9-16); Calcium 9.7 mg/dL (8.4-10.2); Carbon Dioxide 28 mmol/L (22-29); Chloride 109 mmol/L (96-108); Estimated Glomerular Filt Rate > 60; Glucose Random 85 mg/dL (60-115); Potassium 4.3 mmol/L (3.3-5.1); Sodium 141 mmol/L (135-145); Total Protein 7.1 g/dL (6.5-8.0)
== END 2024-09-02 08:52 | disposition home or self-care (01) ==
LOC: HO.HHCL 08:51
PROVIDERS: Visit Provider General Practice
DX: E78.9 Disorder of lipoprotein metabolism, unspecified (principal)
CPT/HCPCS: 36415; 80053; 85025

== ENCOUNTER 2024-09-11 07:23 | Day surgery (SDC) | payer OTHER, SELFPAY ==
--- OUTSIDE RECORDS SUMMARY | 2024-07-15 06:47 | XMS_ITS | Encounter Summary ---
Author Organization [employer] [facility] Address [address] [place] [address] Care Team Providers Care Technology Applications Teacher Name Role Phone Yesenia Castle MD Primary Care Provider [phone] Encounter Details Date Type Department Care Team (Late st Contact Info) Description 01/16/2023 Orders Only [facility] [address] [place] [address] [phone] ProviderMar MD Social History Tobacco Use Types Packs/Day Years [...] Care Team (Late st Contact Info) Description 08/28/2024 2:15 PM EDT Office Visit [facility] [address] [place] [address] Yesenia Castle MD [address] [place] [phone] 01/05/2025 3:00 PM EDT Office Visit [facility] [address] [place] [address] Rebecca Harper [address] [place] [address] documented as of this encounter Procedures Procedure Name Priority Date/Time Associated Diagnosis Comments HM COLONOSCOPY Routine 03/31/2019 documented in this encounter Results * Hm Colonoscopy (03/31/2019) Historical Provider HEALTH MAINTENANCE Final Result documented in this encounter Visit Diagnoses Not on filedocumented in this encounter Additional Health Concerns Assessment Noted Time PHQ-9 Depression Total Score: 8 12/28/19 23 10:42 AM EDT documented as of this encounter Care Teams Technology Applications Teacher Relationship Specialty Start Date End Date Yesenia Castle MD [address] [place] [address] PCP - General Family Medicine 07/13/22 documented as of this encounter
--- OUTSIDE RECORDS SUMMARY | 2024-07-15 06:47 | XMS_ITS | Encounter Summary ---
Author Organization [facility] Address [address] [place] [address] Care Team Providers Care Division Road Supervisor Name Role Phone Yesenia Castle MD Primary Care Provider [phone] Reason for Referral * Consultation (Urgent) - Closed Specialty Diagnoses / Procedures Referred By Contac t Referred To Contact General Surgery Diagnoses Cervical lymphadenopathy Yesenia Castle MD [address] [place] [address] Phone: tel: fax: [facility] [address] Floor [place], [place] Phone: tel: fax: Referral ID Status Reason Start Date Expiration Date V isits Requested Visits Authorized [id number] Closed Specialty Services Required 05/22/2024 05/22/2025 1 1 Encounter Details Date Type Department Care Team (Late st Contact Info) Description 05/22/2024 Orders Only [facility] [address] [place] [address] [phone] Yesenia Castle MD [address] [place], [place] [phone] Cervical lymphadenopathy (Primary Dx) Social History Tobacco [...] Description 08/28/2024 2:15 PM EDT Office Visit [facility] [address] [place] [address] Yesenia Castle MD [address] [place] [address] 01/05/2025 3:00 PM EDT Office Visit [facility] [address] [place] [address] Esdras Harperaris [address] [place] [address] Scheduled Referrals Name Type Priority Associated Diagnoses [...] (Monitor) w/Refl Titer NON-REACTI VE NON-REACT BONNIE [facility] Comment:THIS TEST WAS PERFOR MED AT:[address] [place] [phone] MASTERS MD Rapid Plasma Reagin Ab Titer TNP [facility] Blood Venous blood specimen / Unknown 05/26/2024 8:31 AM EST 05/26/2024 11:19 AM EST Yesenia Castle MD LAB BLOOD ORDERABLES Final Res ult Performing Organization Address [facility] de Phone Number [facility] [address] [place] [phone] * HIV-1/2 Antigen and Antibodies, Fourth Generation, with Reflexes (05/26/2024 8:31 AM EST) HIV AB/AG Nonreactive Nonreactive [facility] Comment:HIV-1 p24 Ag and/or HIV-1/HIV-2 Ab not detected.A test result that is nonreactive does not exclude thepossibility of exposure to or infection with HIV-1 and/orHIV-2. Nonreactive results in this assay for individualswith prior exposure to HIV-1 and/or HIV-2 may be due toantigen and antibody levels that are below the limit ofdetection of this assay.The [employer] HIV Ag/Ab Combo assay result andsupplemental assay results should be interpreted inconjunction with the patient's clinical presentation,history and other laboratory results. If the results areinconsistent with clinical evidence, additional testing issuggested to confirm the result. Blood Venous blood specimen / Unknown 05/26/2024 8:31 AM EST 05/26/2024 11:19 AM EST Yesenia Castle MD LAB BLOOD ORDERABLES Final Res ult Performing Organization Address [facility] Co de Phone Number [facility] [address] [place] [phone] * Lactate Dehydrogenase (LD) (05/26/2024 8:31 AM EST) Lactate Dehydrogenase 210 122 - 220 U/L [facility] Blood Venous blood specimen / Unknown 05/26/2024 8:31 AM EST 05/26/2024 11:19 AM EST Yesenia Castle MD LAB BLOOD ORDERABLES Final Res ult Performing Organization Address City/[facility] Co de Phone Number [facility] [address] [place] [address] [phone] * Sed Rate by Modified Pedroren (05/26/2024 8:31 AM EST) Pathologist [facility] Erythrocyte Sedimentation Rate 10 0 - 20 MM/HR [facility] Comment:Patients with polycy themia and many hemoglobin abnormalitiesmay have depressed sed rates whereas patients with anemiamay have elevated sed rates. Blood Venous blood specimen / Unknown 05/26/2024 8:31 AM EST 05/26/2024 11:19 AM EST us Yesenia Castle MD LAB BLOOD ORDERABLES Final Res ult Performing Organization Address [facility] Co de Phone Number [facility] [address] [place] [address] [phone] * (ABNORMAL) CBC auto differential (05/26/2024 8:31 AM EST) Pathologist [facility] White Blood Count 6.5 4.8 - 10.8 X10*3/uL [facility] Red Blood Count 4.70 4.20 - 5.50 X10*6/uL [facility] Hemoglobin 13.2 12.0 - 16.0 g/dl [facility] Hematocrit 40.4 37.0 - 47.0 % [facility] Mean Corpuscular Volume 86.0 80.0 - 98.0 fL [facility] Mean Corpuscular Hemoglobin 28.1 27.0 - 33.0 pg [facility] Mean Corpuscular HGB Conc 32.7 31.0 - 35.0 g/dl [facility] Red Cell Distribution Width 13.9 11.0 - 16.0 % [facility] Platelet Count 300 160 - 400 X10*3/uL [facility] Mean Platelet Volume 10.3 9.4 - 12.3 fL [facility] Neutrophils Percent Auto 61.7 45 - 73 % [facility] Imm Gran Pct Auto 0.5(H) 0.0 - 0.4 % [facility] Lymphocytes Percent Auto 25.5 20 - 40 % [facility] Monocytes Percent Auto 8.2 2 - 11 % [facility] Eosinophils Percent Auto 3.5 0 - 4 % [facility] Basophils Percent Auto 0.6 0 - 2 % [facility] NRBC Pct Auto 0.0 0.0 - 0.2 /100WBC [facility] Neutrophils Absolute Auto 4.0 2.0 - 8.3 x10*3/uL [facility] Imm Gran Abs Auto 0.03 0.00 - 0.03 X10*3/uL [facility] Lymphocytes Absolute Auto 1.7 1.2 - 4.9 X10*3/uL [facility] Monocytes Absolute Auto 0.5 0.1 - 1.2 X10*3/uL [facility] Eosinophils Absolute Auto 0.2 0.0 - 0.4 X10*3/uL [facility] Basophils Absolute Auto 0.0 0.0 - 0.2 X10*3/uL [facility] NRBC Abs Auto 0.000 0.0 - 0.012 X10*3/uL [facility] Blood Venous blood specimen / Unknown 05/26/2024 8:31 AM EST 05/26/2024 11:19 AM EST us Yesenia Castle MD LAB BLOOD ORDERABLES Final Res ult Performing Organization Address City/State/[facility] Co de Phone Number [facility] [address] [place] [phone] documented in this encounter Visit Diagnoses Diagnosis Cervical lymphadenopathy- Primary Enlargement of lymph nodes documented in this encounter Additional Health Concerns Assessment Noted Time PHQ-9 Depression Total Score: 2 12/25/19 24 2:13 PM EDT documented as of this encounter Care Teams Division Road Supervisor Relationship Specialty Start Date End Date Yesenia Castle MD [address] [place] [phone] PCP - General Family Medicine 07/13/22 documented as of this encounter
--- OUTSIDE RECORDS SUMMARY | 2024-07-15 06:48 | XMS_ITS | Encounter Summary ---
Author Organization [employer] Address [address] [place] [address] Care Team Providers Care Scalder Name Role Phone Yesenia Castle MD Primary Care Provider [phone] Reason for Visit * Reason Comments Dentures Encounter Details Date Type Department Care Team ([facility] st Contact Info) Description 07/02/2024 3:30 PM EST Office Visit [facility] [address] [place], [place] [phone] Rodo Yeung, DMD [address] [place], [place] [phone] Social History Tobacco Use Types Packs/Day Years [...] AM EDT documented as of this encounter Progress Notes * Rodo Yeung DMD - 07/02/2024 3:30 PM EST C/C: slightly crack the resin base lingual to #25 Tooth#25 was recently added to the /P at [facility] Send the /P back to lab for repair [place]: Delivery of lab repair /P Haile documented in this encounter Plan of Treatment Upcoming Encounters Date Type Department Care Team (Late st Contact Info) Description 08/28/2024 2:15 PM EDT Office Visit [facility] [address] [place] [address] Yesenia Castle MD [address] [place] [address] 01/05/2025 3:00 PM EDT Office Visit [facility] [address] [place] [address] Rebecca Harper [address] [place] [address] documented as of this encounter Procedures Procedure Name Priority Date/Time Associated Diagnosis Comments DENTURE ADJUSTMENT Routine 07/02/2024 3:30 PM EST documented in this encounter Visit Diagnoses Not on filedocumented in this encounter Additional Health Concerns Assessment Noted Time PHQ-9 Depression Total Score: 2 12/25/19 24 2:13 PM EDT documented as of this encounter Care Teams Scalder Relationship Specialty Start Date End Date Yesenia Castle MD [address] [place] [address] PCP - General Family Medicine 07/13/22 documented as of this encounter
--- OUTSIDE RECORDS SUMMARY | 2024-07-15 06:48 | XMS_ITS | Encounter Summary ---
Author Organization [employer] Address [address] [place] [address] Care Team Providers Care Biological Plant Operator Name Role Phone Yesenia Castle MD Primary Care Provider [phone] Encounter Details Date Type Department Care Team (Late st Contact Info) Description 07/18/2023 Orders Only [facility] [address] [place], [place] [phone] Provider, MD Mar Social History Tobacco Use [...] t he electric, gas, oil or water [place] threatened to shut off services in your [...] Description 08/28/2024 2:15 PM EDT Office Visit [facility] [address] [place] [address] Yesenia Castle MD [address] [place] [address] 01/05/2025 3:00 PM EDT Office Visit [facility] ADULT DENTAL [address] [place] [address] Rebecca Harper [address] [place] [address] documented as of this encounter Procedures Procedure Name Priority Date/Time Associated Diagnosis Comments COLONOSCOPY Routine 02/11/2013 10:07 AM EDT documented in this encounter Results * Hm Colonoscopy (02/11/2013 10:07 AM EDT) us Historical Provider HEALTH MAINTENANCE Final Result documented in this encounter Visit Diagnoses Not on filedocumented in this encounter Additional Health Concerns Assessment Noted Time PHQ-9 Depression Total Score: 8 12/28/19 23 10:42 AM EDT documented as of this encounter Care Teams Biological Plant Operator Relationship Specialty Start Date End Date Yesenia Castle MD [address] [place] [id number] PCP - General Family Medicine 07/13/22 documented as of this encounter
--- OUTSIDE RECORDS SUMMARY | 2024-07-15 06:48 | XMS_ITS ---
Author Organization [facility] Address [address] [place] [address] Care Team Providers Care Mail Processor Name Role Phone Yesenia Castle M.D. Primary Care Provider [facility] [phone] REASON FOR VISIT bowel prep Medications Medication SIG (Take, Route, Frequency, Duration) Notes [...] Active Encounters Encounter Location Date Provider Diagnosis [facility] [address] [place] [address] 05/27/2024 Magen Greenfield Plan Of Treatment Medication Medication Name Sig Start Date Stop [...] Provider Name:Magen Greenfield , 09/11/2024 09:30:00 AM, [address] [place], [place], [id number], Progress Notes * ARA DONAHUEADOB: 2 (73 yo F)Acc No.[id number]:05/27/2024 Patient:BUTCH BRWOER :1950???Age:73 Y???Sex:Female Address:[address] [place] [address] * Refills? Start MiraLax (colon prep) Powder, 17 GM/SCOOP, Orally, 1, 1 238Gm bottle mixed with Gatorade or Crystal Light, begin at 5:00 p.m. the day before the procedure, 1 day, Refills=0 Start Dulcolax (colon prep) Tablet Delayed Release, 5 MG, Orally, 4, take at 3:00 p.m and 7:00p.m., two tablets twice a day for one day, 1 day, Refills=0 * true * Date:? Generated for Mitchell alexandre/Jaquelin/eTransmitting on:?07/15/2024 06:47 AM EST
--- OUTSIDE RECORDS SUMMARY | 2024-07-15 06:48 | XMS_ITS | Encounter Summary ---
Author Organization [employer] Address [address] [place] [address] Care Team Providers Care Ethnoarchaeologist Name Role Phone Yesenia Castle MD Primary Care Provider [phone] Reason for Visit * Reason Comments Routine Cleaning Dental Exam x-rays Perio chart Encounter Details Date Type Department Care Team ([facility] st Contact Info) Description 07/07/2024 9:00 AM EST Office Visit [facility] ADULT DENTAL [address] [place] [address] Leroy, Rebecca [address] [place] [address] Dental plaque (Primary Dx); Missing teeth, acquired; Localized gingival recession; Tonsillitis Social History Tobacco Use Types Packs/Day Years [...] AM EDT documented as of this encounter Last Filed Vital Signs Vital Sign Reading Time Taken Comments Blood Pressure 136/78 07/07/2024 8:42 AM EST Pulse - - Temperature - - Respiratory Rate - - Oxygen Saturation - - Inhaled Oxygen Concentration - - Weight - - Height - - Body Mass Index - - documented in this encounter Progress Notes * Rebecca Harper - 07/07/2024 9:00 AM EST Patient ID: Janell Guerrero is a 73 y.o. female. Time Out: Timeout Date: 07/07/24, Timeout Time: 08 (FMX, P. exam, perio chart, prophy) Location: [facility] Tooth: Maxilla and Mandible Procedure: Exam, X-rays, Prophylaxis, and Perio chart: Dr. Yeung not here today, Dr. Mcmahon to do exam Verified the above with patient, ophthalmic medical assistant, and provider. Confirmed via patient's chart, intraorally and by radiographs. Cad Design Engineer: not applicable Medical Hx: Vitals: Blood pressure 136/78. Medications, Med Hx reviewed with patient and updated in chart. Treatment Provided Dental procedures in this visit D9450 - CASE PRESENTATION, DETAILED AND EXTENSIVE TREATMENT PLANNING (Completed) Service provider: Rebecca Harper Billing provider: Ty Mcmahon DDS D1110 - PROPHYLAXIS - ADULT (Completed) Service provider: Rebecca Harper [place] provider: Ty Mcmahon DDS D0210 - INTRAORAL - COMPLETE SERIES OF RADIOGRAPHIC IMAGES (Completed) Service provider: Rebecca Harper Billing provider: Ty Mcmahon DDS D1330 - ORAL HYGIENE INSTRUCTIONS (Completed) Service provider: Rebecca Harper [place] provider: Ty Mcmahon DDS Instruments Used: Ultrasonic Scalers, Hand Scalers, and Prophy angle Fluoride: N/A Oral Cancer Screening: Erythematous throat and tonsillar tissues on the area. Pt saw her Physician last months and they found the her throat tissues are inflamed, and she was sent for a biopsy. She already had the biopsy on 2024. Pt has appoint with her physician in September for the review. Head/Neck Exam: No Lesions: TMJ right side clicks. asymptomatic Calculus: None Plaque: Light Stain: None Bleeding: Light Gingiva: pink OH: Good Perio Chart: Completed Oral hygiene instructions provided to patient including brushing technique and flossing. Recommendations: Bronx two times daily, modified roche technique, Floss daily, Electric toothbrush, Soft bristle toothbrush, [place] Tongue, Anti-sensitivity toothpaste Recall Frequency: 6 mo NV: 6 months Prophy Hygienist: Rebecca Harper RDH * Ty Mcmahon DDS - 07/07/2024 9:00 AM EST Dental procedures in this visit D9450 - CASE PRESENTATION, DETAILED AND EXTENSIVE TREATMENT PLANNING (Completed) Service provider: Rebecca Harper [place] provider: Ty Mcmahon DDS D1110 - PROPHYLAXIS - ADULT (Completed) Service provider: Rebecca Harper [place] provider: Ty Mcmahon DDS D0210 - INTRAORAL - COMPLETE SERIES OF RADIOGRAPHIC IMAGES (Completed) Service provider: Rebecca Harper [place] provider: Ty Mcmahon DDS D1330 - ORAL HYGIENE INSTRUCTIONS (Completed) Service provider: Rebecca Harper [place] provider: Ty Mcmahon DDS D0120 - PERIODIC ORAL EVALUATION - ESTABLISHED PATIENT (Completed) Service provider: Ty Mcmahon DDS Billing provider: Ty Mcmahon DDS Patient ID: Janell Guerrero is a 73 y.o. female. Time Out: Timeout Date: 07/07/24, Timeout Time: 0855 (FMX, P. exam, perio chart, prophy) Location: [facility] Tooth: Maxilla and Mandible Procedure: Exam, X-rays, and Prophylaxis Verified the above with patient, ophthalmic medical assistant, and provider. Confirmed via patient's chart, intraorally and by radiographs. Cad Design Engineer: not applicable Chief Complaint Patient presents with Routine Cleaning Dental Exam x-rays Perio chart Medical Hx: Vitals: Blood pressure 136/78. Past Medical History: Diagnosis Date Arthritis Back pain Essential hypertension 12/07/2022 High cholesterol Hypertension Insomnia 01/28/2012 Prediabetes 08/06/2022 Transaminitis 12/07/2022 Medications: Outpatient Encounter Medications as of 07/07/2024 Medication Sig Dispense Refill albuterol 108 (90 Base) MCG/ACT inhaler inhale 2 puff by inhalation route every 4 - 6 hours as needed amLODIPine (Norvasc) 5 MG tablet TAKE 1 TABLET BY MOUTH EVERY DAY 90 tablet 3 atorvastatin (Lipitor) 80 MG tablet TAKE 1 TABLET BY MOUTH EVERY DAY benzonatate (Tessalon) 100 MG capsule TAKE 1 CAPSULE ORALLY 2 TIMES A DAY NEEDED FOR COUGH Calcium Carb-Cholecalciferol 600-10 MG-MCG tablet Take 1 tablet by mouth 2 times daily. 180 tablet 1 celecoxib (CeleBREX) 200 MG capsule TAKE 1 CAPSULE BY MOUTH TWICE DAILY NEEDED cetirizine (ZyrTEC) 10 MG tablet TAKE 1 TABLET BY MOUTH EVERY MORNING, FOR ITCHING MAY REPEAT BEFORE BEDTIME NEEDED Diclofenac Sodium 1 % gel Apply 1 Application topically if needed in the morning and at bedtime (low back pain). 100 g 3 docusate sodium (Colace) 100 MG capsule TAKE 1 CAPSULE BY MOUTH AT BEDTIME Emollient (CeraVe Moisturizing) cream Use daily 453 g 11 gabapentin (Neurontin) 300 MG capsule Take 1 capsule (300 mg) by mouth at bedtime. 30 capsule 3 hydrOXYzine HCl (Atarax) 25 MG tablet TAKE 1 TABLET BY MOUTH THREE TIMES DAILY NEEDED FOR ITCHING ketoconazole (Nizoral) 2 % shampoo Apply topically 2 (two) times a week. 100 mL 0 loratadine (Claritin) 10 MG tablet Take 1 tablet (10 mg) by mouth if needed in the morning and at bedtime for allergies. 56 tablet 5 Menthol-Methyl Salicylate (Muscle Rub) 10-15 % cream Apply 1 Application topically before breakfast, before lunch, and before evening meal. 85 g 3 ondansetron ODT (Zofran-ODT) 4 MG disintegrating tablet DISSOLVE 1 TABLET BY MOUTH EVERY 6 TO 8 HOURS NEEDED FOR NAUSEA AND VOMITING Proctozone-HC 2.5 % rectal cream APPLY RECTALLY TWICE DAILY TO FOUR TIMES DAILY NEEDED FOR HEMORRHOIDS triamcinolone (Kenalog) 0.1 % cream Apply topically if needed in the morning and at bedtime (pain and swelling). Mix with cerave 80 g 2 No facility-administered encounter medications on file as of 07/07/2024. Objective HPI Soft Tissue Exam Findings added this encounter Tonsillitis on Pharynx Head and Neck Exam: Lymph Nodes, Lips, Palate, Buccal Mucosa, Floor of Mouth, Tongue, Alveolar Ridges, Oropharynx, Salivary Ducts, and Vestibules Tonsils on right it looks asymmetric slight enlarged compared to left, looking erythematous. Janell stated been already aware, monitoring in progress with her PCP and already biopsied on with schedule on this coming September. Details: Skin WNL OCS: Pending from Biopsy Dental Exam As charted Multiple mormon, functioning at this time Right side TMJ asymptomatic, R unilateral mild sound No deviation no limited opening noticed Marlena. RPD recently delivered, adjusted and w.o any chief complaint at this moment. Reference tooth chart for additional findings. Oral Cancer Risk: Moderate Risk Oral Hygiene Instructions: Bronx two times daily, modified roche technique, Floss daily, Electric toothbrush, Soft bristle toothbrush, [place] Tongue Caries Risk Assessment: Low- no risk factor no new active carious lesion noticed. Assessment/Plan ZARIA X rays Prohy Follow up Patient tolerated procedure well, all questions answered and expressed understanding. Dismissed in good condition. NV: Dr Yeung / 6 mos recall Division Operations Manager: Rebecca Harper Dentist: Ty Mcmahon DDS documented in this encounter Plan of Treatment Upcoming Encounters Date Type Department Care Team (Late st Contact Info) Description 08/28/2024 2:15 PM EDT Office Visit [facility] [address] [place] [address] Yesenia Castle MD [address] [place] [address] 01/05/2025 3:00 PM EDT Office Visit [facility] ADULT DENTAL [address] [place] [address] Rebecca Harper [address] [place] [address] Scheduled Orders Name Type Priority Associated Diagnoses Orde r Schedule ORAL HYGIENE INSTRUCTIONS Dental Routine 1 Occurrences starting 07/07/2024 documented as of this encounter Procedures Procedure Name Priority Date/Time Associated Diagnosis Comments PROPHYLAXIS - ADULT Routine 07/07/2024 9 :00 AM EST Dental plaque PERIODIC ORAL EVALUATION - ESTABLISHED PATIENT Routine 07/07/2024 9:00 AM EST ORAL HYGIENE INSTRUCTIONS Routine 07/07/2024 9:00 AM EST Dental plaque Missing teeth, acquired Localized gingival recession INTRAORAL - COMPLETE SERIES OF RADIOGRAPHIC IMAGES Routine 07/07/2024 9:00 AM EST Dental plaque Missing teeth, acquired Localized gingival recession CASE PRESENTATION, DETAILED AND EXTENSIVE TREATMENT PLANNING Routine 07/07/2024 9:00 AM EST Dental plaque Missing teeth, acquired Localized gingival recession documented in this encounter Visit Diagnoses Diagnosis Dental plaque- Primary Accretions on teeth Missing teeth, acquired Localized gingival recession Gingival recession, localized Tonsillitis Acute tonsillitis documented in this encounter Additional Health Concerns Assessment Noted Time PHQ-9 Depression Total Score: 2 12/25/19 24 2:13 PM EDT documented as of this encounter Care Teams Ethnoarchaeologist Relationship Specialty Start Date End Date Yesenia Castle MD [address] [place] [id number] PCP - General Family Medicine 07/13/22 documented as of this encounter
--- OUTSIDE RECORDS SUMMARY | 2024-07-15 06:48 | XMS_ITS | Encounter Summary ---
Author Organization [facility] Address [address] [place] [address] Care Team Providers Care Fire And Explosion Investigator Name Role Phone Leon Cortez MD Primary Care Provider Yesenia Baeza MD Primary Care Provider [phone] Encounter Details Date Type Department Care Team (Latest Contact Info) Description 01/10/2021 Abstract [facility] CONVERSIONS Dental, Provider, DDS Social History [...] Care Team ( st Contact Info) Description 08/28/2024 2:15 PM EDT Office Visit [facility] MED[facility]INE [address] [place] [address] Yesenia Castle MD [address] [place] [address] 01/05/2025 3:00 PM EDT Office Visit [facility] ADULT DENTAL [address] [place] [address] Rebecca Harper [address] [place] [address] documented as of this encounter Visit Diagnoses Not on filedocumented in this encounter Care Teams Fire And Explosion Investigator Relationship Specialty Start Date End Date Leon Cortez MD PCP - General Family Medicine 10/29/19 07/12/22 Yesenia Castle MD [address] [place] [address] PCP - General Family Medicine 07/13/22 documented as of this encounter
--- OUTSIDE RECORDS SUMMARY | 2024-07-15 06:48 | XMS_ITS | Encounter Summary ---
Author Organization [employer] Address [address] [place] [address] Care Team Providers Care Claim Representative Name Role Phone Leon Cortez MD Primary Care Provider Yesenia Baeza MD Primary Care Provider [phone] Encounter Details Date Type Department Care Team (Latest Contact Info) Description 10/03/2018 Abstract [facility] CONVERSIONS Dental, Provider, DDS Social History Tobacco [...] Description 08/28/2024 2:15 PM EDT Office Visit [facility] MEDICINE [address] [place] [address] Yesenia Castle MD [address] [place] [address] 01/05/2025 3:00 PM EDT Office Visit [facility] ADULT DENTAL [address] [place] [address] Rebecca Harper [address] [place] [address] documented as of this encounter Visit Diagnoses Not on filedocumented in this encounter Care Teams Claim Representative Relationship Specialty Start Date End Date Leon Cortez MD PCP - General Family Medicine 10/29/19 07/12/22 Yesenia Castle MD [address] [place] [address] PCP - General Family Medicine 07/13/22 documented as of this encounter
--- OUTSIDE RECORDS SUMMARY | 2024-07-15 06:48 | XMS_ITS ---
Author Organization [facility] Address [address] [place] [address] Care Team Providers Care Nat Instructor Name Role Phone Yesenia Castle M.D. Primary Care Provider Magen Rivera Unavailable [phone] Allergies No Known Allergies REASON FOR VISIT Patient presents today for discuss colonoscopy Medications Medication SIG (Take, Route, Frequency, Duration) [...] ITCHING OR RASH External for 14 Active Social History Tobacco Use: Social History Observation Description Date Details (start date - stop date) Never Smoker NA - NA Tobacco Use/Smoking Question Answer Notes Patient is a nonsmoker Alcohol Screen Question Answer Notes Did you have a drink containing alcohol in the p ast year? No Points 0 Interpretation Negative Section Notes: She does not smoke nor does she use any significant amounts of alcohol Problems Problem Type SNOMED Code ICD Code Onset Dates Problem Status W/U Status Risk Notes Problem Personal history of adenomatous and serrated colon polyps (Z86.0101) Active confirmed Vital Signs Temperature 96.9 degrees Fahrenheit 05/27/19 25 Blood pressure systolic 000 mm Hg 05/27/19 25 Blood pressure diastolic 00 mm Hg 025 Height 63 in 05/27/2024 Weight 174 lbs 05/27/2024 BMI 30.82 kg/m2 05/27/2024 Encounters Encounter Location Date Provider Diagnosis [facility] [address] [place] [address] 05/27/2024 Magen Greenfield History of adenomato us polyp of colon Z86.010 ; Pre-procedural examination Z01.818 and Encounter for screening for malignant neoplasm of colon Z12.11 Assessments Encounter Date Diagnosis (ICD Code) Assessment Notes Treatment Notes Treatment Clinical Notes Section Notes 05/27/2024 History of adenomatous polyp of colon (ICD-10 - Z86.010) Overall, Janell appears quite well. Given her history of tubular adenomas and her last colonoscopy being just over 5 years ago, I did recommend a followup colonoscopy for further screening purposes. We did review the rationale for that in regard to colon cancer prevention. Full consent was obtained for this, including risks of bleeding and perforation. The procedure will be done monitored anesthesia care. Janell and her were comfortable with this plan. Thank you again for allowing me to participate in Janell's care. I shall continue to keep you advised of her progress. 05/27/2024 Pre-procedural examination (ICD-10 - Z01.818) Overall, Janell appears quite well. Given her history of tubular adenomas and her last colonoscopy being just over 5 years ago, I did recommend a followup colonoscopy for further screening purposes. We did review the rationale for that in regard to colon cancer prevention. Full consent was obtained for this, including risks of bleeding and perforation. The procedure will be done monitored anesthesia care. Janell and her were comfortable with this plan. Thank you again for allowing me to participate in Janell's care. I shall continue to keep you advised of her progress. 05/27/2024 Encounter for screening for malignant neoplasm of colon (ICD-10 - Z12.11) Overall, Janell appears quite well. Given her history of tubular adenomas and her last colonoscopy being just over 5 years ago, I did recommend a followup colonoscopy for further screening purposes. We did review the rationale for that in regard to colon cancer prevention. Full consent was obtained for this, including risks of bleeding and perforation. The procedure will be done monitored anesthesia care. Janell and her were comfortable with this plan. Thank you again for allowing me to participate in Janell's care. I shall continue to keep you advised of her progress. Plan Of Treatment Future Test Test Name Order Date COLONOSCOPY 05/27/2024 Next Appt Details Follow Up: prn, Reason: Provider Name:Magen Greenfield , 09/11/2024 09:30:00 AM, [address] [place] [address] , [place], [place], [phone], Progress Notes * ARA DONAHUEADOB: [birth year] (73 yo F)Acc No.[id number]:05/27/2024 Progress Notes Patient:?JANELL DONAHUE Provider:?Magen Greenfield MD :1950???Age:73 Y???Sex:Female D ate:05/27/2024 Address:[address] [place], [place] [id number] Pcp:Yesenia Castle M.D. Subjective: * Chief Complaints: * ???Patient presents today fo r discuss colonoscopy * HPI: ???incontinence:? I saw Janell in the office today for evaluation of her personal history of tubular adenomas of the colon and need for colorectal cancer screening. She was accompanied by her , Catherine, who helped with some interpreting. ?I last saw Janell in March of 2019, at which time she underwent a followup screening colonoscopy with removal of a small tubular adenoma. She presently feels well. She enjoys a good appetite, without any significant heartburn or dysphagia. Her bowel movements have been regular and without any signs of bleeding. She denies any abdominal pain, jaundice, nor unintentional weight loss. She denies any known family history of colon cancer. ?Laboratories from last summer revealed normal chemistries and renal function, normal LFTs, and a normal CBC. * ROS:?General/Constitutional:?Change in appetite?denies.?Chills?denies.?Fatigue?denies.?Ophthalmologic:?Patient denies? Negative..?ENT:?Patient denies?Negative..?Respiratory:?Patient denies?No coughing/hemoptysis..?Cardiovascular:?Patient denies? No chest pain/orthopnea..?Gastrointestinal:?Comments?See HPI for details.?Genitourinary:?Patient denies? No dysuria/hematuria..?Skin:?Patient denies?No rash/pruritus..?Neurologic:?Patient denies? No headaches/seizures..?Psychiatric:?Patient denies?Negative..? * Medical History:? * Surgical History:?Breast red uction surgery and liposuction from her abdominal wall CCY 09/2018 Dr. Lopez * Hospitalization/Major Diagno stic Procedure:?No Hospitalization History. * Family History:?Father: dece ased.?Mother: .? There is no known family history of colorectal cancer. No family history of liver cancer. * Social History:?Tobacco Use:?Tobacco Use/Smoking?Patient is a?nonsmoker.?Drugs/Alcohol:?Alcohol Screen?Did you have a drink containing alcohol in the past year??No,?Points?0,?Interpretation?Negative.?Miscellaneous:?Marital status: . 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 ???She does not smoke nor does she use any significant amounts of alcohol. * Medications:?TakingLoratadin e 10 MG Tablet 1 tablet Orally Once a dayIbuprofen 800 MG Tablet 1 capsule with food or milk as needed Orally as neededamLODIPine Besylate 2.5 MG Tablet TAKE 1 TABLET BY MOUTH EVERY DAY Oral Calcium Carbonate-Vitamin D 600- 400 MG-UNIT Tablet TAKE 1 TABLET BY MOUTH TWICE DAILY Oral MiraLax (colon prep) 8.3 ounce ((238) grams mixed with Gatorade or Crystal Light orally begin at 5:00 p.m. the day before the procedureDulcolax (colon prep) 5 MG Tablet Delayed Release take at 3:00 p.m and 7:00p.m. Orally two tablets twice a day for one dayBetamethasone Dipropionate Aug 0.05 % Gel APPLY TOPICALLY TWICE DAILY IN THE MORNING AND AT BEDTIME NEEDED FOR ITCHING OR RASH External Acetaminophen Extra Strength 500 MG Tablet TAKE 1 TABLET BY MOUTH EVERY 6 HOURS NEEDED FOR MILD PAIN Oral Cetirizine HCl 10 MG Tablet TAKE 1 TABLET BY MOUTH EVERY MORNING, FOR ITCHING MAY REPEAT BEFORE BEDTIME NEEDED Oral , Notes: L209,UnavailableMuscle Rub 10-15 % Cream APPLY TO THE AFFECTED AREA(S) BEFORE BREAKFAST, BEFORE LUNCH, AND BEFORE SUPPER External Taking Loratadine 10 MG Tablet 1 tablet Orally Once a dayTaking Ibuprofen 800 MG Tablet 1 capsule with food or milk as needed Orally as neededTaking amLODIPine Besylate 2.5 MG Tablet TAKE 1 TABLET BY MOUTH EVERY DAY Oral Taking Calcium Carbonate-Vitamin D 600-400 MG- UNIT Tablet TAKE 1 TABLET BY MOUTH TWICE DAILY Oral Taking MiraLax (colon prep) 8.3 ounce ((238) grams mixed with Gatorade or Crystal Light orally begin at 5:00 p.m. the day before the procedureTaking Dulcolax (colon prep) 5 MG Tablet Delayed Release take at 3:00 p.m and 7:00p.m. Orally two tablets twice a day for one dayTaking Betamethasone Dipropionate Aug 0.05 % Gel APPLY TOPICALLY TWICE DAILY IN THE MORNING AND AT BEDTIME NEEDED FOR ITCHING OR RASH External Taking Acetaminophen Extra Strength 500 MG Tablet TAKE 1 TABLET BY MOUTH EVERY 6 HOURS NEEDED FOR MILD PAIN Oral Taking Cetirizine HCl 10 MG Tablet TAKE 1 TABLET BY MOUTH EVERY MORNING, FOR ITCHING MAY REPEAT BEFORE BEDTIME NEEDED Oral , Notes: L209,UnavailableTaking Muscle Rub 10-15 % Cream APPLY TO THE AFFECTED AREA(S) BEFORE BREAKFAST, BEFORE LUNCH, AND BEFORE SUPPER External Not-Taking/PRNAspirin Low Dose 81 MG Tablet Delayed Release TAKE 1 TABLET BY MOUTH EVERY DAY Oral Medication List reviewed and reconciled with the patientNot-Taking/PRN Aspirin Low Dose 81 MG Tablet Delayed Release TAKE 1 TABLET BY MOUTH EVERY DAY Oral Medication List reviewed and reconciled with the patient * Allergies:?N.K.D.A.yes[Aller gies Verified] Objective: * Vitals:?Wt: 174 lbs, Ht: 63 in, BMI:30.82 Index, BP: 000/00 mm Hg, Temp: 96.9. * Examination: ???General Examination: ?GENERAL APPEARANCE:?pleasant, well nourished, well developed, in no acute distress.?EYES:?sclera non-icteric.?ORAL CAVITY:?mucosa moist.?NECK/THYROID:?no cervical lymphadenopathy, neck supple.?SKIN:?nonjaundiced, no spider angiomata..?HEART:?S1, S2 normal.?LUNGS:?clear to auscultation bilaterally.?ABDOMEN:?normal bowel sounds, no guarding or rigidity, no hepatosplenomegaly, no masses palpable, soft, nontender, nondistended..?EXTREMITIES:?no edema.?NEUROLOGIC:?alert and oriented.? Assessment: * Assessment: 1.?Pre-procedural examinatio n - Z01.818 (Primary)?2.?History of adenomatous polyp of colon - Z86.010?3.?Encounter for screening for malignant neoplasm of colon - Z12.11? Overall, Janell appears quit e well. Given her history of tubular adenomas and her last colonoscopy being just over 5 years ago, I did recommend a followup colonoscopy for further screening purposes. We did review the rationale for that in regard to colon cancer prevention. Full consent was obtained for this, including risks of bleeding and perforation. The procedure will be done monitored anesthesia care. Janell and her were comfortable with this plan. Thank you again for allowing me to participate in Janell's care. I shall continue to keep you advised of her progress. Plan: * Treatment: 2.?Encounter for screening for malignant neoplasm of colon?Procedure: COLONOSCOPY (Ordered for 05/27/2024)* with MACsched for 09/11/24 at 9:30 ammiralax * Procedure Codes:?3017F COLOR ECTAL CA SCREEN DOC NLR4011I TOBACCO NON-[id number] BP SCR NOT PRFRM REC REASON NOS * Preventive Medicine:? ??Counseling:?Care goal follow-up plan:?Above Normal BMI Follow-up?Giving encouragement to exercise,?BMI management provided?Yes.? ??Urinary Incontinence:?Urinary Incontinence?Assessment:?Absent,?Plan of care documented:?No, reason not specified.? ??Screenings:?Fall Risk Screening?Fall Risk Assessment:?No falls in the past year,?Screening:?No falls in the past year,?Assessment:?Not performed, no reason specified,?Plan of Care:?Not documented, no reason specified.? * Follow Up:?prn * * Sign off status: Completed true * Provider:?Magen Greenfield MD Date:? 025 Generated for Mitchell alexandre/Jaquelin/Kanasmitting on:?07/15/2024 06:47 AM EST History and Physical Notes * HPI (History of Present Illness) Category Sub-Category Detail Notes Category Not es incontinence I saw Janell in the office today for evaluation of her personal history of tubular adenomas of the colon and need for colorectal cancer screening. She was accompanied by her , Catherine, who helped with some interpreting. I last saw Janell in March of 2019, at which time she underwent a followup screening colonoscopy with removal of a small tubular adenoma. She presently feels well. She enjoys a good appetite, without any significant heartburn or dysphagia. Her bowel movements have been regular and without any signs of bleeding. She denies any abdominal pain, jaundice, nor unintentional weight loss. She denies any known family history of colon cancer. Laboratories from last summer revealed normal chemistries and renal function, normal LFTs, and a normal CBC. Examination Category Sub-Category Detail Notes Category Not es General Examination GENERAL APPEARANCE: pleasant , well [...]
--- OUTSIDE RECORDS SUMMARY | 2024-07-15 06:48 | XMS_ITS | Encounter Summary ---
Author Organization [employer] Address [address] [place] [address] Care Team Providers Care Repair Supervisor Name Role Phone Yesenia Castle MD Primary Care Provider [phone] Encounter Details Date Type Department Care Team (Late st Contact Info) Description 06/22/2024 Orders Only GENERIC EXTERNAL DATA DEPARTMENT Provider, [...] Description 08/28/2024 2:15 PM EDT Office Visit [facility] MEDICINE [address] [place] [address] Yesenia Castle MD [address] [place] [address] 01/05/2025 3:00 PM EDT Office Visit [facility] ADULT DENTAL [address] [place] [address] Rebecca Harper [address] [place] [address] documented as of this encounter Procedures Procedure Name Priority Date/Time Associated Diagnosis Comments CELL BLOCK Routine 06/22/2024 2:42 PM EST US GUIDED BIOPSY LYMPH NODE SUPERFICIAL Routine 06/22/2024 2:00 PM EST documented in this encounter Results * Cell Block (06/22/2024 2:42 PM EST) 06/22/2024 2:42 PM EST 06/23/2024 9:30 AM EST [facility] - 06/25/2024 4:11 PM EST ----- ------- Name: Janell Guerrero ? Age/Sex: 73/F ? : 1950 Unit#: [id number] ?? Attend Dr: Naun Scherer MD ?Re06/22/24 ?Status: DEP REF ? Location: HO.US ? Disch: ? ----- ------- SPEC : [id number] ? RECD: 06/23/24 ? STATUS: ??SOUT ? REQ NUM: [id number] ? AMADEO: 06/22/[address]603 ? SUBM DR: Michael Boucher ? ENTERED: ??06/23/24 ?SP TYPE: Cytology ? OTHR DR: Yesenia Castle ?Naun Scherer MD ORDERED: ??Cell Block, Fine Ndl Asp/2 ? Diagnosis ?? A. ??Lymph node, right cervical, fine-needle aspiration: ??No malignancy identified. ??See ?? comment. ? B. ??Lymph node, right cervical, fine-needle aspiration for flow cytometry: ??Specimen ?? submitted for flow cytometry. ? Comment: ??Cellular specimen consisting mostly of small lymphocytes with scant cytoplasm ?? and degenerative changes. ??The cell block has low cellularity but similar findings. ?? Concurrent flow cytometry is negative - see report in its entirety in the EMR - ?? Reports/Pathology section as a scanned report (camera icon). ??If there is concern for a ?? more worrisome process, consider biopsy, as clinically appropriate. ?Clinical History Right cervical lymphadenopathy ? Material Received ?? A. Right cervical lymph node - 25 g FNA x 3 ?? B. Right cervical lymph node - 25 g FNA x 1 - for flow cytometry ? Gross Description Received is 30 cc of clear pink fluid from which a ThinPrep slide and cell block are prepared. Copies To: ?? Yesenia Castle ?? [address] ?? [place] [address] ?? [phone] ?? Naun Scherer MD ?? [facility] ?? [address] ?? [place] [address] ?? [phone] ? CONTINUED ON NEXT PAGE ----- ------- Name: Janell Guerrero ? Age/Sex: 73/F ? : 1950 Unit#: [id number] ?? Attend Dr: Naun Scherer MD ?Re06/22/24 ?Status: DEP REF ? Location: HO.US ? Disch: ? ----- ------- SPEC : [id number] ? RECD: 06/23/24 ? STATUS: ??SOUT ? REQ NUM: [id number] ? AMADEO: 06/22/24-260 ? SUBM DR: Michael Boucher ? ENTERED: ??06/23/24 ?SP TYPE: Cytology ? OTHR DR: Yesenia Castle ?Naun Scherer MD ORDERED: ??Cell Geovanna Luz Ndmitzi Asp/2 ? Copies To: ??(Continued) ?? Michael Boucher ?? [address] ?? [place] [address] ?? [phone] ?? [email or web address] ----- ------- Signed (signature on file) Elias Figueroa MD 06/25/24 1611 ? ----- ------- ? END OF REPORT ? us Generic External Data Provider LAB CYTOLOGY KAYLIN MARROQUIN Final Result [facility] [address] [address] [phone] * US guided biopsy lymph node superficial (06/22/2024 2:00 PM EST) Anatomical Region Laterality Modality Ultrasound 06/22/2024 2:00 PM EST Narrative 07/06/2024 4:21 PM EST ? [facility] ?[address] ?[place] [address] ? Ultrasound Report ? Signed ? Patient: Guerrero,Janell ?MR#: [id number] ?? 71 ? : 1950 ?Acct:[id number] ? Age/Sex: 73 / F ?ADM Date: 06/22/24 ? Loc: HO.US ? Attending Dr: Naun Scherer MD ? Ordering Physician: Naun Scherer MD ?? Date of Service: 06/22/24 ?? Procedure(s): US biopsy lymph node ?? Accession Number(s): [id number] ? cc: Yesenia Castle; Naun Scherer MD ? Ultrasound-guided fine needle aspiration of the right submandibular ?? lymph node ? Indication: ?? Right submandibular lymphadenopathy ? Procedure: Informed consent was obtained from the patient prior to the ?? procedure. During this process, the procedure and potential ?? alternatives were explained, along with the intended outcome and ?? benefits. The risks of the procedure, as well as the risks of not doing ?? the procedure, were discussed. The patient was given the opportunity to ?? ask questions regarding the procedure and appeared competent to make ?? medical decisions. A signed consent form which documents this ?? discussion was placed in the medical record. ? A timeout was performed in the room. The patient was placed in a supine ?? position with the neck extended. The right side of the neck was prepped ?? and draped in routine sterile fashion. 1% lidocaine was used as ?? anesthetic. Under real-time ultrasound guidance, a 25-gauge needle was ?? placed into the right submandibular lymph node and an aspiration was ?? performed. A total of 4 aspirations were performed. The specimens were ?? placed in CytoLyt and and RPMI. Postprocedure images showed no ?? hematoma. A Band-Aid was applied to the access site. The patient ?? tolerated the procedure well with no immediate complications. ? Permanent ultrasound images were archived to the procedure. ? US/US biopsy lymph node ?? Impression: Ultrasound-guided fine-needle aspiration of the right ?? submandibular lymph node. ? This procedure was performed by Michael Boucher PA-C, and directly ?? supervised by Dr. Mcgarry ? Electronically signed by: ??Andre Mcgarry MD ??07/06/2024 04:17 PM EST RP ? Dictated By: ?Michael Boucher ? Signed By: ?<Electronically signed by Michael Boucher in OV> ? 07/06/24 1617 ?<Electronically signed by Andre Mcgarry MD in OV> ? 07/06/24 1620 ? DD/ 1400 ? TD/TT: 06/22/24 1445 ? Silviculturist: ? Procedure Note Marcin Castillo - 07/06/[address] [address] Ultrasound Report Signed Patient: Inés Guerrero#: [id number] 71 : 1950cct:[id number] Age/Sex: 73 / FADM Date: 06/22/24 Loc: . Attending Dr: Naun Scherer MD Ordering Physician: Naun Scherer MD Date of Service: 06/22/24 Procedure(s): US biopsy lymph node Accession Number(s): [id number] cc: Yesenia Castle; Naun Scherer MD Ultrasound-guided fine needle aspiration of the right submandibular lymph node Indication: Right submandibular lymphadenopathy Procedure: Informed consent was obtained from the patient prior to the procedure. During this process, the procedure and potential alternatives were explained, along with the intended outcome and benefits. The risks of the procedure, as well as the risks of not doing the procedure, were discussed. The patient was given the opportunity to ask questions regarding the procedure and appeared competent to make medical decisions. A signed consent form which documents this discussion was placed in the medical record. A timeout was performed in the room. The patient was placed in a supine position with the neck extended. The right side of the neck was prepped and draped in routine sterile fashion. 1% lidocaine was used as anesthetic. Under real-time ultrasound guidance, a 25-gauge needle was placed into the right submandibular lymph node and an aspiration was performed. A total of 4 aspirations were performed. The specimens were placed in CytoLyt and and RPMI. Postprocedure images showed no hematoma. A Band-Aid was applied to the access site. The patient tolerated the procedure well with no immediate complications. Permanent ultrasound images were archived to the procedure. US/US biopsy lymph node Impression: Ultrasound-guided fine-needle aspiration of the right submandibular lymph node. This procedure was performed by Michael Boucher PA-C, and directly supervised by Dr. Mcgarry Electronically signed by: Andre Mcgarry MD 07/06/2024 04:17 PM [facility] Dictated By: Michael Boucher Signed By: <Electronically signed by Michael Boucher in OV> 07/06/24 1617 <Electronically signed by Andre Mcgarry MD in OV> 07/06/24 1620 DD/ 1400 TD/TT: 06/22/24 1445 Silviculturist: [facility] External Provider IMG US PROCEDURES Final Result documented in this encounter Visit Diagnoses Not on filedocumented in this encounter Additional Health Concerns Assessment Noted Time PHQ-9 Depression Total Score: 2 12/25/19 24 2:13 PM EDT documented as of this encounter Care Teams Repair Supervisor Relationship Specialty Start Date End Date Yesenia Castle MD [address] [place] [id number] PCP - General Family Medicine 07/13/22 documented as of this encounter
--- OUTSIDE RECORDS SUMMARY | 2024-07-15 06:48 | XMS_ITS | Encounter Summary ---
Author Organization [employer] [facility] Address [address] [place] [address] Care Team Providers Care Towel Folder Name Role Phone Leon Cortez MD Primary Care Provider Yesenia Baeza MD Primary Care Provider Encounter Details Date Type Department Care Team (Latest Contact Info) Description 02/12/2022 Abstract [facility] CONVERSIONS Dental, Provider, DDS Social History Tobacco [...] Description 08/28/2024 2:15 PM EDT Office Visit [facility] MEDICINE [address] [place] [address] Yesenia Castle MD [address] [place] [address] 01/05/2025 3:00 PM EDT Office Visit [facility] ADULT DENTAL [address] [place] [address] Rebecca Harper [address] [place] [address] documented as of this encounter Visit Diagnoses Not on filedocumented in this encounter Care Teams Towel Folder Relationship Specialty Start Date End Date Leon Cortez MD PCP - General Family Medicine 10/29/19 07/12/22 Yesenia Castle MD [address] [place] [address] PCP - General Family Medicine 07/13/22 documented as of this encounter
--- OUTSIDE RECORDS SUMMARY | 2024-07-15 06:49 | XMS_ITS | Encounter Summary ---
Author Organization [employer] Address [address] [place] [address] Care Team Providers Care Asphalt Heater Operator Name Role Phone Yesenia Castle MD Primary Care Provider [phone] Reason for Visit * Reason Comments Dentures Encounter Details Date Type Department Care Team ([facility] st Contact Info) Description 07/06/2024 3:30 PM EST Office Visit [facility] [address], [place] [phone] Rodo Yeung, DMD [address], [place] [phone] Social History Tobacco Use Types Packs/Day Years [...] Progress Notes * Rodo Yeung DMD - 07/06/2024 3:30 PM EST Delivery of lab repair /P. Pt feels fine NV: adjustment if needed Haile documented in this encounter Plan of Treatment Upcoming Encounters Date Type Department Care Team (Late st Contact Info) Description 08/28/2024 2:15 PM EDT Office Visit [facility] [address] [place] [phone] Yesenia Castle MD [address] [place] [address] 01/05/2025 3:00 PM EDT Office Visit [facility] [address] [place] [address] Rebecca Harper [address] [place] [address] documented as of this encounter Procedures Procedure Name Priority Date/Time Associated Diagnosis Comments DENTURE ADJUSTMENT Routine 07/06/2024 3:30 PM EST documented in this encounter Visit Diagnoses Not on filedocumented in this encounter Additional Health Concerns Assessment Noted Time PHQ-9 Depression Total Score: 2 12/25/19 24 2:13 PM EDT documented as of this encounter Care Teams Asphalt Heater Operator Relationship Specialty Start Date End Date Yesenia Castle MD [address] [place] [address] PCP - General Family Medicine 07/13/22 documented as of this encounter
--- NOTE | 2024-09-09 10:45 | P.CONAN_ITS ---
Documented by User: Mali Cuadra NP 09/09/24 10:45 HPI - Anesthesia Eval Consult details Narrative: 74yo F for Colonoscopy PMFSH Active Problems Active Problems: All Active Problems Cervical lymphadenopathy (Acute) COVID (Acute) Varicose veins of right lower extremity with inflammation (Acute) Past Medical History Medical History Cervical lymphadenopathy Seasonal allergies Thoracic spine pain Pre-diabetes Elevated cholesterol HTN (hypertension) Family History Family history of problems with anesthesia: No Surgical History Surgical History History of cataract extraction History of bilateral breast reduction surgery Hx laparoscopic cholecystectomy Hx of colonoscopy History of Problems with Anesthesia: No Social History Social History (Updated 09/09/24 @ 11:19 by Humaira Ovalle RN) Household Members: Spouse Are you a primary hospice home care coordinator to a significant other at home: No Do you presently have visiting nurse or other home services: No Patient Tobacco Use Status: Never used Tobacco Second Hand Smoke Exposure: No Use of substances other than those prescribed or required for medical reasons: No Are you DNR?: No Advance Directives: No Advance Directives Information Provided: Yes Meds Allergies Allergy/AdvReac Type Severity Reaction Status Date / Time No Known Allergies Allergy Verified 09/11/24 08:27 [No Known Allergies*] Home Medications ?Medication ?Instructions ?Recorded ?Confirmed ?Last Taken ?Type amlodipine 2.5 mg tablet 2.5 mg PO DAILY 01/18/21 09/09/24 02/06/21 History acetaminophen 500 mg tablet 500 mg PO Q6H PRN Mild Pain (Scale 09/09/24 09/09/24 Unknown History Score 1-4) calcium 600 mg (as 1 tab PO BID 09/09/24 09/09/24 Unknown History carbonate)-vitamin D3 10 mcg (400 unit) tablet (Calcium 600 + D(3)) cetirizine 10 mg tablet 10 mg PO DAILY 09/09/24 09/09/24 Unknown History ibuprofen 800 mg tablet 800 mg PO Q6H PRN Pain 09/09/24 09/09/24 Unknown History Assessment and Plan Assessment Anesthesia Assessment: Chart Reviewed Final Anesthetic Review Family History of Problems with Anesthesia: No History of Problems with Anesthesia: No Documented by User: Elizabeth Gilliam MD 09/11/24 09:32 [facility] Past Medical History Medical History Cervical lymphadenopathy Seasonal allergies Thoracic spine pain Pre-diabetes Elevated cholesterol HTN (hypertension) Surgical History Surgical History History of cataract extraction History of bilateral breast reduction surgery Hx laparoscopic cholecystectomy Hx of colonoscopy History of Problems with Anesthesia: No Social History Social History (Updated 09/09/24 @ 11:19 by Humaira Ovalle RN) Household Members: Spouse Are you a primary hospice home care coordinator to a significant other at home: No Do you presently have visiting nurse or other home services: No Patient Tobacco Use Status: Never used Tobacco Second Hand Smoke Exposure: No Use of substances other than those prescribed or required for medical reasons: No Are you DNR?: No Advance Directives: No Advance Directives Information Provided: Yes Meds Allergies Allergy/AdvReac Type Severity Reaction Status Date / Time No Known Allergies Allergy Verified 09/11/24 08:27 [No Known Allergies*] Home Medications ?Medication ?Instructions ?Recorded ?Confirmed ?Last Taken ?Type amlodipine 2.5 mg tablet 2.5 mg PO DAILY 01/18/21 09/09/24 02/06/21 History acetaminophen 500 mg tablet 500 mg PO Q6H PRN Mild Pain (Scale 09/09/24 09/09/24 Unknown History Score 1-4) calcium 600 mg (as 1 tab PO BID 09/09/24 09/09/24 Unknown History carbonate)-vitamin D3 10 mcg (400 unit) tablet (Calcium 600 + D(3)) cetirizine 10 mg tablet 10 mg PO DAILY 09/09/24 09/09/24 Unknown History ibuprofen 800 mg tablet 800 mg PO Q6H PRN Pain 09/09/24 09/09/24 Unknown History Exam Airway Mallampati Class: II TM Dist: >3cm Neck ROM: Full Partial: Lower Heart: rrr Lungs: cta Assessment and Plan Assessment Anesthesia Assessment: Anesthesia Plan Discussed Final Anesthetic Review History of Problems with Anesthesia: No NPO: Yes ASA Class: II Final Preanesthetic Review: No Changes in Pt Med Stat, Meds/Allgs Chart Reviewed and Consent Obtained/Reviewed Patient Risk: Low Procedure Risk: Low Anesthetic Plan Anesthetic Plan: MAC: Disposition: Standard PACU
[2024-09-09 11:10] VITALS: BMI 30.8
[2024-09-11 08:48] VITALS: BMI 29.8
[2024-09-11 08:50] VITALS: BP 129/79; PULSE 66; RESP 15; TEMP 36.6; O2SAT 99
[2024-09-11] MEDS: Lactated Ringers 1,000 ML 50 ML IVCONT (08:58)
[2024-09-11 10:20] VITALS: BP 118/64; PULSE 67; RESP 16; TEMP 36.4; O2SAT 97
--- NOTE | 2024-09-11 10:23 | P.BOP_ITS ---
Brief Operative Note Date of Service: 09/11/24 Pre-op diagnosis: Screening Post-op diagnosis: other (Diverticulosis) Procedure: Colonoscopy to the cecum Surgeon: Magen Greenfield MD Anesthesia: MAC Was an Police Communications Dispatcher used for this Procedure?: No Estimated blood loss (mL): 0 Pathology: none sent Condition: stable Disposition: PACU
[2024-09-11 10:34] VITALS: BP 131/74; PULSE 66; RESP 16; TEMP 36.2; O2SAT 97
--- NOTE | 2024-09-11 10:45 | OP_ITS ---
DATE OF SERVICE: 09/11/2024 SURGEON: Magen Greenfield MD INDICATIONS: The patient presents for followup of colorectal cancer screening and personal history of tubular adenoma of the colon. Full consent was obtained from her for this, including risks of bleeding and perforation. PREOPERATIVE DIAGNOSIS: POSTOPERATIVE DIAGNOSIS: PROCEDURE PERFORMED: Colonoscopy to cecum. ESTIMATED BLOOD LOSS: COMPLICATIONS: ANESTHESIA: ASSISTANTS: SPECIMENS: PREOPERATIVE DIAGNOSES: Colorectal cancer screening and personal history of tubular adenoma of the colon. POSTOPERATIVE DIAGNOSES: Colorectal cancer screening and personal history of tubular adenoma of the colon, diverticulosis and internal hemorrhoids. DESCRIPTION OF PROCEDURE: The patient was placed in left lateral decubitus position. The digital rectal exam revealed no abnormalities. The Olympus videopediatric colonoscope was entered into the rectum and advanced easily to the cecum. Once in the cecum, I did identify normal-appearing cecal pouch with appendiceal orifice and a normal-appearing ileocecal valve. The entire cecum and ileocecal valve appeared normal, including the appendiceal orifice. The scope was then slowly withdrawn assessing all mucosal surfaces carefully. Preparation was excellent. I did not visualize any sign of polyps, colitis, nor angiodysplasia. There was a mild amount of sigmoid diverticulosis. In the rectum, scope was retroflexed visualizing internal hemorrhoids, but no other pathology. The rectal mucosa appeared normal. The scope was straightened and withdrawn from the patient. She tolerated the procedure well and was returned to recovery area in stable condition. IMPRESSION: 1. Mild diverticulosis. 2. Internal hemorrhoids. PLAN: Given today's negative exam, her age, and several previous colonoscopies, as well as no family history of colon cancer, I do not think she may need any further screening colonoscopies. As such, she will see me on a p.r.n. basis. This has been discussed with her as well. MD CARISSA Pham/CHANTELLE / [phone]
== END 2024-09-11 11:01 | disposition home or self-care (01) ==
PROVIDERS: PCP General Practice; Visit Provider Internal Medicine
PROC: 0DJD8ZZ Inspection of Lower Intestinal Tract, Via Natural or Artificial Opening Endoscopic (ICD-10-PCS; CPT 45378; principal; 2024-09-11 09:30)
DX: Z12.11 Encounter for screening for malignant neoplasm of colon (principal); Z86.0101 Personal history of adenomatous and serrated colon polyps; K57.30 Diverticulosis of large intestine without perforation or abscess without bleeding; K64.8 Other hemorrhoids; I10 Essential (primary) hypertension; R73.03 Prediabetes; Z79.82 Long term (current) use of aspirin; Z79.899 Other long term (current) drug therapy
CPT/HCPCS: G0105; J2003; J2704

== ENCOUNTER 2025-04-16 10:50 | Outpatient (REF) | payer OTHER, SELFPAY ==
--- OUTSIDE RECORDS SUMMARY | 2024-09-11 03:30 | XMS_ITS ---
Author Organization 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 Primary Care Provider Unava Magen Love [phone] REASON FOR VISIT screening,hx polyps Encounters Encounter Location Date Provider Diagnosis [facility] Outpatient [address] [place] [phone] 09/11/2024 Magen Greenfield Colon cancer scree vijay Z12.11 ; Personal history of colonic polyps Z86.0100 ; Diverticulosis of large intestine without perforation or abscess without bleeding K57.30 and Other hemorrhoids K64.8 Assessments Encounter Date Diagnosis (ICD Code) Assessment Notes Treatment Notes Treatment Clinical Notes Section Notes 09/11/2024 Colon cancer screening (ICD-10 - Z12.11) 09/11/2024 Personal history of colonic polyps (ICD-10 - Z86.0100) 09/11/2024 Diverticulosis of large intestine without perforation or abscess without bleeding (ICD-10 - K57.30) 09/11/2024 Other hemorrhoids (ICD-10 - K64.8) Plan Of Treatment No Information Progress Notes * SHERIF DONAHUEB: 2 (74 yo F)Acc No.[id number]:09/11/2024 COLON WITH MAC Patient: Be COMBS BUTCH Provider: Gene Greenfield MD :1950 A ge:74 Y S ex:Female Date:09/11/2024 Address:[address] [place] [address] [address], [id number] Pcp:Yesenia Castle M.D. Subjective: * Chief Complaints: * S creening,hx polyps Assessment: * Assessment: 1. C olon cancer screening - Z12.11 (Primary) 2 . P ersonal history of colonic polyps - Z86.0100 3 . D iverticulosis of large intestine without perforation or abscess without bleeding - K57.30 4 . O ther hemorrhoids - K64.8 ? Plan: * Procedure Codes: 4 5378 DIAGNOSTIC [id number] INTRVL 3+YRS PTS CLNSCP [id number] RCMND FLW-UP 10 YRS DOCD, Modifiers: 1P Billing Information: * Procedure Codes: 79794 DIAGNOSTIC COLONOSCOPY. 0529F INTRVL 3+YRS PTS CLNSCP DOCD. 0528F RCMND FLW-UP 10 YRS DOCD. Modifiers: 1P * The named appointment provid er may or may not be the originator of this progress note, and it is not deemed complete until electronically signed by the appointment provider. Sign off status: Pending * Provider: Gene Greenfield MD Date: 0 09/11/2024 Generated for Mitchell alexandre/Jaquelin/Hiroitting on: 06/17/2024 01:22 PM EST
--- OUTSIDE RECORDS SUMMARY | 2025-04-16 10:30 | XMS_ITS | Encounter Summary ---
Author Organization [employer] Address [address] [place] [address] Care Team Providers Care Boat Loader Helper Name Role Phone Yesenia Castle MD Primary Care Provider [phone] Reason for Visit * Reason Comments Annual Exam Encounter Details Date Type Department Care Team ([facility] Contact Info) Description 04/16/2025 10:30 AM EST Office Visit [facility] [address] [place], [place] [phone] Yesenia Castle MD [address] [place], [place] [phone] Dysuria (Primary Dx) Social History Tobacco Use Types Packs/Day Years Used Date Smoking Tobacco: Never Passive Smoke Exposure: Never Smokeless Tobacco: Never Alcohol Use Standard Drinks/Week Comments Never 0 (1 standard drink = 0.6 oz pur e alcohol) Depression Answer Date Recorded Patient Health Questionnaire-9 Score 2 04/16/2025 Patient Health Questionnaire-9 Score 2 04/16/2025 Last PHQ-9: Questionnaire Data Not on file 1 06/17/2024 Housing Stability Answer Date Recorded What is your housing situation today? I have ariescharanjit brumfield 09/06/[address] you [...] Date Recorded Patient Health Questionnaire-2 Score 0 04/16/2025 Internet Access Answer Date Recorded Internet Access [...] Sign Reading Time Taken Comments Blood Pressure 126/68 04/16/2025 10:24 AM EST Pulse 76 04/16/2025 10:24 AM EST Temperature 36.7 C (98 F) 04/16/2025 10:24 AM EST Respiratory Rate 16 04/16/2025 10:2 4 AM EST Oxygen Saturation - - Inhaled Oxygen Concentration - - Weight 79.7 kg (175 lb 12.8 oz) 025 10:24 AM EST Height 158 cm (5' 2.21 ) 04/16/2025 10: 24 AM EST Body Mass Index 31.94 04/16/2025 10:24 AM EST documented in this encounter Functional Status * Over the past 2 weeks, how often have you been bothered by any of the following problems? Question Answer Date of Assessment Author Feeling down, depressed, or hopeless Not at all 04/16/2025 10:35 AM Natalie Barriga MA Patient Health Questionnaire -2 Score 0 04/16/2025 10:35 AM Natalie Barriga MA * Little interest or pleasure in doing things Answer Date of Assessment Author Not at all 04/16/2025 10:35 AM Natalie Barriga MA * Trouble falling or staying asleep, or sleeping too much Answer Date of Assessment Author Several days 04/16/2025 10:35 AM Natalie Barriga MA * Feeling tired or having little energy Answer Date of Assessment Author Not at all 04/16/2025 10:35 AM Natalie Barriga MA * Poor appetite or overeating Answer Date of Assessment Author Not at all 04/16/2025 10:35 AM Natalie Barriga MA * Feeling bad about yourself - or that you are a failure or have let yourself or your family down Answer Date of Assessment Author Not at all 04/16/2025 10:35 AM Natalie Barriga MA * Trouble concentrating on things, such as reading the newspaper or watching television Answer Date of Assessment Author Several days 04/16/2025 10:35 AM Natalie Barriga MA * Moving or speaking so slowly that other people could have noticed? Or the opposite - being so fidgety or restless that you have been moving around a lot more than usual. Answer Date of Assessment Author Not at all 04/16/2025 10:35 AM Natalie Barriga MA * Thoughts that you would be better off or hurting yourself in some way Answer Date of Assessment Author Not at all 04/16/2025 10:35 AM Natalie Barriga MA * Patient Health Questionnaire-9 Score Answer Date of Assessment Author 2 04/16/2025 10:35 AM Natalie Barriga MA * Over the last 2 weeks, how often have you been bothered by any of the following problems? Question Answer Date of Assessment Author Feeling nervous, anxious, or on edge 0 04/16/2025 10:35 AM Natalie Barriga MA Not being able to stop or co ntrol worrying 0 04/16/2025 10:35 AM Natalie Barriga MA Worrying too much about diff erent things 0 04/16/2025 10:35 AM Natalie Barriga MA Trouble relaxing 0 04/16/2025 10:35 AM Natalie Barriga MA Being so restless that it is hard to sit still 0 04/16/2025 10:35 AM Natalie Barriga MA Becoming easily annoyed or irritable 0 04/16/2025 10:35 AM EST Natalie Croft MA Feeling afraid as if somethi ng awful might happen 0 04/16/2025 10:35 AM Natalie Barriga MA CURTIS-7 Total Score 0 04/16/2025 10:35 AM Natalie Barriga MA documented as of this encounter Plan of Treatment Upcoming Encounters Date Type Department Care Team (Late st Contact Info) Description 07/16/2025 8:00 AM EST Office Visit [facility] [address] [place] [address] Leroy, Rebecca [address] [place] [address] Scheduled Orders Name Type Priority Associated Diagnoses Orde r Schedule Urinalysis, Complete, with Reflex to Culture Lab Routine Dysuria Expected: 04/16/2025 (Approximate), Expires: 04/16/2026 documented as of this encounter Visit Diagnoses Diagnosis Dysuria- Primary documented in this encounter Additional Health Concerns Assessment Noted Time PHQ-9 Depression Total Score: 2 04/16/20 25 10:35 AM EST documented as of this encounter Care Teams Boat Loader Helper Relationship Specialty Start Date End Date Yesenia Castle MD [address] [place] [address] PCP - General Family Medicine 07/13/22 documented as of this encounter
--- OUTSIDE RECORDS SUMMARY | 2025-04-16 13:22 | XMS_ITS | Patient Health Record ---
Author Organization [facility] Address [address] [place] [address] Care Team Providers Care Coder Operator Name Role Phone Yesenia Castle M.D. Primary Care Provider Magen Rivera [phone] Allergies No Known Allergies Reason For Referral No Information Medications Medication SIG (Take, Route, Frequency, Duration) Notes Start Date End Date Status MiraLax (colon prep) 17 GM/SCOOP Powder 1 238Gm bottle mixed with Gatorade or Crystal Light Orally begin at 5:00 p.m. the day before the procedure; Duration: 1 day 05/31/2024 Active Ibuprofen 800 MG Tablet 1 capsule with food or milk as needed Orally as needed Active Loratadine 10 MG Tablet 1 tablet Orally Once a day Active Aspirin Low Dose 81 MG Tablet Delayed Release TAKE 1 TABLET BY MOUTH EVERY DAY Oral; Duration: 30 Not-Taking/FL N Dulcolax (colon prep) 5 MG Tablet Delayed Release take at 3:00 p.m and 7:00p.m. Orally two tablets twice a day for one day; Duration: 1 day 05/31/2024 Active amLODIPine Besylate 2.5 MG Tablet TAKE 1 TABLET BY MOUTH EVERY DAY Oral; Duration: 30 Active MiraLax (colon prep) 8.3 ounce ((238) grams mixed with Gatorade or Crystal Light orally begin at 5:00 p.m. the day before the procedure; Duration: 1 day 03/05/2019 Active Calcium Carbonate-Vitamin D 600-400 MG-UNIT Tablet TAKE 1 TABLET BY MOUTH TWICE DAILY Oral; Duration: 30 Active Betamethasone Dipropionate Aug 0.05 % Gel APPLY TOPICALLY TWICE DAILY IN THE MORNING AND AT BEDTIME NEEDED FOR ITCHING OR RASH External; Duration: 14 Active Dulcolax (colon prep) 5 MG Tablet Delayed Release take at 3:00 p.m and 7:00p.m. Orally two tablets twice a day for one day; Duration: 1 day 03/05/2019 Active Muscle Rub 10-15 % Cream APPLY TO THE AFFECTED AREA(S) BEFORE BREAKFAST, BEFORE LUNCH, AND BEFORE SUPPER External; Duration: 20 Active Cetirizine HCl 10 MG Tablet TAKE 1 TABLET BY MOUTH EVERY MORNING, FOR ITCHING MAY REPEAT BEFORE BEDTIME NEEDED Oral; Duration: 30 L209,Unavaila ble Active Acetaminophen Extra Strength 500 MG Tablet TAKE 1 TABLET BY MOUTH EVERY 6 HOURS NEEDED FOR MILD PAIN Oral; Duration: 30 Active Immunizations Vaccine Route Administration Date Status Comme nts Influenza Unknown 02/04/2024 Administered Social History Tobacco Use: Social History Observation Description Date Details (start date - stop date) Never Smoker NA - NA Social History Drugs/Alcohol: Social Info Question Answer Notes Alcohol Screen Did you have a drink containing alcohol in the past year? 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 Section Notes: She does not smoke nor does she use any significant amounts of alcohol She does not smoke nor does she use any significant amounts of alcohol She does not smoke nor does she use any significant amounts of alcohol Problems Problem Type SNOMED Code ICD Code Onset Dates Problem Status W/U Status Risk Notes Problem Screening for malignant neoplasm of colon (580695049) Encounter for screening for malignant neoplasm of colon (Z12.11) Active confirmed Problem History of adenomatous polyp of colon (824472249) History of adenomatous polyp of colon (Z86.010) Active confirmed Problem Pre-procedure evaluation check (617653161) Pre-procedural examination (Z01.818) Active confirmed Problem Personal history of adenomatous and serrated colon polyps (Z86.0101) Active confirmed Vital Signs Temperature 96.9 degrees Fahrenheit 05/27/2024 Blood pressure diastolic 00 mm Hg 05/27/2024 Height 63 in 05/27/2024 Blood pressure systolic 000 mm Hg 05/27/2024 Weight 174 lbs 05/27/2024 BMI 30.82 kg/m2 05/27/2024 Encounters Encounter Location Date Provider Diagnosis [facility] Outpatient [address] [place], [place] [phone] 09/11/2024 Magen Green[place] Colon cancer screeni ng Z12.11 ; Personal history of colonic polyps Z86.0100 ; Diverticulosis of large intestine without perforation or abscess without bleeding K57.30 and Other hemorrhoids K64.8 [facility] [address] [place] [phone] 05/27/2024 Magen Greenfield History of adenomato us polyp of colon Z86.010 ; Pre-procedural examination Z01.818 and Encounter for screening for malignant neoplasm of colon Z12.11 [facility] [address] [place] [phone] 05/27/2024 Magen Greenfield Assessments Encounter Date Diagnosis (ICD Code) Assessment Notes Treatment Notes Treatment Clinical Notes Section Notes 09/11/2024 Colon cancer screening (ICD-10 - Z12.11) 09/11/2024 Personal history of colonic polyps (ICD-10 - Z86.0100) 05/27/2024 History of adenomatous polyp of colon [...] to keep you advised of her progress. 09/11/2024 Diverticulosis of large intestine without perforation or abscess without bleeding (ICD-10 - K57.30) 09/11/2024 Other hemorrhoids (ICD-10 - K64.8) Plan Of Treatment Future Test Test Name Order Date COLONOSCOPY 01/13/2013 COLONOSCOPY 03/03/2019 COLONOSCOPY 05/27/2024 Insurance Providers Payer Name Payer Address Payer Phone Subscriber Number Group Number Insured Name Patient Relationship to Insured Coverage Start Date Coverage End Date [facility] [address] [address] [place] [phone] [id number] JANELL DONAHUE Self - patient is the insured MEDICAID OF [facility] [address] [place] [address] [id number] JANELL DONAHUE Self - patient is the insured Medical (General) History Medical History History ICD Code Colonoscopy in October 2007 wit h removal of a single tubular adenoma-also noted was some sigmoid diverticulosis and internal hemorrhoids Denies CO,DM,CVA,Lung disease,renal dise ase Colonoscopy in 02/2013 with a small tubu lar adenoma removed HTN Prediabetes Colonoscopy 03/2019 with one small tubul ar adenoma removed Surgical History Surgery Date(Month/Year) Breast reduction surgery and liposuction from her abdominal wall [facility] 09/2018 Dr. Lopez
--- OUTSIDE RECORDS SUMMARY | 2025-04-16 13:22 | XMS_ITS | Clinical Summary ---
Author Organization [employer] Address 75 [facility] 7t [place] [address] Care Team Providers Care Drafting Supervisor Name Role Phone Yesenia Castle MD Primary Care Provider [phone] Allergies No known active allergies Medications * This document contains information received from the source organization and may not represent a complete record from that organization. Proctozone-HC 2.5 % rectal cream APPLY RECTALLY TWICE DAILY TO FOUR TIMES DAILY NEEDED FOR HEMORRHOIDS 023 Active triamcinolone (Kenalog) 0.1 % creamIndications :Allergic contact dermatitis, unspecified trigger Apply topically if needed in the morning and at bedtime (pain and swelling). Mix with cerave 80 g 2 025 Active Emollient (CeraVe Moisturizing) creamIndications :Allergic contact dermatitis, unspecified trigger Use daily 453 g 11 025 Active alpha tocopherol (Vitamin E) 400 units capsule Take 1 capsule (400 Units) by mouth Once per day. 90 capsule 3 025 2025 Active Acetaminophen Extra Strength 500 MG tablet TAKE 1 TABLET BY MOUTH EVERY 6 HOURS NEEDED FOR MILD PAIN 120 tablet 025 Active PEG 9979-MMa-AbUaa-N aCl-NaSulf (PEG-3350/Electr olytes) 236 g reconstituted solution USE DIRECTED FOR 1 DOSE 025 Active amLODIPine (Norvasc) 5 MG tabletIndication s:Essential hypertension TAKE 1 TABLET BY MOUTH EVERY DAY 90 tablet 3 025 Active cetirizine (ZyrTEC) 10 MG tabletIndication s:Atopic dermatitis, unspecified Take 1 tablet (10 mg) by mouth Once per day. 90 tablet 3 Active melatonin 3 MG tablet Take 3 mg by mouth if needed at bedtime for sleep. Active Melatonin 3 MG capsule Take 3 mg by mouth if needed at bedtime (insomnia). 90 capsule 3 Active Melatonin 3 MG capsule Take 3 mg by mouth if needed at bedtime (insomnia). 90 capsule 025 2024 Discontinued(R eorder (will not trigger notification to Pharmacy)) Active Problems Problem Noted Date Diagnosed Date Vitreous floaters of both eyes 11/16/2024 Assessment & Plan (11/16/2024 10:04 AM EDT): 3 days of painless unilateral floaters described as mosquitos, and spider webs, occurring now, and moving with field of vision Eye care is able to see patient currently, pt is heading to eye care, Tonsillitis 07/07/2024 Personal history of adenomatous and serrated col on polyps 07/02/2024 Encounter for screening for malignant neoplasm o f colon 04/18/2024 Allergic dermatitis 03/28/2023 Neck pain [...] (08/13/2022 10:23 AM EDT): Check lipids today Residual hemorrhoidal skin tags 08/06/2022 Backache 01/28/2012 Assessment & Plan (09/18/2023 2:22 [...] Problem Noted Date Diagnosed Date Resolved Date History of adenomatous polyp of colon 04/18/2024 03/11/2025 Anterior cervical lymphadenopathy 03/03/2024 04/18/2024 Assessment & Plan (03/03/2024 4:31 PM EDT): Could be inflammatory, rule out malignancy. Advised to use Tylenol for 3-[address] scan of the neck. Follow up with PCP. 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 12/27/2022 12/27/2023 Prediabetes 08/06/2022 03/11/2025 Assessment & Plan (08/13/2022 10:23 AM EDT): A1 checked today Borderline high cholesterol 05/31/2016 03/11/2025 Encounters Date Type Department Care Team Description 04/16/2025 10:30 AM EST Office Visit [address] [address] Yesenia Castle MD Dysuria (Primary Dx) 04/16/2025 Travel 04/15/[address] [address] Yesenia Castle MD chart prep 04/01/2025 Patient Outreach [address] [address] Yesenia Castle MD Pre-visit Planning (SDOH screening completed on 08/20/2024) 03/10/2025 3:15 PM EDT Office Visit [address] [address] Yesenia Castle MD TMJ pain dysfunction syndrome (Primary Dx); Pre-diabetes; Essential hypertension; Atopic dermatitis, unspecified; Encounter for vaccination; Allergic dermatitis; Primary insomnia; Mixed hyperlipidemia 03/10/2025 Travel 03/09/2025 Travel 03/09/[address] [address] Yesenia Castle MD chart prep 03/03/2025 Patient Outreach [address] [address] Yesenia Castle MD Pre-visit Planning (SDOH screening was completed on 08/20/2024) 02/15/2025 Refill [facility] [address] [place] [address] Celina Petersen MD 01/29/2025 8:00 AM EDT Office Visit [facility] [address] [place] [address] Rodo Yeung DMD 01/26/2025 Telephone [facility] [address] [place] [address] Yesenia Castle MD Nov Recall from Last 3 Months Immunizations Immunization Administration Dates Next Due Hep B, adult 03/13/2001,10/03/2000,08/12/2000 Influenza High-dose Quadriva lent Preservative Free 02/21/2022,02/23/2021 Influenza injectable quadriv alent IIV4 with preservative 06/26/2017,05/31/2016,03/25/2015 Influenza injectable quadriv alent preservative free 02/05/2023 Influenza, High Dose Seasona l, Preservative Free 02/10/2024,05/27/2019,02/27/2018 Influenza, IIV3, injectable 02/04/2024, 4,04/23/2011 Influenza, Split (incl. hermelinda fied surface antigen) 03/20/2013,01/28/2012 Influenza, trivalent, adjuvanted 02/23/2025 Moderna Covid-19 Vaccine 12+ 06/08/2021,08/18/19 21,07/20/2020 Moderna Covid-19 Vaccine 6+ Bivalent 06/13/2022 Pfizer Covid-19 Vaccine 12+ 03/10/2025, Pneumococcal Conjugate PCV 13 08/29/2016 Pneumococcal Polysaccharide [...] 04/16/2025 10:2 4 AM EST Oxygen Saturation 98% 03/10/2025 3:07 PM EDT Inhaled Oxygen Concentration - - Weight 79.7 kg (175 lb 12.8 oz) 025 10:24 AM EST Height 158 cm (5' 2.21 ) 04/16/2025 10: 24 AM EST Body Mass Index 31.94 04/16/2025 10:24 AM EST Plan of Treatment Upcoming Encounters Date Type Department Care Team (Late st Contact Info) Description 07/16/2025 8:00 AM EST Office Visit [facility] [address] [place] [address] Rebecca Harper [address] [place] [address] Health Maintenance Due Date Last Done Comments CT Colonography 1950 FIT DNA/Cologuard 1950 FIT 1950 FOBT 1950 Sigmoidoscopy 1950 Colonoscopy 03/31/2024 03/31/2019, 02/11/2013 Mammogram 05/19/2025 05/19/2024, 04/12, 04/28/2021, Additional history exists Dental Prophylaxis 07/09/2025 01/05/2025, 0 07/07/2024, 01/02/2024, Additional history exists Dental Oral Exam 07/30/2025 01/29/2025, , 06/14/2023, Additional history exists SDOH Screening 08/20/2025 08/20/2024 COVID-19 Vaccine ( season) 2025 03/10/2025, 02/10/2024, 06/13/2022, Additional history exists Dental X-Ray: Bitewings 01/30/2026 01/30/20 25, 07/07/2024, 06/03/2023, Additional history exists Diabetes: Hemoglobin A1C 03/10/2026 025, 01/06/2024, 08/28/2022, Additional history exists Tobacco Screening 03/10/2026 03/10/2025 Alcohol/Substance Use Screening 04/16/2026 04/16/2025 Depression Screening 04/16/2026 04/16/2025, 04/16/20 25 RSV Patients and Patients Aged 60 years [...] 02/04/2020, 05/27/2019 Hepatitis C Screening Completed 01/06/2024 Influenza Vaccine Completed 02/23/2025, , 02/04/2024, Additional history exists Colorectal Cancer Screening Discontinued HIB Vaccines Aged Out No longer eligi [...] patient's age to complete this topic Meningococcal B Vaccine Aged Out No l onger eligible based on patient's age to complete [...] Procedure Name Priority Date/Time Associated Diagnosis Comments POCT GLYCATED HEMOGLOBIN, TOTAL Routine 03/10/2025 3:10 PM EDT Pre-diabetes POCT GLUCOSE Routine 03/10/2025 3:09 PM EDT Pre-diabetes AMB REFERRAL TO VASCULAR SURGERY Routine 02/25/2025 Pain due to varicose veins of both lower extremities INTRAORAL - PERIAPICAL EACH ADDITIONAL RADIOGRAPHIC IMAGE Routine 01/29/2025 8:00 AM EDT INTRAORAL - PERIAPICAL FIRST RADIOGRAPHIC IMAGE Routine 01/29/2025 8:00 AM EDT BITEWINGS - 4 RADIOGRAPHIC IMAGES Routine 01/29/2025 8:00 AM EDT CASE PRESENTATION, DETAILED AND EXTENSIVE TREATMENT PLANNING Routine 01/29/2025 8:00 AM EDT PERIODIC ORAL EVALUATION - ESTABLISHED PATIENT Routine 01/29/2025 8:00 AM EDT PROPHYLAXIS - ADULT Routine 01/05/2025 3 :00 PM EDT Dental plaque INTRAORAL - COMPLETE SERIES OF RADIOGRAPHIC IMAGES Routine 07/07/2024 9:00 AM EST Dental plaque Missing teeth, acquired Localized gingival recession BI MAMMOGRAM SCREENING TOMOSYNTHESIS BILATERAL Routine 05/19/2024 9:30 AM EST HEPATITIS C AB W/REFL TO HCV RNA, QN, PCR Routine 01/06/2024 9:03 AM EDT Healthy adult on routine physical examination LIPID PANEL, STANDARD Routine 01/06/2024 9:03 AM EDT Other hyperlipidemia HM COLONOSCOPY Routine 03/31/2019 from Last 3 Months or Most Recently Relevant to Health Maintenance Results * POCT Hgb A1c (03/10/2025 3:10 PM EDT) Hemoglobin A1C 5.7 4.0 - 5.7 % QC Media Lot # [id number] Lot# Expiration Date [id number] Blood 03/10/2025 3:10 PM EDT us Yesenia Castle MD POINT OF CARE TEST ENTER/EDIT ORDERABLES Final Result * POCT Glucose (03/10/2025 3:09 PM EDT) Glucose Blood, POC 129 60 - 200 mg/dL QC Media Lot # [id number] Lot# Expiration Date 31,126 Blood Capillary blood specimen / Unknown 03/10/2025 3:09 PM EDT us Yesenia Castle MD POINT OF CARE TEST ENTER/EDIT ORDERABLES Final Result * Referral to Vascular Surgery (02/25/2025) us Yesenia Castle MD OUTPATIENT REFERRAL ORDERABLES Final Result * BI Mammogram Screening Tomosynthesis Bilateral (05/19/2024 9:30 AM EST) Anatomical Region Laterality Modality Breast Bilateral Mammography 05/19/2024 9:30 AM EST Narrative 05/25/2024 3:49 PM EST [facility] [address] [place], [place] [address] Mammography Report Signed Patient: Janell Guerrero MR#: [id number] 71 : 1950 Acct:[id number] Age/Sex: 73 / F ADM Date: 05/19/24 Loc: HO.MAMMO Attending Dr: Yesenia Castle MD Ordering Physician: Yesenia Castle Results: 2Benign F indings Date of Service: 05/19/24 Follow Up: 1 Year From Orig inal Mammogram Procedure(s): MM tomosynthesis screening BI Accession Number(s): [id number] cc: Yesenia Castle EXAMINATION: MM SCREENING DIGITAL [...] 05/25/24 1546 DD/ 0930 TD/TT: 05/19/24 0949 Truck Loader Overhead Crane: Procedure Note Donotuseinterpreter, Image - 05/25/2024 [facility] [address] [place], [place] [address] Mammography Report Signed Patient: Inés Guerrero#: [id number] [birth year] : 2Acct:[id number] Age/Sex: 73 / FADM Date: 05/19/24 Loc: HO.MAMMO Attending Dr: eYsenia Castle MD Ordering Physician: Ang Castleults: 2Benign F indings Date of Service: 05/19/24Follow Up: 1 Year From Orig inal Mammogram Procedure(s): MM tomosynthesis screening BI Accession Number(s): [id number] cc: Yesenia Castle EXAMINATION: MM SCREENING DIGITAL [...] 05/25/24 1546 DD/ 0930 TD/TT: 05/19/24 0949 Truck Loader Overhead Crane: Yesenia Castle MD IMG BI PROCEDURES Final Result * Hepatitis C Antibody with Reflex to HCV, RNA, Quantitative, Real-Time PCR (01/06/2024 9:03 AM EDT) Hepatitis C Antibody Nonreactive Nonreactive [facility] Comment:Antibodies to HCV no t detected; does not exclude early acuteHCV infection. Blood Venous blood specimen / Unknown 01/06/2024 9:03 AM EDT 01/06/2024 11:49 AM EDT Yesenia Castle MD LAB BLOOD ORDERABLES Final Res ult Performing Organization Address [facility] de Phone Number [facility] [address] [place] [phone] * (ABNORMAL) Lipid Panel, Standard (01/06/2024 9:03 AM EDT) Triglycerides 90 <150 mg/dL [facility] Comment:Desirable Triglyceri de: less than 150 mg/dLBorderline High Triglyceride 150-199 mg/dLHigh Triglyceride: 200-499 mg/dLVery High Triglyceride: greater than or equal to 5OO mg/dL Cholesterol 217(H) <200 mg/dL [facility] Comment:Desirable Cholestero l: less than 200 mg/dLBorderline High Cholesterol: 200-239 mg/dLHigh Cholesterol: greater than 239 mg/dL LDL Cholesterol Calculated 142(H) <100 mg/dL [facility] Comment:Desirable LDL: less than 100 mg/dLNear Optimal/Above Optimal LDL: 110- 129 mg/dLBorderline High LDL: 130-159 mg/dLHigh LDL: 160-189 mg/dLVery High LDL: greater than or equal to 190 mg/dL HDL Cholesterol 57 >40 mg/dL [facility] Comment:Desirable HDL: great er than 40 mg/dL Note: This HDL assay may give artificially low results in patients with liver disease. Blood Venous blood specimen / Unknown 01/06/2024 9:03 AM EDT 01/06/2024 11:49 AM EDT Yesenia Castle MD LAB BLOOD ORDERABLES Final Res ult Performing Organization Address [facility] Co de Phone Number [facility] [address] [place] [address] [phone] * Hm Colonoscopy (03/31/2019) us Historical Provider MD HEALTH MAINTENANCE Final Result from Last 3 Months or Most Recently Relevant to Health Maintenance Insurance [facility] STANDARD UHC DUAL COMPLETE DENTAL - [facility] Care Teams Drafting Supervisor Relationship Specialty Start Date End Date Yesenia Castle MD [address] [place] [phone] PCP - General Family Medicine 07/13/22
--- OUTSIDE RECORDS SUMMARY | 2025-04-16 13:22 | XMS_ITS | Encounter Summary ---
Author Organization [employer] [facility] Address [address] [facility] 7t [place] [address] Care Team Providers Care Log Haul Chain Feeder Name Role Phone Yesenia Castle MD Primary Care Provider [phone] Encounter Details Date Type Department Care Team (Late Contact Info) Description 01/16/2023 Orders Only [facility] [address] [place] [address] Provider, MD Mar Social History Tobacco Use [...] Description 07/16/2025 8:00 AM EST Office Visit [facility] [address] [place], [place] [phone] Rebecca Harper [address] [place] [address] documented as of this encounter Procedures Procedure [...] documented as of this encounter Care Teams Log Haul Chain Feeder Relationship Specialty Start Date End Date Yesenia Castle MD [address] [place] [address] PCP - General Family Medicine 07/13/22 documented as of this encounter
--- OUTSIDE RECORDS SUMMARY | 2025-04-16 13:23 | XMS_ITS | Encounter Summary ---
Author Organization [employer] Address [address] [facility] 7t [place] [address] Care Team Providers Care Hospital Attendant Name Role Phone Yesenia Castle MD Primary Care Provider [phone] Reason for Referral * Consultation (Urgent) - Closed Specialty Diagnoses / Procedures Referred By Contac t Referred To Contact General Surgery Diagnoses Cervical lymphadenopathy Yesenia Castle MD [address] [place] [address] Phone: tel: fax: [facility] [address] Floor [place], [place] Phone: tel: fax: Referral ID Status Reason Start Date Expiration Date V isits Requested Visits Authorized [id number] Closed Specialty Services Required 05/22/2024 05/22/2025 1 1 Encounter Details Date Type Department Care Team (Late st Contact Info) Description 05/22/2024 Orders Only [facility] [address] [place], [place] [phone] Yesenia Castle MD [address] [place], [place] [phone] Cervical lymphadenopathy (Primary Dx) Social History Tobacco [...] Description 07/16/2025 8:00 AM EST Office Visit [facility] [address] [place] [address] Rebecca Harper [address] [place] [address] Scheduled Referrals Name Type Priority Associated Diagnoses [...] (Monitor) w/Refl Titer NON-REACTI VE NON-REACT [facility] Comment:THIS TEST WAS PERFOR MED AT:[facility] [address] [phone] MASTERS MD Rapid Plasma Reagin Ab Titer TNP [facility] Blood Venous blood specimen / Unknown 05/26/2024 8:31 AM EST 05/26/2024 11:19 AM EST us Yesenia Castle MD LAB BLOOD ORDERABLES Final Res ult [facility] [address] [place] [address] [phone] * HIV-1/2 Antigen and Antibodies, Fourth Generation, with Reflexes (05/26/2024 8:31 AM EST) HIV AB/AG Nonreactive Nonreactive [facility] Comment:HIV-1 p24 Ag and/or HIV-1/HIV-2 Ab not detected.A test result that is nonreactive does not exclude thepossibility of exposure to or infection with HIV-1 and/orHIV-2. Nonreactive results in this assay for individualswith prior exposure to HIV-1 and/or HIV-2 may be due toantigen and antibody levels that are below the limit ofdetection of this assay.The [employer] HIV Ag/Ab Combo assay result andsupplemental assay results should be interpreted inconjunction with the patient's clinical presentation,history and other laboratory results. If the results areinconsistent with clinical evidence, additional testing issuggested to confirm the result. Blood Venous blood specimen / Unknown 05/26/2024 8:31 AM EST 05/26/2024 11:19 AM EST Yesenia Castle MD LAB BLOOD ORDERABLES Final Res ult Performing Organization Address City/[facility]/ZIP Co de Phone Number [facility] [address] [place] [phone] * Lactate Dehydrogenase (LD) (05/26/2024 8:31 AM EST) Pathologist [facility] Lactate Dehydrogenase 210 122 - 220 U/L [facility] Blood Venous blood specimen / Unknown 05/26/2024 8:31 AM EST 05/26/2024 11:19 AM EST Yesenia Castle MD LAB BLOOD ORDERABLES Final Res ult Performing Organization Address City/[facility] Co de Phone Number [facility] [address] [place] [phone] * Sed Rate by Modified Pedroren (05/26/2024 8:31 AM EST) Erythrocyte Sedimentation Rate 10 0 - 20 MM/HR [facility] Comment:Patients with polycy themia and many hemoglobin abnormalitiesmay have depressed sed rates whereas patients with anemiamay have elevated sed rates. Blood Venous blood specimen / Unknown 05/26/2024 8:31 AM EST 05/26/2024 11:19 AM EST us Yesenia Castle MD LAB BLOOD ORDERABLES Final Res ult [facility] [address] [place] [phone] * (ABNORMAL) CBC auto differential (05/26/2024 8:31 AM EST) White Blood Count 6.5 4.8 - 10.8 X10*3/uL [facility] Red Blood Count 4.70 4.20 - 5.50 X10*6/uL [facility] Hemoglobin 13.2 12.0 - 16.0 g/dl [facility] Hematocrit 40.4 37.0 - 47.0 % [facility] Mean Corpuscular Volume 86.0 80.0 - 98.0 fL [facility] Mean Corpuscular Hemoglobin 28.1 27.0 - 33.0 pg [facility] Mean Corpuscular HGB Conc 32.7 31.0 - 35.0 g/dl [facility] Red Cell Distribution Width 13.9 11.0 - 16.0 % [facility] Platelet Count 300 160 - 400 X10*3/uL [facility] Mean Platelet Volume 10.3 9.4 - 12.3 fL [facility] Neutrophils Percent Auto 61.7 45 - 73 % [facility] Imm Gran Pct Auto 0.5(H) 0.0 - 0.4 % [facility] Lymphocytes Percent Auto 25.5 20 - 40 % [facility] Monocytes Percent Auto 8.2 2 - 11 % [facility] Eosinophils Percent Auto 3.5 0 - 4 % [facility] Basophils Percent Auto 0.6 0 - 2 % [facility] NRBC Pct Auto 0.0 0.0 - 0.2 /100WBC [facility] Neutrophils Absolute Auto 4.0 2.0 - 8.3 x10*3/uL [facility] Imm Gran Abs Auto 0.03 0.00 - 0.03 X10*3/uL [facility] Lymphocytes Absolute Auto 1.7 1.2 - 4.9 X10*3/uL [facility] Monocytes Absolute Auto 0.5 0.1 - 1.2 X10*3/uL [facility] Eosinophils Absolute Auto 0.2 0.0 - 0.4 X10*3/uL [facility] Basophils Absolute Auto 0.0 0.0 - 0.2 X10*3/uL [facility] NRBC Abs Auto 0.000 0.0 - 0.012 X10*3/uL [facility] Blood Venous blood specimen / Unknown 05/26/2024 8:31 AM EST 05/26/2024 11:19 AM EST us Yesenia Castle MD LAB BLOOD ORDERABLES Final Res ult [facility] [address] [place] [phone] [phone] documented in this encounter Visit Diagnoses Diagnosis Cervical lymphadenopathy- Primary Enlargement of lymph nodes documented in this encounter Additional Health Concerns Assessment Noted Time PHQ-9 Depression Total Score: 2 12/25/19 24 2:13 PM EDT documented as of this encounter Care Teams Hospital Attendant Relationship Specialty Start Date End Date Yesenia Castle MD [address] [place] [phone] PCP - General Family Medicine 07/13/22 documented as of this encounter
--- OUTSIDE RECORDS SUMMARY | 2025-04-16 13:23 | XMS_ITS | Encounter Summary ---
Author Organization [employer] [facility] Address [address] [facility] 7t [place] [address] Care Team Providers Care Senior Risk Analyst Name Role Phone Leon Cortez MD Primary Care Provider Yesenia Baeza MD Primary Care Provider [phone] Encounter Details Date Type Department Care Team (Latest Contact Info) Description 10/03/2018 Abstract [facility] CONVERSIONS Dental, Provider, DDS Social History Tobacco [...] Care Team ( st Contact Info) Description 07/16/2025 8:00 AM EST Office Visit [facility] [address] [place] [address] Leroy, Rebecca [address] [place] [address] documented as of this encounter Visit Diagnoses Not on filedocumented in this encounter Care Teams Senior Risk Analyst Relationship Specialty Start Date End Date Leon Cortez MD PCP - General Family Medicine 10/29/19 07/12/22 Yesenia Castle MD [address] [place] [address] PCP - General Family Medicine 07/13/22 documented as of this encounter
--- OUTSIDE RECORDS SUMMARY | 2025-04-16 13:23 | XMS_ITS | Encounter Summary ---
Author Organization [employer] Address [address] [facility] 7t [place] [address] Care Team Providers Care Adobe Layer Name Role Phone Yesenia Castle MD Primary Care Provider Encounter Details Date Type Department Care Team (Latest Contact Info) Description 04/16/2025 Travel Social History Tobacco Use Types Packs/Day [...] AM EDT documented as of this encounter Functional Status * Over the [...] of Assessment Author 2 04/16/2025 10:35 AM Natalei Barriga MA * Over the last 2 [...] annoyed or irritable 0 04/16/2025 10:35 AM Natalie Barriga MA Feeling afraid as if somethi ng awful might happen 0 04/16/2025 10:35 AM Natalie Barriga MA CURTIS-7 Total Score 0 04/16/2025 10:35 AM Natalie Barriga MA documented as of this encounter Plan of Treatment Upcoming Encounters Date Type Department Care Team (Late st Contact Info) Description 07/16/2025 8:00 AM EST Office Visit [facility] [address] [place] [address] LeroyEsdrasRebecca [address] [place] [address] documented as of this encounter Visit Diagnoses Not on filedocumented in this encounter Additional Health Concerns Assessment Noted Time PHQ-9 Depression Total Score: 2 04/16/20 10:35 AM EST documented as of this encounter Care Teams Adobe Layer Relationship Specialty Start Date End Date Yesenia Castle MD [address] [place] [address] PCP - General Family Medicine 07/13/22 documented as of this encounter
--- OUTSIDE RECORDS SUMMARY | 2025-04-16 13:23 | XMS_ITS | Encounter Summary ---
Author Organization [employer] Address [address] [facility] [address] [place] [address] Care Team Providers Care Filters Assembler Name Role Phone Yesenai Castle MD Primary Care Provider [phone] Reason for Visit * Reason Onset Date Comments chart prep 04/15/2025 Encounter Details Date Type Department Care Team ([facility] st Contact Info) Description 04/15/2025 Telephone [facility] MEDICINE [address] [place] [address] Yesenia Castle MD [address] [place] [address] chart prep Social History Tobacco Use Types Packs/Day Years [...] encounter Miscellaneous Notes * Telephone Encounter - Adilia Rivera [place] - 04/15/2025 3:30 PM EST Chart Prep Labs: done Images: not done Referrals: complete Vaccines due: not applicable Screenings: colonoscopy Overdue care gaps: SBIRT, PHQ-9, and CURTIS-7 documented in this encounter Plan of Treatment Upcoming Encounters Date Type Department Care Team (Late st Contact Info) Description 07/16/2025 8:00 AM EST Office Visit [facility] ADULT DENTAL [address] [place] [address] Leroy, Rebecca [address] [place] [address] documented as of this encounter Visit Diagnoses Not on filedocumented in this encounter Additional Health Concerns Assessment Noted Time PHQ-9 Depression Total Score: 0 08/29/19 25 2:11 PM EDT documented as of this encounter Care Teams Filters Assembler Relationship Specialty Start Date End Date Yesenia Castle MD [address] [place] [address] PCP - General Family Medicine 07/13/22 documented as of this encounter
--- OUTSIDE RECORDS SUMMARY | 2025-04-16 13:23 | XMS_ITS | Encounter Summary ---
Author Organization [employer] [facility] Address [address] [facility] [address] [place] [address] Care Team Providers Care Core Maker Name Role Phone Leno Cortez MD Primary Care Provider Yesenia Baeza MD Primary Care Provider [phone] Encounter Details Date Type Department Care Team (Latest Contact Info) Description 02/12/2022 Abstract [facility] CONVERSIONS Dental, Provider, DDS Social History Tobacco [...] Description 07/16/2025 8:00 AM EST Office Visit [facility] ADULT DENTAL [address] [place] [address] Leroy, Rebecca [address] [place] [address] documented as of this encounter Visit Diagnoses Not on filedocumented in this encounter Care Teams Core Maker Relationship Specialty Start Date End Date Leon Cortez MD PCP - General Family Medicine 10/29/19 07/12/22 Yesenia Castle MD [address] [place] [address] PCP - General Family Medicine 07/13/22 documented as of this encounter
--- OUTSIDE RECORDS SUMMARY | 2025-04-16 13:23 | XMS_ITS | Encounter Summary ---
Author Organization [employer] Address [address] [facility] [address] [place] [address] Care Team Providers Care Hide Cleaner Name Role Phone Yesenia Castle MD Primary Care Provider [phone] Encounter Details Date Type Department Care Team (Late st Contact Info) Description 07/18/2023 Orders Only [facility] [address] [place], [place] [phone] ProviderMar MD Social History Tobacco Use Types [...] Office Visit [facility] ADULT DENTAL [address] [place] [address] LeroyRebecca [address] [place] [address] documented as of this encounter Procedures Procedure Name Priority Date/Time Associated Diagnosis Comments HM COLONOSCOPY Routine 02/11/2013 10:07 AM EDT documented in this encounter Results * Hm Colonoscopy (02/11/2013 10:07 AM EDT) Historical Provider HEALTH MAINTENANCE Final Result documented in this encounter Visit Diagnoses Not on filedocumented in this encounter Additional Health Concerns Assessment Noted Time PHQ-9 Depression Total Score: 8 12/28/19 23 10:42 AM EDT documented as of this encounter Care Teams Hide Cleaner Relationship Specialty Start Date End Date Yesenia Castle MD [address] [place] [address] PCP - General Family Medicine 07/13/22 documented as of this encounter
--- OUTSIDE RECORDS SUMMARY | 2025-04-16 13:23 | XMS_ITS | Encounter Summary ---
Author Organization [facility] Address [address] [facility] [address] [place] [address] Care Team Providers Care Sales Representative [employer] Name Role Phone Leon Cortez MD Primary Care Provider Yesenia Baeza MD Primary Care Provider [phone] Encounter Details Date Type Department Care Team (Latest Contact Info) Description 01/10/2021 Abstract [facility] CONVERSIONS Dental, Provider, DDS Social History [...] Description 07/16/2025 8:00 AM EST Office Visit [facility] ADULT DENTAL [address] [place] [address] Leroy, Rebecca [address] [place] [address] documented as of this encounter Visit Diagnoses Not on filedocumented in this encounter Care Teams Sales Representative [employer] Relationship Specialty Start Date End Date Leon Cortez MD PCP - General Family Medicine 10/29/19 07/12/22 Yesenia Castle MD [address] [place] [address] PCP - General Family Medicine 07/13/22 documented as of this encounter
[2025-04-16 13:37] LABS: Appearance Urine Clear; Glucose Urine UA Negative (Negative); PH 5.0 (5.0-9.0); Specific Gravity - Urine 1.020 (1.005-1.025); UMIC TRIGGER UACC YES
== END 2025-04-16 10:51 | disposition home or self-care (01) ==
LOC: HO.HHCL 10:50
PROVIDERS: PCP General Practice; Visit Provider General Practice
DX: R30.0 Dysuria (principal)
CPT/HCPCS: 81001